=== PATIENT | male | born 1940 | race Caucasian/White ===

== ENCOUNTER → 2016-04-03 | Outpatient (CLI) | payer BC ==
[~2016-04-03] MED LIST: ASPI81TA28 PO; CLN150 PO; DUTA0.5C PO; DYZ PO; FENT50DI19 TD; FLM4 PO; FLNIN NAE; GABA1CAP4 PO; LPT40 PO; METO1TAB70 PO; OMEP20CA9 PO; OXYC-106 PO; OXYC-164 PO
--- NOTE | 2016-04-03 12:35 | DIAGNOSTIC IMAGING REPORT ---
LUMBAR SPINE 5 VIEWS HISTORY: Pain ACUTE LOW BACK PAIN COMPARISON: None. FINDINGS: There is no fracture. Minimal grade 1 anterolisthesis of L2 on L3. Findings consistent posterior laminectomy and fusion from L2 through L4. Hardware appears to be intact. Considerable degenerative intervertebral this changes from L2 through S1. IMPRESSION: Considerable degenerative change. Postoperative change consistent with posterior laminectomy and fusion L2-L4. No acute process. Electronically signed by: Jackson Mcclellan M.D. 04/03/2016 12:34 PM Dictated Date/Time: 04/03/2016 12:33 PM
== END | disposition home or self-care (01) ==
LOC: C.RAD1850 12:17
PROVIDERS: ATTEND Family Medicine
DX: M54.5 Low back pain (principal); Z98.1 Arthrodesis status

== ENCOUNTER → 2016-04-06 | Outpatient (CLI) | payer BC ==
--- NOTE | 2016-04-06 12:37 | DIAGNOSTIC IMAGING REPORT ---
CERVICAL SPINE 7 VIEWS HISTORY: Pain M54.2 COMPARISON: None. FINDINGS: The cervical spine is visualized from C1 through the superior endplate of T1. There is no fracture. No subluxation. Findings of an anterior fusion of the upper and mid cervical region. Alignment is considered anatomic. There is moderate degenerative intervertebral this changes throughout. Moderate osteophytic narrowing of the bulk of the neural foramina is noted bilaterally. Prevertebral soft tissues and the atlantodens interval are intact. IMPRESSION: Degenerative and postoperative change. No acute bony abnormality. Electronically signed by: Jackson Mcclellan M.D. 04/06/2016 12:36 PM Dictated Date/Time: 04/06/2016 12:34 PM
== END | disposition home or self-care (01) ==
LOC: C.RAD1850 12:18
PROVIDERS: ATTEND Family Medicine
DX: M54.2 Cervicalgia (principal)

== ENCOUNTER → 2016-05-16 | Outpatient (CLI) | payer BC | END | disposition home or self-care (01) | LOC: C.MAMM 13:53 | PROVIDERS: ATTEND Family Medicine | DX: I10 Essential (primary) hypertension (principal); E78.2 Mixed hyperlipidemia; M85.852 Other specified disorders of bone density and structure, left thigh; M85.839 Other specified disorders of bone density and structure, unspecified forearm ==

== ENCOUNTER → 2016-10-02 | Outpatient (CLI) | payer BC ==
--- NOTE | 2016-10-02 10:41 | DIAGNOSTIC IMAGING REPORT ---
RIGHT WRIST MIN 3 VIEWS ROUTINE CLINICAL HISTORY: Right wrist pain TRAUMA COMPARISON: None. DISCUSSION: The bones are osteopenic. No acute fractures or dislocations are visualized. There are no erosive changes. IMPRESSION: Osteopenia. No acute fractures. Electronically signed by: Torito Srivastava M.D. 10/02/2016 10:40 AM Dictated Date/Time: 10/02/2016 10:39 AM
--- NOTE | 2016-10-02 11:11 | DIAGNOSTIC IMAGING REPORT ---
C-SPINE ROUTINE 4 OR 5 VIEWS CLINICAL HISTORY: Headache. COMPARISON STUDY: Cervical spine radiographs April 06, 2016. FINDINGS: The patient is status post C3-C5 anterior discectomy and fusion. Postoperative appearance is similar to prior exam with reversal of the normal cervical lordosis. There is lucency surrounding the screws at the C3 level. Hardware is intact. There is no acute cervical spine fracture. There is moderate to severe multilevel degenerative disc disease and facet arthrosis. This results in severe multilevel bony neural foraminal stenosis. IMPRESSION: 1. Status post C3-C5 anterior discectomy and fusion. Lucency surrounding the C3 screws may reflect loosening. 2. Unchanged appearance of the cervical spine since prior exam. No acute fracture. Reversal of the normal cervical lordosis with moderate to severe multilevel degenerative disc disease and facet arthrosis. Electronically signed by: Aureliano Aguilar M.D. 10/02/2016 11:10 AM Dictated Date/Time: 10/02/2016 11:05 AM
== END | disposition home or self-care (01) ==
LOC: C.RAD1850 10:08
PROVIDERS: ATTEND Family Medicine
DX: M25.531 Pain in right wrist (principal); R51 Headache

== ENCOUNTER → 2017-04-03 | Outpatient (CLI) | payer BC ==
[~2017-04-03] MED LIST changes: +GABA-1219 PO; -GABA1CAP4 PO; -METO1TAB70 PO; +METO200T31 PO
--- NOTE | 2017-04-03 14:36 | DIAGNOSTIC IMAGING REPORT ---
PELVIS 1 OR 2 VIEW ROUTINE CLINICAL HISTORY: LEFT ISCHIAL PAIN COMPARISON STUDY: No previous studies for comparison. FINDINGS: There are postsurgical changes present within the spine. There are degenerative changes present within the lower lumbar spine. No acute fractures are visualized. There are calcifications within the left acetabular labrum. The joint spaces of each hip appear relatively well preserved for age. IMPRESSION: 1. Degenerative postsurgical changes of the spine 2. No acute fractures. The joint space of each hip appears relatively well preserved for age Electronically signed by: Torito Srivastava M.D. 04/03/2017 2:34 PM Dictated Date/Time: 04/03/2017 2:33 PM
== END | disposition home or self-care (01) ==
LOC: C.RAD1850 13:58
PROVIDERS: ATTEND Family Medicine
DX: M25.552 Pain in left hip (principal); Z88.7 Allergy status to serum and vaccine

== ENCOUNTER → 2017-06-13 | Outpatient (CLI) | payer BC ==
--- NOTE | 2017-06-13 16:32 | DIAGNOSTIC IMAGING REPORT ---
R KNEE 2 VIEWS ROUTINE CLINICAL HISTORY: M25.569 RIGHT KNEE PAIN COMPARISON: 08/03/2015 DISCUSSION: The bones are mildly osteopenic. There are no acute fractures. There are very mild osteoarthritic changes with minimal medial joint compartment narrowing and moderate degenerative changes within the patellofemoral joint. IMPRESSION: Minor osteoarthritic change. No acute fractures. Electronically signed by: Torito Srivastava M.D. 06/13/2017 4:31 PM Dictated Date/Time: 06/13/2017 4:30 PM
--- NOTE | 2017-06-13 16:34 | DIAGNOSTIC IMAGING REPORT ---
L KNEE 2 VIEWS ROUTINE CLINICAL HISTORY: M25.569 LEFT KNEE PAIN COMPARISON: None. DISCUSSION: The bones are osteopenic. There are very mild osteoarthritic changes present with moderate medial joint compartment narrowing and small dorsal patellar spurs. Fragmentation of the anterior tibial tuberosity is felt to be chronic. There is mild soft tissue swelling at the level of the anterior tibial tuberosity IMPRESSION: 1. Osteopenia 2. No acute fractures 3. Mild osteophytic change 4. Mild soft tissue swelling at the level of the anterior tibial tuberosity Electronically signed by: Torito Srivastava M.D. 06/13/2017 4:32 PM Dictated Date/Time: 06/13/2017 4:31 PM
--- NOTE | 2017-06-13 16:54 | DIAGNOSTIC IMAGING REPORT ---
BILATERAL STANDING AP VIEWS OF THE KNEES CLINICAL HISTORY: Bilateral knee pain COMPARISON: None. DISCUSSION: The bones are osteopenic. There is minor medial joint compartment narrowing. There are no fractures. There are no erosive or destructive changes. IMPRESSION: Osteopenia. Minor medial joint compartment narrowing. Electronically signed by: Torito Srivastava M.D. 06/13/2017 4:53 PM Dictated Date/Time: 06/13/2017 4:52 PM
== END | disposition home or self-care (01) ==
LOC: C.RAD1850 15:42
PROVIDERS: ATTEND Family Medicine
DX: M25.569 Pain in unspecified knee (principal); M85.88 Other specified disorders of bone density and structure, other site

== ENCOUNTER → 2017-06-19 | Outpatient (CLI) | payer BC ==
[~2017-06-19] MED LIST changes: -OXYC-106 PO; +OXYC10TA80 PO
--- NOTE | 2017-06-19 15:45 | DIAGNOSTIC IMAGING REPORT ---
RIGHT LOWER EXTREMITY VENOUS DOPPLER CLINICAL HISTORY: Right calf pain. COMPARISON STUDY: No previous studies for comparison. TECHNIQUE: Sonography of the deep venous system of the right lower extremity was performed. Compression and augmentation were evaluated. FINDINGS: The right common femoral, superficial femoral and popliteal veins were compressible. Augmentation was normal. Flow was shown within the deep calf vessels. Note is made of a 19.4 x 2 x 4.6 cm elongated hypoechoic abnormality of the right calf. This contains no color flow. The appearance favors a hematoma which may be subfascial in location. IMPRESSION: 1. No evidence of deep venous thrombus within the right lower extremity. 2. 19.4 x 2 x 4.6 cm elongated complex fluid collection of the right mid to distal calf which may be subfascial in location. This favors a hematoma. A follow-up ultrasound in 2 months to ensure resolution is recommended. Electronically signed by: Aureliano Aguilar M.D. 06/19/2017 3:44 PM Dictated Date/Time: 06/19/2017 3:40 PM
== END | disposition home or self-care (01) ==
LOC: C.ULTRBC 15:08
PROVIDERS: ATTEND Family Medicine
DX: M79.661 Pain in right lower leg (principal)

== ENCOUNTER 2017-06-21 11:23 | Emergency (ER) | payer BC ==
[~2017-06-21] VITALS: Ht 177.8 cm; Wt 90.4 kg
[2017-06-21 11:40] VITALS: TEMP 36.8; Ht 177.8 cm; Wt 90.4 kg
--- NOTE | 2017-06-21 12:20 | EMERGENCY ROOM VISIT NOTE ---
History Report prepared by Merari: Michael Perry Under the Supervision of: Dr. Sarabjit Baez M.D. First contact with patient: 11:49 Chief Complaint: INFECTION Stated Complaint: LOWER RT LEG SWOLLEN Nursing Triage Summary: Patient reports pain in right lower leg. Started about 2 weeks ago. No break in skin. Denies injury to leg. History of Present Illness The patient is a 76 year old male who presents to the Emergency Room with complaints of worsening right leg swelling for the past week. The patient states that he had an ultrasound done two days ago, and it was negative for a blood clot. He notes that the swelling has not gotten any worse, though it has had a change in color on the back of his leg. The patient states that the swelling started at his right knee, and then it went to his foot and thigh. He reports that he has some pain in the back of his knee. He denies any recent falls or injuries, fever, chills, cough, congestion, nausea, vomiting, or diarrhea. The patient states that he is not on any blood thinners or water pills. He states that prior to a week ago his leg looked similar to his left leg. Per the , the patient had a cyst behind the right knee on the ultrasound, and he has to evaluated by an orthopedist. Source of History: patient, spouse/significant other Onset: a week ago Position: leg (right) Quality: other (swelling) Timing: worsening Associated Symptoms: No fevers, No chills, No cough, No nausea, No vomiting , No diarrhea Review of Systems See HPI for pertinent positives and negatives. A total of ten systems were reviewed and were otherwise negative. Past Medical & Surgical Medical Problems: (1) CERV SPONDYL W MYELOPATH (2) ESOPHAGEAL REFLUX (3) HYPERLIPIDEMIA NEC/NOS (4) HYPERTENSION NOS (5) SPINAL STENOSIS-LUMBAR Family History Cancer Diabetes mellitus Heart disease Hypertension Social History Smoking Status: Never Smoker Marital Status: Housing Status: lives with family Current/Historical Medications Scheduled Aspirin (Aspirin Ec), 81 MG PO QAM Atorvastatin (Lipitor), 40 MG PO HS Cephalexin Monohydrate (Keflex), 500 MG PO QID Cholecalciferol (D-5000), 5,000 UNITS PO DAILY Docusate Sodium (Colace), 100 MG PO BID Fentanyl (Fentanyl), 25 MCG TD [id number] Gabapentin (Gabapentin), 600 MG PO QID Ibuprofen (Advil), 800 MG PO DAILY Lidocaine (Lidocaine), 1 PATCH TOP DAILY Metoprolol Succ (Toprol Xl) (Toprol-Xl ), 100 MG PO DAILY Misc Natural Products (Saw [place]), 1 CAP PO DAILY Multivitamin (Multivitamin), 1 TAB PO DAILY Omeprazole (Prilosec), 20 MG PO DAILY Sennosides-Docusate Sodium (Senna S), 2 TABS PO BID Sulindac (Sulindac), 150 MG PO BID Tamsulosin Hcl (Flomax), 0.8 MG PO DAILY Scheduled PRN Fluticasone Propionate (Nasal) (Flonase Allergy Relief Ch), 1 SPRAY ROLANDO BID PRN for allergy symptoms Lorazepam (Ativan), 0.5 MG PO QID PRN for Anxiety Tramadol (Ultram), 50 MG PO Q4 PRN for Pain Allergies Coded Allergies: Pneumococcal Polysaccharides (Verified Allergy, Severe, SHORTNESS OF BREATH, chest tightness, 06/21/17) Physical Exam Vital Signs Date Time Temp Pulse Resp B/P (MAP) Pulse Ox O2 Delivery O2 Flow Rate FiO2 06/21/17 13:45 56 173/85 98 Room Air 06/21/17 12:36 59 06/21/17 11:40 36.8 58 17 161/83 96 Room Air Physical Exam GENERAL: Awake, alert, well-appearing, in no distress HENT: Normocephalic, atraumatic. Oropharynx unremarkable. EYES: Normal conjunctiva. Sclera non-icteric. NECK: Supple. No nuchal rigidity. FROM. No JVD. RESPIRATORY: Clear to auscultation. CARDIAC: Regular rate, normal rhythm. Extremities warm and well perfused. Pulses equal. ABDOMEN: Soft, non-distended. No tenderness to palpation. No rebound or guarding. No masses. RECTAL: Deferred. MUSCULOSKELETAL: Chest examination reveals no tenderness. The back is symmetrical on inspection without obvious abnormality. There is no CVA tenderness to palpation. No joint edema. LOWER EXTREMITIES: 2+ lower extremity edema in the right lower extremity. Mild tenderness in the posterior lower right leg. Mild erythema and petechiae of the deep tendon area of the posterior right leg. NEURO: Normal sensorium. No sensory or motor deficits noted. SKIN: No rash or jaundice noted. Medical Decision & Procedures ER Provider Diagnostic Interpretation: Radiology results as stated below per my review and radiologist interpretation: RIGHT TIBIA AND FIBULA 2 VIEWS CLINICAL HISTORY: Right leg pain. FINDINGS: AP and lateral views of the right tibia and fibula are correlated with radiograph of the right knee dated 06/13/2017. The skeletal structures are osteopenic. No fracture is seen. There is no bony erosion or periostitis. The knee and ankle joints are grossly maintained. Soft tissue edema is present throughout the calf. There is atherosclerotic calcification of the regional arteries. IMPRESSION: Soft tissue edema with no acute bony abnormality seen involving the right tibia or fibula. Electronically signed by: Sudhakar Hubbard M.D. 06/21/2017 12:37 PM Dictated Date/Time: 06/21/2017 12:35 PM Laboratory Results 06/21/17 13:05 Red Blood Count 4.75, Mean Corpuscular Volume 86.5, Mean Corpuscular Hemoglobin 29.7, Mean Corpuscular Hemoglobin Concent 34.3, Mean Platelet Volume 11.2, Neutrophils (%) (Auto) 62.5, Lymphocytes (%) (Auto) 24.3, Monocytes (%) (Auto) 7.7, Eosinophils (%) (Auto) 4.9, Basophils (%) (Auto) 0.4, Neutrophils # (Auto) 3.47, Lymphocytes # (Auto) 1.35, Monocytes # (Auto) 0.43, Eosinophils # (Auto) 0.27, Basophils # (Auto) 0.02 06/21/17 13:05 Test 06/21/17 13:05 White Blood Count 5.55 K/uL (4.8-10.8) Red Blood Count 4.75 M/uL (4.7-6.1) Hemoglobin 14.1 g/dL (14.0-18.0) Hematocrit 41.1 % (42-52) Mean Corpuscular Volume 86.5 fL (80-100) Mean Corpuscular Hemoglobin 29.7 pg (25-34) Mean Corpuscular Hemoglobin Concent 34.3 g/dl (32-36) Platelet Count 176 K/uL (130-400) Mean Platelet Volume 11.2 fL (7.4-10.4) Neutrophils (%) (Auto) 62.5 % Lymphocytes (%) (Auto) 24.3 % Monocytes (%) (Auto) 7.7 % Eosinophils (%) (Auto) 4.9 % Basophils (%) (Auto) 0.4 % Neutrophils # (Auto) 3.47 K/uL (1.4-6.5) Lymphocytes # (Auto) 1.35 K/uL (1.2-3.4) Monocytes # (Auto) 0.43 K/uL (0.11-0.59) Eosinophils # (Auto) 0.27 K/uL (0-0.5) Basophils # (Auto) 0.02 K/uL (0-0.2) RDW Standard Deviation 42.0 fL (36.4-46.3) RDW Coefficient of Variation 13.1 % (11.5-14.5) Immature Granulocyte % (Auto) 0.2 % Immature Granulocyte # (Auto) 0.01 K/uL (0.00-0.02) Prothrombin Time 10.1 SECONDS (9.0-12.0) Prothromb Time International Ratio 1.0 (0.9-1.1) Activated Partial Thromboplast Time 25.4 SECONDS (21.0-31.0) Partial Thromboplastin Ratio 1.0 Anion Gap 3.0 mmol/L (3-11) Est Creatinine Clear Calc Drug Dose 72.5 ml/min Estimated GFR () 86.5 Estimated GFR (Non- 74.6 BUN/Creatinine Ratio 19.3 (10-20) Calcium Level 9.0 mg/dl (8.5-10.1) Total Bilirubin 0.7 mg/dl (0.2-1) Direct Bilirubin 0.2 mg/dl (0-0.2) Aspartate Amino Transf (AST/SGOT) 18 U/L (15-37) Alanine Aminotransferase (ALT/SGPT) 22 U/L (12-78) Alkaline Phosphatase 175 U/L (45-117) Total Protein 6.6 gm/dl (6.4-8.2) Albumin 3.0 gm/dl (3.4-5.0) Lipase 100 U/L (73-393) Laboratory results reviewed by me Medications Administered Medications (Trade) Dose Ordered Sig/[place]aston Route Start Time Stop Time Status Last Admin Dose Admin Cephalexin Monohydrate (Keflex Cap) 500 mg NOW STAT PO 06/21/17 13:58 06/21/17 13:59 DC 06/21/17 14:24 500 MG ED Course 1149: The patient was evaluated in room A10. A complete history and physical exam was performed. 1404: I reevaluated the patient. Discussed results and discharge instructions: he verbalized understanding and agreement. The patient is ready for discharge. Medical Decision I reviewed the patient's past medical history, medications, and the nursing notes as described above. Differential diagnosis: Etiologies such as cellulitis, abscess, MRSA infection, DVT, necrotizing fasciitis, dermatitis, drug eruption, as well as others were entertained. The patient is a 76 y/o gentleman who presents to the emergency department with RLE swelling, pain, and redness per HPI. Of note, patient had Duplex on 06/19 negative for DVT but demonstrated complex fluid collection. Patient was referred for orthopedics f/u and has an appointment for tomorrow. On arrival, the patient is well-appearing in NAD, AFVSS. On exam the patient has 2+LE edema in the RLE with mild warmth and erythema/scattered petechiae on posterior aspect /dependent region of lower leg. WBC, platelets, and coags wnl. Bedside US performed to further evaluated previously identified fluid collection and cystic fluid collection identified in the popliteal fossa that appears to communicate with more distal fluid collection. No color flow doppler in/or surrounding therefore not a vascular structure and unlikely to be abscess. Most likely c/w ruptured Tello's Cyst. While erythema likely related to pressure from edema and dependent aspect leg, warmth does raise possible of infection. Thus, will treat with Keflex for now. Patient has appropriate f/u tomorrow with orthopedics. Findings and plan for follow-up reviewed with patient. Patient agreeable and d/c'd per discharge instructions. Medication Reconcilliation Current Medication List: was personally reviewed by me Blood Pressure Screening Patient's blood pressure: Elevated blood pressure Blood pressure disposition: Referred to PCP Impression Primary Impression: Cellulitis Additional Impression: Ruptured Bakers cyst Scribe Attestation The scribe's documentation has been prepared under my direction and personally reviewed by me in its entirety. I confirm that the note above accurately reflects all work, treatment, procedures, and medical decision making performed by me. Departure Information Dispostion Home / Self-Care Prescriptions Cephalexin Monohydrate (KEFLEX) 500 Mg Cap 500 MG PO QID for 7 Days, #28 CAP Prov: Sarabjit Baez M.D. 06/21/17 Referrals Fred Tello M.D. (PCP) Forms HOME CARE DOCUMENTATION FORM, IMPORTANT VISIT INFORMATION, WORK / SCHOOL INSTRUCTIONS Patient Instructions ED Cyst Omer, ED Infec Skin Cellulitis, ED RICE, My [facility] Additional Instructions Please follow up with your orthopedist tomorrow as scheduled for re-evaluation. You likely have a ruptured cyst with the possibility of superimposed skin infection. Otherwise, your exam, lab results, and xray did not show signs of an emergent condition at this time. Acetaminophen or ibuprofen for pain and fevers as needed. Keflex as directed. RICE therapy. Drink plenty of fluids to ensure hydration. Return to the emergency department for worsening symptoms as described in the accompanying instructions. Problem Qualifiers
[2017-06-21] MEDS ORDERED: LORA-741 PO (12:28)
[2017-06-21] MEDS ORDERED: IBUP-1050 PO (12:28)
[2017-06-21] MEDS ORDERED: CHOLTAB11 PO (12:29)
[2017-06-21] MEDS ORDERED: ATOR-24 PO (12:29)
[2017-06-21] MEDS ORDERED: DOCU-94 PO (12:37)
[2017-06-21] MEDS ORDERED: NRN600 PO (12:37)
[2017-06-21] MEDS ORDERED: CLN150 PO (12:37)
[2017-06-21] MEDS ORDERED: TRAM-10 PO (12:37)
[2017-06-21] MEDS ORDERED: DRGTP25 TD (12:37)
[2017-06-21] MEDS ORDERED: METO100T44 PO (12:37)
[2017-06-21] MEDS ORDERED: FLUT1SPR12 NAE (12:37)
[2017-06-21] MEDS ORDERED: MISC1CAP60 PO (12:37)
[2017-06-21] MEDS ORDERED: MULT-506 PO (12:37)
[2017-06-21] MEDS ORDERED: SENN-91 PO (12:37)
[2017-06-21] MEDS ORDERED: TAMS0.4C38 PO (12:37)
[2017-06-21] MEDS ORDERED: LDDP5 TOP (12:37)
[2017-06-21] MEDS ORDERED: PRLSR20 PO (12:37)
--- NOTE | 2017-06-21 12:38 | DIAGNOSTIC IMAGING REPORT ---
RIGHT TIBIA AND FIBULA 2 VIEWS CLINICAL HISTORY: Right leg pain. FINDINGS: AP and lateral views of the right tibia and fibula are correlated with radiograph of the right knee dated 06/13/2017. The skeletal structures are osteopenic. No fracture is seen. There is no bony erosion or periostitis. The knee and ankle joints are grossly maintained. Soft tissue edema is present throughout the calf. There is atherosclerotic calcification of the regional arteries. IMPRESSION: Soft tissue edema with no acute bony abnormality seen involving the right tibia or fibula. Electronically signed by: Sudhakar Hubbard M.D. 06/21/2017 12:37 PM Dictated Date/Time: 06/21/2017 12:35 PM
[2017-06-21 13:20] LABS: BASO % 0.4 %; BASO ABS # 0.02 K/uL (0-0.2); EOS % 4.9 %; EOS ABS # 0.27 K/uL (0-0.5); HEMATOCRIT 41.1 % (42-52); HEMOGLOBIN 14.1 g/dL (14.0-18.0); IG# 0.01 K/uL (0.00-0.02); LYMPH % 24.3 %; LYMPH ABS # 1.35 K/uL (1.2-3.4); MEAN CELL VOLUME 86.5 fL (80-100); MEAN CORPUSCULAR HEMOGLOBIN 29.7 pg (25-34); MEAN CORPUSCULAR HGB CONC 34.3 g/dl (32-36); MEAN PLATELET VOLUME 11.2 fL (7.4-10.4); MONO % 7.7 %; MONO ABS # 0.43 K/uL (0.11-0.59); NEUT % 62.5 %; NEUT ABS # 3.47 K/uL (1.4-6.5); PLATELET COUNT 176 K/uL (130-400); RED CELL DISTRIBUTION WIDTH CV 13.1 % (11.5-14.5); WHITE BLOOD COUNT 5.55 K/uL (4.8-10.8)
[2017-06-21 13:30] LABS: PTT PATIENT 25.4 SECONDS (21.0-31.0)
[2017-06-21 13:35] LABS: CREATININE 0.98 mg/dl (0.60-1.40); POTASSIUM 4.1 mmol/L (3.5-5.1)
[2017-06-21 13:37] LABS: TOTAL PROTEIN 6.6 gm/dl (6.4-8.2)
[2017-06-21 13:45] VITALS: BP 173/85; PULSE 56; O2SAT 98
[2017-06-21] MEDS ORDERED: CEPH500C2 PO (13:58)
[2017-06-21] MEDS ORDERED: CEPHALEXIN MONOHYDRATE 250 MG CAP PO STA (13:58)
== END 2017-06-21 14:15 | disposition home or self-care (01) ==
LOC: C.EDB 11:24 → C.EDA 14:15
DX: L03.115 Cellulitis of right lower limb (principal); M66.0 Rupture of popliteal cyst; I10 Essential (primary) hypertension; E78.5 Hyperlipidemia, unspecified; K21.9 Gastro-esophageal reflux disease without esophagitis; Z79.82 Long term (current) use of aspirin; Z79.1 Long term (current) use of non-steroidal anti-inflammatories (NSAID); Z79.899 Other long term (current) drug therapy; Z88.7 Allergy status to serum and vaccine

== ENCOUNTER 2017-07-15 15:07 | Observation (INO) | payer BC ==
[~2017-07-15] VITALS: Ht 177.8 cm; Wt 88.3 kg
[~2017-07-15 15:07] MED LIST changes: +ATOR-24 PO; +CHOLTAB11 PO; +DOCU-94 PO; +DRGTP25 TD; -DUTA0.5C PO; -DYZ PO; -FENT50DI19 TD; -FLM4 PO; -FLNIN NAE; +FLUT1SPR12 NAE; -GABA-1219 PO; +IBUP-1050 PO; +LDDP5 TOP; +LORA-741 PO; -LPT40 PO; +METO100T44 PO; -METO200T31 PO; +MISC1CAP60 PO; +MULT-506 PO; +NRN600 PO; -OMEP20CA9 PO; -OXYC-164 PO; -OXYC10TA80 PO; +PRLSR20 PO; +SENN-91 PO; +TAMS0.4C38 PO; +TRAM-10 PO
--- NOTE | 2017-07-15 15:54 | EMERGENCY ROOM VISIT NOTE ---
History Report prepared by Merari: Rajiv Mishra Under the Supervision of: Dr. Josef Mathis M.D. First contact with patient: 15:29 Chief Complaint: DIZZY Stated Complaint: DIZZY, HAS FALLEN DOWN TWICE History of Present Illness The patient is a 76 year old male who presents to the Emergency Room with complaints of resolved dizziness that started two days ago. He describes his dizziness as "the room spinning". The patient states he became nauseous when he first developed the dizziness. He reports that he has fallen twice, two days ago and yesterday, due to the dizziness. The patient states he did hit his head during one of the falls. He reports that he did take Meclizine today for his symptoms, but denies any relief. He reports that he saw Cullen JIMÉNEZ today who told the patient to come to the ED. The patient states he is currently not dizzy. He denies blood thinner medications, new back pain, chest pain, shortness of breath, abdominal pain, vomiting, fatigue, and diarrhea. Source of History: patient Onset: two days ago Position: other (global) Quality: other (room spinning) Timing: resolved Modifying Factors (Relieving): other (Meclizine) Associated Symptoms: + nausea, No chest pain, No SOB, No vomiting, No abdominal pain, No back pain, No diarrhea, No fatigue Review of Systems See HPI for pertinent positives and negatives. A total of ten systems were reviewed and were otherwise negative. Past Medical & Surgical Medical Problems: (1) CERV SPONDYL W MYELOPATH (2) ESOPHAGEAL REFLUX (3) HYPERLIPIDEMIA NEC/NOS (4) HYPERTENSION NOS (5) SPINAL STENOSIS-LUMBAR Family History Cancer Diabetes mellitus Heart disease Hypertension Social History Smoking Status: Never Smoker Marital Status: Housing Status: lives with family Current/Historical Medications Scheduled Aspirin (Aspirin Ec), 81 MG PO QAM Atorvastatin (Lipitor), 40 MG PO HS Cholecalciferol (D-5000), 5,000 UNITS PO DAILY Docusate Sodium (Colace), 100 MG PO BID Fentanyl (Fentanyl), 25 MCG TD [id number] Gabapentin (Gabapentin), 600 MG PO QID Hydrochlorothiazide (Hydrochlorothiazide), 1 TAB PO DAILY Ibuprofen (Advil), 800 MG PO DAILY Lidocaine (Lidocaine), 1 PATCH TOP DAILY Meclizine Hcl (Meclizine Hcl), 1 TAB PO TID Metoprolol Succ (Toprol Xl) (Toprol-Xl ), 100 MG PO DAILY Misc Natural Products ([place]), 1 CAP PO DAILY Multivitamin (Multivitamin), 1 TAB PO DAILY Omeprazole (Prilosec), 20 MG PO DAILY Sennosides-Docusate Sodium (Senna S), 2 TABS PO BID Sulindac (Sulindac), 150 MG PO BID Tamsulosin Hcl (Flomax), 0.8 MG PO DAILY Scheduled PRN Fluticasone Propionate (Nasal) (Flonase Allergy Relief ), 1 SPRAY ROLANDO BID PRN for allergy symptoms Lorazepam (Ativan), 0.5 MG PO QID PRN for Anxiety Tramadol (Ultram), 50 MG PO Q4 PRN for Pain Miscellaneous Medications Acetaminophen Tab (Tylenol), 325 MG PO Allergies Coded Allergies: Pneumococcal Polysaccharides (Verified Allergy, Severe, SHORTNESS OF BREATH, chest tightness, 06/21/17) Physical Exam Vital Signs Date Time Temp Pulse Resp B/P (MAP) Pulse Ox O2 Delivery O2 Flow Rate FiO2 07/15/17 18:52 52 14 174/86 97 Room Air 07/15/17 16:58 52 14 162/82 97 Room Air 07/15/17 16:23 55 18 168/86 97 Room Air 07/15/17 15:26 36.8 56 18 155/78 98 Room Air Physical Exam Physical Exam GENERAL: He is oriented to person, place, and time. He appears well-developed and well-nourished. He does not appear distressed. ____ HENT: Exam performed. Head: Normocephalic and atraumatic. Right Ear: External ear normal. No mastoid tenderness. Left Ear: External ear normal. No mastoid tenderness. Mouth/Throat: The oropharynx is clear and moist. No trismus in the jaw. No dental abscesses or uvula swelling. No oropharyngeal exudate or tonsillar abscesses. ____ EYES: Conjunctivae and EOM are normal. Pupils are equal, round, and reactive to light. Right eye exhibits no discharge. Left eye exhibits no discharge. No scleral icterus. No nystagmus. ____ NECK: Normal range of motion. Neck supple. No JVD present. No spinous process tenderness present. No carotid bruit present. No rigidity. No tracheal deviation and normal range of motion present. No Brudzinski's sign and no Kernig 's sign noted. ____ CV: Normal rate, regular rhythm, normal heart sounds and intact distal pulses. There is no peripheral edema. Palpable radial pulses bue. ____ PULM/CHEST: Effort normal and breath sounds normal. No respiratory distress. No stridor. He has no wheezes. He has no rales. Chest Wall: He exhibits no tenderness. ____ ABD: The abdomen is soft. Bowel sounds are normal. He has no distension. No mass is present. There is no tenderness. There is no rebound, no guarding, no Reece's sign and no tenderness at McBurney's point. Rovsig negative MUSC/SKEL: Normal range of motion. There is no peripheral edema, tenderness or deformity. LYMPH: No cervical adenopathy. ____ NEURO: He is alert and oriented to person, place, and time. He has normal strength. No cranial nerve deficit or sensory deficit. Coordination ataxic gait normal. GCS eye subscore is 4. GCS verbal subscore is 5. GCS motor subscore is 6. Cerebellar tests wnl. ____ SKIN: Skin is warm and dry. He is not diaphoretic. ____ PSYCH: He has a normal mood and affect. His behavior is normal. Judgment and thought content normal. ____ Medical Decision & Procedures ER Provider Diagnostic Interpretation: Radiology results as stated below per my review and radiologist interpretation: HEAD CT NONCONTRAST CT DOSE: 537.48 mGy.cm HISTORY: dizziness TECHNIQUE: Multiaxial CT images of the head were performed without the use of intravenous contrast. Automated exposure control was utilized for this study. A dose lowering technique was utilized adhering to the principles of ALARA. Comparison: Head CT 09/18/2013. Findings: Partial opacification of the posterior ethmoid air cells. The mastoid air cells are clear. The calvarium and skull base are intact. There is no mass, hematoma, midline shift, acute infarct. White matter hypodensity is nonspecific but suggestive of microvascular ischemic change. The ventricles and sulci demonstrate mild age-related involutional changes. Impression: No acute intracranial abnormality. Atrophy and microvascular ischemic changes. Electronically signed by: Aba Richards M.D. 07/15/2017 4:29 PM Dictated Date/Time: 07/15/2017 4:27 PM HEAD CTA HISTORY: Dizziness. TECHNIQUE: Multiaxial CT images of the head were performed both after the intravenous administration of contrast to evaluate the major cerebral vessels. Maximum intensity projection images were also obtained. A dose lowering technique was utilized adhering to the principles of ALARA. COMPARISON: Head CT 07/15/2017. FINDINGS: There is no mass, hematoma, midline shift, or acute infarct. Visualized intracranial internal carotid arteries, distal vertebral arteries, and basilar artery are widely patent. There is no significant stenosis, occlusion, or aneurysm seen within the bilateral ACAs, MCAs, or conventions assistant. Persistent right posterior circulation as noted. This is considered to be a normal variant. IMPRESSION: No significant stenosis, occlusion, or aneurysm within the [place]. Electronically signed by: Aba Richards M.D. 07/15/2017 5:47 PM Dictated Date/Time: 07/15/2017 5:41 PM NECK CTA HISTORY: Dizziness. TECHNIQUE: Multiaxial CT images of the neck were performed following the intravenous administration of contrast to evaluate the major cervical vessels. Maximum intensity projection images were also obtained. All measurements were calculated based on NASCET criteria. A dose lowering technique was utilized adhering to the principles of ALARA. COMPARISON STUDY: None. FINDINGS: The aortic arch and proximal great vessels are widely patent. Mild calcified plaque within the bilateral carotid bifurcations. No significant venous stenosis, occlusion, or aneurysm within the bilateral common or internal carotid arteries. No cement stenosis seen within the right vertebral artery. There are 2 focal areas of approximately 60-70 % stenosis within the left vertebral artery at the C3 and C4 levels due to compression from the adjacent vertebral body osteophytes. C3-C5 anterior cervical discectomy and fusion. Calcified granuloma within the right lower lobe. Partial opacification of the ethmoid air cells. Mild mucosal thickening within the sphenoid sinuses and maxillary sinuses with a few small retention cysts. A few opacified bilateral inferior mastoid air cells. No fractures within the visualized osseous structures. IMPRESSION: No significant stenosis, occlusion, or dissection identified within the carotid arteries. There are 2 focal areas of probably 60-70% stenosis within the left vertebral artery at the C3 and C4 levels due to compression from the adjacent vertebral body osteophytes. Electronically signed by: Aba Richards M.D. 07/15/2017 5:56 PM Dictated Date/Time: 07/15/2017 5:47 PM Laboratory Results 07/15/17 16:00 Red Blood Count 4.85, Mean Corpuscular Volume 86.4, Mean Corpuscular Hemoglobin 29.5, Mean Corpuscular Hemoglobin Concent 34.1, Mean Platelet Volume 11.3, Neutrophils (%) (Auto) 52.5, Lymphocytes (%) (Auto) 32.9, Monocytes (%) (Auto) 6.7, Eosinophils (%) (Auto) 7.3, Basophils (%) (Auto) 0.4, Neutrophils # (Auto) 2.50, Lymphocytes # (Auto) 1.57, Monocytes # (Auto) 0.32, Eosinophils # (Auto) 0.35, Basophils # (Auto) 0.02 07/15/17 16:00 Test 07/15/17 16:00 White Blood Count 4.77 K/uL (4.8-10.8) Red Blood Count 4.85 M/uL (4.7-6.1) Hemoglobin 14.3 g/dL (14.0-18.0) Hematocrit 41.9 % (42-52) Mean Corpuscular Volume 86.4 fL (80-100) Mean Corpuscular Hemoglobin 29.5 pg (25-34) Mean Corpuscular Hemoglobin Concent 34.1 g/dl (32-36) Platelet Count 145 K/uL (130-400) Mean Platelet Volume 11.3 fL (7.4-10.4) Neutrophils (%) (Auto) 52.5 % Lymphocytes (%) (Auto) 32.9 % Monocytes (%) (Auto) 6.7 % Eosinophils (%) (Auto) 7.3 % Basophils (%) (Auto) 0.4 % Neutrophils # (Auto) 2.50 K/uL (1.4-6.5) Lymphocytes # (Auto) 1.57 K/uL (1.2-3.4) Monocytes # (Auto) 0.32 K/uL (0.11-0.59) Eosinophils # (Auto) 0.35 K/uL (0-0.5) Basophils # (Auto) 0.02 K/uL (0-0.2) RDW Standard Deviation 41.6 fL (36.4-46.3) RDW Coefficient of Variation 13.1 % (11.5-14.5) Immature Granulocyte % (Auto) 0.2 % Immature Granulocyte # (Auto) 0.01 K/uL (0.00-0.02) Anion Gap 5.0 mmol/L (3-11) Est Creatinine Clear Calc Drug Dose 57.1 ml/min Estimated GFR () 67.7 Estimated GFR (Non- 58.4 BUN/Creatinine Ratio 17.2 (10-20) Calcium Level 8.7 mg/dl (8.5-10.1) Troponin I < 0.015 ng/ml (0-0.045) Laboratory results reviewed by me Medications Administered Medications (Trade) Dose Ordered Sig/[place] Route Start Time Stop Time Status Last Admin Dose Admin Meclizine HCl (Antivert Tab) 25 mg NOW STAT PO 07/15/17 16:43 07/15/17 16:44 DC 07/15/17 16:54 25 MG ECG Per My Interpretation Indication: other (dizziness) Rate (beats per minute): 54 Rhythm: normal sinus Findings: other (NC QRS QTC wnl. No ST elevation or depression.) ED Course 154: The patient was evaluated in room B08. A complete history and physical exam was performed. 1641: I reevaluated the patient. He is still dizzy on trial of ambulation. He has difficulty with walking with his cane and is leaning towards his right side , continues to have ataxic gait. We will obtain a CT of the head and neck to visualize his vertebral arteries. 1642: Ordered Antivert Tab 25 mg PO. 1810: I discussed the patient's case with Dr. Matamoros, [facility]. He would like the patient admitted due to the patient's cerebellar deficits and possible posterior cerebellar stroke. He will evaluate the patient in the morning. 1906: Ordered Gabapentin 600 mg PO, Ultram Tab 50 mg PO, patient's home medications. 1905: I discussed the patients case with Dr. Valdivia, [facility] Hospitalist. He understands the patients condition and agrees to accept the patient. The patient will be further evaluated. Medical Decision 1541: The patient was evaluated in room B08. A complete history and physical exam was performed. 164: I reevaluated the patient. He is still dizzy on trial of ambulation. He has difficulty with walking with his cane and is leaning towards his right side , continues to have ataxic gait. We will obtain a CT of the head and neck to visualize his vertebral arteries. 1642: Ordered Antivert Tab 25 mg PO. 1810: I discussed the patient's case with Dr. Matamoros [facility] Neu[facility]. He would like the patient admitted due to the patient's cerebellar deficits and possible posterior cerebellar stroke. He will evaluate the patient in the morning. 1906: Ordered Gabapentin 600 mg PO, Ultram Tab 50 mg PO, patient's home medications. 1905: I discussed the patients case with Dr. Valdivia [facility] Hospitalist. He understands the patients condition and agrees to accept the patient. The patient will be further evaluated. Medication Reconcilliation Current Medication List: was personally reviewed by me Blood Pressure Screening Patient's blood pressure: Elevated blood pressure Referred to Hospitalist Consults Time Called: 1810 Consulting Physician: Dr. Fabian [facility] Returned Call: 1810 I discussed the patient's case with Dr. Matamoros [facility]. He would like the patient admitted due to the patient's cerebellar deficits. He will evaluate the patient in the morning. Additional Consults: Time Called: 1814 Consulted Physician: Dr. Valdivia [facility] Hospitalist Returned Call: 1814 Additional Comments: I discussed the patients case with Dr. Valdivia [facility] Hospitalist. He understands the patients condition and agrees to accept the patient. The patient will be further evaluated. Impression Primary Impression: Recurrent falls Additional Impressions: Dizziness Ataxia Scribe Attestation The scribe's documentation has been prepared under my direction and personally reviewed by me in its entirety. I confirm that the note above accurately reflects all work, treatment, procedures, and medical decision making performed by me. The chart was completed utilizing [employer] Speech voice recognition software. Grammatical errors, random word insertions, pronoun errors, and incomplete sentences are an occasional consequence of this system due to software limitations, ambient noise, and hardware issues. Any formal questions or concerns about the content, text, or information contained within the body of this dictation should be directly addressed to the physician for clarification. Departure Information Dispostion Being Evaluated By Hospitalist Referrals No Doctor, Assigned (PCP) Patient Instructions My [facility] Problem Qualifiers
[2017-07-15 16:12] LABS: BASO % 0.4 %; BASO ABS # 0.02 K/uL (0-0.2); EOS % 7.3 %; EOS ABS # 0.35 K/uL (0-0.5); HEMATOCRIT 41.9 % (42-52); HEMOGLOBIN 14.3 g/dL (14.0-18.0); IG# 0.01 K/uL (0.00-0.02); LYMPH % 32.9 %; LYMPH ABS # 1.57 K/uL (1.2-3.4); MEAN CELL VOLUME 86.4 fL (80-100); MEAN CORPUSCULAR HEMOGLOBIN 29.5 pg (25-34); MEAN CORPUSCULAR HGB CONC 34.1 g/dl (32-36); MEAN PLATELET VOLUME 11.3 fL (7.4-10.4); MONO % 6.7 %; MONO ABS # 0.32 K/uL (0.11-0.59); NEUT % 52.5 %; PLATELET COUNT 145 K/uL (130-400); RED CELL DISTRIBUTION WIDTH CV 13.1 % (11.5-14.5); RED CELL DISTRIBUTION WIDTH SD 41.6 fL (36.4-46.3); WHITE BLOOD COUNT 4.77 K/uL (4.8-10.8)
--- NOTE | 2017-07-15 16:30 | DIAGNOSTIC IMAGING REPORT ---
HEAD CT NONCONTRAST CT DOSE: 537.48 mGy.cm HISTORY: dizziness TECHNIQUE: Multiaxial CT images of the head were performed without the use of intravenous contrast. Automated exposure control was utilized for this study. A dose lowering technique was utilized adhering to the principles of ALARA. Comparison: Head CT 09/18/2013. Findings: Partial opacification of the posterior ethmoid air cells. The mastoid air cells are clear. The calvarium and skull base are intact. There is no mass, hematoma, midline shift, acute infarct. White matter hypodensity is nonspecific but suggestive of microvascular ischemic change. The ventricles and sulci demonstrate mild age-related involutional changes. Impression: No acute intracranial abnormality. Atrophy and microvascular ischemic changes. Electronically signed by: Aba Richards M.D. 07/15/2017 4:29 PM Dictated Date/Time: 07/15/2017 4:27 PM
[2017-07-15 16:35] LABS: BLOOD UREA NITROGEN 21 mg/dl (7-18); CALCIUM 8.7 mg/dl (8.5-10.1); CARBON DIOXIDE 29 mmol/L (21-32); GLUCOSE 92 mg/dl (70-99); POTASSIUM 4.2 mmol/L (3.5-5.1); SODIUM 140 mmol/L (136-145)
[2017-07-15] MEDS ORDERED: MECLIZINE HCL 25 MG TAB PO STA (16:43)
[2017-07-15] MEDS ORDERED: HYDR12.55 PO (16:56)
[2017-07-15] MEDS ORDERED: MECL1TAB42 PO (16:57)
[2017-07-15] MEDS ORDERED: ACET-1693 PO (16:57)
[2017-07-15] MEDS ORDERED: OPTIRAY 320 IV PRN (17:30)
--- NOTE | 2017-07-15 17:48 | DIAGNOSTIC IMAGING REPORT ---
HEAD CTA HISTORY: Dizziness. TECHNIQUE: Multiaxial CT images of the head were performed both after the intravenous administration of contrast to evaluate the major cerebral vessels. Maximum intensity projection images were also obtained. A dose lowering technique was utilized adhering to the principles of ALARA. COMPARISON: Head CT 07/15/2017. FINDINGS: There is no mass, hematoma, midline shift, or acute infarct. Visualized intracranial internal carotid arteries, distal vertebral arteries, and basilar artery are widely patent. There is no significant stenosis, occlusion, or aneurysm seen within the bilateral ACAs, MCAs, or fur puller. Persistent right posterior circulation as noted. This is considered to be a normal variant. IMPRESSION: No significant stenosis, occlusion, or aneurysm within the [place]. Electronically signed by: Aba Richards M.D. 07/15/2017 5:47 PM Dictated Date/Time: 07/15/2017 5:41 PM
--- NOTE | 2017-07-15 17:57 | DIAGNOSTIC IMAGING REPORT ---
NECK CTA HISTORY: Dizziness. TECHNIQUE: Multiaxial CT images of the neck were performed following the intravenous administration of contrast to evaluate the major cervical vessels. Maximum intensity projection images were also obtained. All measurements were calculated based on NASCET criteria. A dose lowering technique was utilized adhering to the principles of ALARA. COMPARISON STUDY: None. FINDINGS: The aortic arch and proximal great vessels are widely patent. Mild calcified plaque within the bilateral carotid bifurcations. No significant venous stenosis, occlusion, or aneurysm within the bilateral common or internal carotid arteries. No cement stenosis seen within the right vertebral artery. There are 2 focal areas of approximately 60-70 % stenosis within the left vertebral artery at the C3 and C4 levels due to compression from the adjacent vertebral body osteophytes. C3-C5 anterior cervical discectomy and fusion. Calcified granuloma within the right lower lobe. Partial opacification of the ethmoid air cells. Mild mucosal thickening within the sphenoid sinuses and maxillary sinuses with a few small retention cysts. A few opacified bilateral inferior mastoid air cells. No fractures within the visualized osseous structures. IMPRESSION: No significant stenosis, occlusion, or dissection identified within the carotid arteries. There are 2 focal areas of probably 60-70% stenosis within the left vertebral artery at the C3 and C4 levels due to compression from the adjacent vertebral body osteophytes. Electronically signed by: Aba Richards M.D. 07/15/2017 5:56 PM Dictated Date/Time: 07/15/2017 5:47 PM
[2017-07-15] MEDS ORDERED: TRAMADOL HCL 50 MG TAB PO STA (19:07)
[2017-07-15] MEDS ORDERED: GABAPENTIN 600 MG TAB PO STA (19:07)
[2017-07-15] MEDS ORDERED: ALUMINUM/MAGNESIUM/SIMETH (MAALOX MAX) 30 ML UDC PO PRN (19:45)
[2017-07-15] MEDS ORDERED: ACETAMINOPHEN 325 MG TAB PO PRN (19:45)
[2017-07-15] MEDS ORDERED: ONDANSETRON INJ 2 MG/ML 2 ML VIAL IV PRN (19:45)
[2017-07-15] MEDS ORDERED: LORAZEPAM 0.5 MG TAB PO PRN (19:45)
[2017-07-15] MEDS ORDERED: FLUTICASONE PROPIONATE NA SPR 16 GM BTL NAE PRN (19:45)
[2017-07-15] MEDS ORDERED: NITROGLYCERIN 0.4 MG SL PER TAB CHARGE SL PRN (19:45)
[2017-07-15] MEDS ORDERED: ZOLPIDEM TARTRATE 5 MG TAB PO PRN (19:45)
[2017-07-15] MEDS ORDERED: MAGNESIUM HYDROXIDE SUSP 30 ML UDC PO PRN (19:45)
[2017-07-15] MEDS ORDERED: POLYETHYLENE (MIRALAX) 17 GM PACK PO PRN (19:45)
[2017-07-15] MEDS ORDERED: IBUPROFEN 600 MG TAB PO PRN (19:45)
[2017-07-15] MEDS ORDERED: MoRPHine SULFATE 4 MG/ML 1 ML CARP\\VIAL IV PRN (19:45)
[2017-07-15 19:56] LABS: PTT PATIENT 25.7 SECONDS (21.0-31.0)
[2017-07-15] MEDS ORDERED: SODIUM CHLORIDE 0.9% 1000ML 1,000 ML IV ONE (20:15)
[2017-07-15] MEDS ORDERED: LORAZEPAM 2 MG/ML 1 ML VIAL IV STA (20:24)
--- NOTE | 2017-07-15 20:25 | History and Physical ---
History & Physical Date & Time of Service: July 15, 2017 at 19:43 Chief Complaint: Dizzy, Has Fallen Down Twice Primary Care Physician: Fred Tello M.D. History of Present Illness Source: patient, family () Pt is a 76M with a PMHx of back pain s/p laminectomy and fusion L2-L4, HTN p/w two days of dizziness. The dizziness started after he stood up and persisted throughout standing and sitting. The dizziness would last most of the day and there were no alleviating factors. The patient states that the 'room was spinning'. He also reports a sensation of lightheadedness. Denies having a FRAGOSO , denies any visual changes. The dizziness did make him fall twice, on one occasion striking his head but not losing consciousness. Pt has never had this before. Pt did take his 's meclizine without improvement. Pt has been using a cane for the past two days - he has never used a cane before. Patient denies SOB, chest pain, LOC, no N&T of his extremities, +RLE swelling x 1 month which he was seen in [facility] for, no vomiting, no diarrhea, +nauseas, no recent travel. Multiple tick bites but no rash. No fevers. Pt does not feel sick. PMHx: Recently admitted for R leg swelling, was told that he had a rupture Tello's Cyst by an orthopedic doctor. HTN - BP's are never as high as they are now. Pt doesn't check his BP at home. Denies ever seen a galley worker or neurologist. Present with who aids in the history. SHX: Never used tobacco. 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 (14) Nausea (15) Ruptured Bakers cyst (16) SPINAL STENOSIS-LUMBAR Family History Cancer Diabetes mellitus Heart disease Hypertension Social History Smoking Status: Never Smoker Smokeless Tobacco Use: No Alcohol Use: none Drug Use: none Marital Status: Housing status: lives with family Occupational Status: retired Immunizations History of Influenza Vaccine: Yes Influenza Vaccine Date: Oct 27, 2008 History of Tetanus Vaccine?: Yes Tetanus Immunization Date: Nov 27, 2007 History of Pneumococcal: No History of Hepatitis B Vaccine: Unknown Allergies Coded Allergies: Pneumococcal Polysaccharides (Verified Allergy, Severe, SHORTNESS OF BREATH, chest tightness, 06/21/17) Home Medications Scheduled Aspirin (Aspirin Ec), 81 MG PO QAM Atorvastatin (Lipitor), 40 MG PO HS Cholecalciferol (D-5000), 5,000 UNITS PO DAILY Docusate Sodium (Colace), 100 MG PO BID Fentanyl (Fentanyl), 25 MCG TD [id number] Gabapentin (Gabapentin), 600 MG PO QID Hydrochlorothiazide (Hydrochlorothiazide), 1 TAB PO DAILY Ibuprofen (Advil), 800 MG PO DAILY Lidocaine (Lidocaine), 1 PATCH TOP DAILY Meclizine Hcl (Meclizine Hcl), 1 TAB PO TID Metoprolol Succ (Toprol Xl) (Toprol-Xl ), 100 MG PO DAILY Misc Natural Products ([place]aw [place]), 1 CAP PO DAILY Multivitamin (Multivitamin), 1 TAB PO DAILY Omeprazole (Prilosec), 20 MG PO DAILY Sennosides-Docusate Sodium (Senna S), 2 TABS PO BID Sulindac (Sulindac), 150 MG PO BID Tamsulosin Hcl (Flomax), 0.8 MG PO DAILY Scheduled PRN Fluticasone Propionate (Nasal) (Flonase Allergy Relief Ch), 1 SPRAY ROLANDO BID PRN for allergy symptoms Lorazepam (Ativan), 0.5 MG PO QID PRN for Anxiety Tramadol (Ultram), 50 MG PO Q4 PRN for Pain Miscellaneous Medications Acetaminophen Tab (Tylenol), 325 MG PO Physical Exam Vital Signs Date Time Temp Pulse Resp B/P (MAP) Pulse Ox O2 Delivery O2 Flow Rate FiO2 07/15/17 18:52 52 14 174/86 97 Room Air 07/15/17 16:58 52 14 162/82 97 Room Air 07/15/17 16:23 55 18 168/86 97 Room Air 07/15/17 15:26 36.8 56 18 155/78 98 Room Air General Appearance: WD/WN, no apparent distress Head: normocephalic, atraumatic Eyes: normal inspection, PERRL, EOMI ENT: normal ENT inspection, pharynx normal Neck: supple, no adenopathy, no JVD, no carotid bruits Respiratory/Chest: chest non-tender, lungs clear, normal breath sounds, no respiratory distress, no accessory muscle use Cardiovascular: no gallop, no JVD, no murmur, normal peripheral pulses, + bradycardia Abdomen/GI: normal bowel sounds, non tender, soft, no organomegaly, no pulsatile mass Back: normal inspection, no CVA tenderness, no muscle spasm Extremities/Musculoskelatal: normal inspection, no calf tenderness, + swelling (2+ edema in the LLE) Neurologic/Psych: qc scientist II-XII nml as tested, no motor/sensory deficits, alert, normal mood/affect, normal reflexes, oriented x 3, + pertinent finding (no nystagmus, no changes in dizziness with [place]. ) Skin: normal color, no rash, + pertinent finding Diagnostics Laboratory Results Results Past 24 Hours Test 07/15/17 16:00 Range/Units White Blood Count 4.77 4.8-10.8 K/uL Red Blood Count 4.85 4.7-6.1 M/uL Hemoglobin 14.3 14.0-18.0 g/dL Hematocrit 41.9 42-52 % Mean Corpuscular Volume 86.4 80-100 fL Mean Corpuscular Hemoglobin 29.5 25-34 pg Mean Corpuscular Hemoglobin Concent 34.1 32-36 g/dl Platelet Count 145 130-400 K/uL Mean Platelet Volume 11.3 7.4-10.4 fL Neutrophils (%) (Auto) 52.5 % Lymphocytes (%) (Auto) 32.9 % Monocytes (%) (Auto) 6.7 % Eosinophils (%) (Auto) 7.3 % Basophils (%) (Auto) 0.4 % Neutrophils # (Auto) 2.50 1.4-6.5 K/uL Lymphocytes # (Auto) 1.57 1.2-3.4 K/uL Monocytes # (Auto) 0.32 0.11-0.59 K/uL Eosinophils # (Auto) 0.35 0-0.5 K/uL Basophils # (Auto) 0.02 0-0.2 K/uL RDW Standard Deviation 41.6 36.4-46.3 fL RDW Coefficient of Variation 13.1 11.5-14.5 % Immature Granulocyte % (Auto) 0.2 % Immature Granulocyte # (Auto) 0.01 0.00-0.02 K/uL Sodium Level 140 136-145 mmol/L Potassium Level 4.2 3.5-5.1 mmol/L Chloride Level 106 98-107 mmol/L Carbon Dioxide Level 29 21-32 mmol/L Anion Gap 5.0 3-11 mmol/L Blood Urea Nitrogen 21 7-18 mg/dl Creatinine 1.20 0.60-1.40 mg/dl Est Creatinine Clear Calc Drug Dose 57.1 ml/min Estimated GFR () 67.7 Estimated GFR (Non- 58.4 BUN/Creatinine Ratio 17.2 10-20 Random Glucose 92 70-99 mg/dl Calcium Level 8.7 8.5-10.1 mg/dl Troponin I < 0.015 0-0.045 ng/ml Diagnostic Radiology NECK CTA HISTORY: Dizziness. TECHNIQUE: Multiaxial CT images of the neck were performed following the intravenous administration of contrast to evaluate the major cervical vessels. Maximum intensity projection images were also obtained. All measurements were calculated based on NASCET criteria. A dose lowering technique was utilized adhering to the principles of ALARA. COMPARISON STUDY: None. FINDINGS: The aortic arch and proximal great vessels are widely patent. Mild calcified plaque within the bilateral carotid bifurcations. No significant venous stenosis, occlusion, or aneurysm within the bilateral common or internal carotid arteries. No cement stenosis seen within the right vertebral artery. There are 2 focal areas of approximately 60-70 % stenosis within the left vertebral artery at the C3 and C4 levels due to compression from the adjacent vertebral body osteophytes. C3-C5 anterior cervical discectomy and fusion. Calcified granuloma within the right lower lobe. Partial opacification of the ethmoid air cells. Mild mucosal thickening within the sphenoid sinuses and maxillary sinuses with a few small retention cysts. A few opacified bilateral inferior mastoid air cells. No fractures within the visualized osseous structures. IMPRESSION: No significant stenosis, occlusion, or dissection identified within the carotid arteries. There are 2 focal areas of probably 60-70% stenosis within the left vertebral artery at the C3 and C4 levels due to compression from the adjacent vertebral body osteophytes. HEAD CT NONCONTRAST CT DOSE: 537.48 mGy.cm HISTORY: dizziness TECHNIQUE: Multiaxial CT images of the head were performed without the use of intravenous contrast. Automated exposure control was utilized for this study. A dose lowering technique was utilized adhering to the principles of ALARA. Comparison: Head CT 09/18/2013. Findings: Partial opacification of the posterior ethmoid air cells. The mastoid air cells are clear. The calvarium and skull base are intact. There is no mass, hematoma, midline shift, acute infarct. White matter hypodensity is nonspecific but suggestive of microvascular ischemic change. The ventricles and sulci demonstrate mild age-related involutional changes. Impression: No acute intracranial abnormality. Atrophy and microvascular ischemic changes. HEAD CTA HISTORY: Dizziness. TECHNIQUE: Multiaxial CT images of the head were performed both after the intravenous administration of contrast to evaluate the major cerebral vessels. Maximum intensity projection images were also obtained. A dose lowering technique was utilized adhering to the principles of ALARA. COMPARISON: Head CT 07/15/2017. FINDINGS: There is no mass, hematoma, midline shift, or acute infarct. Visualized intracranial internal carotid arteries, distal vertebral arteries, and basilar artery are widely patent. There is no significant stenosis, occlusion, or aneurysm seen within the bilateral ACAs, MCAs, or associate program manager. Persistent right posterior circulation as noted. This is considered to be a normal variant. IMPRESSION: No significant stenosis, occlusion, or aneurysm within the [place] of [place]. EKG Sinus bradycardia Otherwise normal ECG Impression Assessment and Plan 76M with a PMHx of Back pain, HTN, recent rupture of a Tello's cyst p/w dizziness x [address] Head shows 2 focal areas of probably 60-70% stenosis within the left vertebral artery at the C3 and C4 levels due to compression from the adjacent vertebral body osteophytes. Will get brain MRI and test for Lyme serology due to tick bites. Dizziness 2/2 Lyme vs CVA Pt continues to be symptomatic. Pt is unsteady on feet otherwise no focal neurological deficits. Meclizine does not improve symptoms. Lyme serology shows positive IGG and IGM - will load with Ceftriaxone and then give 100mg PO BID Doxycycline. Unsure what to make of 60-70% stenosis of the left vertebral artery, will get MRI Brain Combo. Appreciate Neurology recommendations. c/w ASA daily. CV - EKG showed bradycardia. Trop neg x 1. Will repeat Trop x 1 and EKG in AM. Will admit to tele. Will get echocardiogram. RLE Swelling (x 1 month) Pt has seen an sharepoint specialist that stated that there is not much to do, suspect ruptured hemorrhagic ?Tello's cyst. US Duplex RLE 06/19/2017 showed 1. No evidence of deep venous thrombus within the right lower extremity. 2. 19.4 x 2 x 4.6 cm elongated complex fluid collection of the right mid to distal calf which may be subfascial in location. This favors a hematoma. A follow-up ultrasound in 2 months to ensure resolution is recommended. Consider repeat RLE if symptoms progress. Chronic Back Pain Continue home regimen - fentanyl patch, ibuprofen, ultram and Gabapentin. HTN Unusually high for Pt, will continue home meds & monitor. c/w Metoprolol Succ XL 100mg PO Daily. c/w HCTZ 25mg daily. HLD c/w Lipitor 40mg daily. BPH c/w Flomax 0.8 MG PO DAILY Diet: Heart Healthy diet. DVT Proph: Hep SQ BID, SCDs Social - No concerns. Dispo - OBS, Tele Pt has an appointment in [place] with a back specialist on Sunday. Full Code Attending addendum: I have physically seen this patient, have supervised the medical residents activities, and agree with the H&P unless as otherwise noted. Assessment and Plan: Intractable dizziness/ambulatory dysfunction/acute Lyme IgG and IgM with western blot confirmation pending-- The patient will be admitted to telemetry for serial cardiac enzymes, serial EKG's, cardiac rhythm monitoring and a 2-D echocardiogram with Dopplers. CT head was negative, CTA of head was negative, CTA of neck significant for 60- 70% left vertebral artery narrowings 2 secondary to cervical disc disease at C3 -4 level. Ordering MRI of brain without contrast. Continue aspirin 81 mg every morning. Would not change to clopidogrel at this time due to presumptive Lyme etiology. Begin empiric treatment for Lyme with ceftriaxone 2 g IV daily, and doxycycline 100 mg p.o. twice daily. Hypertension-- Continue current dosing of metoprolol succinate 100 mg p.o. daily and HCTZ 25 mg daily. Allow for permissive hypertension with systolic blood pressure up to 180. Peripheral neuropathy-- Continue gabapentin 600 mg p.o. 4 times daily. GERD--change omeprazole to pantoprazole. Chronic back pain-- Continue fentanyl patch, Ultram and gabapentin. Would not use NSAIDs in the setting of needing antiplatelet agents such as heparin or clopidogrel. BPH-- Continue tamsulosin 0.8 mg at bedtime. Advanced Directives Existing Advance Directive: No Existing Living Will: No Resuscitation Status VTE Prophylaxis Will order VTE Prophylaxis: Yes Social Service Consult None Apply Resident Involvement: Resident Care Provided Care Provided: Adult Hospital Medicine
[2017-07-15] MEDS ORDERED: IV FLUIDS COMPLETED PRN (20:45)
[2017-07-15 22:04] VITALS: BP 165/75; PULSE 58; TEMP 36.5; O2SAT 96; Ht 177.8 cm; Wt 88.3 kg
--- NOTE | 2017-07-15 22:21 | DIAGNOSTIC IMAGING REPORT ---
Brain MRI WITHOUT CONTRAST HISTORY: Dizziness. TECHNIQUE: Multiplanar multisequence MRI of the brain was performed without the use of contrast. COMPARISON STUDY: Head CTA 07/15/2017. FINDINGS: There is no mass, hematoma, midline shift, or acute infarct. Mild mucosal thickening within the paranasal sinuses and partial opacification of the posterior ethmoid air cells. Small bilateral mastoid effusions. 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 The ventricles and sulci demonstrate mild age-related involutional changes. Scattered foci of T2 hyperintensity seen within the periventricular and subcortical white matter are nonspecific but suggestive of mild microvascular ischemic changes. The major vascular flow voids at the skull base are well-maintained. IMPRESSION: No acute intracranial abnormality. Scattered foci of T2 hyperintensity seen within the periventricular and subcortical white matter are nonspecific but favor microvascular ischemic change. Electronically signed by: Aba Richards M.D. 07/15/2017 10:20 PM Dictated Date/Time: 07/15/2017 10:15 PM
[2017-07-15] MEDS ORDERED: FENTANYL 25 MCG/HR TDSY TD ONE (23:15)
[2017-07-15] MEDS ORDERED: CEFTRIAXONE SOD INJ 2,000 MG in DEXTROSE 5% 50ML 50 ML IV STA (23:32)
[2017-07-15 23:35] VITALS: BP_SYST 139; BP_SYST 145; BP_SYST 158; BP_DIAS 71; BP_DIAS 73; BP_DIAS 76; PULSE 52; PULSE 62; PULSE 73; TEMP 36.7; O2SAT 95
[2017-07-15] MEDS: ATORVASTATIN 40 MG TAB PO SCH (23:36)
[2017-07-15] MEDS: DOCUSATE SODIUM 100 MG CAP PO SCH (23:36)
[2017-07-15] MEDS: GABAPENTIN 600 MG TAB PO SCH (23:36)
[2017-07-15] MEDS: DOCUSATE SODIUM/SENNA 50/8.6MG TAB PO SCH (23:37)
[2017-07-15] MEDS: HEPARIN SOD 5000 UNIT/0.5 ML CARP SQ SCH (23:39)
[2017-07-16] VITALS (8 sets, daily range): BP systolic 129–207; BP diastolic 75–100; PULSE 49–68; TEMP 36.5–37.1; O2SAT 94–98
[2017-07-16] MEDS: CHECK FENTANYL PATCH PLACEMENT SCH ×4 (00:04→23:27)
[2017-07-16] MEDS ORDERED: NURSING VERBAL MED ORDER ONE (06:45)
[2017-07-16 06:55] LABS: ALBUMIN 2.8 gm/dl (3.4-5.0); CALCIUM 8.4 mg/dl (8.5-10.1); CREATININE 0.97 mg/dl (0.60-1.40); TOTAL PROTEIN 5.9 gm/dl (6.4-8.2)
--- NOTE | 2017-07-16 07:37 | Family Medicine Progress Note ---
Progress Note Date of Service July 16, 2017. Subjective Pt evaluation today including: conversation w/ patient Patient sitting in his bedside chair, speaking comfortably, denies any acute concerns. Specifically denying chest pain, shortness of breath, headaches, changes in his vision, or weakness/numbness in his extremities. Says he continues to feel off balance when standing or walking, denying that the room is spinning during this time, more like he feels like he may fall. On review of systems, he says his right calf remains sore but is unchanged over the past few weeks. Constitutional: No fever, No chills Eyes: No worsening of vision Respiratory: No cough, No shortness of breath Cardiovascular: No chest pain, No edema Abdomen: No pain, No nausea, No vomiting, No diarrhea Musculoskeletal: + calf pain (Right calf, subacute) Neurologic: + balance problems, No paralysis, No weakness, No numbness/ tingling Medications Current Inpatient Medications Medications (Trade) Dose Ordered Sig/[place] Route Start Time Stop Time Status Last Admin Dose Admin Ioversol (Optiray 320) 116 ml UD PRN IV 07/15/17 17:30 07/19/17 17:29 Heparin Sodium (Porcine) (Heparin Sq 5000 Unit/0.5ml) 5,000 unit Q12 SQ 07/15/17 21:00 08/14/17 20:59 07/15/17 23:39 5,000 UNIT Acetaminophen (Tylenol Tab) 650 mg Q4H PRN PO 07/15/17 19:45 08/14/17 19:44 Al Hydrox/Mg Hydrox/Simethicone (Maalox Max Susp) 15 ml Q4H PRN PO 07/15/17 19:45 08/14/17 19:44 Magnesium Hydroxide (Milk Of Magnesia Susp) 30 ml Q12H PRN PO 07/15/17 19:45 08/14/17 19:44 Zolpidem Tartrate (Ambien Tab) 5 mg HSZ PRN PO 07/15/17 19:45 08/14/17 19:44 Ondansetron HCl (Zofran Inj) 4 mg Q6H PRN IV 07/15/17 19:45 08/14/17 19:44 Nitroglycerin (Nitrostat Tab) 0.4 mg UD PRN SL 07/15/17 19:45 08/14/17 19:44 Morphine Sulfate (MoRPHine SULFATE INJ) 2 mg Q30M PRN IV 07/15/17 19:45 07/29/17 19:44 Aspirin (Ecotrin Tab) 81 mg QAM PO 07/16/17 09:00 08/15/17 08:59 Polyethylene (Miralax Powder Packet) 17 gm DAILY PRN PO 07/15/17 19:45 08/14/17 19:44 Acetaminophen (Tylenol Tab) 325 mg Q8 PRN PO 07/15/17 19:45 08/14/17 19:44 Atorvastatin Calcium (Lipitor Tab) 40 mg HS PO 07/15/17 21:00 08/14/17 20:59 07/15/17 23:36 40 MG Docusate Sodium (coLACE CAP) 100 mg BID PO 07/15/17 21:00 08/14/17 20:59 07/15/17 23:36 100 MG Fentanyl (Duragesic Patch) 25 mcg Q72H TD 07/18/17 09:00 08/01/17 08:59 Fluticasone Propionate (Flonase Nasal [place]) 1 sprays BID PRN ROLANDO 07/15/17 19:45 08/14/17 19:44 Gabapentin (Neurontin Tab) 600 mg QID PO 07/15/17 21:00 08/14/17 20:59 07/15/17 23:36 600 MG Lidocaine (Lidoderm Patch 5%) 1 patch DAILY TD 07/16/17 09:00 08/15/17 08:59 Lorazepam (Ativan Tab) 0.5 mg QID PRN PO 07/15/17 19:45 08/14/17 19:44 Multivitamins (Multivitamin Tab) 1 tab DAILY PO 07/16/17 09:00 08/15/17 08:59 Senna/Docusate Sodium (Senokot S Tab) 2 tab BID PO 07/15/17 21:00 08/14/17 20:59 07/15/17 23:37 2 TAB Tamsulosin HCl (Flomax Cap) 0.8 mg DAILY PO 07/16/17 09:00 08/15/17 08:59 Tramadol HCl (Ultram Tab) 50 mg Q4 PRN PO 07/15/17 19:45 08/14/17 19:44 Hydrochlorothiazide (Hydrochlorothiazide Tab) 12.5 mg DAILY PO 07/16/17 09:00 08/15/17 08:59 Pantoprazole Sodium (Protonix Tab) 40 mg DAILY PO 07/16/17 09:00 08/15/17 08:59 Miscellaneous (Remove Lidoderm Patch) 1 ea DAILY@21 N/A 07/15/17 21:00 08/14/17 20:59 Miscellaneous (Iv Fluids Completed) 1 ea PRN PRN N/A 07/15/17 20:45 07/15/18 20:44 Miscellaneous (Fentanyl Patch Remove & Waste) 1 ea Q3D@0859 N/A 07/18/17 08:59 08/17/17 08:58 Miscellaneous Information (Check Fentanyl Patch Placement) 1 ea QS N/A 07/16/17 00:00 08/15/17 00:00 07/16/17 00:04 1 EA Doxycycline Hyclate (Vibramycin Cap) 100 mg BID PO 07/16/17 09:00 07/26/17 08:59 Metoprolol Succinate (Toprol Xl Tab) 100 mg HS PO 07/16/17 21:00 08/15/17 20:59 Objective Vital Signs Date Time Temp Pulse Resp B/P (MAP) Pulse Ox O2 Delivery O2 Flow Rate FiO2 07/16/17 07:10 36.5 49 20 184/84 (117) 97 Room Air 07/16/17 04:40 36.6 49 18 168/80 (109) 98 Room Air 07/16/17 04:00 Room Air 07/16/17 00:02 Room Air 07/15/17 23:35 36.7 52 18 139/71 (93) 95 Room Air 62 145/76 (99) 73 158/73 (101) 07/15/17 22:04 36.5 58 20 165/75 96 Room Air 07/15/17 21:16 52 14 176/86 94 07/15/17 21:07 52 14 176/86 94 Room Air 07/15/17 20:10 54 16 187/90 96 Room Air 07/15/17 18:52 52 14 174/86 97 Room Air 07/15/17 16:58 52 14 162/82 97 Room Air 07/15/17 16:23 55 18 168/86 97 Room Air 07/15/17 15:26 36.8 56 18 155/78 98 Room Air Physical Exam Notes: General Appearance: Awake, alert & oriented, comfortable in general, NAD. CV: +S1S2 RRR, no murmur. Pulm: Clear to auscultation throughout. Abdomen: +BS, soft, non-tender, non-distended. Extremities: No pedal edema. Right calf is mildly tender to palpation with a palpable mass consistent with prior hematoma. Moving all extremities naturally and easily. Neuro: No gross neuro deficits. Laboratory Results 07/15/17 16:00 Red Blood Count 4.85, Mean Corpuscular Volume 86.4, Mean Corpuscular Hemoglobin 29.5, Mean Corpuscular Hemoglobin Concent 34.1, Mean Platelet Volume 11.3, Neutrophils (%) (Auto) 52.5, Lymphocytes (%) (Auto) 32.9, Monocytes (%) (Auto) 6.7, Eosinophils (%) (Auto) 7.3, Basophils (%) (Auto) 0.4, Neutrophils # (Auto) 2.50, Lymphocytes # (Auto) 1.57, Monocytes # (Auto) 0.32, Eosinophils # (Auto) 0.35, Basophils # (Auto) 0.02 07/16/17 05:21 Test 07/15/17 16:00 07/15/17 20:20 07/16/17 01:32 07/16/17 05:21 White Blood Count 4.77 K/uL (4.8-10.8) Red Blood Count 4.85 M/uL (4.7-6.1) Hemoglobin 14.3 g/dL (14.0-18.0) Hematocrit 41.9 % (42-52) Mean Corpuscular Volume 86.4 fL (80-100) Mean Corpuscular Hemoglobin 29.5 pg (25-34) Mean Corpuscular Hemoglobin Concent 34.1 g/dl (32-36) Platelet Count 145 K/uL (130-400) Mean Platelet Volume 11.3 fL (7.4-10.4) Neutrophils (%) (Auto) 52.5 % Lymphocytes (%) (Auto) 32.9 % Monocytes (%) (Auto) 6.7 % Eosinophils (%) (Auto) 7.3 % Basophils (%) (Auto) 0.4 % Neutrophils # (Auto) 2.50 K/uL (1.4-6.5) Lymphocytes # (Auto) 1.57 K/uL (1.2-3.4) Monocytes # (Auto) 0.32 K/uL (0.11-0.59) Eosinophils # (Auto) 0.35 K/uL (0-0.5) Basophils # (Auto) 0.02 K/uL (0-0.2) RDW Standard Deviation 41.6 fL (36.4-46.3) RDW Coefficient of Variation 13.1 % (11.5-14.5) Immature Granulocyte % (Auto) 0.2 % Immature Granulocyte # (Auto) 0.01 K/uL (0.00-0.02) Nucleated RBC Absolute Count (auto) 0.00 K/uL (0-0) Nucleated Red Blood Cells % 0.0 % Prothrombin Time 10.2 SECONDS (9.0-12.0) Prothromb Time International Ratio 1.0 (0.9-1.1) Activated Partial Thromboplast Time 25.7 SECONDS (21.0-31.0) Partial Thromboplastin Ratio 1.0 Lyme Disease IgG Antibody POS (NEG) Urine Color YELLOW Urine Appearance CLEAR (CLEAR) Urine pH 7.0 (4.5-7.5) Urine Specific [place] > 1.045 (1.000-1.030) Urine Protein NEG (NEG) Urine Glucose (UA) NEG (NEG) Urine Ketones NEG (NEG) Urine Occult Blood NEG (NEG) Urine Nitrite NEG (NEG) Urine Bilirubin NEG (NEG) Urine Urobilinogen NEG (NEG) Urine Leukocyte Esterase NEG (NEG) Troponin I < 0.015 ng/ml (0-0.045) Anion Gap 4.0 mmol/L (3-11) Est Creatinine Clear Calc Drug Dose 72.9 ml/min Estimated GFR () 87.5 Estimated GFR (Non- 75.5 BUN/Creatinine Ratio 17.8 (10-20) Calcium Level 8.4 mg/dl (8.5-10.1) Total Bilirubin 0.4 mg/dl (0.2-1) Aspartate Amino Transf (AST/SGOT) 26 U/L (15-37) Alanine Aminotransferase (ALT/SGPT) 26 U/L (12-78) Alkaline Phosphatase 156 U/L (45-117) Total Protein 5.9 gm/dl (6.4-8.2) Albumin 2.8 gm/dl (3.4-5.0) Globulin 3.1 gm/dl (2.5-4.0) Albumin/Globulin Ratio 0.9 (0.9-2) Assessment and Plan 76-year-old male admitted on 15 Jul 2017 for dizziness. PMH: Back pain status post fusions, hypertension, recent ruptured Tello's cyst, esophageal reflux, hypertension, hyperlipidemia, spinal stenosis. Dizziness: Patient continues to notice a feeling of off balance with ambulation/ movements, resolved with rest. Otherwise no focal neuro deficits. 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 Serology is positive for Lyme IgG and IgM. No noted chest pain, shortness of breath, and troponin's have been negative. EKG noted sinus bradycardia. Neurology consulted, see their report. - We will pursue lumbar puncture via radiology tomorrow (due to receiving heparin for DVT prophylaxis today). - On aspirin 81 mg. - Echocardiogram read pending. Lyme: Positive serology. Given loading dose of ceftriaxone and 21May started on doxycycline 100 mg p.o. twice daily, likely 14 day total course. Right calf pain and swelling: Ongoing for the past month or so. Previous ultrasound in May 2017 noted complex fluid collection that may be a hematoma. The recommended ultrasound follow-up in 2 months from then. HTN: Started on metoprolol succinate XL 100 mg daily and hydrochlorothiazide 12.5 mg daily. Noted to have elevated blood pressures here. - We will increase his hydrochlorothiazide to 25 mg daily. Continue to monitor. Chronic medical issues: - Chronic back pain and peripheral neuropathy: On his home regimen of fentanyl patch, Ultram, and gabapentin. Held his ibuprofen. - HLD: On Lipitor 40 mg daily. - BPH: On Flomax daily. - GERD: On pantoprazole here. Code status: Full code Diet: AHA heart healthy diet. DVT prophy: Heparin subcu twice daily, SCDs. PT/OT: Ordered. Disbo: On observation on telemetry. Resident Tracking Resident Involvement: Resident Care Provided Care Provided: Adult Hospital Medicine (inpatient) Assessment/Plan Resident Physician Supervision Note: I was present with Dr. Villareal during the history and exam. I discussed the case with the resident and agree with the findings and plan as documented in the note. Any exceptions or clarifications are listed here. Pt reports resolution of symptoms at rest which recur with movement, but now lack the spinning sensation and are just described as off balance. Per neurology recommendations, agree w/ LP through IR 2/2 previous back surgery with testing to include Lyme DNA and awaiting Western Blot. Should try and obtain previous testing for comparison if possible. Regarding elevated BP, at present would increase HCTZ to 25mg and consider addition of further as warranted.
[2017-07-16] MEDS: DOXYCYCLINE HYCLATE 100 MG CAP PO SCH ×2 (08:07→20:03)
[2017-07-16] MEDS: ASPIRIN 81 MG ECTAB PO SCH (08:07)
[2017-07-16] MEDS: TAMSULOSIN HCL 0.4 MG CAP PO SCH (08:08)
[2017-07-16] MEDS: MULTIVITAMIN TAB PO SCH (08:08)
[2017-07-16] MEDS: PANTOprazole SOD 40 MG TAB PO SCH (08:08)
[2017-07-16] MEDS: DOCUSATE SODIUM/SENNA 50/8.6MG TAB PO SCH ×2 (08:09→20:03)
[2017-07-16] MEDS: GABAPENTIN 600 MG TAB PO SCH ×4 (08:09→20:03)
[2017-07-16] MEDS: LIDODERM (LIDOCAINE) PATCH 5% TD SCH (08:09)
[2017-07-16] MEDS: DOCUSATE SODIUM 100 MG CAP PO SCH ×2 (08:09→20:03)
[2017-07-16] MEDS: HEPARIN SOD 5000 UNIT/0.5 ML CARP SQ SCH (08:17)
[2017-07-16] MEDS ORDERED: HYDROCHLOROTHIAZIDE 25 MG TAB PO SCH (09:00)
[2017-07-16] MEDS ORDERED: ASPIRIN 81 MG ECTAB PO SCH (09:00)
[2017-07-16] MEDS ORDERED: METOPROLOL SUCC 50MG EXT REL TAB PO SCH ×2 (09:00→21:00)
--- NOTE | 2017-07-16 11:41 | Neurology Consultation ---
Neurology Consultation Date of Consultation: July 16, 2017. Attending Physician: Evans Jensen MD Primary Care Physician: Fred Tello M.D. 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 Hanks in the cervical region and multiple surgeries in the lumbar spine most recently in November of 2015. He has fused between L2 and L4. He has chronic pain. He has been on 81 milligram aspirin tablet daily. Patient has no history of stroke or vertigo. He has chronic hearing loss left greater than right side has no ear pain or tinnitus. On July 13, he had the onset of spinning sensation accompanied by nausea and balance issues. He fell a couple of times over the last couple of days and felt that the dizziness was made worse by head position. The dizziness was a clockwise sensation any was perhaps pulled to the right. He had no other weakness or numbness or vision problems. He was not confused or had speech problems. On July 15 he came to the emergency room at 1526 hours, with a temperature 36.8 , pulse 56, respiratory rate 18, blood pressure 155/78, and O2 saturation 98 percent. He was described as having a nonfocal neurologic examination. CT scan of the head was unremarkable CT angiography of the head was unremarkable CT angiography of the neck revealed no carotid stenosis. There was some compression to 60-70 percent of the left vertebral artery around C3-C4 from bony compression. MRI of the brain showed no acute stroke. There was some mild to moderate atrophy in general and some mild old small vessel ischemic changes only. CBC, Chem profile, and urinalysis were unremarkable. Lyme IgG and IgM were positive[place] a lot this spring. Currently, in bed he feels much better and has only a little bit dizzy if he stands up. He has no vertigo, nausea or other issues lying in bed. Past Medical/Surgical History Medical Problems: (1) Ataxia Status: Acute (2) Cellulitis Status: Acute (3) Dizziness Status: Acute (4) Recurrent falls Status: Acute (5) Ruptured Bakers cyst Status: Acute Acute onset vertigo with nausea and balance issues July 13. History of hypertension Dyslipidemia Gastroesophageal reflux disease Post cervical and lumbar surgery for spinal stenosis. He has no history of stroke, heart disease, or diabetes. Family History Mother age 89 and had Alzheimer's disease. Father age 62 of an [place] Social History Patient never smoked cigarettes and does not use alcohol. 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 Smoking Status: Never smoker Smokeless Tobacco Use: No Alcohol Use: none Drug Use: none Marital Status: Housing Status: lives with family Occupation Status: retired Allergies Coded Allergies: Pneumococcal Polysaccharides (Verified Allergy, Severe, SHORTNESS OF BREATH, chest tightness, 06/21/17) Current Inpatient Medications Current Inpatient Medications Medications (Trade) Dose Ordered Sig/Gaston Route Start Time Stop Time Status Last Admin Dose Admin Ioversol (Optiray 320) 116 ml UD PRN IV 07/15/17 17:30 07/19/17 17:29 Heparin Sodium (Porcine) (Heparin Sq 5000 Unit/0.5ml) 5,000 unit Q12 SQ 07/15/17 21:00 08/14/17 20:59 07/16/17 08:17 5,000 UNIT Acetaminophen (Tylenol Tab) 650 mg Q4H PRN PO 07/15/17 19:45 08/14/17 19:44 Al Hydrox/Mg Hydrox/Simethicone (Maalox Max Susp) 15 ml Q4H PRN PO 07/15/17 19:45 08/14/17 19:44 Magnesium Hydroxide (Milk Of Magnesia Susp) 30 ml Q12H PRN PO 07/15/17 19:45 08/14/17 19:44 Zolpidem Tartrate (Ambien Tab) 5 mg HSZ PRN PO 07/15/17 19:45 08/14/17 19:44 Ondansetron HCl (Zofran Inj) 4 mg Q6H PRN IV 07/15/17 19:45 08/14/17 19:44 Nitroglycerin (Nitrostat Tab) 0.4 mg UD PRN SL 07/15/17 19:45 08/14/17 19:44 Morphine Sulfate (MoRPHine SULFATE INJ) 2 mg Q30M PRN IV 07/15/17 19:45 07/29/17 19:44 Aspirin (Ecotrin Tab) 81 mg QAM PO 07/16/17 09:00 08/15/17 08:59 07/16/17 08:07 81 MG Polyethylene (Miralax Powder Packet) 17 gm DAILY PRN PO 07/15/17 19:45 08/14/17 19:44 Acetaminophen (Tylenol Tab) 325 mg Q8 PRN PO 07/15/17 19:45 08/14/17 19:44 Atorvastatin Calcium (Lipitor Tab) 40 mg HS PO 07/15/17 21:00 08/14/17 20:59 07/15/17 23:36 40 MG Docusate Sodium (coLACE CAP) 100 mg BID PO 07/15/17 21:00 08/14/17 20:59 07/16/17 08:09 100 MG Fentanyl (Duragesic Patch) 25 mcg Q72H TD 07/18/17 09:00 08/01/17 08:59 Fluticasone Propionate (Flonase Nasal Morris) 1 sprays BID PRN ROLANDO 07/15/17 19:45 08/14/17 19:44 Gabapentin (Neurontin Tab) 600 mg QID PO 07/15/17 21:00 08/14/17 20:59 07/16/17 08:09 600 MG Lidocaine (Lidoderm Patch 5%) 1 patch DAILY TD 07/16/17 09:00 08/15/17 08:59 07/16/17 08:09 1 PATCH Lorazepam (Ativan Tab) 0.5 mg QID PRN PO 07/15/17 19:45 08/14/17 19:44 Multivitamins (Multivitamin Tab) 1 tab DAILY PO 07/16/17 09:00 08/15/17 08:59 07/16/17 08:08 1 TAB Senna/Docusate Sodium (Senokot S Tab) 2 tab BID PO 07/15/17 21:00 08/14/17 20:59 07/16/17 08:09 2 TAB Tamsulosin HCl (Flomax Cap) 0.8 mg DAILY PO 07/16/17 09:00 08/15/17 08:59 07/16/17 08:08 0.8 MG Tramadol HCl (Ultram Tab) 50 mg Q4 PRN PO 07/15/17 19:45 08/14/17 19:44 Hydrochlorothiazide (Hydrochlorothiazide Tab) 12.5 mg DAILY PO 07/16/17 09:00 08/15/17 08:59 07/16/17 08:10 12.5 MG Pantoprazole Sodium (Protonix Tab) 40 mg DAILY PO 07/16/17 09:00 08/15/17 08:59 07/16/17 08:08 40 MG Miscellaneous (Remove Lidoderm Patch) 1 ea DAILY@21 N/A 07/15/17 21:00 08/14/17 20:59 Miscellaneous (Iv Fluids Completed) 1 ea PRN PRN N/A 07/15/17 20:45 07/15/18 20:44 Miscellaneous (Fentanyl Patch Remove & Waste) 1 ea Q3D@0859 N/A 07/18/17 08:59 08/17/17 08:58 Miscellaneous Information (Check Fentanyl Patch Placement) 1 ea QS N/A 07/16/17 00:00 08/15/17 00:00 07/16/17 08:10 1 EA Doxycycline Hyclate (Vibramycin Cap) 100 mg BID PO 07/16/17 09:00 07/26/17 08:59 07/16/17 08:07 100 MG Metoprolol Succinate (Toprol Xl Tab) 100 mg HS PO 07/16/17 21:00 08/15/17 20:59 Review of Systems Constitutional: No weakness, No fatigue Eyes: No worsening of vision, No diplopia ENT: + hearing loss, No tinnitus, No trouble swallowing Respiratory: No cough, No shortness of breath Cardiovascular: No chest pain, No palpitations Abdomen: No pain, No nausea Musculoskeletal: No joint pain, No muscle pain Genitourinary - Male: No dysuria, No urinary incontinence Neurologic: + vertigo, + balance problems, No memory loss, No weakness, No numbness/tingling Psychiatric: No depression symptoms, No anxiety Endocrine: No fatigue Hematologic / Lymphatic: No abnormal bleeding/bruising Integumentary: No rash Allergic / Immunologic: No hives Physical Exam Vital Signs (Past 24 Hrs): Date Time Temp Pulse Resp B/P (MAP) Pulse Ox O2 Delivery O2 Flow Rate FiO2 07/16/17 10:58 36.9 63 18 191/80 (117) 98 68 185/93 (123) 64 207/100 (135) 07/16/17 08:00 Room Air 07/16/17 07:10 36.5 49 20 184/84 (117) 97 Room Air 07/16/17 04:40 36.6 49 18 168/80 (109) 98 Room Air 07/16/17 04:00 Room Air 07/16/17 00:02 Room Air 07/15/17 23:35 36.7 52 18 139/71 (93) 95 Room Air 62 145/76 (99) 73 158/73 (101) 07/15/17 22:04 36.5 58 20 165/75 96 Room Air 07/15/17 21:16 52 14 176/86 94 07/15/17 21:07 52 14 176/86 94 Room Air 07/15/17 20:10 54 16 187/90 96 Room Air 07/15/17 18:52 52 14 174/86 97 Room Air 07/15/17 16:58 52 14 162/82 97 Room Air 07/15/17 16:23 55 18 168/86 97 Room Air 07/15/17 15:26 36.8 56 18 155/78 98 Room Air Patient is right-handed. The patient is awake and alert. Speech is normal without aphasia or dysarthria. Mentation and thought processes are intact with full orientation to person place and time and normal fund of knowledge. Mood and affect are normal and appropriate. Appearance and grooming are normal. Long and short-term memory are intact. The discs are sharp with positive venous pulsations. There are no exudates, hemorrhages, or blood vessel changes seen. Pupils are 4mm bilaterally and reactive to light. Extraocular eye muscles are intact without nystagmus. Visual acuity and visual silveira seem normal grossly to confrontation. There are no deficits to sensation of the face bilaterally. Corneal reflexes are positive bilaterally. Facial strength and symmetry is normal bilaterally. Hearing seems intact grossly to voice and finger rub. Palate moves well without asymmetry. There is normal sternocleidomastoid and trapezius strength bilaterally. Tongue is midline with good strength bilaterally. Movement of the head and eyes in bed or sitting up does not produce any vertiginous feelings or dizziness. Neck is with full range of motion without discomfort. There are no cervical bruits. There are no cranial or ocular bruits. Heart is without murmur. Cervical, thoracic, and lumbar spine are mildly tender to palpation. Gait is narrow based and cautious. His feet are together. When standing up and looking up he can sways some but does not have any additional lightheadedness, vertigo, or nystagmus. The With outstretched arms there is no drift. There are no resting, postural, or action tremors. There is no ataxia with [id number] testing. There is good facility in the hands. There are no abnormal involuntary movements noted. Motor strength is 5/5 diffusely in the arms bilaterally including deltoids, biceps, brachioradialis, wrist flexors and extensors, manganese heater, and intrinsic hand muscles. Motor strength is 5/5 diffusely in the legs bilaterally including hip flexors, quadriceps, hamstring, gastrocnemius, tibialis anterior, tibialis posterior, and peroneii muscles bilaterally. Toe extensors are normal and there is good bulk in the extensor digitorum brevis muscle bilaterally. The limbs have good tone without rigidity or spasticity, and there is no atrophy noted. Muscle bulk is normal, there is no tenderness, no myotonia noted to percussion, and no fasciculations seen. Sensory examination is intact to pin and touch throughout all four limbs. Reflexes are 1/4 in the biceps, triceps, brachioradialis, and quadriceps tendons bilaterally. Achilles tendon reflexes are absent bilaterally. Toes are downgoing with plantar stimulation bilaterally. Peripheral pulses are present and of normal quality distally in all four limbs. There is no peripheral edema noted. Laboratory Results Past 24 Hours: 07/15/17 16:00 Red Blood Count 4.85, Mean Corpuscular Volume 86.4, Mean Corpuscular Hemoglobin 29.5, Mean Corpuscular Hemoglobin Concent 34.1, Mean Platelet Volume 11.3, Neutrophils (%) (Auto) 52.5, Lymphocytes (%) (Auto) 32.9, Monocytes (%) (Auto) 6.7, Eosinophils (%) (Auto) 7.3, Basophils (%) (Auto) 0.4, Neutrophils # (Auto) 2.50, Lymphocytes # (Auto) 1.57, Monocytes # (Auto) 0.32, Eosinophils # (Auto) 0.35, Basophils # (Auto) 0.02 07/16/17 05:21 Test 07/15/17 16:00 07/15/17 20:20 07/16/17 01:32 07/16/17 05:21 White Blood Count 4.77 K/uL (4.8-10.8) Red Blood Count 4.85 M/uL (4.7-6.1) Hemoglobin 14.3 g/dL (14.0-18.0) Hematocrit 41.9 % (42-52) Mean Corpuscular Volume 86.4 fL (80-100) Mean Corpuscular Hemoglobin 29.5 pg (25-34) Mean Corpuscular Hemoglobin Concent 34.1 g/dl (32-36) Platelet Count 145 K/uL (130-400) Mean Platelet Volume 11.3 fL (7.4-10.4) Neutrophils (%) (Auto) 52.5 % Lymphocytes (%) (Auto) 32.9 % Monocytes (%) (Auto) 6.7 % Eosinophils (%) (Auto) 7.3 % Basophils (%) (Auto) 0.4 % Neutrophils # (Auto) 2.50 K/uL (1.4-6.5) Lymphocytes # (Auto) 1.57 K/uL (1.2-3.4) Monocytes # (Auto) 0.32 K/uL (0.11-0.59) Eosinophils # (Auto) 0.35 K/uL (0-0.5) Basophils # (Auto) 0.02 K/uL (0-0.2) RDW Standard Deviation 41.6 fL (36.4-46.3) RDW Coefficient of Variation 13.1 % (11.5-14.5) Immature Granulocyte % (Auto) 0.2 % Immature Granulocyte # (Auto) 0.01 K/uL (0.00-0.02) Nucleated RBC Absolute Count (auto) 0.00 K/uL (0-0) Nucleated Red Blood Cells % 0.0 % Peripheral Blood Smear Path Consult Prothrombin Time 10.2 SECONDS (9.0-12.0) Prothromb Time International Ratio 1.0 (0.9-1.1) Activated Partial Thromboplast Time 25.7 SECONDS (21.0-31.0) Partial Thromboplastin Ratio 1.0 Lyme Disease IgG Antibody POS (NEG) Urine Color YELLOW Urine Appearance CLEAR (CLEAR) Urine pH 7.0 (4.5-7.5) Urine Specific [place] > 1.045 (1.000-1.030) Urine Protein NEG (NEG) Urine Glucose (UA) NEG (NEG) Urine Ketones NEG (NEG) Urine Occult Blood NEG (NEG) Urine Nitrite NEG (NEG) Urine Bilirubin NEG (NEG) Urine Urobilinogen NEG (NEG) Urine Leukocyte Esterase NEG (NEG) Troponin I < 0.015 ng/ml (0-0.045) Anion Gap 4.0 mmol/L (3-11) Est Creatinine Clear Calc Drug Dose 72.9 ml/min Estimated GFR () 87.5 Estimated GFR (Non- 75.5 BUN/Creatinine Ratio 17.8 (10-20) Calcium Level 8.4 mg/dl (8.5-10.1) Total Bilirubin 0.4 mg/dl (0.2-1) Aspartate Amino Transf (AST/SGOT) 26 U/L (15-37) Alanine Aminotransferase (ALT/SGPT) 26 U/L (12-78) Alkaline Phosphatase 156 U/L (45-117) Total Protein 5.9 gm/dl (6.4-8.2) Albumin 2.8 gm/dl (3.4-5.0) Globulin 3.1 gm/dl (2.5-4.0) Albumin/Globulin Ratio 0.9 (0.9-2) Imaging Brain MRI WITHOUT CONTRAST HISTORY: Dizziness. TECHNIQUE: Multiplanar multisequence MRI of the brain was performed without the use of contrast. COMPARISON STUDY: Head CTA 07/15/2017. FINDINGS: There is no mass, hematoma, midline shift, or acute infarct. Mild mucosal thickening within the paranasal sinuses and partial opacification of the posterior ethmoid air cells. Small bilateral mastoid effusions. 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 The ventricles and sulci demonstrate mild age-related involutional changes. Scattered foci of T2 hyperintensity seen within the periventricular and subcortical white matter are nonspecific but suggestive of mild microvascular ischemic changes. The major vascular flow voids at the skull base are well-maintained. IMPRESSION: No acute intracranial abnormality. Scattered foci of T2 hyperintensity seen within the periventricular and subcortical white matter are nonspecific but favor microvascular ischemic change. Electronically signed by: Aba Richards M.D. 07/15/2017 10:20 PM Impression 1. Acute onset positional vertigo July 13, much improved currently. He has no focal neurologic findings, meningeal signs, or encephalopathy on examination today. His history is consistent with positional vertigo likely secondary to inner ear dysfunction. MRI of the brain showed no acute stroke. 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 2. Positive Lyme testing. He certainly could not central nervous system Lyme disease but if his symptomatology is limited to peripheral vertigo, this was still technically classify his peripheral Lyme disease. Otherwise, he has no other symptoms or signs of a new nature referable to a central nervous system. He has no myelopathy on examination. 3. Mild old small vessel ischemic disease. This is more likely than the lesions being BEAUTY DIRECTOR Lyme disease. 5. 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 This is stable. Plan 1. Consider lumbar puncture to rule out central nervous system Lyme disease. If positive, he would need to grams Rocephin daily for 30 days (via PICC line) If negative, continue 3-4 weeks of oral doxycycline 2. I see no need for additional neurologic testing or treatment changes at this time anyway. 3. Continue 81 milligram aspirin tablet daily. I have spoken with Dr. Jensen regarding this case including differential diagnosis and treatment options. This patient should be followed as an outpatient after discharge.
--- NOTE | 2017-07-16 16:51 | ECHOCARDIOGRAM REPORT ---
*NOTICE TO RECEIVING LIBERTARIAN AGENCY This information is strictly Confidential and protected under [place] law. [place] law prohibits you from making any further disclosure of this information unless further disclosure is expressly permitted by the written consent of the person to whom it pertains or is authorized by law. A general authorization for the release of medical or other information is not sufficient for this purpose. Hospital accepts no responsibility if the information is made available to any other person, INCLUDING THE PATIENT. Interpretation Summary * Name: RUPA MEADOWS Study Date: 07/16/2017 08:40 AM BP: 168/80 mmHg * Patient Location: C.2T\S\S235\S\1 HR: 59 * : 1940 (M/d/yyyy) Gender: Male Height: 68 in * Age: 76 yrs Ethnicity: CA Weight: 198 lb * Ordering Physician: Jackson Valdivia * Referring Physician: Self, Referred * Performed By: Rula Tatum [facility] * * Reason For Study: SYNCOPE * BSA: 2.0 m2 * -- Conclusions -- * 1. Normal LV size. Borderline concentric LVH * 2. Normal LV systolic function. LVEF 55-60 %. No regional wall motion abnormalities. * 3. Mildly dilated RV, normal RV function * 4. No significant valvular pathology. * 5. 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 * 6. Compared with prior study on 05/20/2013: No significant change Procedure Details * A complete two-dimensional transthoracic echocardiogram was performed (2D, M-mode, Doppler and color flow Doppler). * A saline contrast injection was performed to assess for cardiac shunting. * The injection was performed through an intravenous line in the right arm. * The attending nurse who injected the saline contrast was SVETLANA FIELDS, KHOA. * A total of 20 cc of agitated saline was given. Left Ventricle * The left ventricle is grossly normal size. * There is borderline concentric left ventricular hypertrophy. * Ejection Fraction = 55-60%. * No regional wall motion abnormalities noted. Right Ventricle * The right ventricle is mildly dilated. * The right ventricular systolic function is normal as assessed by tricuspid annular plane systolic excursion (TAPSE) (normal >1.5 cm). Atria * The left atrium is mildly dilated. * The right atrium is borderline dilated. * The atrial septum is aneurysmal. * Injection of contrast documented an interatrial shunt. Mitral Valve * The mitral valve is grossly normal. * There is no mitral valve stenosis. * There is trace mitral regurgitation. Tricuspid Valve * There is trace tricuspid regurgitation. * Right ventricular systolic pressure is elevated at 40-50mmHg. Aortic Valve * The aortic valve opens well. * The aortic valve is trileaflet. * No hemodynamically significant valvular aortic stenosis. * There is no significant aortic regurgitation. Pulmonic Valve * The pulmonary valve is inadequately visualized, but the Doppler data is adequate for interpretation. * There is no pulmonic valvular stenosis. * Trace pulmonic valvular regurgitation. Great Vessels * The aortic root and proximal ascending aorta are normal sized. Pericardium/Pleural * There is no pericardial effusion. MMode 2D Measurements and Calculations IVSd 1.3 cm IVSs 1.5 cm LVIDd 5.0 cm LVIDs 4.0 cm LVPWd 0.83 cm LVPWs 1.2 cm IVS/LVPW 1.6 FS 20.3 % EDV(Teich) 116.7 ml ESV(Teich) 68.5 ml EF(Teich) 41.3 % EDV(cubed) 123.0 ml ESV(cubed) 62.3 ml EF(cubed) 49.4 % % IVS thick 10.8 % % LVPW thick 43.9 % LV mass(C)d 201.5 grams LV mass(C)dI 99.0 grams/m\S\2 LV mass(C)s 192.6 grams LV mass(C)sI 94.6 grams/m\S\2 SV(Teich) 48.3 ml SI(Teich) 23.7 ml/m\S\2 SV(cubed) 60.7 ml SI(cubed) 29.8 ml/m\S\2 Ao root diam 3.4 cm Ao root area 9.1 cm\S\2 ACS 2.3 cm LA dimension 4.6 cm LA/Ao 1.3 LVOT diam 2.0 cm LVOT area 3.1 cm\S\2 LVAd ap4 38.0 cm\S\2 LVLd ap4 8.6 cm EDV(MOD-sp4) 138.7 ml EDV(sp4-el) 142.6 ml LVAs ap4 26.2 cm\S\2 LVLs ap4 7.4 cm ESV(MOD-sp4) 79.2 ml ESV(sp4-el) 79.0 ml EF(MOD-sp4) 42.9 % EF(sp4-el) 44.6 % LVAd ap2 34.2 cm\S\2 LVLd ap2 7.9 cm EDV(MOD-sp2) 123.5 ml EDV(sp2-el) 126.3 ml LVAs ap2 23.7 cm\S\2 LVLs ap2 7.2 cm ESV(MOD-sp2) 69.9 ml ESV(sp2-el) 66.5 ml EF(MOD-sp2) 43.4 % EF(sp2-el) 47.3 % LVLd %diff -9.40 % EDV(MOD-bp) 137.9 ml LVLs %diff -2.84 % ESV(MOD-bp) 75.1 ml EF(MOD-bp) 45.5 % SV(MOD-sp4) 59.5 ml SI(MOD-sp4) 29.2 ml/m\S\2 SV(MOD-sp2) 53.6 ml SI(MOD-sp2) 26.4 ml/m\S\2 SV(MOD-bp) 62.8 ml SI(MOD-bp) 30.9 ml/m\S\2 SV(sp4-el) 63.6 ml SI(sp4-el) 31.2 ml/m\S\2 SV(sp2-el) 59.8 ml SI(sp2-el) 29.4 ml/m\S\2 Doppler Measurements and Calculations MV E max ning 50.1 cm/sec MV A max ning 62.6 cm/sec MV E/A 0.80 MV P1/2t max ning 68.5 cm/sec MV P1/2t 92.3 msec MVA(P1/2t) 2.4 cm\S\2 MV dec slope 217.3 cm/sec\S\2 MV dec time 0.38 sec Ao V2 max 131.8 cm/sec Ao max PG 7.0 mmHg Ao max PG (full) 3.3 mmHg SERGEY(V,A) 2.2 cm\S\2 SERGEY(V,D) 2.2 cm\S\2 LV V1 max PG 3.7 mmHg LV V1 max 96.0 cm/sec MR max ning 515.9 cm/sec MR max PG 106.5 mmHg PA V2 max 66.3 cm/sec PA max PG 1.8 mmHg PI max ning 133.8 cm/sec PI max PG 7.2 mmHg PI dec slope 73.3 cm/sec\S\2 PI P1/2t 534.2 msec TR max ning 310.4 cm/sec
[2017-07-16] MEDS: TRAMADOL HCL 50 MG TAB PO PRN (17:06)
[2017-07-16] MEDS: ATORVASTATIN 40 MG TAB PO SCH (20:03)
[2017-07-17] VITALS (7 sets, daily range): BP systolic 130–209; BP diastolic 72–95; PULSE 53–62; TEMP 36.5–37; O2SAT 94–99
[2017-07-17 05:51] LABS: BASO % 0.2 %; BASO ABS # 0.01 K/uL (0-0.2); EOS % 10.7 %; EOS ABS # 0.45 K/uL (0-0.5); HEMATOCRIT 39.6 % (42-52); HEMOGLOBIN 13.9 g/dL (14.0-18.0); IG# 0.01 K/uL (0.00-0.02); LYMPH % 40.9 %; LYMPH ABS # 1.72 K/uL (1.2-3.4); MEAN CELL VOLUME 86.3 fL (80-100); MEAN CORPUSCULAR HEMOGLOBIN 30.3 pg (25-34); MEAN CORPUSCULAR HGB CONC 35.1 g/dl (32-36); MEAN PLATELET VOLUME 11.4 fL (7.4-10.4); MONO % 7.1 %; NEUT % 40.9 %; NEUT ABS # 1.72 K/uL (1.4-6.5); PLATELET COUNT 121 K/uL (130-400); RED CELL DISTRIBUTION WIDTH CV 13.2 % (11.5-14.5); RED CELL DISTRIBUTION WIDTH SD 41.7 fL (36.4-46.3); WHITE BLOOD COUNT 4.21 K/uL (4.8-10.8)
[2017-07-17 06:29] LABS: ALBUMIN 2.9 gm/dl (3.4-5.0); CALCIUM 8.8 mg/dl (8.5-10.1); CREATININE 1.1 mg/dl (0.60-1.40); POTASSIUM 3.9 mmol/L (3.5-5.1); TOTAL PROTEIN 6.4 gm/dl (6.4-8.2)
[2017-07-17] MEDS: ACETAMINOPHEN 325 MG TAB PO PRN ×3 (07:55→16:19)
[2017-07-17] MEDS: CHECK FENTANYL PATCH PLACEMENT SCH ×2 (07:56→15:45)
[2017-07-17] MEDS: ASPIRIN 81 MG ECTAB PO SCH (08:37)
[2017-07-17] MEDS: PANTOprazole SOD 40 MG TAB PO SCH (08:40)
[2017-07-17] MEDS: DOCUSATE SODIUM 100 MG CAP PO SCH (08:40)
[2017-07-17] MEDS: GABAPENTIN 600 MG TAB PO SCH ×3 (08:40→18:25)
[2017-07-17] MEDS: DOXYCYCLINE HYCLATE 100 MG CAP PO SCH (08:40)
[2017-07-17] MEDS: DOCUSATE SODIUM/SENNA 50/8.6MG TAB PO SCH (08:40)
[2017-07-17] MEDS: TAMSULOSIN HCL 0.4 MG CAP PO SCH (08:40)
[2017-07-17] MEDS: MULTIVITAMIN TAB PO SCH (08:40)
[2017-07-17] MEDS: LIDODERM (LIDOCAINE) PATCH 5% TD SCH (08:41)
[2017-07-17] MEDS ORDERED: HYDROCHLOROTHIAZIDE 25 MG TAB PO SCH (09:00)
--- NOTE | 2017-07-17 09:01 | Family Medicine Progress Note ---
Progress Note Date of Service July 17, 2017.
[2017-07-17 11:18] LABS: CSF TOTAL PROTEIN 45.3 mg/dl (15.0-45.0)
--- NOTE | 2017-07-17 11:22 | DIAGNOSTIC IMAGING REPORT ---
FLUOROSCOPIC GUIDED LUMBAR PUNCTURE CLINICAL HISTORY: Dizziness. Lyme disease. PROCEDURE: The risks, benefits, and alternatives to the procedure is discussed with the patient who voiced understanding. Written informed consent was obtained. The patient was placed prone on the fluoroscopy table. The lower back was prepped and draped in the usual sterile fashion. 1% lidocaine was used for local anesthesia. A 22-gauge spinal needle was inserted into the L3 laminectomy space, and approximately 10 cc of clear colorless cerebrospinal fluid was removed and sent for laboratory analysis. The patient tolerated the procedure well. There were no immediate complications. The patient was then returned to the medical floor for further observation. Fluoroscopy time: 0.1 minutes IMPRESSION: Fluoroscopic guided lumbar puncture with removal of approximately 10 cc of cerebrospinal fluid. There were no immediate complications. Electronically signed by: Sudhakar Hubbard M.D. 07/17/2017 11:20 AM Dictated Date/Time: 07/17/2017 11:19 AM
--- NOTE | 2017-07-17 11:48 | Neurology Progress Notes ---
Neurology Progress Note Date of Service July 17, 2017. Subjective Patient feels well with no new pain, weakness, numbness, confusion, or speech problems. He had a bit of a headache this morning, right frontal, before his lumbar puncture. It is still present laying down, after the LP which he had this morning. Echocardiogram was unremarkable. CBC showed mild anemia and Chem profile was unremarkable. Lumbar puncture was performed this morning and results are pending. He had positive IgG and IgM Lyme antibody titer and we are awaiting the serum Western blot Objective Date Time Temp Pulse Resp B/P (MAP) Pulse Ox O2 Delivery O2 Flow Rate FiO2 07/17/17 08:00 Room Air 07/17/17 07:43 37.0 61 16 134/76 (95) 99 07/17/17 04:00 Room Air 07/17/17 03:06 36.7 53 18 130/72 (91) 94 Room Air 07/17/17 00:00 Room Air 07/16/17 23:11 37.0 55 20 138/77 (97) 94 Room Air 60 129/75 (93) 64 134/81 (98) 07/16/17 20:00 Room Air 07/16/17 19:13 37.1 64 20 171/81 (111) 94 Room Air 07/16/17 16:00 Room Air 07/16/17 15:37 63 20 191/82 (118) 07/16/17 15:35 58 20 181/91 (121) 07/16/17 15:33 36.9 57 20 175/81 (112) 95 Room Air 07/16/17 12:00 Room Air Last 24 Hours Test 07/17/17 05:41 07/17/17 10:21 07/17/17 11:28 White Blood Count 4.21 K/uL Red Blood Count 4.59 M/uL Hemoglobin 13.9 g/dL Hematocrit 39.6 % Mean Corpuscular Volume 86.3 fL Mean Corpuscular Hemoglobin 30.3 pg Mean Corpuscular Hemoglobin Concent 35.1 g/dl Platelet Count 121 K/uL Mean Platelet Volume 11.4 fL Neutrophils (%) (Auto) 40.9 % Lymphocytes (%) (Auto) 40.9 % Monocytes (%) (Auto) 7.1 % Eosinophils (%) (Auto) 10.7 % Basophils (%) (Auto) 0.2 % Neutrophils # (Auto) 1.72 K/uL Lymphocytes # (Auto) 1.72 K/uL Monocytes # (Auto) 0.30 K/uL Eosinophils # (Auto) 0.45 K/uL Basophils # (Auto) 0.01 K/uL RDW Standard Deviation 41.7 fL RDW Coefficient of Variation 13.2 % Immature Granulocyte % (Auto) 0.2 % Immature Granulocyte # (Auto) 0.01 K/uL Sodium Level 140 mmol/L Potassium Level 3.9 mmol/L Chloride Level 107 mmol/L Carbon Dioxide Level 28 mmol/L Anion Gap 5.0 mmol/L Blood Urea Nitrogen 18 mg/dl Creatinine 1.10 mg/dl Est Creatinine Clear Calc Drug Dose 64.3 ml/min Estimated GFR () 75.2 Estimated GFR (Non- 64.9 BUN/Creatinine Ratio 16.0 Random Glucose 80 mg/dl Calcium Level 8.8 mg/dl Total Bilirubin 0.6 mg/dl Aspartate Amino Transf (AST/SGOT) 22 U/L Alanine Aminotransferase (ALT/SGPT) 27 U/L Alkaline Phosphatase 169 U/L Total Protein 6.4 gm/dl Albumin 2.9 gm/dl Globulin 3.5 gm/dl Albumin/Globulin Ratio 0.8 CSF Color COLORLESS CSF Appearance CLEAR CSF WBC 3 /uL CSF RBC 6 /uL CSF Xanthrochromic NO XANTHOCHROMIA CSF Cell Count Tube # 3 CSF Chemistry Tube # 1 CSF Glucose 49 mg/dl CSF Total Protein 45.3 mg/dl Exam: He is awake and alert. Speech is without aphasia or dysarthria. Mood and affect are normal appropriate. Thought processes are intact. He has no dementia. Coordination is normal in the arms. Strength is symmetrical. Extraocular eye muscles are intact without nystagmus. Current Inpatient Medications Medications (Trade) Dose Ordered Sig/Gaston Route Start Time Stop Time Status Last Admin Dose Admin Ioversol (Optiray 320) 116 ml UD PRN IV 07/15/17 17:30 07/19/17 17:29 Heparin Sodium (Porcine) (Heparin Sq 5000 Unit/0.5ml) 5,000 unit Q12 SQ 07/15/17 21:00 08/14/17 20:59 Future Hold 07/16/17 08:17 5,000 UNIT Acetaminophen (Tylenol Tab) 650 mg Q4H PRN PO 07/15/17 19:45 08/14/17 19:44 07/17/17 07:55 650 MG Al Hydrox/Mg Hydrox/Simethicone (Maalox Max Susp) 15 ml Q4H PRN PO 07/15/17 19:45 08/14/17 19:44 Magnesium Hydroxide (Milk Of Magnesia Susp) 30 ml Q12H PRN PO 07/15/17 19:45 08/14/17 19:44 Zolpidem Tartrate (Ambien Tab) 5 mg HSZ PRN PO 07/15/17 19:45 08/14/17 19:44 Ondansetron HCl (Zofran Inj) 4 mg Q6H PRN IV 07/15/17 19:45 08/14/17 19:44 07/16/17 21:23 4 MG Nitroglycerin (Nitrostat Tab) 0.4 mg UD PRN SL 07/15/17 19:45 08/14/17 19:44 Morphine Sulfate (MoRPHine SULFATE INJ) 2 mg Q30M PRN IV 07/15/17 19:45 07/29/17 19:44 Aspirin (Ecotrin Tab) 81 mg QAM PO 07/16/17 09:00 08/15/17 08:59 07/16/17 08:07 81 MG Polyethylene (Miralax Powder Packet) 17 gm DAILY PRN PO 07/15/17 19:45 08/14/17 19:44 Acetaminophen (Tylenol Tab) 325 mg Q8 PRN PO 07/15/17 19:45 08/14/17 19:44 Atorvastatin Calcium (Lipitor Tab) 40 mg HS PO 07/15/17 21:00 08/14/17 20:59 07/16/17 20:03 40 MG Docusate Sodium (coLACE CAP) 100 mg BID PO 07/15/17 21:00 08/14/17 20:59 07/17/17 08:40 100 MG Fentanyl (Duragesic Patch) 25 mcg Q72H TD 07/18/17 09:00 08/01/17 08:59 Fluticasone Propionate (Flonase Nasal Adrian) 1 sprays BID PRN ROLANDO 07/15/17 19:45 08/14/17 19:44 Gabapentin (Neurontin Tab) 600 mg QID PO 07/15/17 21:00 08/14/17 20:59 07/17/17 08:40 600 MG Lidocaine (Lidoderm Patch 5%) 1 patch DAILY TD 07/16/17 09:00 08/15/17 08:59 07/17/17 08:41 1 PATCH Lorazepam (Ativan Tab) 0.5 mg QID PRN PO 07/15/17 19:45 08/14/17 19:44 Multivitamins (Multivitamin Tab) 1 tab DAILY PO 07/16/17 09:00 08/15/17 08:59 07/17/17 08:40 1 TAB Senna/Docusate Sodium (Senokot S Tab) 2 tab BID PO 07/15/17 21:00 08/14/17 20:59 07/17/17 08:40 2 TAB Tamsulosin HCl (Flomax Cap) 0.8 mg DAILY PO 07/16/17 09:00 08/15/17 08:59 07/17/17 08:40 0.8 MG Tramadol HCl (Ultram Tab) 50 mg Q4 PRN PO 07/15/17 19:45 08/14/17 19:44 07/16/17 17:06 50 MG Pantoprazole Sodium (Protonix Tab) 40 mg DAILY PO 07/16/17 09:00 08/15/17 08:59 07/17/17 08:40 40 MG Miscellaneous (Remove Lidoderm Patch) 1 ea DAILY@21 N/A 07/15/17 21:00 08/14/17 20:59 07/16/17 20:03 1 EA Miscellaneous (Iv Fluids Completed) 1 ea PRN PRN N/A 07/15/17 20:45 07/15/18 20:44 Miscellaneous (Fentanyl Patch Remove & Waste) 1 ea Q3D@0859 N/A 07/18/17 08:59 08/17/17 08:58 Miscellaneous Information (Check Fentanyl Patch Placement) 1 ea QS N/A 07/16/17 00:00 08/15/17 00:00 07/17/17 07:56 1 EA Doxycycline Hyclate (Vibramycin Cap) 100 mg BID PO 07/16/17 09:00 07/26/17 08:59 07/17/17 08:40 100 MG Metoprolol Succinate (Toprol Xl Tab) 100 mg HS PO 07/16/17 21:00 08/15/17 20:59 07/16/17 20:03 100 MG Hydrochlorothiazide (Hydrochlorothiazide Tab) 25 mg DAILY PO 07/17/17 09:00 08/15/17 08:59 07/17/17 08:41 25 MG Impression 1. Acute onset positional vertigo July 13, markedly improved. He has no focal neurologic findings, meningeal signs, or encephalopathy on examination since admission His history is consistent with positional vertigo likely secondary to inner ear dysfunction. MRI of the brain showed no acute stroke. 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 LP is pending. 2. Positive Lyme testing. He certainly could not central nervous system Lyme disease but if his symptomatology is limited to peripheral vertigo, this was still technically classify his peripheral Lyme disease. Otherwise, he has no other symptoms or signs of a new nature referable to a central nervous system. He has no myelopathy on examination. 3. Mild old small vessel ischemic disease. 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 5. 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 This is stable. Plan 1. Awaiting lumbar puncture results. If there is any indication of inflammation or Lyme infection, I would continue IV Rocephin 2 g daily (via PICC line) for 30 days If there is absolutely no abnormalities seen on lumbar puncture, discontinue IV Rocephin and initiate oral doxycycline for 3 weeks. 2. I see no need for additional neurologic testing or treatment changes at this time anyway. 3. Continue 81 milligram aspirin tablet daily. I have spoken with Dr. Jensen regarding this case including differential diagnosis and treatment options.
--- NOTE | 2017-07-17 13:26 | Discharge Instructions ---
Discharge Instructions Date of Service July 17, 2017. Admission Reason for Admission: Dizziness Discharge Discharge Diagnosis / Problem: Dizziness, Lyme Disease Discharge Goals Goal(s): Improve function, Diagnostic testing, Therapeutic intervention Activity Recommendations Activity Limitations: resume your previous activity Lifting Limitations: gradually increase as tolerated Exercise/Sports Limitations: gradually increase as tolerated Shower/Bathe: no limitations Driving or Machine Use: no limitations Instructions / Follow-Up Instructions / Follow-Up You came to the ER for dizziness. A stroke was ruled-out fortunately. You were checked for Lyme disease and came up positive. Because of your symptoms, we need to consider the possibility of central nervous system Lyme. You had a lumbar puncture for this which gave us spinal fluid that we have sent to the lab. We will follow these for the results which may take a few days. In the meantime we will treat you presumable for Lyme disease in the central nervous system. If you test positive, you will require IV antibiotics daily for 1 month. This would require a special IV to be placed. However, if your studies come back normal. we will take out the IV and treat you with oral antibiotics. We will be in touch with the results. Your blood pressure was also elevated persistently when you came in so when you go home we are discharging you with an increased dose of your HCTZ to 25 mg daily. This will be sent directly to your pharmacy and can be refilled by your family doctor. After you go home, if your symptoms acutely worsen, please seek medical attention immediately by either calling your primary care provider or going to your nearest emergency department. Otherwise, please see your primary care provider within 1 week to ensure that your symptoms continue to improve. It was a pleasure to be involved in your care and we wish you all the best. Current Hospital Diet Patient's current hospital diet: AHA Diet (Heart Healthy) Discharge Diet Recommended Diet: AHA Diet (Heart Healthy) Procedures Procedures Performed: Lumbar Puncture Pending Studies Studies pending at discharge: yes List of pending studies: Cerebrospinal fluids Lyme Studies and cultures Medical Emergencies . Who to Call and When: Medical Emergencies: If at any time you feel your situation is an emergency, please call 911 immediately. . Non-Emergent Contact Non-Emergency issues call your: Primary Care Provider, Hospital Doctor Call Non-Emergent contact if: you have a fever, your pain is concerning you, you have any medication questions . . "Provider Documentation" section prepared by Vic Sierra. .
[2017-07-17] MEDS ORDERED: CEFT1INJ57 IV (13:29)
[2017-07-17] MEDS ORDERED: CEFTRIAXONE SOD INJ 2,000 MG in DEXTROSE 5% 50ML 50 ML IV STA (13:42)
[2017-07-17] MEDS: TRAMADOL HCL 50 MG TAB PO PRN (13:54)
--- NOTE | 2017-07-17 14:25 | Discharge Summary ---
Discharge Summary Date of Service July 17, 2017. Discharge Summary Admission Date: July 15, 2017 at 19:37 Discharge Date: July 17, 2017 Discharge Disposition: Home Principal Diagnosis: Dizziness; presumed positive MIDLEVEL PROVIDER Lyme Immunizations: Have You Had Influenza Vaccine: Yes Influenza Vaccine Date: Oct 27, 2008 History of Tetanus Vaccine?: Yes Tetanus Immunization Date: Nov 27, 2007 History of Pneumococcal: No History of Hepatitis B Vaccine: Unknown Procedures: HEAD CT NONCONTRAST CT DOSE: 537.48 mGy.cm HISTORY: dizziness TECHNIQUE: Multiaxial CT images of the head were performed without the use of intravenous contrast. Automated exposure control was utilized for this study. A dose lowering technique was utilized adhering to the principles of ALARA. Comparison: Head CT 09/18/2013. Findings: Partial opacification of the posterior ethmoid air cells. The mastoid air cells are clear. The calvarium and skull base are intact. There is no mass, hematoma, midline shift, acute infarct. White matter hypodensity is nonspecific but suggestive of microvascular ischemic change. The ventricles and sulci demonstrate mild age-related involutional changes. Impression: No acute intracranial abnormality. Atrophy and microvascular ischemic changes. Electronically signed by: Aba Richards M.D. 07/15/2017 4:29 PM Dictated Date/Time: 07/15/2017 4:27 PM HEAD CTA HISTORY: Dizziness. TECHNIQUE: Multiaxial CT images of the head were performed both after the intravenous administration of contrast to evaluate the major cerebral vessels. Maximum intensity projection images were also obtained. A dose lowering technique was utilized adhering to the principles of ALARA. COMPARISON: Head CT 07/15/2017. FINDINGS: There is no mass, hematoma, midline shift, or acute infarct. Visualized intracranial internal carotid arteries, distal vertebral arteries, and basilar artery are widely patent. There is no significant stenosis, occlusion, or aneurysm seen within the bilateral ACAs, MCAs, or stone decorator. Persistent right posterior circulation as noted. This is considered to be a normal variant. IMPRESSION: No significant stenosis, occlusion, or aneurysm within the zuni of [place]. Electronically signed by: Aba Richards M.D. 07/15/2017 5:47 PM Dictated Date/Time: 07/15/2017 5:41 PM NECK CTA HISTORY: Dizziness. TECHNIQUE: Multiaxial CT images of the neck were performed following the intravenous administration of contrast to evaluate the major cervical vessels. Maximum intensity projection images were also obtained. All measurements were calculated based on NASCET criteria. A dose lowering technique was utilized adhering to the principles of ALARA. COMPARISON STUDY: None. FINDINGS: The aortic arch and proximal great vessels are widely patent. Mild calcified plaque within the bilateral carotid bifurcations. No significant venous stenosis, occlusion, or aneurysm within the bilateral common or internal carotid arteries. No cement stenosis seen within the right vertebral artery. There are 2 focal areas of approximately 60-70 % stenosis within the left vertebral artery at the C3 and C4 levels due to compression from the adjacent vertebral body osteophytes. C3-C5 anterior cervical discectomy and fusion. Calcified granuloma within the right lower lobe. Partial opacification of the ethmoid air cells. Mild mucosal thickening within the sphenoid sinuses and maxillary sinuses with a few small retention cysts. A few opacified bilateral inferior mastoid air cells. No fractures within the visualized osseous structures. IMPRESSION: No significant stenosis, occlusion, or dissection identified within the carotid arteries. There are 2 focal areas of probably 60-70% stenosis within the left vertebral artery at the C3 and C4 levels due to compression from the adjacent vertebral body osteophytes. Electronically signed by: Aba Richards M.D. 07/15/2017 5:56 PM Dictated Date/Time: 07/15/2017 5:47 PM Brain MRI WITHOUT CONTRAST HISTORY: Dizziness. TECHNIQUE: Multiplanar multisequence MRI of the brain was performed without the use of contrast. COMPARISON STUDY: Head CTA 07/15/2017. FINDINGS: There is no mass, hematoma, midline shift, or acute infarct. Mild mucosal thickening within the paranasal sinuses and partial opacification of the posterior ethmoid air cells. Small bilateral mastoid effusions. 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 The ventricles and sulci demonstrate mild age-related involutional changes. Scattered foci of T2 hyperintensity seen within the periventricular and subcortical white matter are nonspecific but suggestive of mild microvascular ischemic changes. The major vascular flow voids at the skull base are well-maintained. IMPRESSION: No acute intracranial abnormality. Scattered foci of T2 hyperintensity seen within the periventricular and subcortical white matter are nonspecific but favor microvascular ischemic change. Electronically signed by: Aba Richards M.D. 07/15/2017 10:20 PM Dictated Date/Time: 07/15/2017 10:15 PM FLUOROSCOPIC GUIDED LUMBAR PUNCTURE CLINICAL HISTORY: Dizziness. Lyme disease. PROCEDURE: The risks, benefits, and alternatives to the procedure is discussed with the patient who voiced understanding. Written informed consent was obtained. The patient was placed prone on the fluoroscopy table. The lower back was prepped and draped in the usual sterile fashion. 1% lidocaine was used for local anesthesia. A 22-gauge spinal needle was inserted into the L3 laminectomy space, and approximately 10 cc of clear colorless cerebrospinal fluid was removed and sent for laboratory analysis. The patient tolerated the procedure well. There were no immediate complications. The patient was then returned to the medical floor for further observation. Fluoroscopy time: 0.1 minutes IMPRESSION: Fluoroscopic guided lumbar puncture with removal of approximately 10 cc of cerebrospinal fluid. There were no immediate complications. Electronically signed by: Sudhakar Hubbard M.D. 07/17/2017 11:20 AM Dictated Date/Time: 07/17/2017 11:19 AM The status of this report is Signed. Draft = Not yet reviewed or approved by Radiologist. Signed = Reviewed and approved by Radiologist. <AttendingPhy>Evans Jensen MD</AttendingPhy> <FamilyPhy>Fred Tello M.D.</FamilyPhy> <PrimaryPhy>Fred Tello M.D.</PrimaryPhy> < UnitNumber>[id number]</UnitNumber> <VisitNumber>[id number]</VisitNumber> < PatientName>ABDIELRUPA</PatientName> <DateOfBirth>1940</DateOfBirth> < Location>[facility]</Location> <ServiceDate>07/15/17</ServiceDate> <MNE>ESINDI</MNE> < OrderingPhy>Abdirashid Villareal M.D.</OrderingPhy> <OrderingPhyMNE>f rep ord dr meyer</ OrderingPhyMNE> <DictatingPhyMNE>f rep dict dr meyer</DictatingPhyMNE> <CCListMNE> f rep ct mne</CCListMNE> <AdmittingPhyMNE>f pt admit dr meyer</AdmittingPhyMNE> < AttendingPhyMNE Interpretation Summary * Name: RUPA MEADOWS Study Date: 07/16/2017 08:40 AM BP: 168/80 mmHg * Patient Location: .\S\S235\S\1 HR: 59 * : 1940 (M/d/yyyy) Gender: Male Height: 68 in * Age: 76 yrs Ethnicity: CA Weight: 198 lb * Ordering Physician: Jackson Valdivia * Referring Physician: Self, Referred * Performed By: Rula Tatum [facility] * * Reason For Study: SYNCOPE * BSA: 2.0 m2 * -- Conclusions -- * 1. Normal LV size. Borderline concentric LVH * 2. Normal LV systolic function. LVEF 55-60 %. No regional wall motion abnormalities. * 3. Mildly dilated RV, normal RV function * 4. No significant valvular pathology. * 5. Atrial septal aneurysm with positive bubble study for [id number] interatrial shunt. * 6. Compared with prior study on 05/20/2013: No significant change Medication Reconciliation New Medications: Ceftriaxone Sod (Rocephin) 1 Gm Inj 2 GM IV DAILY for 30 Days, #30 VIAL Continued Medications: Acetaminophen Tab (Tylenol) 325 Mg Tab 325 MG PO, TAB Aspirin (Aspirin Ec) 81 Mg Tab 81 MG PO QAM Atorvastatin (Lipitor) 40 Mg Tab 40 MG PO HS, TAB Cholecalciferol (D-5000) 5,000 Unit Tab 5000 UNITS PO DAILY for 30 Days, TAB 3 Refills Docusate Sodium (Colace) 100 Mg Cap 100 MG PO BID for 30 Days, #60 CAP Fentanyl (Fentanyl) 25 Mcg Tdsy 25 MCG TD CQ72HR Fluticasone Propionate (Nasal) (Flonase Allergy Relief Ch) 50 Mcg/Act Spr 1 SPRAY ROLANDO BID PRN for allergy symptoms Gabapentin (Gabapentin) 600 Mg Tab 600 MG PO QID Hydrochlorothiazide (Hydrochlorothiazide) 12.5 Mg Tab 1 TAB PO DAILY for 30 Days, #30 TAB 5 Refills Ibuprofen (Advil) 200 Mg Tab 800 MG PO DAILY, TAB Lidocaine (Lidocaine) 1 Patch Tdsy 1 PATCH TOP DAILY Lorazepam (Ativan) 0.5 Mg Tab 0.5 MG PO QID PRN for Anxiety, TAB Meclizine Hcl (Meclizine Hcl) 25 Mg Tab 1 TAB PO TID for 30 Days, #90 TAB Metoprolol Succ (Toprol Xl) (Toprol-Xl ) 100 Mg Tabcr 100 MG PO DAILY, TAB Misc Natural Products (Saw [place]) 1 Cap Cap 1 CAP PO DAILY Multivitamin (Multivitamin) Tab 1 TAB PO DAILY, TAB Omeprazole (Prilosec) 20 Mg Capcr 20 MG PO DAILY, CAP Sennosides-Docusate Sodium (Senna S) 1 Tab Tab 2 TABS PO BID Sulindac (Sulindac) 150 Mg Tab 150 MG PO BID Tamsulosin Hcl (Flomax) 0.4 Mg Cap 0.8 MG PO DAILY, CAP Tramadol (Ultram) 50 Mg Tab 50 MG PO Q4 PRN for Pain, TAB Discharge Exam A 10 point review of systems was negative unless stated in the hospital course. Physical Exam: General Appearance: WD/WN, no apparent distress Eyes: normal inspection, EOMI ENT: hearing grossly normal, pharynx normal Neck: supple, no adenopathy, no JVD Respiratory/Chest: lungs clear, no respiratory distress Cardiovascular: regular rate, rhythm, no gallop, no JVD, no murmur Abdomen / GI: normal bowel sounds, non tender, soft Extremities: no calf tenderness, no pedal edema Neurologic/Psychiatric: alert, normal mood/affect, oriented x 3 Skin: normal color, warm/dry, no rash Lymphatic: no adenopathy Hospital Course 76 year old male admitted for work-up of dizziness. 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 Image reports provided above. - Continued with meclizine per home dose Lyme Disease / Presumed positive MIDLEVEL PROVIDER Lyme - LP performed; cultures and Lyme studies pending at discharge - Given dizziness, will treat as presumed positive Lyme - Endurance IV placed at discharge: Started Rocephin 2 g daily IV until CSF studies resulted - If negative CSF studies; D/C IV and transition to oral Doxycycline BID - If positive CSF studies; treat 1 month with IV Rocephin and arrange for ID follow-up Atrial Septal Aneurysm with R - L Shunting - Noted incidentally on Echocardiogram - No chest pain or palpitations - Per PCP, would require close follow-up with repeat echocardiogram and/or cardiology follow-up Hypertension - Continue Metoprolol; bradycardia prevented uptitrated - HCTZ increased to 25 mg daily; recommend repeat BMP in 2-4 weeks with PCP Right calf pain/swelling/Ruptured Tello's Cyst - Needs outpatient U/S in 2 months to follow complex fluid collection (as of May 2017) Chronic Low Back Pain - Continued home regimen of Fentanyl patch, Ultram and Gabapentin. - Hyperlipidemia: Continue Atorvastatin - BPH: Continued Flomax at home dose - GERD: Continue Pantoprazole The patient made a good clinical recover. An endurance IV was placed at the time of discharge and he got his first dose Ceftriaxone 2 g. He was discharged home in stable condition and will follow-up with his PCP within 1 week. Total Time Spent: Greater than 30 minutes This includes examination of the patient, discharge planning, medication reconciliation, and communication with other providers. Discharge Instructions Please refer to the electronic Patient Visit Report (Discharge Instructions) for additional information. Additional Copies To Fred Tello M.D. Assessment/Plan Resident Physician Supervision Note: I was present with Dr. Sierra during the history and exam. I discussed the case with the resident and agree with the findings and plan as documented in the note. Any exceptions or clarifications are listed here. Pt seen and examined at bedside. New complaint on day of discharge - Left sided periorbital FRAGOSO which has been appearing intermittently for the last 3-4 weeks. Three episodes in total which resolve spontaneously in a few days, minimally repsonsive to APAP without positional changes, photophobia, aura, accompanying sensory changes or nausea. Accompanied by significant BP elevation with pain. Admin 2mg of morphine with considerable improvement in pain and drop in BP to 140s SBP. No positional FRAGOSO following LP. Balance changes/gait changes - PT cleared for home, rec's SPC for stability. Leaving on 2g IV rocephin daily for suspected neurolyme while testing pending. May need PICC for long course if LP DNA +ve, otherwise, finish 28 day course with doxycycline. Precautions reviewed re: new neurological sx, worsening FRAGOSO, positional FRAGOSO and other sx following LP. L periorbital FRAGOSO - tension v. neurolyme sequelae - responded well to morphine 2mg x 1. Will give short course of oxycodone to ameliorate sx which should fade with treatment of underlying condition. HTN - stable when pain is controlled, encourage close primary care follow up.
[2017-07-17] MEDS ORDERED: MoRPHine SULFATE 4 MG/ML 1 ML CARP\\VIAL IV STA (17:05)
[2017-07-17] MEDS ORDERED: HYDR25TA5 PO (17:14)
[2017-07-17] MEDS ORDERED: OXYC1TAB3 PO (18:41)
[2017-07-18] MEDS ORDERED: FENTANYL PATCH REMOVE & WASTE SCH (08:59)
[2017-07-18] MEDS ORDERED: FENTANYL 25 MCG/HR TDSY TD SCH (09:00)
== END 2017-07-17 19:23 | disposition home health service (06) ==
LOC: C.EDB 15:08 → C.2T 19:37 → ENRESERV 19:47
PROVIDERS: ADMIT Hospitalist; ATTEND Family Medicine
DX: R42 Dizziness and giddiness (principal); R29.6 Repeated falls; M66.0 Rupture of popliteal cyst; G89.29 Other chronic pain; M79.89 Other specified soft tissue disorders; M48.02 Spinal stenosis, cervical region; M48.061 Spinal stenosis, lumbar region without neurogenic claudication; G62.9 Polyneuropathy, unspecified; K21.9 Gastro-esophageal reflux disease without esophagitis; E78.5 Hyperlipidemia, unspecified; I10 Essential (primary) hypertension; Z83.3 Family history of diabetes mellitus; Z82.49 Family history of ischemic heart disease and other diseases of the circulatory system; Z79.82 Long term (current) use of aspirin; Z79.899 Other long term (current) drug therapy; Z88.7 Allergy status to serum and vaccine

== ENCOUNTER 2017-07-19 22:42 | Emergency (ER) | payer BC ==
[~2017-07-19] VITALS: Ht 177.8 cm; Wt 88.0 kg
[~2017-07-19 22:42] MED LIST changes: +ACET-1693 PO; +CEFT1INJ57 IV; +HYDR25TA5 PO; +MECL1TAB42 PO; +OXYC1TAB3 PO
[2017-07-19 22:44] VITALS: TEMP 36.7; Ht 177.8 cm; Wt 88.0 kg
[2017-07-19] MEDS ORDERED: CEFT1INJ57 IV (23:07)
[2017-07-19] MEDS ORDERED: OXYC1TAB3 PO (23:07)
[2017-07-19] MEDS ORDERED: HYDR25TA4 PO (23:07)
--- NOTE | 2017-07-19 23:30 | EMERGENCY ROOM VISIT NOTE ---
ED Visit Note First contact with patient: 22:48 I have seen and examined this patient with Sandra Villanueva and generally agree with the treatment plan as discussed. Problem List Medical Problems: (1) CERV SPONDYL W MYELOPATH Status: Resolved (2) ESOPHAGEAL REFLUX Status: Chronic (3) HYPERLIPIDEMIA NEC/NOS Status: Chronic (4) HYPERTENSION NOS Status: Chronic (5) SPINAL STENOSIS-LUMBAR Status: Chronic Current/Historical Medications Scheduled Acetaminophen Tab (Tylenol), 325 MG PO DIRECTED Aspirin (Aspirin Ec), 81 MG PO QAM Atorvastatin (Lipitor), 40 MG PO HS Ceftriaxone Sod (Rocephin), 2 GM IV DAILY Cholecalciferol (D-5000), 5,000 UNITS PO DAILY Docusate Sodium (Colace), 100 MG PO BID Fentanyl (Fentanyl), 25 MCG TD CQ72HR Gabapentin (Gabapentin), 600 MG PO QID Hydrochlorothiazide (Hctz), 25 MG PO DAILY Ibuprofen (Advil), 800 MG PO DAILY Lidocaine (Lidocaine), 1 PATCH TOP DAILY Meclizine Hcl (Meclizine Hcl), 1 TAB PO TID Metoprolol Succ (Toprol Xl) (Toprol-Xl ), 100 MG PO DAILY Misc Natural Products (Saw [place]), 1 CAP PO DAILY Multivitamin (Multivitamin), 1 TAB PO DAILY Omeprazole (Prilosec), 20 MG PO DAILY Sennosides-Docusate Sodium (Senna S), 2 TABS PO BID Sulindac (Sulindac), 150 MG PO BID Tamsulosin Hcl (Flomax), 0.8 MG PO DAILY Scheduled PRN Fluticasone Propionate (Nasal) (Flonase Allergy Relief ), 1 SPRAY ROLANDO BID PRN for allergy symptoms Lorazepam (Ativan), 0.5 MG PO QID PRN for Anxiety Oxycodone Immediate Rel Tab (Roxicodone Ir), 5 MG PO Q6H PRN for Pain Tramadol (Ultram), 50 MG PO Q4 PRN for Pain Allergies Coded Allergies: Pneumococcal Polysaccharides (Verified Allergy, Severe, SHORTNESS OF BREATH, chest tightness, 07/19/17) Vital Signs Date Time Temp Pulse Resp B/P (MAP) Pulse Ox O2 Delivery O2 Flow Rate FiO2 07/19/17 22:44 36.7 76 18 176/80 94 Room Air Departure Information Referrals Fred Tello M.D. (PCP) Patient Instructions My [facility]
--- NOTE | 2017-07-20 00:30 | EMERGENCY ROOM VISIT NOTE ---
History First contact with patient: 22:48 Chief Complaint: FALL Stated Complaint: FELL DOWN STAIRS;R SHOULDER PAIN WHEN MOVING IT History of Present Illness The patient is a 76 year old male who presents to the Emergency Room with complaints of a fall. The patient states that he was going down a few steps and his right knee gave out on him and he fell down 1-2 steps. He states that he landed onto his right shoulder and hit his head. He did not lose consciousness. He reports he has right shoulder pain rated 3/10. His pain is significantly worsened with movement of the shoulder. He reports he has had some chronic issues with his right knee, and is seeing orthopedics tomorrow. The patient was recently hospitalized for frequent falls. He has follow-up scheduled with both his orthopedist and his primary care provider. He states that he was not dizzy or lightheaded prior to the fall. Review of Systems A complete 10 point review of systems was reviewed with the patient with pertinent positives and negatives as per history of present illness. All else were negative. Past Medical/Surgical History Medical Problems: (1) CERV SPONDYL W MYELOPATH (2) ESOPHAGEAL REFLUX (3) HYPERLIPIDEMIA NEC/NOS (4) HYPERTENSION NOS (5) SPINAL STENOSIS-LUMBAR Family History Cancer Diabetes mellitus Heart disease Hypertension Social History Smoking Status: Never Smoker Drug Use: none Marital Status: Housing Status: lives with family Occupation Status: retired Current/Historical Medications Scheduled Acetaminophen Tab (Tylenol), 325 MG PO DIRECTED Aspirin (Aspirin Ec), 81 MG PO QAM Atorvastatin (Lipitor), 40 MG PO HS Ceftriaxone Sod (Rocephin), 2 GM IV DAILY Cholecalciferol (D-5000), 5,000 UNITS PO DAILY Docusate Sodium (Colace), 100 MG PO BID Fentanyl (Fentanyl), 25 MCG TD CQ72HR Gabapentin (Gabapentin), 600 MG PO QID Hydrochlorothiazide (Hctz), 25 MG PO DAILY Ibuprofen (Advil), 800 MG PO DAILY Lidocaine (Lidocaine), 1 PATCH TOP DAILY Meclizine Hcl (Meclizine Hcl), 1 TAB PO TID Metoprolol Succ (Toprol Xl) (Toprol-Xl ), 100 MG PO DAILY Misc Natural Products (Saw [place]), 1 CAP PO DAILY Multivitamin (Multivitamin), 1 TAB PO DAILY Omeprazole (Prilosec), 20 MG PO DAILY Sennosides-Docusate Sodium (Senna S), 2 TABS PO BID Sulindac (Sulindac), 150 MG PO BID Tamsulosin Hcl (Flomax), 0.8 MG PO DAILY Scheduled PRN Fluticasone Propionate (Nasal) (Flonase Allergy Relief Ch), 1 SPRAY ROLANDO BID PRN for allergy symptoms Lorazepam (Ativan), 0.5 MG PO QID PRN for Anxiety Oxycodone Immediate Rel Tab (Roxicodone Ir), 5 MG PO Q6H PRN for Pain Tramadol (Ultram), 50 MG PO Q4 PRN for Pain Physical Exam Vital Signs Date Time Temp Pulse Resp B/P (MAP) Pulse Ox O2 Delivery O2 Flow Rate FiO2 07/20/17 00:45 81 20 164/76 96 07/19/17 22:44 36.7 76 18 176/80 94 Room Air Physical Exam VITALS: Vitals are noted on the nurse's note and reviewed by myself. Vital signs stable. GENERAL: This is a 76-year-old male, in no acute distress, nondiaphoretic, well- developed well-nourished. SKIN: The skin was without rashes, erythema, edema, or bruising. HEAD: Normocephalic atraumatic. EARS: External auditory canals clear, tympanic membranes pearly quintanilla without erythema or effusion bilaterally. No hemotympanum. EYES: Pupils equal round and reactive to light and accommodation. Extraocular movements intact. MOUTH: Mucous membranes moist. NECK: Supple without nuchal rigidity. There is some right cervical paraspinous tenderness. No midline tenderness. HEART: Regular rate and rhythm without murmurs gallops or rubs. LUNGS: Clear to auscultation bilaterally without wheezes, rales or rhonchi. MUSCULOSKELETAL: NEURO: Patient was alert and oriented to person place and time. Normal sensation to light and sharp touch. Medical Decision & Procedures ER Provider Diagnostic Interpretation: CT HEAD: Comparison 07/15/2017 No intracranial hemorrhage, mass effect or calvarial fracture Ventricles are within limits and midline Chronic and involutional changes again noted Visualized paranasal sinuses, mastoids and orbits are unchanged in appearance Radiologist: Tavo Gomez M.D. CT C SPINE: Comparison 07/15/2017 No acute fracture or malalignment Status post C3 through C5 anterior cervical disc fusion with screws at the C2-3 disc space with severe disc space narrowing and irregularity and mild focal kyphotic deformity with 2-3 mm of retrolisthesis of C2 on C3 again seen Multilevel spondylosis/discogenic change No prevertebral swelling Radiologist: Tavo Gomez M.D. RIGHT SHOULDER: No obvious acute fractures or dislocations. Reviewed by myself and my attending. Medical Decision Differential diagnosis includes fracture, contusion, dislocation, sprain, rotator cuff injury, among others. The patient was evaluated as above. X-ray of the right shoulder was obtained and reviewed by myself and Dr. Suero and does not show any obvious acute findings. Patient has had some issues with right knee pain and is seen orthopedics for this tomorrow. He was advised to also see them regarding his right shoulder pain. He was placed in an arm sling. CT head and cervical spine were read by statrad with no acute findings. Patient recently had extensive workup for his falls. He does live at home with his they feel he is safe to be discharged home at this time. He was advised to follow-up with his PCP, as I feel he would benefit from physical therapy. He verbalized understanding of my assessment and treatment plan and was discharged home in good condition. The patient was independently evaluated by Dr. Suero, ED attending physician , who agreed with my assessment and treatment plan. Medication Reconcilliation Current Medication List: was personally reviewed by me Blood Pressure Screening Patient's blood pressure: Elevated blood pressure Blood pressure disposition: Elevated BP felt to be situational Impression Primary Impression: Fall Additional Impression: Right shoulder pain Departure Information Dispostion Home / Self-Care Condition GOOD Referrals Fred Tello M.D. (PCP) Mauro Groves,P.A. Patient Instructions My [facility] Additional Instructions Follow-up with orthopedics tomorrow as scheduled. Wear the arm sling as needed for comfort of the shoulder. Apply ice to the shoulder as needed. Contact the primary care provider in the morning to schedule follow-up appointment. Return to the emergency department for any worsening or new/concerning symptoms. Problem Qualifiers Primary Impression: Fall Encounter type: initial encounter Qualified Codes: W19.XXXA - Unspecified fall, initial encounter Additional Impression: Right shoulder pain Chronicity: acute Qualified Codes: M25.511 - Pain in right shoulder
[2017-07-20 00:45] VITALS: BP 164/76; PULSE 81; O2SAT 96
--- NOTE | 2017-07-20 06:50 | DIAGNOSTIC IMAGING REPORT ---
R SHOULDER MIN 2 VIEWS ROUTINE CLINICAL HISTORY: Right shoulder pain status post trauma COMPARISON: None. DISCUSSION: There is a distal right clavicular deformity which is likely old. Degenerative changes are present the chromic clavicular joint. No acute fractures or dislocations the proximal humerus are visualized. Degenerative changes are present within the glenohumeral joint. IMPRESSION: Chronic changes. No acute fractures. Electronically signed by: Torito Srivastava M.D. 07/20/2017 6:48 AM Dictated Date/Time: 07/20/2017 6:45 AM
--- NOTE | 2017-07-20 07:02 | DIAGNOSTIC IMAGING REPORT ---
CT SCAN OF THE BRAIN WITHOUT IV CONTRAST CLINICAL HISTORY: Fall. COMPARISON STUDY: CT of the brain dated 07/15/2017. TECHNIQUE: Unenhanced axial CT scan of the brain is performed from the vertex to the skull base. A dose lowering technique was utilized adhering to the principles of ALARA. FINDINGS: Brain parenchyma: There are age-related involutional changes noting mild subcortical and periventricular microangiopathic change. There is no hemorrhage, mass effect, or evidence of acute territorial ischemia by CT criteria. Tello-white matter is preserved. No extra-axial fluid collection is seen. Ventricles, sulci, cisterns: Prominent secondary to involutional change. Intracranial vasculature: There is atherosclerotic calcification of the cavernous carotid and vertebral arteries. Calvarium: The skeletal structures are osteopenic. No depressed calvarial fracture is seen. Sinuses and mastoids: There is moderate mucosal thickening within the ethmoid sinuses. The remaining visualized paranasal sinuses are clear. There are small mastoid effusions. Orbits: The bony orbits are grossly intact. There are bilateral ocular lens implants. IMPRESSION: There is no hemorrhage, mass effect, or evidence of acute territorial ischemia by CT criteria. Electronically signed by: Sudhakar Hubbard M.D. 07/20/2017 7:01 AM Dictated Date/Time: 07/20/2017 6:59 AM
--- NOTE | 2017-07-20 07:15 | DIAGNOSTIC IMAGING REPORT ---
CERVICAL SPINE W/O CLINICAL HISTORY: 76 years-old Male presenting with fall, head injury, right shoulder pain. TECHNIQUE: Multidetector CT of the cervical spine was performed without the use of intravenous contrast. IV contrast: None. A dose lowering technique was used consistent with the principles of ALARA (as low as reasonably achievable). COMPARISON: CTA neck from 07/15/2017 and plain radiographs from 04/06/2016. CT DOSE (mGy.cm): The estimated cumulative dose is 1079.82 mGy.cm. FINDINGS: Home Extension Agent topogram: Anterior cervical fusion hardware. Postsurgical changes of anterior cervical discectomy and fusion of C3-C5. Incomplete bony bridging across these levels, which is greater at C3-4. No apparent hardware breakage. Mild lucency surrounds the C3 screws, which may violate the superior endplate cortex. This appearance is unchanged since at least 04/06/2016. Slight focal kyphosis at C2-3 with trace retrolisthesis of C2 on C3. Angulation and retrolisthesis results in mild osseous narrowing of the spinal canal at this level. Below the fused levels, vertebral bodies maintain normal height and alignment. Significant intervertebral disc height loss with irregularity of endplates at C2-3. Disc height loss without significant endplate irregularity noted at C5-6 and C6-7. Disc osteophyte complex at C5-6 may significantly narrow the spinal canal though the full extent would be better appreciated on MR. Disc osteophyte complexes/uncovertebral hypertrophy and varying degrees of facet arthropathy result in multilevel osseous neural foraminal narrowing, mild bilateral at C4-5, moderate bilateral at C5-6, and mild bilateral at C6-7. No acute fracture or acute subluxation. Incidental note made of ponticulus posticus bilaterally at C1. Skull base is intact. Paraspinal soft tissues remarkable for atherosclerosis. Lung apices clear. IMPRESSION: 1. No acute osseous injury of the cervical spine. 2. Postsurgical changes of C3-C5 anterior cervical discectomy and fusion. Chronic adjacent level degenerative change at C2-3 and retrolisthesis of C2 on C3. 3. Multilevel degenerative changes in the lower cervical spine. The degree of spinal canal narrowing would be better demonstrated with MR. 4. Multilevel neural foraminal narrowing. Electronically signed by: Tavo Tang M.D. 07/20/2017 7:13 AM Dictated Date/Time: 07/20/2017 6:51 AM
== END 2017-07-20 00:46 | disposition home or self-care (01) ==
LOC: C.EDB 22:43
DX: M25.511 Pain in right shoulder (principal); E78.5 Hyperlipidemia, unspecified; I10 Essential (primary) hypertension; K21.9 Gastro-esophageal reflux disease without esophagitis; Z79.82 Long term (current) use of aspirin; Z79.899 Other long term (current) drug therapy; W10.9XXA Fall (on) (from) unspecified stairs and steps, initial encounter

== ENCOUNTER → 2017-10-02 | Outpatient (CLI) | payer BC ==
[~2017-10-02] MED LIST changes: +HYDR25TA4 PO; -HYDR25TA5 PO; +OXYC-737 PO; -OXYC1TAB3 PO
--- NOTE | 2017-10-02 11:25 | DIAGNOSTIC IMAGING REPORT ---
ADDENDUM Addendum: Note is made of incomplete fusion at the L3-L4 level. Disc space widening at this level may slightly increase with extension. Electronically signed by: Aureliano Aguilar M.D. 10/02/2017 11:27 AM Dictated Date/Time: 10/02/2017 11:27 AM ORIGINAL REPORT FLEXION-EXTENSION LUMBAR SPINE RADIOGRAPHS CLINICAL HISTORY: Post laminectomy syndrome. Back pain. COMPARISON: Lumbar spine radiographs April 03, 2016 and lumbar spine MRI April 19, 2015. FINDINGS: There are postoperative findings consistent with an L2-L4 bilateral pedicle screw fusion. Posterior decompression is noted as well as a previous L4-L5 fusion which appears complete. There is no definite evidence for instability during flexion or extension. Lucency surrounding the L4 screws suggests loosening. There may be slight lucency adjacent to the L3 screws. IMPRESSION: 1. Status post L2-L4 bilateral pedicle screw fusion. Lucency surrounding the L4 pedicle screws raises the possibility of loosening. Possible lucency surrounding the L3 pedicle screws. 2. No significant change in alignment during flexion or extension. Electronically signed by: Aureliano Aguilar M.D. 10/02/2017 11:24 AM Dictated Date/Time: 10/02/2017 11:18 AM
== END ==
LOC: C.RAD 09:45
PROVIDERS: ATTEND Physician Assistant Medical
DX: M54.5 Low back pain (principal)

== ENCOUNTER 2018-05-03 09:16 | Inpatient (IN) ==
--- NOTE | 2018-04-16 10:18 | PAT Medication Instructions ---
Medication Instructions Date of Service April 16, 2018 Home Medications acetaminophen [Tylenol] 325 mg PO Q4H NEEDED ascorbic acid (vitamin C) 1 g PO DAILY aspirin [Aspir-81] 81 mg PO DAILY atorvastatin [Lipitor] 40 mg PO HS cholecalciferol (vitamin D3) 5,000 unit PO DAILY docusate sodium [Colace] 100 mg PO BID fluticasone [Flonase Allergy] 2 spray INTRANASAL BID gabapentin 600 mg PO QID lidocaine [Lidoderm] 1 dose TOPICAL NEEDED lorazepam 0.5 mg PO QID NEEDED metoprolol succinate 100 mg PO QPM multivitamin [Multiple Vitamins] 1 tab PO DAILY omeprazole 20 mg PO BID oxycodone [OxyContin] 10 mg PO Q12H oxycodone 10 mg PO QID NEEDED sennosides-docusate sodium [Senna-S] 2 tab PO BID sulindac 150 mg PO BID tamsulosin [Flomax] 2 cap PO QAM tramadol 50 mg PO Q4H NEEDED ASK your surgeon for instructions sulindac 150 mg PO BID STOP taking 24 hours before surgery lidocaine [Lidoderm] 1 dose TOPICAL NEEDED DO NOT take the morning of surgery ascorbic acid (vitamin C) 1 g PO DAILY cholecalciferol (vitamin D3) 5,000 unit PO DAILY docusate sodium [Colace] 100 mg PO BID fluticasone [Flonase Allergy] 2 spray INTRANASAL BID multivitamin [Multiple Vitamins] 1 tab PO DAILY sennosides-docusate sodium [Senna-S] 2 tab PO BID Take morning of surgery With a small sip of water, OTHERWISE NOTHING TO EAT OR DRINK AFTER MIDNIGHT: acetaminophen [Tylenol] 325 mg PO Q4H NEEDED gabapentin 600 mg PO QID lorazepam 0.5 mg PO QID NEEDED (STOP 4 HOURS BEFORE SURGERY) omeprazole 20 mg PO BID oxycodone [OxyContin] 10 mg PO Q12H oxycodone 10 mg PO QID NEEDED (STOP 4 HOURS BEFORE SURGERY) tamsulosin [Flomax] 2 cap PO QAM tramadol 50 mg PO Q4H NEEDED (STOP 4 HOURS BEFORE SURGERY) Take evening before surgery acetaminophen [Tylenol] 325 mg PO Q4H NEEDED aspirin [Aspir-81] 81 mg PO DAILY atorvastatin [Lipitor] 40 mg PO HS docusate sodium [Colace] 100 mg PO BID fluticasone [Flonase Allergy] 2 spray INTRANASAL BID gabapentin 600 mg PO QID lorazepam 0.5 mg PO QID NEEDED metoprolol succinate 100 mg PO QPM omeprazole 20 mg PO BID oxycodone [OxyContin] 10 mg PO Q12H oxycodone 10 mg PO QID NEEDED sennosides-docusate sodium [Senna-S] 2 tab PO BID tramadol 50 mg PO Q4H NEEDED Other Notes If you have any questions please call us at [phone] or [phone] or [phone] or [phone]
--- NOTE | 2018-04-16 12:24 | Anesthesiology Consultation ---
Date of Service April 16, 2018 Assessment & Plan (1) Encounter for pre-operative examination: Chart Review Chart Review: Acceptable Risk for Surgery and Patient seen in Pre Admission Testing Consults Requested none Teaching & Discussion Pre-Anesthesia Teaching/Discussion Notes: Instructed NPO after midnight before surgery, except medications with 15 cc of water. Medication instructions provided according to the PAT guidelines. History Surgery Operation Date: 05/03/18 13:40 Proposed Procedures p Total Shoulder Arthroplasty Yun Bond DO Height/Weight Height: 5 ft 10 in Weight: 89.4 kg Allergies Allergy/AdvReac Type Severity Reaction Status Date / Time pneumococcal vaccine Allergy Severe SHORTNESS Verified 04/12/18 11:22 OF BREATH, CHEST TIGHTNESS, BP WENT UP Medications Home Medications Medication Instructions Recorded Confirmed Last Taken acetaminophen [Tylenol] 325 mg PO Q4H PRN 04/12/18 04/12/18 Unknown ascorbic acid (vitamin C) [Vitamin 1 g PO DAILY 04/12/18 04/12/18 Unknown C] aspirin [Aspir-81] 81 mg PO DAILY 04/12/18 04/12/18 Unknown atorvastatin [Lipitor] 40 mg PO HS 04/12/18 04/12/18 04/11/18 cholecalciferol (vitamin D3) 5,000 unit PO DAILY 04/12/18 04/12/18 Unknown [Vitamin D3] docusate sodium [Colace] 100 mg PO BID 04/12/18 04/12/18 Unknown fluticasone [Flonase Allergy 2 spray INTRANASAL BID 04/12/18 04/12/18 Unknown Relief] gabapentin 600 mg PO QID 04/12/18 04/12/18 Unknown lidocaine [Lidoderm] 1 dose TOPICAL UD PRN 04/12/18 04/12/18 Unknown lorazepam 0.5 mg PO QID PRN 04/12/18 04/12/18 Unknown metoprolol succinate 100 mg PO QPM 04/12/18 04/12/18 04/11/18 multivitamin [Multiple Vitamins] 1 tab PO DAILY 04/12/18 04/12/18 Unknown omeprazole 20 mg PO BID 04/12/18 04/12/18 04/12/18 oxycodone 10 mg PO BID 04/12/18 04/12/18 Unknown sennosides-docusate sodium 2 tab PO BID 04/12/18 04/12/18 Unknown [Senna-S] sulindac 150 mg PO BID 04/12/18 04/12/18 04/12/18 tamsulosin [Flomax] 2 cap PO QAM 04/12/18 04/12/18 04/12/18 tramadol 50 mg PO Q4H PRN 04/12/18 04/12/18 Unknown oxycodone [OxyContin] 10 mg PO Q12H 04/16/18 04/16/18 Unknown Past Medical History Medical History Acid reflux Anxiety and depression Chronic back pain [facility]DR BEN[facility] Hernia CURRENT GROIN History of skin cancer Hyperlipidemia Hypertension Osteoarthritis Past Surgical History Surgical History History of back surgery X4 (INCLUDING FUSION) History of colonoscopy History of hernia surgery Bilateral inguinal hernia repair History of neck surgery FUSION History of shoulder surgery R&L Past Anesthesia History No Hx of Anesthesia Complications and No Family Hx of Anesthesia Complications History of PONV No Motion Sickness Screening History of Motion Sickness: No Social History Smoking Status: Never smoker Do You Dip or Chew Tobacco: No Hx Alcohol Use: No Hx Substance Use: No substance use type: does not use Exercise / Class Metabolic Activity II 4-5 Yardwork/Stairs/Walk up hill (Minimal due to back pain. Able to climb FOS. Denies CP or SOB. ) Review of Systems Patient denies chest pain, shortness of breath, dyspnea on exertion, cough, wheezing, palpitations. +joint pain (back, shoulder) +acid reflux (controlled by medication) Physical Exam Vital Signs BP: 149/77 P: 48 R: 12 T: 97.9 SPO2: 98% on RA ENMT Mouth: + poor dentition Thyromental Distance: < 3.5 Finger Breadths (3) Mallampati Class: II Neck normal visual inspection, trachea midline and + limited neck extension Respiratory normal respiratory effort Auscultation: lungs clear to auscultation bilaterally Cardiovascular Rate/Rhythm: regular rate and regular rhythm Heart Sounds: no murmur Vessels: no carotid bruit Neurologic moves all extremities Psychiatric Orientation: alert and oriented x 3 Testing Electrocardiogram Date: 04/16/18 Findings: + SB @ (54) and + no change from (07/16/17) Chest X-Ray Date: 04/16/18 Findings: + NAD FINDINGS: Atherosclerosis of the aortic arch. Cardiac silhouette normal in size. Mild prominence of the main pulmonary artery. Lungs and pleural spaces clear. Partially visualized lumbar fusion hardware. Posttraumatic deformity of the distal right clavicle. Upper abdomen normal. IMPRESSION: 1. No acute cardiopulmonary disease. Laboratory Results 04/16/18 13:02 04/16/18 13:02 Blood Type O Positive 04/16/18 13:02 Antibody Screen NEGATIVE 04/16/18 13:02 PT 10.5 Seconds (9.0-12.0) 04/16/18 13:02 INR 1.0 (0.9-1.1) 04/16/18 13:02 APTT 26.3 Seconds (21.0-31.0) 04/16/18 13:02
--- NOTE | 2018-04-16 13:34 | XRay Report ---
XR chest Pre-admission PA/Lat CLINICAL HISTORY: 77 years-old Male presenting with preoperative assessment. TECHNIQUE: PA and lateral views of the chest were obtained. COMPARISON: 09/10/2013. FINDINGS: Atherosclerosis of the aortic arch. Cardiac silhouette normal in size. Mild prominence of the main pu lmonary artery. Lungs and pleural spaces clear. Partially visualized lumbar fusion hardware. Posttrau matic deformity of the distal right clavicle. Upper abdomen normal. IMPRESSION: 1. No acute cardiopulmonary disease. Electronically signed by: Tavo Tang M.D. 04/16/2018 1:33 PM
[2018-04-16 15:29] LABS: Basophils # (auto) 0.02 K/uL (0-0.2); Basophils % (auto) 0.4 %; Eosinophils # (auto) 0.18 K/uL (0-0.5); Eosinophils % (auto) 3.8 %; Hemoglobin 14.4 g/dL (14.0-18.0); Lymphocytes % (auto) 31.6 %; Mean Corpuscular Hgb Conc 34.3 g/dL (32-36); Mean Corpuscular Volume 88.4 fL (80-100); Mean Platelet Volume 12.8 fL (7.4-10.4); Monocytes # (auto) 0.39 K/uL (0.11-0.59); Monocytes % (auto) 8.2 %; Neutrophils # (auto) 2.66 K/uL (1.4-6.5); Platelet Count 138 K/uL (130-400); RDW Coefficient of Variation 12.9 % (11.5-14.5); RDW Standard Deviation 41.7 fL (36.4-46.3); Red Blood Count 4.75 M/uL (4.7-6.1); White Blood Count 4.75 K/uL (4.8-10.8)
[2018-04-16 15:43] LABS: BUN Creatinine Ratio 23.4 (10-20); Calcium 8.9 mg/dl (8.5-10.1); Creatinine Clr Calc Pharmacy 65.7 ml/min; Est GFR (African American) 78.1; Est GFR (Non-African American) 67.4; Partial Thromboplastin Time 26.3 Seconds (21.0-31.0); Potassium 4.9 mmol/L (3.5-5.1); Prothrombin Time 10.5 Seconds (9.0-12.0)
--- NOTE | 2018-05-01 20:37 | History & Physical Report ---
Date of Service May 01, 2018 Assessment & Plan (1) Rotator cuff arthropathy of right shoulder: We will proceed with a reverse right shoulder arthroplasty. Postoperatively he will be placed in a sling and kept overnight for postop medical management. He is currently in pain management for chronic low back pain. He takes OxyContin and oxycodone daily. We will continue with this pain management regimen postoperatively. He plans to use [facility] upon discharge. Present on Admission?: Yes History of Present Illness Chief Complaint: Rotator cuff arthropathy of the right shoulder Primary Care Provider: Fred Tello MD is a pleasant 77-year-old male who has a history of a right rotator cuff repair done many years ago. He was doing fairly well with his shoulder until recently. He does not recall any falls but he states that he is now unable to elevate his arm above chest level. He has to use his other hand to do anything overhead. He is having a lot of shoulder pain at night. He has had multiple cortisone injections without any relief. X-rays and clinical examination were diagnostic for rotator cuff arthropathy. After failing conservative treatment, he is elected proceed with a reverse right shoulder arthroplasty. Allergies Allergy/AdvReac Type Severity Reaction Status Date / Time pneumococcal vaccine Allergy Severe SHORTNESS Verified 04/12/18 11:22 OF BREATH, CHEST TIGHTNESS, BP WENT UP Home Medications Home Medications Medication Instructions Recorded Confirmed Type acetaminophen [Tylenol] 325 mg PO Q4H PRN 04/12/18 04/12/18 History ascorbic acid (vitamin C) [Vitamin 1 g PO DAILY 04/12/18 04/12/18 History C] aspirin [Aspir-81] 81 mg PO DAILY 04/12/18 04/12/18 History atorvastatin [Lipitor] 40 mg PO HS 04/12/18 04/12/18 History cholecalciferol (vitamin D3) 5,000 unit PO DAILY 04/12/18 04/12/18 History [Vitamin D3] docusate sodium [Colace] 100 mg PO BID 04/12/18 04/12/18 History fluticasone [Flonase Allergy 2 spray INTRANASAL BID 04/12/18 04/12/18 History Relief] gabapentin 600 mg PO QID 04/12/18 04/12/18 History lidocaine [Lidoderm] 1 dose TOPICAL UD PRN 04/12/18 04/12/18 History lorazepam 0.5 mg PO QID PRN 04/12/18 04/12/18 History metoprolol succinate 100 mg PO QPM 04/12/18 04/12/18 History multivitamin [Multiple Vitamins] 1 tab PO DAILY 04/12/18 04/12/18 History omeprazole 20 mg PO BID 04/12/18 04/12/18 History oxycodone 10 mg PO BID 04/12/18 04/12/18 History sennosides-docusate sodium 2 tab PO BID 04/12/18 04/12/18 History [Senna-S] sulindac 150 mg PO BID 04/12/18 04/12/18 History tamsulosin [Flomax] 2 cap PO QAM 04/12/18 04/12/18 History tramadol 50 mg PO Q4H PRN 04/12/18 04/12/18 History oxycodone [OxyContin] 10 mg PO Q12H 04/16/18 04/16/18 History Past Med/Surg History Medical History Acid reflux Anxiety and depression Chronic back pain [facility]DR BEN[facility] Hernia CURRENT GROIN History of skin cancer Hyperlipidemia Hypertension Osteoarthritis Surgical History History of back surgery X4 (INCLUDING FUSION) History of colonoscopy History of hernia surgery Bilateral inguinal hernia repair History of neck surgery FUSION History of shoulder surgery R&L Social History Preferred Language: Slovak Communication Ability: Effective Lbd Teacher Required: No Beliefs That Will Affect Care: None Current Living Situation: Spouse, Family and Other Current Living Situation Comment: LIVES WITH AND DAUGHTER Other Information That Helps Us Care for You: No Feels Safe at Home: Yes Smoking Status: Never smoker Hx Alcohol Use: No Hx Substance Use: No Review of Systems All systems reviewed & are unremarkable except as noted in HPI & below Physical Exam Constitutional: WD/WN, vitals as above Eyes: PERRL, conjunctivae normal, anicteric sclerae ENMT: external ear and nose normal, oropharynx normal Neck: trachea midline, no thyromegaly Respiratory: normal respiratory effort Cardiovascular: RRR, no murmur, no edema Gastrointestinal (Abdomen): normal bowel sounds, soft, nontender, no hepatosplenomegaly Musculoskeletal: Physical examination of the right shoulder reveals decreased range of motion and significant weakness. There is tenderness palpation along the anterior glenohumeral joint line. The right upper extremity is neurovascularly intact. Psychiatric: A+Ox3, euthymic affect Results & Data Diagnostic Findings Radiographs of the right shoulder show some signs of osteoarthritis with blunting of the greater tuberosity and some superior migration of the humeral head on the glenoid.
[~2018-05-03 09:16] MED LIST changes: -ACET-1693 PO; +ACETAMINOPHEN 500 MG TAB PO SCH; -ASPI81TA28 PO; -ATOR-24 PO; +CEFAZOLIN 2000MG 2,000 MG/15 ML SYR IV SCH; -CEFT1INJ57 IV; -CHOLTAB11 PO; -CLN150 PO; -DOCU-94 PO; -DRGTP25 TD; +FAMOTIDINE 20 MG TAB PO SCH; -FLUT1SPR12 NAE; +GABAPENTIN 300 MG PO SCH; -HYDR25TA4 PO; -IBUP-1050 PO; -LDDP5 TOP; -LORA-741 PO; +LR 15ML/HR IV SCH; +LR 60ML/HR IV SCH; -MECL1TAB42 PO; -METO100T44 PO; -MISC1CAP60 PO; -MULT-506 PO; -NRN600 PO; -OXYC-737 PO; -PRLSR20 PO; +ROPIVACAINE 0.5% HCL/PF 150 MG, BUPIVACAINE 0.5% MPF 30 ML, EPINEPHrine 30MG/30ML (OR U... INFIL SCH; -SENN-91 PO; -TAMS0.4C38 PO; -TRAM-10 PO; +TRANEXAMIC ACID 1,000 MG **IV Intra-op IV SCH; +TRANEXAMIC ACID 1,000 MG **IV Pre-op IV SCH
[2018-05-03] MEDS ORDERED: PROPOFOL IV EMULSION 10 MG/ML 20 ML VIAL IV ONE (09:47)
[2018-05-03] MEDS ORDERED: ROCURONIUM BROMIDE 10 MG/ML 5 ML VIAL ONE (09:47)
[2018-05-03] MEDS ORDERED: LIDOCAINE HCL 2% 2 ML VIAL/AMP(20MG/ML) INFIL ONE (09:47)
[2018-05-03] MEDS ORDERED: fentaNYL citrate 100 MCG/2 ML VIAL ONE (09:47)
[2018-05-03] MEDS ORDERED: MIDAZOLAM HCL 1 MG/ML 2ML VIAL ONE ×2 (09:47→09:48)
--- NOTE | 2018-05-03 09:56 | History & Physical Bridge Note ---
Date of Service May 03, 2018 History & Physical Bridge Note I have examined the patient, reviewed the History & Physical and in the interval since the performance of the History & Physical I have noted the following changes of clinical significance: no changes noted
[2018-05-03] MEDS ORDERED: BUPIVACAINE 0.5 % 5 MG/1 ML PF 10ML VIAL ONE (09:58)
[2018-05-03] MEDS ORDERED: POVIDONE-IODINE OP SOLN 30 ML BTL ONE (10:24)
[2018-05-03] MEDS ORDERED: ORTHO JOINT ANESTHETIC ONE (10:24)
[2018-05-03] MEDS ORDERED: ONDANSETRON INJ 2 MG/ML 2 ML VIAL IV PRN ×2 (11:25→14:36)
[2018-05-03] MEDS ORDERED: KETOROLAC TROMETHAMINE 15 MG/ML VIAL IV PRN (11:25)
[2018-05-03] MEDS ORDERED: LABETALOL HCL IV 5 MG/ML 20ML IV PRN (11:25)
[2018-05-03] MEDS ORDERED: HYDROmorphone INJ 1 MG/ML SYRINGE IV PRN (11:25)
[2018-05-03] MEDS ORDERED: ATROPINE SULFATE 0.1 MG/ML 10ML SYR IV PRN (11:25)
[2018-05-03] MEDS ORDERED: DEXAMETHASONE SOD INJ 4 MG/ML VIAL ONE (12:40)
[2018-05-03] MEDS ORDERED: GLYCOPYRROLATE 0.2 MG/ML VIAL ONE (12:40)
[2018-05-03] MEDS ORDERED: NEOSTIGMINE METHYLSULFATE 5 MG/5 ML SYR ONE (12:40)
--- NOTE | 2018-05-03 12:58 | Operative Report ---
Post Operative Report Pre & Post Diagnosis Operation Date: 05/03/18 11:30 Pre-Op Diagnosis: Chronic Rotator Cuff Tear Right Shoulder Post-Op Diagnosis: Chronic Rotator Cuff Tear Right Shoulder Procedure Operation Date: 05/03/18 11:30 Actual Procedures p Right Reverse Total Shoulder Replacement(Right) - Nhan Bond DO Surgeon Nhan Bond DO Shoe Stamper Nhan Zarate PAC Estimated Blood Loss 200 Findings Consistent with Post-Op Diagnosis Specimens None Complications none Disposition Disposition: Recovery Room Indications Roney is a pleasant 77-year-old male who had a large rotator cuff repair in the past. He initially did well but unfortunately is now having more pain in this shoulder. X-rays clinical examination have been diagnostic for rotator cuff arthropathy of the right shoulder. After failing conservative treatment, he elected to proceed with a right reverse shoulder arthroplasty. Description of Procedure Implants used: I used a [employer] Comprehensive reverse total shoulder arthroplasty system with a size 16 press fit mini humeral stem, a standard humeral tray and a standard humeral bearing, a 25 mm mini baseplate with a 6.5 mm central screw and superior and inferior locking screws, and a size 36 mm eccentric glenosphere. The patient arrived at [facility] for the above procedure. There were seen in the preoperative holding area and the operative extremity was identified and signed. They were given a preoperative antibiotic and an interscalene nerve block. They were taken back to the operating room, laid on table in supine position, and put under general anesthesia. They were then put into the beachchair position. The shoulder was then prepped and draped in sterile fashion. A timeout was done and the patient in the operative extremity was properly identified. A deltopectoral approach was used. Dissection was taken down through the fascia and the deltoid was retracted laterally and the conjoined tendon was retracted medially. The anterior shoulder was exposed. The long head of the biceps tendon was tenodesed to the upper border of the pectoralis major. The subscapularis was then released off the lesser tuberosity with a centimeter of cuff tissue remaining. The inferior capsule was released and the humeral head was dislocated. A canal finding reamer was sent down the center of the humeral canal. Sequential reaming up to a size 16 reamer was done. Off that reamer, a proximal humeral resection guide was placed. The proximal humerus was resected at 135� of inclination and 25� of retroversion. Osteophytes were then removed and the glenoid was exposed. Time was spent doing a complete capsular and labral release. The glenoid guide was then placed in the inferior aspect of the glenoid. A 3.2 mm Steinmann pin was then placed into the glenoid vault at 10� of inclination. The glenoid baseplate was then reamed. The final size 25 mm mini baseplate was then impacted in the place. A 6.5 mm central screw was then placed followed by superior and inferior locking screws. A 36 mm eccentric glenoid sphere was then impacted into place. Surrounding soft tissues were then injected with 100 cc an orthopedic pain control cocktail. The proximal humerus was then exposed. Sequential broaching of the humerus up to a size 16 broach was done. Off that broach a standard humeral tray was trialed. The shoulder was then reduced, brought through a full range of motion and felt to be stable. The shoulder was then dislocated and the broach was removed. The final size 16 mini press-fit humeral stem was then impacted into place. A standard humeral bearing was then snapped onto a standard humeral tray and the ring-lock mechanism was engaged. The humeral tray was then impacted onto the humeral stem. The shoulder was once again reduced, brought through a full range of motion and felt to be stable. The subscapularis was then tenodesed back to the lesser tuberosity with transosseous FiberWire sutures and side to side sutures with the arm in 45� of external rotation. A dilute betadyne lavage was then done for 3 minutes. The joint was then irrigated with normal saline solution. Hemostasis was obtained. The skin was then closed with 2-0 Vicryl, 3-0V lock suture, and lei. A soft dressing and a regular arm sling was placed. The patient was then extubated and transferred to a hospital bed. They were taken to the postanesthesia care unit in stable condition. They tolerated the procedure well. I attest to the content of the Intraoperative Record and any orders documented therein. Any exceptions are noted below.
--- NOTE | 2018-05-03 14:10 | XRay Report ---
XR shoulder RT min 2V routine CLINICAL HISTORY: Post shoulder surgery COMPARISON STUDY: Right shoulder 07/19/2017. FINDINGS: The patient is status post a reverse right total shoulder arthroplasty. The hardware appear s intact. No fracture or dislocation. Skin lei are in place. IMPRESSION: Status post reverse right total shoulder arthroplasty. No evidence for hardware complica tion. Electronically signed by: Aba Richards M.D. 05/03/2018 2:09 PM
--- NOTE | 2018-05-03 14:10 | Anesthesiology Progress Note ---
Date of Service May 03, 2018 Anesthesia Post Procedure Vital Signs Vital Signs: Temp Pulse Pulse Pulse Resp BP BP 05/03/18 14:00 36.2 C L 53 L 16 117/58 L 05/03/18 13:55 57 L 16 113/58 L 05/03/18 13:51 57 L 16 115/58 L 05/03/18 13:50 58 L 21 05/03/18 13:46 59 L 16 119/57 L 05/03/18 13:45 55 L 19 05/03/18 13:40 55 L 16 120/56 L 05/03/18 13:35 59 L 16 114/57 L 05/03/18 13:30 69 23 119/57 L 05/03/18 13:25 68 12 118/57 L 05/03/18 13:24 74 16 123/58 L 05/03/18 13:23 36.0 C L 74 20 123/58 L 05/03/18 09:52 36.6 C 61 20 130/80 Pulse Ox 05/03/18 14:00 92 05/03/18 13:55 94 05/03/18 13:51 92 05/03/18 13:50 92 05/03/18 13:46 95 05/03/18 13:45 96 05/03/18 13:40 99 05/03/18 13:35 99 05/03/18 13:30 100 05/03/18 13:25 98 05/03/18 13:24 97 05/03/18 13:23 99 05/03/18 09:52 96 Pain Intensity Right Shoulder: Pain Intensity: 0 Notes Mental Status: alert / awake / arousable Patient Amnestic to Procedure: Yes Nausea / Vomiting: adequately controlled Pain: adequately controlled Airway Patency, RR, SpO2: stable & adequate BP & HR: stable & adequate Hydration State: stable & adequate Anesthetic Complications: no major complications apparent
[2018-05-03] MEDS ORDERED: MAGNESIUM HYDROXIDE SUSP 30 ML UDC PO PRN (14:36)
[2018-05-03] MEDS ORDERED: LORazepam 0.5 MG TAB PO PRN (14:36)
[2018-05-03] MEDS ORDERED: METOCLOPRAMIDE HCL INJ 5 MG/ML 2 ML VIAL IV PRN (14:36)
[2018-05-03] MEDS ORDERED: NALOXONE HCL 0.4 MG/1 ML VIAL/CARP IV PRN (14:36)
[2018-05-03] MEDS ORDERED: HYDROmorphone INJ 0.5 MG/0.5 ML SYR IV PRN (14:36)
[2018-05-03] MEDS ORDERED: BISACODYL 10 MG SUPP PR PRN (14:36)
[2018-05-03] MEDS ORDERED: TRAMADOL HCL 50 MG TABLET PO PRN (14:36)
[2018-05-03] MEDS: KETOROLAC TROMETHAMINE 15 MG/ML VIAL IV SCH ×2 (16:04→22:17)
[2018-05-03] MEDS: GABAPENTIN 600 MG TAB PO SCH ×3 (16:04→22:17)
[2018-05-03] MEDS: CEFAZOLIN 2000MG 2,000 MG/15 ML SYR IV SCH (18:21)
[2018-05-03] MEDS: SODIUM CHLORIDE 0.9% 1000ML 1,000 ML IV SCH (19:46)
[2018-05-03] MEDS: FLUTICASONE PROPIONATE NA SPR 16 GM BTL NAE SCH (20:47)
[2018-05-03] MEDS: DOCUSATE SODIUM 100 MG CAP PO SCH (20:47)
[2018-05-03] MEDS: PANTOprazole 40 MG TAB PO SCH (20:47)
[2018-05-03] MEDS: DOCUSATE SODIUM/SENNA 50/8.6MG TAB PO SCH (20:47)
[2018-05-03] MEDS: OXYCODONE HCL 10 MG TABCR (OXYCONTIN) PO SCH (20:47)
[2018-05-03] MEDS ORDERED: SENNA 8.6 MG TAB PO SCH (21:00)
[2018-05-03] MEDS ORDERED: DOCUSATE SODIUM 100 MG CAP PO SCH (21:00)
[2018-05-03] MEDS ORDERED: OXYCODONE HCL IR 5 MG TAB (IMMEDIATE RELEASE) PO PRN (21:00)
[2018-05-03] MEDS ORDERED: ATORVASTATIN 40 MG TAB PO SCH (21:00)
[2018-05-03] MEDS ORDERED: METOPROLOL SUCC 50MG EXT REL TAB PO SCH (21:00)
[2018-05-04] MEDS: CEFAZOLIN 2000MG 2,000 MG/15 ML SYR IV SCH (02:14)
[2018-05-04] MEDS: KETOROLAC TROMETHAMINE 15 MG/ML VIAL IV SCH ×2 (04:04→09:50)
[2018-05-04] MEDS: SODIUM CHLORIDE 0.9% 1000ML 1,000 ML IV SCH (05:46)
[2018-05-04 06:46] LABS: BUN Creatinine Ratio 20.3 (10-20); Calcium 8.3 mg/dl (8.5-10.1); Creatinine Clr Calc Pharmacy 59.6 ml/min; Est GFR (Non-African American) 60.4; Potassium 4.3 mmol/L (3.5-5.1)
[2018-05-04 06:57] LABS: Basophils # (auto) 0.01 K/uL (0-0.2); Basophils % (auto) 0.1 %; Hematocrit (blood only) 37.8 % (42-52); Hemoglobin 13.3 g/dL (14.0-18.0); Immature Granulocytes # (auto) 0.03 K/uL (0.00-0.02); Immature Granulocytes % (auto) 0.3 %; Lymphocytes # (auto) 0.78 K/uL (1.2-3.4); Mean Corpuscular Hgb Conc 35.2 g/dL (32-36); Mean Corpuscular Volume 87.3 fL (80-100); Mean Platelet Volume 12.9 fL (7.4-10.4); Monocytes # (auto) 0.81 K/uL (0.11-0.59); Monocytes % (auto) 7.3 %; Neutrophils # (auto) 9.52 K/uL (1.4-6.5); Neutrophils % (auto) 85.3 %; Platelet Count 118 K/uL (130-400); Platelet Estimate Decreased (Normal); RDW Coefficient of Variation 12.9 % (11.5-14.5); RDW Standard Deviation 41.6 fL (36.4-46.3); Red Blood Count 4.33 M/uL (4.7-6.1); White Blood Count 11.15 K/uL (4.8-10.8)
[2018-05-04] MEDS: DOCUSATE SODIUM 100 MG CAP PO SCH (08:36)
[2018-05-04] MEDS: FLUTICASONE PROPIONATE NA SPR 16 GM BTL NAE SCH (08:36)
[2018-05-04] MEDS: PANTOprazole 40 MG TAB PO SCH (08:36)
[2018-05-04] MEDS: DOCUSATE SODIUM/SENNA 50/8.6MG TAB PO SCH (08:36)
[2018-05-04] MEDS: OXYCODONE HCL 10 MG TABCR (OXYCONTIN) PO SCH (08:36)
[2018-05-04] MEDS: GABAPENTIN 600 MG TAB PO SCH (08:36)
--- NOTE | 2018-05-04 08:39 | Orthopedic Progress Note ---
Date of Service May 04, 2018 Assessment & Plan (1) Rotator cuff arthropathy of right shoulder: Overall he is doing very well. Is not have any pain in the right shoulder. He will be seen by physical therapy this morning to do range of motion exercises. He can be discharged home later this morning with [facility]. He will follow-up with orthopedics in 2 weeks. Present on Admission?: Yes Subjective was seen and examined at bedside this morning. Overall he is doing very well. Is not having any pain in his right shoulder. He was able to get some sleep last night. He has no complaints. Physical Exam Vital Signs (Past 24 Hours): Last Vital Signs Temp 36.7 C 05/04/18 08:00 Pulse 60 05/04/18 08:00 Resp 18 05/04/18 08:00 BP 178/78 H 05/04/18 08:00 Pulse Ox 96 05/04/18 08:00 Musculoskeletal: On physical examination of the right shoulder, the dressings clean and dry. He is wearing a sling since adducted. His radial, median, and ulnar nerves are checked and intact his wrist. His axillary nerve was not checked yet. Results & Data Laboratory Results H & H 04/16/18 05/04/18 Range/Units 13:02 05:13 Hgb 14.4 13.3 L (14.0-18.0) g/dL Hct 42.0 37.8 L (42-52) % Coagulation 04/16/18 Range/Units 13:02 INR 1.0 (0.9-1.1) Diagnostic Findings Postoperative x-rays of the right shoulder show the prosthesis to be in anatomic alignment without any evidence of fracture, dislocation, or loosening.
--- NOTE | 2018-05-04 08:40 | Discharge Summary ---
Date of Service May 04, 2018 Admission HPI Per Admitting Provider is a pleasant 77-year-old male who has a history of a right rotator cuff repair done many years ago. He was doing fairly well with his shoulder until recently. He does not recall any falls but he states that he is now unable to elevate his arm above chest level. He has to use his other hand to do anything overhead. He is having a lot of shoulder pain at night. He has had multiple cortisone injections without any relief. X-rays and clinical examination were diagnostic for rotator cuff arthropathy. After failing conservative treatment, he is elected proceed with a reverse right shoulder arthroplasty. Specialty Data Orthopedic H & H 04/16/18 05/04/18 Range/Units 13:02 05:13 Hgb 14.4 13.3 L (14.0-18.0) g/dL Hct 42.0 37.8 L (42-52) % Coagulation 04/16/18 Range/Units 13:02 INR 1.0 (0.9-1.1) Discharge Data Consultations 05/03/18 14:36 Consult Case Management - Discharge Planning Routine Procedures Performed Operation Date: 05/03/18 11:30 Actual Procedures p Right Reverse Total Shoulder Replacement(Right) - Nhan Bond DO Hospital Course (1) Rotator cuff arthropathy of right shoulder: On May 03, 2018 arrived at [facility] and underwent a right reverse shoulder arthroplasty without complication. He had a general anesthetic and a right interscalene nerve block. Postoperatively he was placed in an arm sling and discharged to general orthopedic floors. His hospital course was uneventful. On postop day #1 his H&H was stable his pain was well controlled. He was able to participate well with physical therapy doing range of motion exercises. He is already on chronic pain medications and does not need any further pain medications at this time. He is being discharged home with [facility]. He will follow-up with orthopedics in 2 weeks. Discharge Instructions Home Medications Medication Instructions Recorded Confirmed acetaminophen [Tylenol] 325 mg PO Q4H PRN 04/12/18 04/12/18 ascorbic acid (vitamin C) [Vitamin 1 g PO DAILY 04/12/18 04/12/18 C] aspirin [Aspir-81] 81 mg PO DAILY 04/12/18 05/03/18 atorvastatin [Lipitor] 40 mg PO HS 04/12/18 04/12/18 cholecalciferol (vitamin D3) 5,000 unit PO DAILY 04/12/18 04/12/18 [Vitamin D3] docusate sodium [Colace] 100 mg PO BID 04/12/18 04/12/18 fluticasone [Flonase Allergy 2 spray INTRANASAL BID 04/12/18 05/03/18 Relief] gabapentin 600 mg PO QID 04/12/18 04/12/18 lidocaine [Lidoderm] 1 dose TOPICAL UD PRN 04/12/18 05/03/18 lorazepam 0.5 mg PO QID PRN 04/12/18 04/12/18 metoprolol succinate 100 mg PO QPM 04/12/18 04/12/18 multivitamin [Multiple Vitamins] 1 tab PO DAILY 04/12/18 05/03/18 omeprazole 20 mg PO BID 04/12/18 04/12/18 oxycodone 10 mg PO QID PRN 04/12/18 05/03/18 sennosides-docusate sodium 2 tab PO BID 04/12/18 05/03/18 [Senna-S] sulindac 150 mg PO BID 04/12/18 04/12/18 tamsulosin [Flomax] 2 cap PO QAM 04/12/18 04/12/18 tramadol 50 mg PO Q4H PRN 04/12/18 04/12/18 oxycodone [OxyContin] 10 mg PO Q12H 04/16/18 04/16/18
[2018-05-04] MEDS ORDERED: MULTIVITAMIN TAB PO SCH (09:00)
[2018-05-04] MEDS ORDERED: TAMSULOSIN HCL 0.4 MG CAP PO SCH (09:00)
[2018-05-04] MEDS ORDERED: ASPIRIN 81 MG ECTAB PO SCH (09:00)
== END 2018-05-04 11:49 | disposition home or self-care (01) | DRG 483 ==
LOC: ASU 09:16 → 3E 13:05

== ENCOUNTER 2021-06-10 15:07 | Inpatient (IN) ==
[2021-06-10] MEDS ORDERED: ASPIRIN CHEW 324 MG PO STA (15:56)
--- NOTE | 2021-06-10 16:09 | Emergency Department Note ---
History of Present Illness General Chief complaint: Shortness of Breath/Dyspnea Time Seen by Provider: 06/10/21 15:50 Source: patient and family History of Present Illness 80-year-old male presents emergency department with an onset of shortness of breath while he was sitting states he was wrapping meat at the time. Of note at approximately 4 AM this morning he had indigestion in which he asked his to get him a glass of milk. Patient denies any substernal chest pressure pleuritic chest pain or shortness of breath at this time. Patient states he was nauseated at the time of the shortness of breath. There are no other mitigating or alleviating factors. Patient states that this is never occurred to him in the past Home Medications Medication Instructions Recorded Confirmed Type acetaminophen 325 mg capsule 325 mg PO Q4H PRN 04/12/18 06/10/21 History (Tylenol) ascorbic acid (vitamin C) 1,000 mg 1 g PO DAILY 04/12/18 06/10/21 History tablet (Vitamin C) atorvastatin 40 mg tablet (Lipitor) 40 mg PO HS 04/12/18 06/10/21 History cholecalciferol (vitamin D3) 125 5,000 unit PO DAILY 04/12/18 06/10/21 History mcg (5,000 unit) tablet (Vitamin D3) fluticasone propionate 50 2 spray INTRANASAL BID 04/12/18 06/10/21 History mcg/actuation nasal spray,suspension (Flonase Allergy Relief) gabapentin 600 mg tablet 600 mg PO QID 04/12/18 06/10/21 History lorazepam 0.5 mg tablet 0.5 mg PO QID PRN 04/12/18 06/10/21 History multivitamin (Multiple Vitamins) 1 tab PO DAILY 04/12/18 06/10/21 History omeprazole 20 mg capsule,delayed 20 mg PO BID 04/12/18 06/10/21 History release sulindac 150 mg tablet 150 mg PO BID 04/12/18 06/10/21 History tamsulosin 0.4 mg capsule (Flomax) 2 cap PO QAM 04/12/18 06/10/21 History oxycodone 10 mg tablet,crush 10 mg PO Q12H 04/16/18 06/10/21 History resistant,extended release 12 hr (OxyContin) furosemide 20 mg tablet 20 mg PO DAILY 10/21/20 06/10/21 History hydralazine 25 mg tablet 25 mg PO BID tab 10/21/20 06/10/21 History metoprolol succinate 25 mg 25 mg PO DAILY 02/16/21 06/10/21 History tablet,extended release 24 hr amoxicillin 500 mg capsule 2,000 mg PO DIRECTED PRN 06/10/21 06/10/21 History aspirin 81 mg tablet,delayed 81 mg PO DAILY 06/10/21 06/10/21 History release lidocaine 5 % topical patch 1 patch TOPICAL DAILY PRN 06/10/21 06/10/21 History (Lidoderm) Allergies Allergy/AdvReac Type Severity Reaction Status Date / Time pneumococcal vaccine Allergy Severe SHORTNESS Verified 06/10/21 16:36 OF BREATH, CHEST TIGHTNESS, BP WENT UP Past Med/Surg History Medical History Acid reflux Anxiety and depression Chronic back pain [facility]/DR BEN[facility] Hernia CURRENT GROIN History of skin cancer Hyperlipidemia Hypertension Osteoarthritis Surgical History History of back surgery X4 (INCLUDING FUSION) History of colonoscopy History of hernia surgery Bilateral inguinal hernia repair History of neck surgery FUSION History of shoulder surgery R&L Social History Smoking Status: Never smoker Hx Alcohol Use: No Hx Substance Use: No Preferred Language: Welsh Communication Ability: Effective Visual Impairment: No Limitations Automotive Detailer Required: No Beliefs That Will Affect Care: None marital status: Current Living Situation: Spouse, Family and Other Current Living Situation Comment: LIVES WITH AND DAUGHTER Feels Safe at Home: Yes Assistive Devices: Cane Review of Systems A total of 10 systems reviewed and were otherwise negative Constitutional: no fever Respiratory: + dyspnea; no cough and no pain on inspiration Cardiovascular: no chest pain Physical Exam Vital Signs Vital Signs - 24 hr 06/10/21 15:15 06/10/21 16:13 Temperature 36.6 C Temperature Source Temporal Artery Scan Pulse Rate 64 Respiratory Rate 16 Respiratory Effort / Characteristics Non-Labored Non-Labored Spontaneous Respiratory Depth Normal Blood Pressure 168/112 H Blood Pressure Mean 130 Pulse Oximetry 96 96 Oxygen Delivery Method Room Air Room Air Oxygen Flow Rate 0 Sepsis Recent Fever Within 48 Hours No Sepsis New/Unexplained Change in Mental Status No Sepsis Action Taken by Nursing No Action Required VITAL SIGNS - Vital signs and nursing notes were reviewed. GENERAL -80-year-old male appearing his stated age who is in no acute distress. Communicates well with provider and answers questions appropriately. SKIN - Without rashes. HEAD - NC/AT. EYES - PERRL with EOMI bilaterally. Sclera anicteric. Palpebral conjunctiva pink and moist with no injection noted. EARS - No deformities of external structures noted on gross examination bilater ally. NOSE - Midline and without cyanosis. No epistaxis or purulent drainage noted. Septum midline without deviation or septal hematoma noted. MOUTH/OROPHARYNX - Without perioral cyanosis.. Tongue midline with equal elevation of palate bilaterally. No tonsillar hypertrophy, erythema, or exudates noted. [] dentition noted. NECK - Neck with FROM. Supple to palpation. LUNGS - Chest wall symmetric without accessory muscle use, intercostals retractions, or central cyanosis. Normal vesicular breath sounds CTA B/L. No wheezes, rales, or rhonchi appreciated. CARDIAC - RRR with S1/S2. No murmur, rubs, or gallops appreciated. ABDOMEN - Abdominal contour soft without pulsations or visible masses. BS normoactive all four quadrants. No tenderness, palpable masses, hepatosplenomegaly, or ascites noted. EXTREMITIES - No clubbing or peripheral cyanosis. +5/5 strength noted in UE/LE bilaterally. NEUROLOGIC - Cranial nerves II through XII grossly intact. PSYCH - A&Ox3 and cooperates fully with examiner. Pt is very pleasant and interacts well with examiner. Course Reevaluation(s) Reevaluation #1: Patient is resting in no distress at 1705. Patient has no current chest pain or shortness of breath. Patient will be given p.o. potassium as well as IV magnesium. The case was discussed with the hospitalist for admission. Administered Medications Discontinued Medications Aspirin (Aspirin Chew 324 Mg) 324 mg PO NOW STA Stop: 06/10/21 15:57 Last Admin: 06/10/21 16:09 Dose: 324 mg Documented by: [id number] Medical Decision Making Medical Records Attestation: I reviewed the patient's medical records. Home Medications Current Medication List: was personally reviewed by me Laboratory Data Attestation: I reviewed the patient's lab results. Result diagrams: 06/10/21 16:04 06/10/21 16:04 Lab Results 06/10/21 06/10/21 06/10/21 Range/Units 16:04 16:04 16:04 WBC 4.96 (4.8-10.8) K/uL RBC 4.79 (4.7-6.1) M/uL Hgb 14.5 (14.0-18.0) g/dL Hct 42.5 (42-52) % MCV 88.7 (80-100) fL MCH 30.3 (25-34) pg MCHC 34.1 (32-36) g/dL RDW Std Deviation 43.3 (36.4-46.3) fL RDW Coeff of Neema 13.4 (11.5-14.5) % Plt Count 142 (130-400) K/uL MPV 12.4 H (7.4-10.4) fL Immature Gran % (Auto) 0.4 % Neut % (Auto) 66.3 % Lymph % (Auto) 23.4 % [place] % (Auto) 7.1 % Eos % (Auto) 2.4 % Baso % (Auto) 0.4 % Neut # (Auto) 3.29 (1.4-6.5) K/uL Lymph # (Auto) 1.16 L (1.2-3.4) K/uL [place] # (Auto) 0.35 (0.11-0.59) K/uL Eos # (Auto) 0.12 (0-0.5) K/uL Baso # (Auto) 0.02 (0-0.2) K/uL Immature Gran # (Auto) 0.02 (0.00-0.02) K/uL PT 10.5 (9.0-12.0) Seconds INR 1.0 (0.9-1.1) APTT 25.8 (21.0-31.0) Seconds PTT Ratio 0.9 Sodium 142 (136-145) mmol/L Potassium 2.8 L (3.5-5.1) mmol/L Chloride 117 H (98-107) mmol/L Carbon Dioxide 19 L (21-32) mmol/L Anion Gap 6 (3-11) BUN 20 (6-23) mg/dl Creatinine 0.72 (0.6-1.4) mg/dl Est Cr Clr Drug Dosing Not Reportable Est GFR ( Amer) 102.1 ml/min Est GFR (Non-Af Amer) 88.1 ml/min BUN/Creatinine Ratio 27.8 H (10-20) Glucose 103 H (70-99(Fasting)) mg/dl Calcium 6.3 L (8.5-10.1) mg/dl Magnesium 1.3 L (1.7-2.4) mg/dl Total Bilirubin 0.7 (0.2-1.0) mg/dl AST 24 (13-39) U/L ALT 22 (7-52) U/L Alkaline Phosphatase 96 (34-104) U/L Troponin I High Sens (0-20) pg/ml Total Protein 4.6 L (6.0-8.3) gm/dl Albumin 2.8 L (3.4-5.0) gm/dl Globulin 1.8 L (2.5-4.0) gm/dl Albumin/Globulin Ratio 1.6 (0.9-2) SARS-CoV-2, RNA, NAAT (NEGATIVE) 06/10/21 06/10/21 Range/Units 16:04 16:10 WBC (4.8-10.8) K/uL RBC (4.7-6.1) M/uL Hgb (14.0-18.0) g/dL Hct (42-52) % MCV (80-100) fL MCH (25-34) pg MCHC (32-36) g/dL RDW Std Deviation (36.4-46.3) fL RDW Coeff of Neema (11.5-14.5) % Plt Count (130-400) K/uL MPV (7.4-10.4) fL Immature Gran % (Auto) % Neut % (Auto) % Lymph % (Auto) % [place] % (Auto) % Eos % (Auto) % Baso % (Auto) % Neut # (Auto) (1.4-6.5) K/uL Lymph # (Auto) (1.2-3.4) K/uL [place] # (Auto) (0.11-0.59) K/uL Eos # (Auto) (0-0.5) K/uL Baso # (Auto) (0-0.2) K/uL Immature Gran # (Auto) (0.00-0.02) K/uL PT (9.0-12.0) Seconds INR (0.9-1.1) APTT (21.0-31.0) Seconds PTT Ratio Sodium (136-145) mmol/L Potassium (3.5-5.1) mmol/L Chloride (98-107) mmol/L Carbon Dioxide (21-32) mmol/L Anion Gap (3-11) BUN (6-23) mg/dl Creatinine (0.6-1.4) mg/dl Est Cr Clr Drug Dosing Est GFR ( Amer) ml/min Est GFR (Non-Af Amer) ml/min BUN/Creatinine Ratio (10-20) Glucose (70-99(Fasting)) mg/dl Calcium (8.5-10.1) mg/dl Magnesium (1.7-2.4) mg/dl Total Bilirubin (0.2-1.0) mg/dl AST (13-39) U/L ALT (7-52) U/L Alkaline Phosphatase (34-104) U/L Troponin I High Sens 6.6 (0-20) pg/ml Total Protein (6.0-8.3) gm/dl Albumin (3.4-5.0) gm/dl Globulin (2.5-4.0) gm/dl Albumin/Globulin Ratio (0.9-2) SARS-CoV-2, RNA, NAAT NEGATIVE (NEGATIVE) Imaging Data Radiologist's Impression: Chest X-Ray 06/10/21 15:30 XR chest 1V portable CLINICAL HISTORY: SOB TECHNIQUE: Single frontal radiograph of the chest was obtained. Comparison: None available at the time of this dictation. FINDINGS: There is a right reverse shoulder arthroplasty. Calcified aortic knob is seen. The lungs are clear. No evidence of pleural effusion or pneumothorax. IMPRESSION: No acute chest disease. ACT 112: Negative or not required by law. Electronically signed by: Todd Morales M.D. 06/10/2021 4:26 PM ECG Data Attestation: I personally reviewed and interpreted this ECG as follows: Additional Comments: EKG interpreted by me sinus bradycardia rate of 55 normal intervals normal axis no obvious ST segment elevation or depression MDM Narrative Medical decision making differential diagnosis includes acute coronary syndrome, angina, pneumonia, metabolic derangement, dehydration, electrolyte abnormality; will check labs, EKG, cxr Impression & Plan Chest pain, Acute dyspnea, Acute hypokalemia, Hypomagnesemia Discharge Plan Visit Data Chief Complaint: Shortness of Breath/Dyspnea ED Provider: Frederic St Discharge Problem: Chest pain, Acute dyspnea, Acute hypokalemia, Hypomagnesemia Patient Disposition: Being Evaluated by Hospitalist Forms Stand Alone Forms: [facility] Prescriptions Prescriptions: No Action furosemide 20 mg tablet 20 mg PO DAILY RF: 0 hydralazine 25 mg tablet 25 mg PO BID RF: 0 metoprolol succinate 25 mg tablet extended release 24 hr 25 mg PO DAILY RF: 0 multivitamin [Multiple Vitamins] Tablet 1 tab PO DAILY RF: 0 atorvastatin [Lipitor] 40 mg Tablet 40 mg PO HS RF: 0 ascorbic acid (vitamin C) [Vitamin C] 1,000 mg Tablet 1 g PO DAILY RF: 0 gabapentin 600 mg Tablet 600 mg PO QID RF: 0 sulindac 150 mg Tablet 150 mg PO BID RF: 0 lorazepam 0.5 mg Tablet 0.5 mg PO QID PRN (Reason: Anxiety) RF: 0 tamsulosin [Flomax] 0.4 mg Capsule 2 cap PO QAM RF: 0 omeprazole 20 mg Capsule,Delayed Release(Dr/Ec) 20 mg PO BID RF: 0 fluticasone propionate [Flonase Allergy Relief] 50 mcg/actuation [place],Suspension 2 spray INTRANASAL BID RF: 0 acetaminophen [Tylenol] 325 mg Capsule 325 mg PO Q4H PRN (Reason: Pain) RF: 0 cholecalciferol (vitamin D3) [Vitamin D3] 5,000 unit Tablet 5,000 unit PO DAILY RF: 0 oxycodone [OxyContin] 10 mg Tablet,Oral Only,Ext.Rel.12 Hr 10 mg PO Q12H RF: 0 aspirin 81 mg Tablet,Delayed Release (Dr/Ec) 81 mg PO DAILY RF: 0 amoxicillin 500 mg capsule 2,000 mg PO DIRECTED PRN (Reason: PRIOR TO DENTAL APPOINTMENTS) RF: 0 lidocaine [Lidoderm] 5 % Adhesive Patch,Medicated 1 patch TOPICAL DAILY PRN (Reason: Pain) RF: 0 Referrals Referrals: Fred Tello MD [Primary Care Provider] - Discharge Problem: Chest pain Qualifiers: Chest pain type: unspecified Qualified Code(s): R07.9 - Chest pain, unspecified
[2021-06-10 16:14] LABS: Basophils # (auto) 0.02 K/uL (0-0.2); Basophils % (auto) 0.4 %; Eosinophils # (auto) 0.12 K/uL (0-0.5); Eosinophils % (auto) 2.4 %; Hematocrit (blood only) 42.5 % (42-52); Hemoglobin 14.5 g/dL (14.0-18.0); Immature Granulocytes # (auto) 0.02 K/uL (0.00-0.02); Immature Granulocytes % (auto) 0.4 %; Lymphocytes # (auto) 1.16 K/uL (1.2-3.4); Lymphocytes % (auto) 23.4 %; Mean Corpuscular Hemoglobin 30.3 pg (25-34); Mean Corpuscular Hgb Conc 34.1 g/dL (32-36); Mean Corpuscular Volume 88.7 fL (80-100); Mean Platelet Volume 12.4 fL (7.4-10.4); Monocytes # (auto) 0.35 K/uL (0.11-0.59); Monocytes % (auto) 7.1 %; Neutrophils # (auto) 3.29 K/uL (1.4-6.5); Neutrophils % (auto) 66.3 %; Platelet Count 142 K/uL (130-400); RDW Coefficient of Variation 13.4 % (11.5-14.5); RDW Standard Deviation 43.3 fL (36.4-46.3); Red Blood Count 4.79 M/uL (4.7-6.1); White Blood Count 4.96 K/uL (4.8-10.8)
--- NOTE | 2021-06-10 16:28 | XRay Report ---
XR chest 1V portable CLINICAL HISTORY: SOB TECHNIQUE: Single frontal radiograph of the chest was obtained. Comparison: None available at the time of this dictation. FINDINGS: There is a right reverse shoulder arthroplasty. Calcified aortic knob is seen. The lungs are clear. N o evidence of pleural effusion or pneumothorax. IMPRESSION: No acute chest disease. ACT 112: Negative or not required by law. Electronically signed by: Todd Morales M.D. 06/10/2021 4:26 PM
[2021-06-10 16:29] LABS: Partial Thromboplastin Ratio 0.9; Partial Thromboplastin Time 25.8 Seconds (21.0-31.0); Prothrombin Time 10.5 Seconds (9.0-12.0)
[2021-06-10 16:41] LABS: Alanine Aminotransferase 22 U/L (7-52); Albumin Globulin Ratio 1.6 (0.9-2); Albumin Level 2.8 gm/dl (3.4-5.0); Alkaline Phosphatase 96 U/L (34-104); Anion Gap 6 (3-11); Aspartate Aminotransferase 24 U/L (13-39); BUN Creatinine Ratio 27.8 (10-20); Bilirubin,Total 0.7 mg/dl (0.2-1.0); Blood Urea Nitrogen 20 mg/dl (6-23); Calcium 6.3 mg/dl (8.5-10.1); Carbon Dioxide 19 mmol/L (21-32); Chloride 117 mmol/L (98-107); Est GFR (African American) 102.1 ml/min; Est GFR (Non-African American) 88.1 ml/min; Globulin 1.8 gm/dl (2.5-4.0); Glucose 103 mg/dl (70-99(Fasting)); Magnesium 1.3 mg/dl (1.7-2.4); Potassium 2.8 mmol/L (3.5-5.1); Sodium 142 mmol/L (136-145); Total Protein 4.6 gm/dl (6.0-8.3)
[2021-06-10] MEDS ORDERED: POTASSIUM CHLORIDE 10 MEQ TABCR PO STA (16:44)
[2021-06-10] MEDS ORDERED: POTASSIUM CHLORIDE CRTAB 20 MEQ TABCR PO STA (17:26)
[2021-06-10] MEDS ORDERED: MAGNESIUM SULFATE / D5W 1 GM/100 ML BAG IV STA (17:26)
--- NOTE | 2021-06-10 17:32 | History & Physical Report ---
Date of Service June 10, 2021 Assessment & Plan (1) Acute dyspnea: Plan: -Lasted for 5 minutes, at rest, with lightheadedness, nausea. Chest pain around 0500 this morning that went away on its own. -Initial high-sensitivity troponin at 1606.6, repeat troponin at 1800 10.6 -We will trend troponin q6h x3, EKG with any chest pain. -On telemetry to monitor heart rate and for arrhythmias that may be possible cause. -Appears euvolemic, on Lasix 20 mg daily, will obtain BNP with AM labs. -No recent echo in our system, will order. (2) Hypokalemia: Plan: -2.8 in ED, replete and recheck in AM. (3) Hypomagnesemia: Plan: -1.3, replete and recheck in AM. -Mag Ox 400 mg daily starting tomorrow. (4) Hypertension: Plan: -Hold metoprolol for now in setting of bradycardia. -Continue hydralazine, lasix. (5) Hyperlipidemia: Plan: Continue atorvastatin 40 mg daily. 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 (7) Acid reflux: Plan: -Continue PPI. (8) Peripheral neuropathy: Plan: -Continue gabapentin 600mg QID. (9) Chronic back pain: Plan: -Prescribed Tylenol prn, oxycodone 10 mg BID, sulindac 150 mg BID for pain relief. -Sees pain management doctor in [place]. (10) Anxiety and depression: Plan: -Prescribed lorazepam 0.5 mg 4 times daily as needed. Plan: -Admit to [facility] [place] with telemetry. -SCDs, Lovenox for DVT ppx. -DNR/DNI. History of Present Illness Chief Complaint: shortness of breath Primary Care Provider: Fred Tello MD Mr. Valentine is an 80-year-old male with past medical history of hypertension, hyperlipidemia, PVD, MALICK, GERD, peripheral neuropathy, chronic back pain who presents today with an episodes of shortness of breath and lightheadedness this afternoon. Patient was seated at his table, wrapping food when he suddenly became lightheaded and felt short of breath, which lasted for about 5 minutes before resolving. His at bedside states he did not look right even after symptoms proceeded, he appeared fatigued ans perhapy pale. He did feel a little nauseous during this episode, but denies syncope, vomiting, chest pain, palpitations. He has never experienced anything like this before. He did wake up this morning around 5 AM with central chest discomfort that did not radiate anywhere. He drank a glass of milk, as it felt like indigestion, reports this did not make it better or worse. It eventually went w on its own prior to this afternoon's event. Otherwise had been feeling well lately, slightly mroe fatigued over the last few months, typically can go up a flight of stairs once or twice without getting short of breath. He is without fever/chills, weakness, myalgias, chest pain/tightness, palpitations, shortness of breath, cough, nausea, vomiting, abdominal pain, diarrhea, constipation. In ED, patient is hypertensive 168/112, otherwise vital signs are within normal limits, stable. Labs significant for K 2.8, magnesium 1.3, calcium 6.3. Initial high-sensitivity troponin 6.6 at 1600, repeat 2 hours later 10.4. Chest x-ray unremarkable. Patient received aspirin 325 mg, as well as repletion of potassium and magnesium in ED. Hospitalist service was consulted for further evaluation and admission. Allergies Allergy/AdvReac Type Severity Reaction Status Date / Time pneumococcal vaccine Allergy Severe SHORTNESS Verified 06/10/21 16:36 OF BREATH, CHEST TIGHTNESS, BP WENT UP Home Medications Medication Instructions Recorded Confirmed Type acetaminophen 325 mg capsule 325 mg PO Q4H PRN 04/12/18 06/10/21 History (Tylenol) ascorbic acid (vitamin C) 1,000 mg 1 g PO DAILY 04/12/18 06/10/21 History tablet (Vitamin C) atorvastatin 40 mg tablet (Lipitor) 40 mg PO HS 04/12/18 06/10/21 History cholecalciferol (vitamin D3) 125 5,000 unit PO DAILY 04/12/18 06/10/21 History mcg (5,000 unit) tablet (Vitamin D3) fluticasone propionate 50 2 spray INTRANASAL BID 04/12/18 06/10/21 History mcg/actuation nasal spray,suspension (Flonase Allergy Relief) gabapentin 600 mg tablet 600 mg PO QID 04/12/18 06/10/21 History lorazepam 0.5 mg tablet 0.5 mg PO QID PRN 04/12/18 06/10/21 History multivitamin (Multiple Vitamins) 1 tab PO DAILY 04/12/18 06/10/21 History omeprazole 20 mg capsule,delayed 20 mg PO BID 04/12/18 06/10/21 History release sulindac 150 mg tablet 150 mg PO BID 04/12/18 06/10/21 History tamsulosin 0.4 mg capsule (Flomax) 2 cap PO QAM 04/12/18 06/10/21 History oxycodone 10 mg tablet,crush 10 mg PO Q12H 04/16/18 06/10/21 History resistant,extended release 12 hr (OxyContin) furosemide 20 mg tablet 20 mg PO DAILY 10/21/20 06/10/21 History hydralazine 25 mg tablet 25 mg PO BID tab 10/21/20 06/10/21 History metoprolol succinate 25 mg 25 mg PO DAILY 02/16/21 06/10/21 History tablet,extended release 24 hr amoxicillin 500 mg capsule 2,000 mg PO DIRECTED PRN 06/10/21 06/10/21 History aspirin 81 mg tablet,delayed 81 mg PO DAILY 06/10/21 06/10/21 History release lidocaine 5 % topical patch 1 patch TOPICAL DAILY PRN 06/10/21 06/10/21 History (Lidoderm) Past Med/Surg History Medical History Acid reflux Anxiety and depression Chronic back pain [facility]/DR BEN[facility] Hernia CURRENT GROIN History of skin cancer Hyperlipidemia Hypertension Osteoarthritis Surgical History History of back surgery X4 (INCLUDING FUSION) History of colonoscopy History of hernia surgery Bilateral inguinal hernia repair History of neck surgery FUSION History of shoulder surgery R&L Social History Smoking Status: Never smoker Hx Alcohol Use: No Hx Substance Use: No Preferred Language: Nigerien Communication Ability: Effective Visual Impairment: No Limitations Environmental Engineering Aide Required: No Beliefs That Will Affect Care: None marital status: Current Living Situation: Spouse, Family and Other Current Living Situation Comment: LIVES WITH AND DAUGHTER Feels Safe at Home: Yes Assistive Devices: Cane Review of Systems Review of Systems: Constitutional: No fever/chills, weakness, fatigue, myalgias, anorexia, night sweats Eyes: No diplopia, no worsening or blurred vision ENT: normal hearing, no trouble swallowing Respiratory: No cough, sputum, dyspnea at rest or on exertion Cardiovascular: central chest discomfort this am without radiation; no tightness or palpitations Abdomen: nausea around 5am, , vomiting, diarrhea or constipation : Denies dysuria, hematuria, increased urgency/frequency, urinary retention Musculoskeletal: No joint pain, calf pain, swelling Neurologic: No weakness, numbness/tingling, or balance problems Psychiatric: No anxiety or depression Skin: No rash or itch Physical Exam Physical Exam: General: awake, alert, no apparent distress Head: Normocephalic, atraumatic ENT: PERRL, EOMI, no pharyngeal exudate, mucous membranes moist Chest: Clear to auscultation, on room air, no adventitious breath sounds Cardiac: Regular rate and rhythm, no murmur, no JVD, normal peripheral pulses, good capillary refill Abdominal: NABS x 4 quadrants, soft, nontender to palpation, no rebound, guarding or tenderness Extremities: Normal inspection, no peripheral edema or erythema, calfs nontender to palpation Psych: Normal mood and affect Neuro: AAO x 3, strength intact bilaterally and rated 5/5, no motor deficits, speech is clear, no peripheral sensory deficits Skin: no rash or erythema Results & Data Results & Data ([facility]) Vital Signs (Past 12 Hours) Vital Signs Temp Pulse Resp BP Pulse Ox 06/10/21 16:13 96 06/10/21 15:15 36.6 C 64 16 168/112 H 96 Laboratory Results Abnormal lab results 06/10/21 06/10/21 Range/Units 16:04 16:04 MPV 12.4 H (7.4-10.4) fL Lymph # (Auto) 1.16 L (1.2-3.4) K/uL Potassium 2.8 L (3.5-5.1) mmol/L Chloride 117 H (98-107) mmol/L Carbon Dioxide 19 L (21-32) mmol/L BUN/Creatinine Ratio 27.8 H (10-20) Glucose 103 H (70-99(Fasting)) mg/dl Calcium 6.3 L (8.5-10.1) mg/dl Magnesium 1.3 L (1.7-2.4) mg/dl Total Protein 4.6 L (6.0-8.3) gm/dl Albumin 2.8 L (3.4-5.0) gm/dl Globulin 1.8 L (2.5-4.0) gm/dl Diagnostic Findings Chest X-Ray 06/10/21 15:30 XR chest 1V portable CLINICAL HISTORY: SOB TECHNIQUE: Single frontal radiograph of the chest was obtained. Comparison: None available at the time of this dictation. FINDINGS: There is a right reverse shoulder arthroplasty. Calcified aortic knob is seen. The lungs are clear. No evidence of pleural effusion or pneumothorax. IMPRESSION: No acute chest disease. ACT 112: Negative or not required by law. Electronically signed by: Todd Morales M.D. 06/10/2021 4:26 PM ECG Additional Comments: sinus bradycardia rate of 55 normal intervals normal axis no obvious ST segment elevation or depression Code Status & VTE Plan Code Status DNR/DNI. VTE Prophylaxis Plan VTE Prophylaxis will be ordered: Yes Supervising Physician Co-Signing Physician Notes Patient seen and examined, chart reviewed, case discussed with Avani Del Valle PA-C and I agree with the assessment and plan as above except as otherwise noted. 8-year-old male with a history of hypertension, hyperlipidemia, sleep apnea who presents with shortness of breath while wrapping meat at home. Denies chest pain/chest pressure but did have indigestion earlier in the day and had some nausea with the shortness of breath. Has not had similar symptoms preceding this. On exam is intermittently bradycardic with heart rate 5565, normotensive at bedside abdomen. Ports he feels slightly fatigued more than normal, but otherwise does not have any acute symptoms or shortness of breath at time of assessment and feels about 70% of his baseline. Labs and images reviewed. Chest x-ray without acute findings. No wheezing. No leukocytosis. Is hypokalemic to 2.8 and hypomagnesemic. These are being repleted. Covid is negative.Initial high-sensitivity troponin normal, trended as part of cardiac rule out. Patient denies acute swelling in his feet and weight gain. Will follow overnight on telemetry for cardiac eval, replete electrolytes as above. No signs of acute ACS at bedside assessment. No evidence of symptomatic bradycardia at bedside visit, but will follow for s ymptoms on monitor PG Care Time/CCT Total # of Minutes Spent Total Time Spent with Patient: Total time spent is greater than 50% in coordination of care (as documented) at patient's floor/unit and/or counseling patient: Coding Level of Care Code INT OBSERVATION CARE 70M LVL 3 Diagnoses Acute dyspnea R06.00 Hypomagnesemia E83.42 Complex sleep apnea syndrome G47.31 Hypokalemia E87.6 Acid reflux K21.9 Chronic back pain M54.9; G89.29 Hypertension I10 Hyperlipidemia E78.5 Anxiety and depression F41.9; F32.9 Peripheral neuropathy G62.9
[2021-06-10] MEDS: MAGNESIUM SULFATE / D5W 1 GM/100 ML BAG IV SCH ×4 (18:04→23:54)
[2021-06-10] MEDS ORDERED: LORazepam 0.5 MG TAB PO PRN (20:05)
[2021-06-10] MEDS ORDERED: ONDANSETRON INJ 2 MG/ML 2 ML VIAL IV PRN (20:05)
[2021-06-10] MEDS ORDERED: NON-FORMULARY MEDICATION (Acetaminophen [Tylenol] 325 mg Capsule) PO PRN (20:05)
[2021-06-10] MEDS ORDERED: NITROGLYCERIN SL 0.4 MG/TAB TAB SL PRN (20:05)
[2021-06-10] MEDS ORDERED: POLYETHYLENE (MIRALAX) 17 GM PACK PO PRN (20:05)
[2021-06-10] MEDS ORDERED: ACETAMINOPHEN 325 MG TAB PO PRN (20:05)
[2021-06-10] MEDS ORDERED: PATIENT'S HEIGHT AND/OR WEIGHT NEEDED SCH (20:15)
[2021-06-10] MEDS ORDERED: ATORVASTATIN 40 MG TAB PO SCH (21:00)
[2021-06-10] MEDS: GABAPENTIN 600 MG TAB PO SCH (21:10)
[2021-06-10] MEDS: oxyCODONE HCL 10 MG TABCR (OxyCONTIN) PO SCH (21:10)
[2021-06-10] MEDS: hydrALAZINE HCL 25 MG TAB PO SCH (21:10)
[2021-06-10] MEDS: PANTOprazole 40 MG TAB PO SCH (21:11)
[2021-06-10] MEDS: FLUTICASONE PROPIONATE NA SPR 16 GM BTL SCH (21:11)
[2021-06-10] MEDS: SULINDAC 150 MG TAB PO SCH (21:54)
[2021-06-10] MEDS ORDERED: ENOXAPARIN INJ 40 MG/0.4 ML SYR SQ SCH (22:00)
[2021-06-11 05:54] LABS: BUN Creatinine Ratio 21.4 (10-20); Calcium 8.8 mg/dl (8.5-10.1); Creatinine Clr Calc Pharmacy 60.6 ml/min; Est GFR (African American) 71.5 ml/min; Est GFR (Non-African American) 61.7 ml/min; Magnesium 2.6 mg/dl (1.7-2.4); Potassium 4.2 mmol/L (3.5-5.1)
[2021-06-11 06:11] LABS: Hematocrit (blood only) 39.4 % (42-52); Hemoglobin 13.4 g/dL (14.0-18.0); Mean Corpuscular Hemoglobin 30.8 pg (25-34); Mean Corpuscular Volume 90.6 fL (80-100); RDW Coefficient of Variation 13.6 % (11.5-14.5); RDW Standard Deviation 45.2 fL (36.4-46.3); Red Blood Count 4.35 M/uL (4.7-6.1); White Blood Count 5.06 K/uL (4.8-10.8)
[2021-06-11 06:37] LABS: Basophils # (auto) 0.01 K/uL (0-0.2); Basophils % (auto) 0.2 %; Eosinophils # (auto) 0.22 K/uL (0-0.5); Eosinophils % (auto) 4.3 %; Immature Granulocytes # (auto) 0.01 K/uL (0.00-0.02); Immature Granulocytes % (auto) 0.2 %; Lymphocytes # (auto) 1.34 K/uL (1.2-3.4); Lymphocytes % (auto) 26.5 %; Mean Platelet Volume 12.8 fL (7.4-10.4); Monocytes # (auto) 0.52 K/uL (0.11-0.59); Monocytes % (auto) 10.3 %; Neutrophils # (auto) 2.96 K/uL (1.4-6.5); Neutrophils % (auto) 58.5 %; Platelet Count 140 K/uL (130-400); Platelet Estimate Normal (Normal)
[2021-06-11] MEDS: hydrALAZINE HCL 25 MG TAB PO SCH (08:51)
[2021-06-11] MEDS: SULINDAC 150 MG TAB PO SCH (08:51)
[2021-06-11] MEDS: PANTOprazole 40 MG TAB PO SCH (08:51)
[2021-06-11] MEDS: GABAPENTIN 600 MG TAB PO SCH ×3 (08:52→16:14)
[2021-06-11] MEDS: FLUTICASONE PROPIONATE NA SPR 16 GM BTL SCH (08:54)
[2021-06-11] MEDS: oxyCODONE HCL 10 MG TABCR (OxyCONTIN) PO SCH (08:56)
[2021-06-11] MEDS ORDERED: TAMSULOSIN HCL 0.4 MG CAP PO SCH (09:00)
[2021-06-11] MEDS ORDERED: CHOLECALCIFEROL 5,000 UNITS 125 MCG TAB PO SCH (09:00)
[2021-06-11] MEDS ORDERED: ASPIRIN 81 MG ECTAB PO SCH (09:00)
[2021-06-11] MEDS ORDERED: FUROSEMIDE 20 MG TAB PO SCH (09:00)
[2021-06-11] MEDS ORDERED: MAGNESIUM OXIDE 400 MG TAB PO SCH (09:00)
[2021-06-11] MEDS ORDERED: ASCORBIC ACID 500 MG TAB PO SCH (09:00)
[2021-06-11] MEDS ORDERED: METOPROLOL SUCC 25MG EXT REL TAB PO SCH (09:00)
--- NOTE | 2021-06-11 11:22 | XCELERA ---
[id number]
--- NOTE | 2021-06-11 11:57 | Electrocardiogram Report ---
Test Reason : Blood Pressure : / mmHG Vent. Rate : 055 BPM Atrial Rate : 055 BPM P-R Int : 172 ms QRS Dur : 092 ms QT Int : 466 ms P-R-T Axes : 061 007 040 degrees QTc Int : 445 ms Poor data quality, interpretation may be adversely affected Sinus bradycardia Otherwise normal ECG When compared with ECG of 16-APR-2018 13:08, No significant change was found Confirmed by Evans Carolina ([id number]) on 06/11/2021 11:57:33 AM Referred By: REFERRED SELF Confirmed By:Ras Carolina
--- NOTE | 2021-06-11 16:18 | Discharge Summary ---
Date of Service June 11, 2021 Admission HPI Per Admitting Provider Mr. Valentine is an 80-year-old male with past medical history of hypertension, hyperlipidemia, PVD, MALICK, GERD, peripheral neuropathy, chronic back pain who presents today with an episodes of shortness of breath and lightheadedness this afternoon. Patient was seated at his table, wrapping food when he suddenly became lightheaded and felt short of breath, which lasted for about 5 minutes before resolving. His at bedside states he did not look right even after symptoms proceeded, he appeared fatigued ans perhapy pale. He did feel a little nauseous during this episode, but denies syncope, vomiting, chest pain, p alpitations. He has never experienced anything like this before. He did wake up this morning around 5 AM with central chest discomfort that did not radiate anywhere. He drank a glass of milk, as it felt like indigestion, reports this did not make it better or worse. It eventually went w on its own prior to this afternoon's event. Otherwise had been feeling well lately, slightly mroe fatigued over the last few months, typically can go up a flight of stairs once or twice without getting short of breath. He is without fever/chills, weakness, myalgias, chest pain/tightness, palpitations, shortness of breath, cough, nausea, vomiting, abdominal pain, diarrhea, constipation. In ED, patient is hypertensive 168/112, otherwise vital signs are within normal limits, stable. Labs significant for K 2.8, magnesium 1.3, calcium 6.3. Initial high-sensitivity troponin 6.6 at 1600, repeat 2 hours later 10.4. Chest x-ray unremarkable. Patient received aspirin 325 mg, as well as repletion of potassium and magnesium in ED. Hospitalist service was consulted for further evaluation and admission. Principal Diagnosis Presyncope Discharge Exam Constitutional WD/WN, vitals as above Eyes PERRL, conjunctivae normal, anicteric sclerae Neck trachea midline, no thyromegaly Respiratory normal respiratory effort, lungs clear to auscultation Cardiovascular RRR, no murmur, no edema Gastrointestinal (Abdomen) normal bowel sounds, soft, nontender, no hepatosplenomegaly Musculoskeletal Head/Neck/Chest: normocephalic and head atraumatic Skin no rashes, warm and dry Neurologic moves all extremities Psychiatric A+Ox3, euthymic affect Discharge Data Allergies Allergy/AdvReac Type Severity Reaction Status Date / Time pneumococcal vaccine Allergy Severe SHORTNESS Verified 06/10/21 16:36 OF BREATH, CHEST TIGHTNESS, BP WENT UP Consultations 06/11/21 15:21 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 Chest pain around 0500 on 06/10 that went away on its own. -Initial high-sensitivity troponin at 1600 was 6.6, repeat troponin at 1800 10.6, remained WNL during hospitalization. -BNP only mildly elevated at 160. No signs of fluid overload. No orthopnea. -Placed on telemetry during stay and showed no arrhythmia, which is most likely cause given history, symptoms, and electrolyte abnormalities. -Appeared euvolemic throughout stay -Echo structurally reassuring. -D/c today w/ f/u with Dr. Headley and PCP within the next 2 weeks -Order sent for 2 week event monitor for if patient feels similar symptoms. (2) Hypokalemia: -2.8 in ED, repleted to WNL, resolved -Sent KCl 20 meq po daily to prevent further episodes of hypokalemia 2/2 diuretic use (3) Hypomagnesemia: -1.3, repleted to WNL, resolved (4) Hypertension: -Continue hydralazine, lasix, metoprolol (5) Hyperlipidemia: -Continue atorvastatin 40 mg daily. 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 (7) Acid reflux: -Continue PPI. (8) Peripheral neuropathy: -Continue gabapentin 600mg QID. (9) Chronic back pain: -Prescribed Tylenol prn, oxycodone 10 mg BID, sulindac 150 mg BID for pain relief. -Sees pain management doctor in [place]. (10) Anxiety and depression: -Prescribed lorazepam 0.5 mg 4 times daily as needed. -D/c home under self care -DNR/DNI. Total Time Total Time Spent Total Time Spent (In Minutes): 30 Discharge Plan Discharge Items Patient Disposition: Home - Self-Care Reason For Visit: CHEST PAIN Discharge Diagnosis: Presyncope Activity: Per Instructions section Non-emergency contact: Primary Care Provider and Perioperative Tech Call non-emergency contact if: you have any medication questions, your symptoms worsen, your pain is not controlled, your pain is worsening, your pain is unusual for you and your pain is concerning for you Follow-up/Referrals: Fred Tello MD [Primary Care Provider] - Diet: Regular Addtl Attending Provider Instructions: You were seen in the hospital for concerns regarding a 5-minute episode of feeling lightheaded with shortness of breath that seem to be self-limited. During her evaluation in the emergency room it was found that you had low potassium levels as well as low magnesium levels. These levels were replenished while you were admitted to the hospital. While you are here you were also on telemetry so that we could evaluate and watch your heart tracings throughout your stay and no abnormal rhythms were detected throughout your stay. In terms of differentials as to what caused your symptoms, our leading differential is that you experienced an abnormal cardiac rhythm during your episode of lightheadedness/shortness of breath. This is our leading suspicion as your low potassium and low magnesium could have made you more susceptible to an abnormal heart rhythm. Your low potassium and low magnesium were likely caused by your use of Lasix. To prevent this in the future we are going to send a daily potassium supplement to the pharmacy to take with your Lasix. In addition, we would like to send you with a cardiac event monitor for 2 weeks. As explained to you during your stay a cardiac event monitor is a set of leads that are on your chest and any time that you feel symptoms you are to tell the event monitor to record your heart rhythms during set event. (You will be further instructed on how to do this when you get the event monitor.) Otherwise there are some "[id number] "modalities of recording your rhythms at home such as the [employer] portable EKG that can connect to your phone and show you a rhythm strip if another event like this happens. For follow-up we would like you to see your accounts receivable administrator, Dr. Headley, and your primary care provider within the next 2 weeks. It was a pleasure to be a part of your care and we wish you the best in both your health and your recovery. Pending Studies at Discharge: No Stand-Alone Forms: My [facility], Smoking Cessation Medications and DC Order Prescriptions: New potassium chloride 20 mEq tablet extended release 20 meq PO DAILY Qty: 30 RF: 2 Continued furosemide 20 mg tablet 20 mg PO DAILY RF: 0 hydralazine 25 mg tablet 25 mg PO BID RF: 0 metoprolol succinate 25 mg tablet extended release 24 hr 25 mg PO DAILY RF: 0 multivitamin [Multiple Vitamins] Tablet 1 tab PO DAILY RF: 0 atorvastatin [Lipitor] 40 mg Tablet 40 mg PO HS RF: 0 ascorbic acid (vitamin C) [Vitamin C] 1,000 mg Tablet 1 g PO DAILY RF: 0 gabapentin 600 mg Tablet 600 mg PO QID RF: 0 sulindac 150 mg Tablet 150 mg PO BID RF: 0 lorazepam 0.5 mg Tablet 0.5 mg PO QID PRN (Reason: Anxiety) RF: 0 tamsulosin [Flomax] 0.4 mg Capsule 2 cap PO QAM RF: 0 omeprazole 20 mg Capsule,Delayed Release(Dr/Ec) 20 mg PO BID RF: 0 fluticasone propionate [Flonase Allergy Relief] 50 mcg/actuation [place],Suspension 2 spray INTRANASAL BID RF: 0 acetaminophen [Tylenol] 325 mg Capsule 325 mg PO Q4H PRN (Reason: Pain) RF: 0 cholecalciferol (vitamin D3) [Vitamin D3] 5,000 unit Tablet 5,000 unit PO DAILY RF: 0 oxycodone [OxyContin] 10 mg Tablet,Oral Only,Ext.Rel.12 Hr 10 mg PO Q12H RF: 0 aspirin 81 mg Tablet,Delayed Release (Dr/Ec) 81 mg PO DAILY RF: 0 amoxicillin 500 mg capsule 2,000 mg PO DIRECTED PRN (Reason: PRIOR TO DENTAL APPOINTMENTS) RF: 0 lidocaine [Lidoderm] 5 % Adhesive Patch,Medicated 1 patch TOPICAL DAILY PRN (Reason: Pain) RF: 0 Discharge Orders: Discharge Order (Routine); Ordered 06/11/21 Ordered By: Jimbo Garzon/Other Patient Handouts: ED About Arrhythmias Admission Data Admit Date/Time: 06/10/21 17:26 Attending Provider: Tylor Faustin Admit Provider: Tavo Andino Primary Care Provider: Fred Tello Other Interventions: Discharge Summary Assessment (RN) Last Done: 06/11/21 15:56
--- NOTE | 2021-06-11 16:21 | Discharge Summary ---
Date of Service June 11, 2021 Admission HPI Per Admitting Provider Mr. Valentine is an 80-year-old male with past medical history of hypertension, hyperlipidemia, PVD, MALICK, GERD, peripheral neuropathy, chronic back pain who presents today with an episodes of shortness of breath and lightheadedness this afternoon. Patient was seated at his table, wrapping food when he suddenly became lightheaded and felt short of breath, which lasted for about 5 minutes before resolving. His at bedside states he did not look right even after symptoms proceeded, he appeared fatigued ans perhapy pale. He did feel a little nauseous during this episode, but denies syncope, vomiting, chest pain, p alpitations. He has never experienced anything like this before. He did wake up this morning around 5 AM with central chest discomfort that did not radiate anywhere. He drank a glass of milk, as it felt like indigestion, reports this did not make it better or worse. It eventually went w on its own prior to this afternoon's event. Otherwise had been feeling well lately, slightly mroe fatigued over the last few months, typically can go up a flight of stairs once or twice without getting short of breath. He is without fever/chills, weakness, myalgias, chest pain/tightness, palpitations, shortness of breath, cough, nausea, vomiting, abdominal pain, diarrhea, constipation. In ED, patient is hypertensive 168/112, otherwise vital signs are within normal limits, stable. Labs significant for K 2.8, magnesium 1.3, calcium 6.3. Initial high-sensitivity troponin 6.6 at 1600, repeat 2 hours later 10.4. Chest x-ray unremarkable. Patient received aspirin 325 mg, as well as repletion of potassium and magnesium in ED. Hospitalist service was consulted for further evaluation and admission. Principal Diagnosis Lightheadedness and dyspnearesolved (see below) Discharge Exam In general he is awake and alert pleasant no distress. HEENT normocephalic atraumatic mucous membranes moist. Breathing unlabored no accessory muscle use good effort. Skin shows no rashes no pallor or icterus. Neuro without focal deficits. He is a little bit hard of hearing. Sinus to sinus bradycardia on the monitor. 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 This happened in the context of having had some indigestion earlier in the day, and the overall episode was about 5 minutes and self terminated. Sounded mostly presyncopal just with an accentuation of dyspnea beyond what people normally would describe with a presyncopal situation. -Because of the dyspneaMI ruled outtroponins were reassuring, echo without wall motion abnormalities. With his symptom complex as it is, I am not sure that it represents anything anginal enough to even warrant stress testingwould defer to his primary respiratory care faculty in that respect. -Most suspicious of arrhythmianone on the monitor per se, but did have a mild degree of bradycardiamostly in the 50sand on review of outpatient notes, his respiratory care faculty was watching him with concern of chronotropic incompetence. I wonder if his indigestion did not provoke a little bit of a vagal tone accentuating his chronotropic incompetence leading to a mild and self-limited symptomatic bradycardia. Less likely, but certainly possible simply due to his age, would be a brief run of a tacky arrhythmia such as A. fib/flutter. Either way nothing manifest itself here, he does appear safe/stable for homewe will ask that he get set up for longer ambulatory monitoring (he notes he had a Holter not too long ago but had no symptoms during that time), and we also discussed devices for self rhythm monitoring at home, as well as taught him how to check his own pulseso that if he has symptoms at a time that he does not have a prescribed athletic monitor on, he could either check his rhythm at home, or at least check his pulse -Safe for home (2) Hypokalemia: - repleted, supplement, outpatient follow-up with [facility] in 1 to 2 weeks (3) Hypomagnesemia: - repletedwould recheck as an outpatient in 1 to 2 weeks as well. (4) Hypertension: -Home on home meds (5) Hyperlipidemia: Continue atorvastatin 40 mg daily. 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 (7) Acid reflux: -Continue PPI. (8) Peripheral neuropathy: -Continue gabapentin 600mg QID. (9) Chronic back pain: -Prescribed Tylenol prn, oxycodone 10 mg BID, sulindac 150 mg BID for pain relief. -Sees pain management doctor in [place]. (10) Anxiety and depression: -Prescribed lorazepam 0.5 mg 4 times daily as needed. Stable for home, outpatient follow-up with PCP and respiratory care faculty, more prolonged rhythm monitoring as an outpatient, BMP and mag level in 1 to 2 weeks as an outpatient Total Time Total Time Spent Total Time Spent (In Minutes): Less than 30 Discharge Plan Discharge Items Patient Disposition: Home - Self-Care Reason For Visit: CHEST PAIN Discharge Diagnosis: Presyncope Activity: Per Instructions section Non-emergency contact: Primary Care Provider and Network Systems Consultant Call non-emergency contact if: you have any medication questions, your symptoms worsen, your pain is not controlled, your pain is worsening, your pain is unusual for you and your pain is concerning for you Follow-up/Referrals: Fred Tello MD [Primary Care Provider] - Diet: Regular Addtl Attending Provider Instructions: You were seen in the hospital for concerns regarding a 5-minute episode of feeling lightheaded with shortness of breath that seem to be self-limited. During her evaluation in the emergency room it was found that you had low potassium levels as well as low magnesium levels. These levels were replenished while you were admitted to the hospital. While you are here you were also on telemetry so that we could evaluate and watch your heart tracings throughout your stay and no abnormal rhythms were detected throughout your stay. In terms of differentials as to what caused your symptoms, our leading differential is that you experienced an abnormal cardiac rhythm during your episode of lightheadedness/shortness of breath. This is our leading suspicion as your low potassium and low magnesium could have made you more susceptible to an abnormal heart rhythm. Your low potassium and low magnesium were likely caused by your use of Lasix. To prevent this in the future we are going to send a daily potassium supplement to the pharmacy to take with your Lasix. In addition, we would like to send you with a cardiac event monitor for 2 weeks. As explained to you during your stay a cardiac event monitor is a set of leads that are on your chest and any time that you feel symptoms you are to tell the event monitor to record your heart rhythms during set event. (You will be further instructed on how to do this when you get the event monitor.) Otherwise there are some "[id number] "modalities of recording your rhythms at home such as the [place] portable EKG that can connect to your phone and show you a rhythm strip if another event like this happens. For follow-up we would like you to see your respiratory care faculty, Dr. Headley, and your primary care provider within the next 2 weeks. It was a pleasure to be a part of your care and we wish you the best in both your health and your recovery. Pending Studies at Discharge: No Stand-Alone Forms: My [facility], Smoking Cessation Medications and DC Order Prescriptions: New potassium chloride 20 mEq tablet extended release 20 meq PO DAILY Qty: 30 RF: 2 Continued furosemide 20 mg tablet 20 mg PO DAILY RF: 0 hydralazine 25 mg tablet 25 mg PO BID RF: 0 metoprolol succinate 25 mg tablet extended release 24 hr 25 mg PO DAILY RF: 0 multivitamin [Multiple Vitamins] Tablet 1 tab PO DAILY RF: 0 atorvastatin [Lipitor] 40 mg Tablet 40 mg PO HS RF: 0 ascorbic acid (vitamin C) [Vitamin C] 1,000 mg Tablet 1 g PO DAILY RF: 0 gabapentin 600 mg Tablet 600 mg PO QID RF: 0 sulindac 150 mg Tablet 150 mg PO BID RF: 0 lorazepam 0.5 mg Tablet 0.5 mg PO QID PRN (Reason: Anxiety) RF: 0 tamsulosin [Flomax] 0.4 mg Capsule 2 cap PO QAM RF: 0 omeprazole 20 mg Capsule,Delayed Release(Dr/Ec) 20 mg PO BID RF: 0 fluticasone propionate [Flonase Allergy Relief] 50 mcg/actuation [place],Suspension 2 spray INTRANASAL BID RF: 0 acetaminophen [Tylenol] 325 mg Capsule 325 mg PO Q4H PRN (Reason: Pain) RF: 0 cholecalciferol (vitamin D3) [Vitamin D3] 5,000 unit Tablet 5,000 unit PO DAILY RF: 0 oxycodone [OxyContin] 10 mg Tablet,Oral Only,Ext.Rel.12 Hr 10 mg PO Q12H RF: 0 aspirin 81 mg Tablet,Delayed Release (Dr/Ec) 81 mg PO DAILY RF: 0 amoxicillin 500 mg capsule 2,000 mg PO DIRECTED PRN (Reason: PRIOR TO DENTAL APPOINTMENTS) RF: 0 lidocaine [Lidoderm] 5 % Adhesive Patch,Medicated 1 patch TOPICAL DAILY PRN (Reason: Pain) RF: 0 Discharge Orders: Discharge Order (Routine); Ordered 06/11/21 Ordered By: Jimbo Garzon/Other Patient Handouts: ED About Arrhythmias Admission Data Admit Date/Time: 06/10/21 17:26 Attending Provider: Tylor Faustin Admit Provider: Tavo Andino Primary Care Provider: Fred Tello Other Interventions: Discharge Summary Assessment (RN) Last Done: 06/11/21 15:56 Coding Level of Care Code D/C DAY MANAGEMENT <30 MINS Diagnoses Acute dyspnea R06.00 Hypokalemia E87.6 Hypomagnesemia E83.42 Hypertension I10 Hyperlipidemia E78.5 Complex sleep apnea syndrome G47.31 Acid reflux K21.9 Peripheral neuropathy G62.9 Chronic back pain M54.9; G89.29 Anxiety and depression F41.9; F32.9
== END 2021-06-11 16:30 | disposition home or self-care (01) | DRG 312 ==
LOC: ED 15:07 → 2W 17:26 → SUATTDRO 17:26 → 2W 19:28

== ENCOUNTER 2023-08-08 00:47 | Observation (INO) ==
--- NOTE | 2023-08-08 01:00 | Emergency Department Note ---
Impression & Plan Chest pain, High serum chloride, Elevated BUN ED Provider Note NAME: RUPA MEADOWS AGE: 82 SEX: M : 1940 ARRIVES VIA: Walk-In INFORMANT: Patient ED PROVIDER(S): Dr. Tylor Acosta CHIEF COMPLAINT: Chest pain HPI: Patient is an 82-year-old male with a past medical history of hypertension, hyperlipidemia, grade 2 diastolic heart failure who presents to the ER for chest pain over the left side of the chest. He notes this started last night and he was seen by his PCP today. He was referred in as it reoccurred. Started around 10:00. It comes and goes. Describes it as an ache in the middle of his chest. Lasted for under a minute. He notes some shortness of breath. No belly pain, nausea, vomiting, or diarrhea. No dysuria, urgency, or frequency. ADDITIONAL HISTORY OBTAINED: Per HPI Chronic Medical/Social Conditions Affecting Care: Per HPI PAST MEDICAL HISTORY:See Below PAST SURGICAL HISTORY:See Below FAMILY HISTORY:See Below SOCIAL HISTORY:See Below HOME MEDICATIONS:See Below ALLERGIES:See Below VITALS:See Below PHYSICAL EXAMINATION: GENERAL: Sitting up in bed, alert, well appearing, well nourished, no distress, non-toxic EYE EXAM: normal conjunctiva. PERRL and EOM's grossly intact. OROPHARYNX: mucous membranes are moist NECK: supple, no nuchal rigidity, no adenopathy, non-tender LUNGS: Clear to auscultation. Normal chest wall mechanics HEART: no murmurs, S1 normal and S2 normal ABDOMEN: abdomen soft, non-tender, normo-active bowel sounds, no masses, no rebound or guarding. UPPER EXTREMITIES: upper extremities are grossly normal. LOWER EXTREMITIES: No pitting edema. NEURO EXAM: Normal sensorium, cranial nerves II-XII grossly intact, normal speech, no gross weakness of arms, no gross weakness of legs. No drift. Finger to nose intact. Gross sensation intact. MEDICAL DECISION MAKING: Patient is an 82-year-old male who presents ER for the above-stated complaint. IV was established blood work was obtained. He was found to be hypertensive with a past medical history of hypertension and hyperlipidemia. Labs show no significant leukocytosis or anemia. BMP with a slightly elevated chloride at 108. LFTs bilirubin was unremarkable. Troponin was negative. Lipase was unremarkable. Chest x-ray was clean. He was a little hypoxic while sleeping and does appear to have some sleep apnea. He was otherwise 96 to 98%. EKG was nondiagnostic. He was given aspirin. Updated at bedside. Moderate risk per heart score and consequently was discussed with the hospitalist for further evaluation management treatment. Consults/Care Managements Discussions: Per [facility] Triage Nursing notes reviewed. Limited review of prior medical records performed Vital Signs: reviewed and remarkable for no significant abnormalities Differential diagnosis: Cardiac ischemia, aortic dissection, pulmonary embolism, pneumothorax, pneumonia, pericarditis, myocarditis, esophageal rupture, GERD, cholecystitis, pancreatitis, musculoskeletal, as well as other pathologies. ER treatment provided: See below Diagnostics interpreted by me include EKG and cardiac monitoring as listed below: -Cardiac Monitoring: An order was placed for continuous cardiac monitoring. The monitor shows a rate of 50 with sinus rhythm. -ECG: Sinus rhythm rate of 59 Normal axis No PVCs QTc 405 -Laboratory studies:Interpreted by me as stated above in MDM and shown below. Imaging studies: Xrays: As interpreted by me: Portable AP upright 1 view the chest shows no focal infiltrate CTs show: none Procedures:none Critical Care: None Past Med/Surg History Problem List Elevated BUN (Acute) High serum chloride (Acute) Chest pain (Acute) Peripheral neuropathy Acute dyspnea (Acute) Insomnia Rotator cuff arthropathy of right shoulder Encounter for pre-operative examination Right shoulder pain (Acute) Nausea (Acute) Lumbar stenosis with neurogenic claudication (Acute) Headache (Acute) Headache (Acute) Fall (Acute) Dehydration (Acute) Chest pain (Acute) Chest pain (Acute) 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 Anxiety and depression Hypertension Hyperlipidemia Chronic back pain [facility] Acid reflux History of shoulder surgery R&L Medical History 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 Osteoarthritis Hernia CURRENT GROIN Chronic back pain [facility] BEN[facility] History of skin cancer Acid reflux Anxiety and depression Hypertension Hyperlipidemia Surgical History History of cervical spinal surgery 10[place]14-21 [place] [facility] [place] of cervical epidural hematoma 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 @ [facility] History of fusion of cervical spine x2--last 09/2021 @ [facility] [place]--limited ROM moving neck back History of colonoscopy History of shoulder surgery R&L History of hernia surgery Bilateral inguinal hernia repair History of back surgery X4 (INCLUDING FUSION) Family History Other No family history of adverse response to anesthesia Social History Smoking Status: Never smoker Second Hand Exposure: No; Do You Dip or Chew Tobacco: No; Hx Alcohol Use: No Hx Substance Use: No Preferred Language: Ugandan Communication Ability: Effective Visual Impairment: No Limitations 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 Beliefs That Will Affect Care: None marital status: Current Living Situation: Spouse Current Living Situation Comment: LIVES WITH AND DAUGHTER Feels Safe at Home: Yes Assistive Devices: Cane and Glasses Allergies Allergies Allergy/AdvReac Type Severity Reaction Status Date / Time pneumococcal vaccine Allergy Severe SHORTNESS Verified 07/03/23 09:48 OF BREATH, CHEST TIGHTNESS, BP WENT UP Home Meds Home Medications Medication Instructions Recorded Confirmed acetaminophen 325 mg capsule 650 mg PO Q4H PRN Pain 04/12/18 08/08/23 (Tylenol) ascorbic acid (vitamin C) 1,000 mg 1 g PO DAILY PRN winter months 04/12/18 08/08/23 tablet (Vitamin C) atorvastatin 40 mg tablet (Lipitor) 40 mg PO HS 04/12/18 08/08/23 cholecalciferol (vitamin D3) 125 5,000 unit PO QAM 04/12/18 08/08/23 mcg (5,000 unit) tablet (Vitamin D3) fluticasone propionate 50 2 spray intranasal BID PRN 04/12/18 08/08/23 mcg/actuation nasal Congestion spray,suspension (Flonase Allergy Relief) gabapentin 600 mg tablet 600 mg PO TID 04/12/18 08/08/23 lorazepam 0.5 mg tablet 0.5 mg PO QID PRN Anxiety 04/12/18 08/08/23 multivitamin (Multiple Vitamins 1 tab PO QAM 04/12/18 08/08/23 tablet) omeprazole 20 mg capsule,delayed 20 mg PO BID 04/12/18 08/08/23 release tamsulosin 0.4 mg capsule (Flomax) 1 cap PO BID PRN for urine blockage 04/12/18 08/08/23 oxycodone 10 mg tablet,crush 10 mg PO Q12H 04/16/18 08/08/23 resistant,extended release 12 hr (OxyContin) furosemide 20 mg tablet 40 mg PO QAM 10/21/20 08/08/23 aspirin 81 mg tablet,delayed 81 mg PO QAM 06/10/21 08/08/23 release lidocaine 5 % topical patch 1 patch topical DAILY PRN Pain 06/10/21 08/08/23 (Lidoderm) baclofen 10 mg tablet 10 mg PO BID PRN MUSCLE SPASMS 01/11/23 08/08/23 amlodipine 2.5 mg tablet 2.5 mg PO HS 07/03/23 08/08/23 melatonin 10 mg tablet 10 mg PO HS 07/03/23 08/08/23 metoprolol tartrate 25 mg tablet 12.5 mg PO QAM 08/08/23 08/08/23 sacubitril 49 mg-valsartan 51 mg 1 tab PO BID 08/08/23 08/08/23 tablet (Entresto) Results & Data (ED) Vital Signs Vital Signs - 24 hr 08/08/23 00:52 08/08/23 01:04 08/08/23 01:09 Temperature 36.1 C L Temperature Source Oral Pulse Rate 62 56 L 55 L Pulse Rate [Apical] Pulse Rate from SpO2 Sensor Pulse Rhythm Pulse Rhythm [Apical] Respiratory Rate 18 16 Respiratory Effort / Characteristics Non-Labored Respiratory Depth Normal Respiratory Pattern Regular Blood Pressure 171/96 H Blood Pressure [Right Arm] Blood Pressure Mean 121 Blood Pressure Mean [Right Arm] Blood Pressure Position Sitting Pulse Oximetry 97 94 Oxygen Delivery Method Room Air Room Air Sepsis Recent Fever Within 48 Hours No Sepsis New/Unexplained Change in Mental Status No Sepsis Action Taken by Nursing No Action Required 08/08/23 01:10 08/08/23 01:12 08/08/23 01:15 Temperature Temperature Source Pulse Rate 67 49 L 49 L Pulse Rate [Apical] Pulse Rate from SpO2 Sensor 50 L Pulse Rhythm Regular Pulse Rhythm [Apical] Respiratory Rate 20 18 16 Respiratory Effort / Characteristics Respiratory Depth Respiratory Pattern Blood Pressure 153/77 H 153/77 H Blood Pressure [Right Arm] Blood Pressure Mean 118 102 Blood Pressure Mean [Right Arm] Blood Pressure Position Pulse Oximetry 95 95 95 Oxygen Delivery Method Room Air Room Air Room Air Sepsis Recent Fever Within 48 Hours Sepsis New/Unexplained Change in Mental Status Sepsis Action Taken by Nursing 08/08/23 01:17 08/08/23 01:18 08/08/23 01:39 Temperature Temperature Source Pulse Rate 52 L Pulse Rate [Apical] 49 L Pulse Rate from SpO2 Sensor 52 L Pulse Rhythm Pulse Rhythm [Apical] Regular Respiratory Rate 20 18 Respiratory Effort / Characteristics Non-Labored Spontaneous Respiratory Depth Normal Respiratory Pattern Regular Blood Pressure Blood Pressure [Right Arm] 153/77 H Blood Pressure Mean Blood Pressure Mean [Right Arm] 102 Blood Pressure Position Pulse Oximetry 94 95 94 Oxygen Delivery Method Room Air Room Air Room Air Sepsis Recent Fever Within 48 Hours Sepsis New/Unexplained Change in Mental Status Sepsis Action Taken by Nursing 08/08/23 01:55 Temperature Temperature Source Pulse Rate Pulse Rate [Apical] 48 L Pulse Rate from SpO2 Sensor Pulse Rhythm Pulse Rhythm [Apical] Regular Respiratory Rate 18 Respiratory Effort / Characteristics Non-Labored Spontaneous Respiratory Depth Normal Respiratory Pattern Regular Blood Pressure Blood Pressure [Right Arm] 173/79 H Blood Pressure Mean Blood Pressure Mean [Right Arm] 110 Blood Pressure Position Pulse Oximetry 94 Oxygen Delivery Method Room Air Sepsis Recent Fever Within 48 Hours Sepsis New/Unexplained Change in Mental Status Sepsis Action Taken by Nursing Laboratory Data 08/08/23 01:12 08/08/23 01:12 Lab Results 08/08/23 Range/Units 01:12 WBC 6.64 (4.8-10.8) K/ul RBC 4.76 (4.70-6.10) M/uL Hgb 14.2 (14.0-18.0) g/dl Hct 42.6 (42.0-52.0) % MCV 89.5 (80.0-100.0) fL MCH 29.8 (25.0-34.0) pg MCHC 33.3 (32.0-36.0) g/dL RDW Std Deviation 43.8 (36.4-46.3) fL RDW Coeff of Neema 13.2 (11.5-14.5) % Plt Count 144 (130-400) K/uL MPV 12.1 (9.4-12.4) fL Immature Gran % (Auto) 0.2 % Neut % (Auto) 59.1 % Lymph % (Auto) 28.0 % [place] % (Auto) 8.4 % Eos % (Auto) 3.8 % Baso % (Auto) 0.5 % Neut # (Auto) 3.93 (1.40-6.50) K/uL Lymph # (Auto) 1.86 (1.20-3.40) K/uL [place] # (Auto) 0.56 (0.11-0.59) K/uL Eos # (Auto) 0.25 (0.00-0.50) K/uL Baso # (Auto) 0.03 (0.00-0.20) K/uL Immature Gran # (Auto) 0.01 (0.01-0.20) K/uL Sodium 140 (136-145) mmol/L Potassium 4.3 (3.5-5.1) mmol/L Chloride 108 H (98-107) mmol/L Carbon Dioxide 27 (21-32) mmol/L Anion Gap 5 (3-11) BUN 24 H (6-23) mg/dl Creatinine 1.17 (0.6-1.4) mg/dl Est Cr Clr Drug Dosing 54.4 ml/min Est GFR ( Amer) 66.9 ml/min Est GFR (Non-Af Amer) 57.7 ml/min BUN/Creatinine Ratio 20.5 H (10-20) Glucose 89 (70-99(Fasting)) mg/dl Calcium 9.4 (8.6-10.3) mg/dl Total Bilirubin 0.7 (0.2-1.0) mg/dl AST 25 (13-39) U/L ALT 17 (7-52) U/L Alkaline Phosphatase 68 (34-104) U/L Troponin I High Sens 10.3 (0-20) pg/ml Total Protein 6.7 (6.0-8.3) gm/dl Albumin 4.0 (3.4-5.0) gm/dl Globulin 2.7 (2.5-4.0) gm/dl Albumin/Globulin Ratio 1.5 (0.9-2) Lipase 13 (11-82) U/L Administered Medications Discontinued Medications Aspirin (Aspirin Chew 324 Mg) 324 mg PO NOW STA Stop: 08/08/23 02:01 Last Admin: 08/08/23 02:21 Dose: 324 mg Documented By: MECCA Discharge Plan Visit Data Chief Complaint: Chest Pain ED Provider: Tylor Acosta Discharge Problem: Chest pain, High serum chloride, Elevated BUN Forms Stand Alone Forms: My [facility] Prescriptions Prescriptions: No Action furosemide 20 mg tablet 40 mg PO QAM multivitamin [Multiple Vitamins] Tablet 1 tab PO QAM atorvastatin [Lipitor] 40 mg Tablet 40 mg PO HS ascorbic acid (vitamin C) [Vitamin C] 1,000 mg Tablet 1 g PO DAILY PRN (Reason: winter months) gabapentin 600 mg Tablet 600 mg PO TID lorazepam 0.5 mg Tablet 0.5 mg PO QID PRN (Reason: Anxiety) tamsulosin [Flomax] 0.4 mg Capsule 1 cap PO BID PRN (Reason: for urine blockage) omeprazole 20 mg Capsule,Delayed Release(Dr/Ec) 20 mg PO BID fluticasone propionate [Flonase Allergy Relief] 50 mcg/actuation [place],Suspension 2 spray INTRANASAL BID PRN (Reason: Congestion) acetaminophen [Tylenol] 325 mg Capsule 650 mg PO Q4H PRN (Reason: Pain) cholecalciferol (vitamin D3) [Vitamin D3] 5,000 unit Tablet 5,000 unit PO QAM oxycodone [OxyContin] 10 mg Tablet,Oral Only,Ext.Rel.12 Hr 10 mg PO Q12H aspirin 81 mg Tablet,Delayed Release (Dr/Ec) 81 mg PO QAM lidocaine [Lidoderm] 5 % Adhesive Patch,Medicated 1 patch TOPICAL DAILY PRN (Reason: Pain) baclofen 10 mg Tablet 10 mg PO BID PRN (Reason: MUSCLE SPASMS) metoprolol tartrate 25 mg tablet 12.5 mg PO QAM Entresto 49-51 mg tablet 1 tab PO BID amlodipine 2.5 mg Tablet 2.5 mg PO HS melatonin 10 mg Tablet 10 mg PO HS Referrals Referrals: Jb Limon MD [Primary Care Provider] - Discharge Problem: Chest pain Qualifiers: Chest pain type: unspecified Qualified Code(s): R07.9 - Chest pain, unspecified
[2023-08-08 01:41] LABS: Basophils # (auto) 0.03 K/uL (0.00-0.20); Basophils % (auto) 0.5 %; Eosinophils # (auto) 0.25 K/uL (0.00-0.50); Eosinophils % (auto) 3.8 %; Hematocrit (blood only) 42.6 % (42.0-52.0); Hemoglobin 14.2 g/dl (14.0-18.0); Immature Granulocytes # (auto) 0.01 K/uL (0.01-0.20); Immature Granulocytes % (auto) 0.2 %; Lymphocytes # (auto) 1.86 K/uL (1.20-3.40); Mean Corpuscular Hemoglobin 29.8 pg (25.0-34.0); Mean Corpuscular Hgb Conc 33.3 g/dL (32.0-36.0); Mean Corpuscular Volume 89.5 fL (80.0-100.0); Mean Platelet Volume 12.1 fL (9.4-12.4); Monocytes # (auto) 0.56 K/uL (0.11-0.59); Monocytes % (auto) 8.4 %; Neutrophils # (auto) 3.93 K/uL (1.40-6.50); Neutrophils % (auto) 59.1 %; Platelet Count 144 K/uL (130-400); RDW Coefficient of Variation 13.2 % (11.5-14.5); RDW Standard Deviation 43.8 fL (36.4-46.3); Red Blood Count 4.76 M/uL (4.70-6.10); White Blood Count 6.64 K/ul (4.8-10.8)
[2023-08-08 01:44] LABS: Albumin Globulin Ratio 1.5 (0.9-2); BUN Creatinine Ratio 20.5 (10-20); Bilirubin,Total 0.7 mg/dl (0.2-1.0); Calcium 9.4 mg/dl (8.6-10.3); Creatinine Clr Calc Pharmacy 54.4 ml/min; Est GFR (African American) 66.9 ml/min; Est GFR (Non-African American) 57.7 ml/min; Globulin 2.7 gm/dl (2.5-4.0); Potassium 4.3 mmol/L (3.5-5.1); Total Protein 6.7 gm/dl (6.0-8.3)
[2023-08-08 01:50] LABS: Troponin I High Sensitivity 10.3 pg/ml (0-20)
[2023-08-08] MEDS: ASPIRIN CHEW 324 MG PO STA (02:21)
--- NOTE | 2023-08-08 03:32 | History & Physical Report ---
Date of Service August 08, 2023 Assessment & Plan (1) Chest pain: Plan: Neuro: Alert and oriented. No neurologic concerns at present CV: #Chest Pain EKG without signs of ischemia. Troponin negative. CXR per my read - no acute processes. Clinical picture CHF vs angina. No exertional component. Does follow with cardiology outpatient. May consider outpatient stress testing. Monitor on tele while inpatient. #Grade II Diastolic HF Patient on GDMT - furosemide, metoprolol, entresto. Recently told by PCP to increase Lasix to 40 mg QD for the next 3-5 days as patient with worsening edema - labs were ordered as well for in a few days. Ordered IV Lasix 20 mg x1. Patient appears euvolemic on exam. Likely d/c on 40 mg. Has f/u scheduled with Cornelia Jaimes 08/13. daily weights, Is and Os, fluid restrict 1500 mL BNP ordered #HLD #HTN Continue home ASA, statin, and amlodipine Resp: #MALICK Patient with MALICK. Non-compliant with CPAP. Willing to trial NC with sleep. Continue to monitor. GI: Heart healthy diet. Caution with IVF if needed. Continue BID PPI. Endo: No endocrine concerns at present Renal: Cr 1.17. Monitor lytes - replete as indicated. : Continue tamsulosin as needed for urinary symptoms. Psych: Continue home PRN ativan and melatonin. MSK: Patient with chronic pain. Continue baclofen, oxycontin, lidocaine patch, gabapentin, and tylenol as needed. Code status: DNR/DNI DVT ppx: SCDs, ambulation FENGI: Heart healthy Dispo: Tele unit (2) Complex sleep apnea syndrome: (3) Anxiety and depression: (4) Hypertension: (5) Hyperlipidemia: (6) Chronic back pain: (7) Grade II diastolic dysfunction: History of Present Illness Chief Complaint: chest pain Primary Care Provider: Jb Limon MD 82 y/o male with a PMHx of diastolic heart failure, HTN, HLD, chronic pain, anxiety, GERD, and BPH presented for evaluation of chest pain. Patient with intermittent chest pain over the last several months. Has two episodes of higher intensity pain over the last two days - described as a dull ache over the left pec. Symptoms fleeting and self resolved. No exertional component. No noticeable orthopnea. Sleeps in a recliner. No shortness of breath, fevers, chills, recent illnesses, nausea, vomiting, change in bowel habits, or urinary symptoms. Is having increased BLE swelling. Was told to increase Lasix to 40 mg PO daily by PCP 08/06. EKG in office without signs of acute ischemia. Told to go to ED if symptoms returned. Patient given 324 mg ASA in the ED. Trop negative. CXR without acute findings. Tele unrevealing. CP free since arrival to the ED. Allergies Allergy/AdvReac Type Severity Reaction Status Date / Time pneumococcal vaccine Allergy Severe SHORTNESS Verified 07/03/23 09:48 OF BREATH, CHEST TIGHTNESS, BP WENT UP Home Medications Medication Instructions Recorded Confirmed Type acetaminophen 325 mg capsule 650 mg PO Q4H PRN Pain 04/12/18 08/08/23 History (Tylenol) ascorbic acid (vitamin C) 1,000 mg 1 g PO DAILY PRN winter months 04/12/18 08/08/23 History tablet (Vitamin C) atorvastatin 40 mg tablet (Lipitor) 40 mg PO HS 04/12/18 08/08/23 History cholecalciferol (vitamin D3) 125 5,000 unit PO QAM 04/12/18 08/08/23 History mcg (5,000 unit) tablet (Vitamin D3) fluticasone propionate 50 2 spray intranasal BID PRN 04/12/18 08/08/23 History mcg/actuation nasal Congestion spray,suspension (Flonase Allergy Relief) gabapentin 600 mg tablet 600 mg PO TID 04/12/18 08/08/23 History lorazepam 0.5 mg tablet 0.5 mg PO QID PRN Anxiety 04/12/18 08/08/23 History multivitamin (Multiple Vitamins 1 tab PO QAM 04/12/18 08/08/23 History tablet) omeprazole 20 mg capsule,delayed 20 mg PO BID 04/12/18 08/08/23 History release tamsulosin 0.4 mg capsule (Flomax) 1 cap PO BID PRN for urine blockage 04/12/18 08/08/23 History oxycodone 10 mg tablet,crush 10 mg PO Q12H 04/16/18 08/08/23 History resistant,extended release 12 hr (OxyContin) furosemide 20 mg tablet 40 mg PO QAM 10/21/20 08/08/23 History aspirin 81 mg tablet,delayed 81 mg PO QAM 06/10/21 08/08/23 History release lidocaine 5 % topical patch 1 patch topical DAILY PRN Pain 06/10/21 08/08/23 History (Lidoderm) baclofen 10 mg tablet 10 mg PO BID PRN MUSCLE SPASMS 01/11/23 08/08/23 History amlodipine 2.5 mg tablet 2.5 mg PO HS 07/03/23 08/08/23 History melatonin 10 mg tablet 10 mg PO HS 07/03/23 08/08/23 History metoprolol tartrate 25 mg tablet 12.5 mg PO QAM 08/08/23 08/08/23 History sacubitril 49 mg-valsartan 51 mg 1 tab PO BID 08/08/23 08/08/23 History tablet (Entresto) Past Med/Surg History Problem List Grade II diastolic dysfunction Elevated BUN (Acute) High serum chloride (Acute) Chest pain (Acute) Peripheral neuropathy Acute dyspnea (Acute) Insomnia Rotator cuff arthropathy of right shoulder Encounter for pre-operative examination Right shoulder pain (Acute) Nausea (Acute) Lumbar stenosis with neurogenic claudication (Acute) Headache (Acute) Headache (Acute) Fall (Acute) Dehydration (Acute) Chest pain (Acute) Chest pain (Acute) 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 Anxiety and depression Hypertension Hyperlipidemia Chronic back pain [facility] Acid reflux History of shoulder surgery R&L Medical History 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 Osteoarthritis Hernia CURRENT GROIN Chronic back pain [facility] History of skin cancer Acid reflux Anxiety and depression Hypertension Hyperlipidemia Surgical History History of cervical spinal surgery 10-14-21 @ [facility] [place] of cervical epidural hematoma 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 @ [facility] History of fusion of cervical spine x2--last 09/2021 @ [facility] [place]--limited ROM moving neck back History of colonoscopy History of shoulder surgery R&L History of hernia surgery Bilateral inguinal hernia repair History of back surgery X4 (INCLUDING FUSION) Family History Other No family history of adverse response to anesthesia Social History Smoking Status: Never smoker Second Hand Exposure: No; Do You Dip or Chew Tobacco: No; Hx Alcohol Use: No Hx Substance Use: No Preferred Language: Telugu Communication Ability: Effective Visual Impairment: No Limitations Childcare Attendant Required: No Beliefs That Will Affect Care: None marital status: Current Living Situation: Spouse Current Living Situation Comment: LIVES WITH AND DAUGHTER Feels Safe at Home: Yes Safety Concerns: Feels Safe At This Time Assistive Devices: Cane, CPAP and Glasses Review of Systems 2 Review of Systems: See HPI Physical Exam 2 Physical Exam: Gen: well appearing patient in NAD HEENT: AT NC MMM Resp: CTAB no wheezing, no increased work of breathing CV: bradycardic, regular rhythm, no murmurs, 2+ pedal edema, clinically well perfused Abd: soft, non-tender, +BS, non-distended MSK: no obvious deformities Skin: no rashes or bruising Neuro: alert and oriented Psych: appropriate mood and affect Results & Data Results & Data Vital Signs (Past 12 Hours) Vital Signs Temp Pulse Pulse Resp BP BP Pulse Ox 08/08/23 01:55 48 L 18 173/79 H 94 08/08/23 01:39 52 L 18 94 08/08/23 01:18 49 L 20 153/77 H 95 08/08/23 01:17 94 08/08/23 01:15 49 L 16 153/77 H 95 08/08/23 01:12 49 L 18 153/77 H 95 08/08/23 01:10 67 20 95 08/08/23 01:09 55 L 16 94 08/08/23 01:04 56 L 08/08/23 00:52 36.1 C L 62 18 171/96 H 97 O2 Del Method 08/08/23 01:55 Room Air 08/08/23 01:39 Room Air 08/08/23 01:18 Room Air 08/08/23 01:17 Room Air 08/08/23 01:15 Room Air 08/08/23 01:12 Room Air 08/08/23 01:10 Room Air 08/08/23 01:09 Room Air 08/08/23 01:04 08/08/23 00:52 Room Air Laboratory Results 08/08/23 01:12 08/08/23 01:12 Supervising Physician Co-Signing Physician Notes Attending addendum: I have physically seen this patient, have supervised the medical residents activities, and agree with the H&P unless as otherwise noted. Assessment and Plan: Chest pain/diastolic CHF/hypertension- The patient will be admitted to telemetry for serial cardiac enzymes, serial EKG's, cardiac rhythm monitoring and a 2-D echocardiogram with Dopplers. Troponin normal at 10.3 Lasix 20 mg IV x 1 in the ED Plan by outpatient physician was to change Lasix to 40 mg daily, and will follow-up her present appointment Continue aspirin and amlodipine MALICK- Unable to tolerate CPAP in the outpatient setting Nasal cannula oxygen trial as needed Resident Activity Tracking Resident Involvement: Resident Care Provided Care Provided: Adult Hospital Medicine (1) Chest pain Chest pain type: unspecified Qualified Code(s): R07.9 - Chest pain, unspecified
[2023-08-08] MEDS ORDERED: LORazepam 0.5 MG TAB PO PRN (04:48)
[2023-08-08] MEDS ORDERED: BACLOFEN 10 MG TAB PO PRN (04:48)
[2023-08-08] MEDS ORDERED: LIDOCAINE 5% 1 PATCH TD PRN (04:48)
[2023-08-08] MEDS ORDERED: TAMSULOSIN HCL 0.4 MG CAP PO PRN (04:48)
[2023-08-08] MEDS ORDERED: ALUMINUM/MAGNESIUM SUSP 30 ML UDC PO PRN (04:48)
[2023-08-08] MEDS ORDERED: POLYETHYLENE (MIRALAX) 17 GM PACK PO PRN (04:48)
[2023-08-08] MEDS: oxyCODONE HCL 10 MG TABCR (OxyCONTIN) PO SCH (05:46)
--- NOTE | 2023-08-08 06:48 | XRay Report ---
XR chest 1V portable HISTORY: 82 years-old Male Chest pain, nonspecific COMPARISON: 01/11/2023 TECHNIQUE: AP view of the chest FINDINGS: Cardiomediastinal and hilar silhouettes are unchanged. Reverse right shoulder arthroplasty. Cervical thoracic fusion hardware. No pneumothorax, pleural effusion, airspace consolidation or pulmonary james a. Subcentimeter calcified granuloma of the right midlung. IMPRESSION: No acute process. ACT 112: Negative or not required by law. The above report was generated using voice recognition software. It may contain grammatical, syntax o r spelling errors. Electronically signed by: Omega Davila M.D. 08/08/2023 6:46 AM
[2023-08-08 06:52] LABS: Hematocrit (blood only) 38.4 % (42.0-52.0); Mean Corpuscular Hemoglobin 30.1 pg (25.0-34.0); Mean Corpuscular Hgb Conc 33.9 g/dL (32.0-36.0); Mean Corpuscular Volume 88.9 fL (80.0-100.0); Mean Platelet Volume 11.8 fL (9.4-12.4); Platelet Count 125 K/uL (130-400); RDW Coefficient of Variation 13.2 % (11.5-14.5); RDW Standard Deviation 42.9 fL (36.4-46.3); Red Blood Count 4.32 M/uL (4.70-6.10); White Blood Count 5.16 K/ul (4.8-10.8)
[2023-08-08 07:18] LABS: BUN Creatinine Ratio 22.1 (10-20); Calcium 8.9 mg/dl (8.6-10.3); Creatinine Clr Calc Pharmacy 61.2 ml/min; Est GFR (African American) 77.1 ml/min; Est GFR (Non-African American) 66.6 ml/min; Potassium 4.1 mmol/L (3.5-5.1)
--- NOTE | 2023-08-08 07:47 | Hospitalist Progress Note ---
Date of Service August 08, 2023 Assessment & Plan (1) Chest pain: (2) Complex sleep apnea syndrome: (3) Anxiety and depression: (4) Hypertension: (5) Hyperlipidemia: (6) Chronic back pain: (7) Grade II diastolic dysfunction: Plan Patient is a 82 yo M w/ a PMHx of Grade II diastolic dysfunction, anxiety/depression, HTN, HLD, lumbar stenosis w/ neurogenic caludiction/chronic back pain, s/p shoulder surgery (r. and l.), falls, insomnia presenting today for concerns over chest pain. 1) Chest Pain - HS trop, 10.3; EKG: sinus bradycardia, otherwise normal; - CXR: no acute processes, subcm calcified granuloma of r. midlung - Clinical picture CHF vs angina. Little to no exertional component. Does follow with cardiology outpatient. May consider outpatient stress testing. Monitor on tele while inpatient. - Cardiology consulted, we appreciate any recommendations 2) Grade II diastolic dysfunction: - Patient on GDMT - furosemide, metoprolol, entresto. - Recently told by PCP to increase Lasix to 40 mg QD for the next 3-5 days as patient with worsening edema - labs were ordered as well for in a few days. - IV Lasix 20 mg x1. Patient appears euvolemic on exam. Likely d/c on 40 mg. Has f/u scheduled with Cornelia Jaimes 08/13. - daily weights, Is and Os, fluid restrict 1500 mL; - BNP, 206 (139 baseline, 01/11/23) 3) Complex sleep apnea syndrome: - patient w/ MALICK but non-compliant w/ CPAP, willing to trial NC O2 w/ sleep; monitor as needed w/ O2 Sats - continue home melatonin 4) Anxiety and depression: - lorazepam, 0.5 mg, PO, QID, PRN 5) Hypertension: - continue home amlodipine, ASA 6) Hyperlipidemia - continue home statin 7) Chronic back pain - continue baclofen, oxycontin, lidocaine patches, gabapentin, Tylenol, PRN (8) GERD - continue omeprazole (PPI), 20 mg, PO, BID (9) BPH/LUTS - continue home tamsulosin Code status: DNR/DNI DVT ppx: SCDs, ambulation FENGI: Heart healthy Dispo: Med-Tele unit Admission and Anticipated Discharge Date Admission Date: August 08, 2023 Supervising Physician Co-Signing Physician Notes ATTESTATION I also saw the patient and confirmed velazquez portions of the history and exam. I agree with the impression and plan in the resident documentation, and as summarized below. 82-year-old male seen while still in the emergency department waiting room. He tells a story of an approximately 2-month history of progressively worsening, more frequent, substernal chest pain with radiation to the left shoulder. Will happen at rest and sometimes with activity. Interestingly, he had a preoperative visit with his PCP about 6-8 weeks ago at which time he did not mention the chest pain; today, he notes that it was present at that time, but not to the severity that he felt it worth mentioning. At the time my exam, no chest pain or shortness of breath reported. EXAM Alert and oriented. Pleasant. Mildly hard of hearing. Heart bradycardic but regular Lungs clear with nonlabored respirations Extremities with trace pedal edema, most noted at sock line. DATA Labs Hemoglobin 13, platelet count 125 Sodium 141, potassium 4.1, BUN 23, creatinine 1.04 BNP 206 High-sensitivity troponin 10.3 Imaging. Chest x-ray completed upon admission shows no acute process EKG completed upon presentation shows a sinus bradycardia IMPRESSION & PLAN Chest Pain Bradycardia HTN MALICK Given progressive symptoms and risk factors, admit and consult cardiology Hold [facility] Will research last stress test; unsure of date although reported as suboptimal despite dobutamine secondary to bradycardia Other diagnoses and plans as noted in resident note Additional per resident documentation Subjective Patient has been having intermittent chest pain that radiates to his left shoulder for ~ 2 months, but has gotten a lot worse the last 3 days so called the Cardiology to make appt w/ Cornelia Carlisle. This has been accompanied by dry cough over last few months also. No dyspnea or palpitations. Patient has chronic edema in his feet, which he feels when putting on his shoes and socks. This morning the patient feels better than yesterday and back to where he was three days prior. Has only felt faint chest pain this morning. Review of Systems Constitutional: no fever, no chills, no fatigue and no weakness Respiratory: + cough (dry cough) and + dyspnea on exe rtion; no chest congestion, no dyspnea and no wheezing Cardiovascular: + chest pain (none now, has been intermi ttent, last felt last night around 6.00 pm) and + radiating jaw, neck or arm pain (previously was radiating to left shoulder); no calf pain Gastrointestinal: no abdominal pain, no nausea, no vomiting, no constipation and no diarrhea/loose stools Genitourinary: no dysuria or no urinary frequency Musculoskeletal: no myalgia Neurologic: + tingling (baseline from cervical radic ulopathy) and + numbness Physical Exam Constitutional: WD/WN, vitals as above Respiratory: normal respiratory effort, lungs clear to auscultation Cardiovascular: Rate/Rhythm: regular rhythm and + bradycardic Heart Sounds: no gallop and no murmur Extremities: normal capillary refill and + pedal edema; no calf tenderness Gastrointestinal (Abdomen): normal bowel sounds, soft, nontender, no hepatosplenomegaly Psychiatric: A+Ox3, euthymic affect Results & Data Results & Data Vital Signs (Past 12 Hours) Vital Signs Temp Pulse Pulse Resp BP BP Pulse Ox 08/08/23 07:10 41 L 08/08/23 06:00 70 15 133/70 92 08/08/23 05:22 49 L 18 136/78 99 08/08/23 05:00 08/08/23 05:00 49 L 16 143/66 H 99 08/08/23 05:00 143/66 H 08/08/23 05:00 49 L 16 99 08/08/23 04:33 47 L 11 L 98 08/08/23 04:12 45 L 17 137/74 98 08/08/23 03:00 45 L 16 135/70 94 08/08/23 02:36 53 L 19 143/86 H 97 08/08/23 02:09 54 L 17 91 08/08/23 01:55 48 L 18 173/79 H 94 08/08/23 01:39 52 L 18 94 08/08/23 01:18 49 L 20 153/77 H 95 08/08/23 01:17 94 08/08/23 01:15 49 L 16 153/77 H 95 08/08/23 01:12 49 L 18 153/77 H 95 08/08/23 01:10 67 20 95 08/08/23 01:09 55 L 16 94 08/08/23 01:04 56 L 08/08/23 00:52 36.1 C L 62 18 171/96 H 97 O2 Del Method O2 Flow Rate 08/08/23 07:10 08/08/23 06:00 Room Air 08/08/23 05:22 Room Air 08/08/23 05:00 Nasal Cannula 2 08/08/23 05:00 Nasal Cannula 2 08/08/23 05:00 08/08/23 05:00 08/08/23 04:33 08/08/23 04:12 Nasal Cannula 2 08/08/23 03:00 Nasal Cannula 2 08/08/23 02:36 Nasal Cannula 2 08/08/23 02:09 Room Air 08/08/23 01:55 Room Air 08/08/23 01:39 Room Air 08/08/23 01:18 Room Air 08/08/23 01:17 Room Air 08/08/23 01:15 Room Air 08/08/23 01:12 Room Air 08/08/23 01:10 Room Air 08/08/23 01:09 Room Air 08/08/23 01:04 08/08/23 00:52 Room Air (1) Chest pain Chest pain type: unspecified Qualified Code(s): R07.9 - Chest pain, unspecified
[2023-08-08] MEDS: FUROSEMIDE INJ 20 MG/2 ML VIAL IV ONE (08:58)
[2023-08-08] MEDS: ASCORBIC ACID 500 MG TAB PO SCH (09:00)
[2023-08-08] MEDS ORDERED: METOPROLOL TARTRATE 25 MG TAB PO SCH (09:00)
[2023-08-08] MEDS: METOPROLOL SUCC 25MG EXT REL TAB PO SCH (09:01)
[2023-08-08] MEDS: CHOLECALCIFEROL 125 MCG (5,000 UNITS) TAB PO SCH (09:01)
[2023-08-08] MEDS: GABAPENTIN 600 MG TAB PO SCH (09:01)
[2023-08-08] MEDS: ASPIRIN 81 MG ECTAB PO SCH (09:01)
[2023-08-08] MEDS: PANTOprazole 40 MG TAB PO SCH (09:02)
[2023-08-08] MEDS: MULTIVITAMIN TAB PO SCH (09:02)
[2023-08-08] MEDS: VALSARTAN/SACUBITRIL 51/49 MG TAB PO SCH (09:03)
[2023-08-08] MEDS: FLUTICASONE PROPIONATE NA SPR 16 GM BTL PRN (09:04)
--- NOTE | 2023-08-08 09:52 | Electrocardiogram Report ---
Test Reason : Blood Pressure : / mmHG Vent. Rate : 059 BPM Atrial Rate : 059 BPM P-R Int : 190 ms QRS Dur : 080 ms QT Int : 410 ms P-R-T Axes : 049 007 061 degrees QTc Int : 405 ms Sinus bradycardia Otherwise normal ECG When compared with ECG of 11-JAN-2023 14:15, Premature supraventricular complexes are no longer Present T wave amplitude has increased in Lateral leads Confirmed by Evans Carolina ([id number]) on 08/08/2023 9:51:59 AM Referred By: REFERRED SELF Confirmed By:Ras Carolina
[2023-08-08] MEDS: ACETAMINOPHEN 325 MG TAB PO PRN (20:29)
[2023-08-08] MEDS: amLODIPine BESYLATE 5 MG TAB PO SCH (20:30)
[2023-08-08] MEDS: ATORVASTATIN 40 MG TAB PO SCH (20:32)
[2023-08-08] MEDS: MELATONIN 3 MG TAB PO SCH (20:32)
--- NOTE | 2023-08-09 05:15 | Billing Data ---
Date of Service August 09, 2023 Coding Level of Care Code 00753 INT INP/OBS CARE
[2023-08-09 08:05] VITALS: RESP 18; TEMP 98.2
--- NOTE | 2023-08-09 09:05 | Cardiology Consultation ---
Date of Consultation August 09, 2023 History of Present Illness Reason for Consultation: Chest pain Attending Physician: Quirino Matias DO History of Present Illness He describes chest discomfort on and off over the last month or 2. It is never associated with exertion. He describes it as what more is an epigastric discomfort that radiates to his left shoulder. It is not made worse with food or fatty foods. He denies a sour taste or bitter taste in his mouth. He has basement stairs and can climb 15 steps without any chest discomfort. He can walk in the grocery store without any chest tightness or chest pressure. He denies any lightheadedness or dizziness. He has some mild lower extremity edema. Not only does he consume a lot of processed foods but he salts his food as well. He denies any presyncope or syncope. His chest pain is not made worse lying flat versus sitting up. It is not worse with a deep breath. There is no ripping or tearing discomfort. Allergies Allergy/AdvReac Type Severity Reaction Status Date / Time pneumococcal vaccine Allergy Severe SHORTNESS Verified 07/03/23 09:48 OF BREATH, CHEST TIGHTNESS, BP WENT UP Home Medications Medication Instructions Recorded Confirmed Type acetaminophen 325 mg capsule 650 mg PO Q4H PRN Pain 04/12/18 08/08/23 History (Tylenol) ascorbic acid (vitamin C) 1,000 mg 1 g PO DAILY PRN winter months 04/12/18 08/08/23 History tablet (Vitamin C) atorvastatin 40 mg tablet (Lipitor) 40 mg PO HS 04/12/18 08/08/23 History cholecalciferol (vitamin D3) 125 5,000 unit PO QAM 04/12/18 08/08/23 History mcg (5,000 unit) tablet (Vitamin D3) fluticasone propionate 50 2 spray intranasal BID PRN 04/12/18 08/08/23 History mcg/actuation nasal Congestion spray,suspension (Flonase Allergy Relief) gabapentin 600 mg tablet 600 mg PO TID 04/12/18 08/08/23 History lorazepam 0.5 mg tablet 0.5 mg PO QID PRN Anxiety 04/12/18 08/08/23 History multivitamin (Multiple Vitamins 1 tab PO QAM 04/12/18 08/08/23 History tablet) omeprazole 20 mg capsule,delayed 20 mg PO BID 04/12/18 08/08/23 History release tamsulosin 0.4 mg capsule (Flomax) 1 cap PO BID PRN for urine blockage 04/12/18 08/08/23 History oxycodone 10 mg tablet,crush 10 mg PO Q12H 04/16/18 08/08/23 History resistant,extended release 12 hr (OxyContin) furosemide 20 mg tablet 40 mg PO QAM 10/21/20 08/08/23 History aspirin 81 mg tablet,delayed 81 mg PO QAM 06/10/21 08/08/23 History release lidocaine 5 % topical patch 1 patch topical DAILY PRN Pain 06/10/21 08/08/23 History (Lidoderm) baclofen 10 mg tablet 10 mg PO BID PRN MUSCLE SPASMS 01/11/23 08/08/23 History amlodipine 2.5 mg tablet 2.5 mg PO HS 07/03/23 08/08/23 History melatonin 10 mg tablet 10 mg PO HS 07/03/23 08/08/23 History metoprolol tartrate 25 mg tablet 12.5 mg PO QAM 08/08/23 08/08/23 History sacubitril 49 mg-valsartan 51 mg 1 tab PO BID 08/08/23 08/08/23 History tablet (Entresto) Patient History Medical History Osteoarthritis Hernia CURRENT GROIN History of skin cancer Surgical History History of cervical spinal surgery 10-14-21 @ [facility] [place] evacuation of cervical epidural hematoma 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 @ [facility] History of fusion of cervical spine x2--last 09/2021 @ [facility] [place]--limited ROM moving neck back History of colonoscopy History of hernia surgery Bilateral inguinal hernia repair History of back surgery X4 (INCLUDING FUSION) Family History Other No family history of adverse response to anesthesia Social History Smoking Status: Never smoker Second Hand Exposure: No; Do You Dip or Chew Tobacco: No; Hx Alcohol Use: No Hx Substance Use: No Preferred Language: Divehi Communication Ability: Effective Visual Impairment: No Limitations Ship [employer] Required: No Beliefs That Will Affect Care: None marital status: Current Living Situation: Spouse Current Living Situation Comment: LIVES WITH AND DAUGHTER Feels Safe at Home: Yes Safety Concerns: Feels Safe At This Time Assistive Devices: Cane, CPAP and Glasses Results & Data Vital Signs (Past 12 Hours) Vital Signs Temp Pulse Pulse Pulse Resp BP Pulse Ox 08/09/23 08:04 36.8 C 48 L 18 124/62 92 08/09/23 03:41 36.4 C L 46 L 17 106/64 94 08/08/23 23:07 36.6 C 51 L 16 101/61 93 08/08/23 22:00 47 L O2 Del Method 08/09/23 08:04 Room Air 08/09/23 03:41 Room Air 08/08/23 23:07 Room Air 08/08/23 22:00 He is awake alert and oriented x 3 he is in no acute distress HEENT 2+ Carotid upstrokes with no evidence of carotid bruits Lungs: Clear to auscultation bilaterally with no wheezing Abdomen: Soft nontender distended positive bowel sounds extremities no clubbing cyanosis he has mild bilateral lower extremity edema Psychiatric his affect appeared appropriate His EKG is normal and his troponin is normal and his echo from June 2023 was reviewed Impressions: 1. Atypical chest discomfort 2. History of a negative dobutamine stress echo at a submaximal heart rate 3. Sinus bradycardia 4. Possible GERD 5. Normal biventricular size and function with type II diastolic dysfunction 2023 6. Hypertension 7. Chronic diastolic heart failure As I discussed with the family this is not typical for obstructive coronary disease. If he does not describe symptoms that are worse with activity and better at rest in fact his symptoms are worse at rest and almost never occur with activity. I would send him home on Protonix twice daily rather than his omeprazole to see if this might be reflux related. It does not sound like it is related to pericarditis or musculoskeletal and there is nothing to suggest an aortic dissection. With reassuring is that his EKG is normal and troponin is normal after hours of discomfort overnight. 1 would anticipate if he was having ischemia his troponin should be positive. If he were to continue to have atypical symptoms we would need to consider a Lexiscan nuclear stress test as an outpatient as we were unable to achieve an adequate heart rate with dobutamine previously. We discussed a low-salt diet and daily weights. They are still salting their food and it sounds like they eat a lot of processed food. We discussed the need to avoid this and had a long discussion with regards to dietary indiscretion. I would send him home on the reduced dose of Toprol and we may need to stop this as an outpatient given his bradycardia. He will see Cornelia next week in the office. If is any worsening symptoms asked him to let us know. All this was discussed with the family were at the bedside.
[2023-08-09 11:37] VITALS: O2SAT 93
--- NOTE | 2023-08-09 11:40 | Discharge Summary ---
Date of Service August 09, 2023 Admission HPI Per Admitting Provider 82 y/o male with a PMHx of diastolic heart failure, HTN, HLD, chronic pain, anxiety, GERD, and BPH presented for evaluation of chest pain. Patient with intermittent chest pain over the last several months. Has two epis odes of higher intensity pain over the last two days - described as a dull ache over the left pec. Symptoms fleeting and self resolved. No exertional component. No noticeable orthopnea. Sleeps in a recliner. No shortness of breath, fevers, chills, recent illnesses, nausea, vomiting, change in bowel habits, or urinary symptoms. Is having increased BLE swelling. Was told to increase Lasix to 40 mg PO daily by PCP 08/06. EKG in office without signs of acute ischemia. Told to go to ED if symptoms returned. Patient given 324 mg ASA in the ED. Trop negative. CXR without acute findings. Tele unrevealing. CP free since arrival to the ED. Admission Exam Per Admitting Provider Gen: well appearing patient in NAD HEENT: AT NC MMM Resp: CTAB no wheezing, no increased work of breathing CV: bradycardic, regular rhythm, no murmurs, 2+ pedal edema, clinically well perfused Abd: soft, non-tender, +BS, non-distended MSK: no obvious deformities Skin: no rashes or bruising Neuro: alert and oriented Psych: appropriate mood and affect Principal Diagnosis Chest pain w/out clear etiology, bradycardia Discharge Exam Constitutional WD/WN, vitals as above Respiratory normal respiratory effort, lungs clear to auscultation Cardiovascular Rate/Rhythm: regular rhythm and + bradycardic Heart Sounds: no gallop and no murmur Vessels: posterior tibial pulses present and dorsalis pedis pulses present; no carotid bruit Extremities: normal capillary refill and + pedal edema; no calf tenderness Gastrointestinal (Abdomen) normal bowel sounds, soft, nontender, no hepatosplenomegaly Psychiatric A+Ox3, euthymic affect Discharge Data Allergies Allergy/AdvReac Type Severity Reaction Status Date / Time pneumococcal vaccine Allergy Severe SHORTNESS Verified 07/03/23 09:48 OF BREATH, CHEST TIGHTNESS, BP WENT UP Consultations 08/08/23 02:29 ED Decision to Admit Stat 08/08/23 12:36 Consult Cardiology Routine Hospital Course (1) Chest pain: (2) Complex sleep apnea syndrome: (3) Anxiety and depression: (4) Hypertension: (5) Hyperlipidemia: (6) Chronic back pain: (7) Grade II diastolic dysfunction: Plan Patient is a 82 yo M w/ a PMHx of Grade II diastolic dysfunction, anxiety/dep ression, HTN, HLD, lumbar stenosis w/ neurogenic claudication/chronic back pain, s/p shoulder surgery (r. and l.), falls, insomnia presenting today for concerns over chest pain. 1) Chest Pain - HS trop, 10.3; EKG: sinus bradycardia, otherwise normal; - CXR: no acute processes, subcm calcified granuloma of r. midlung - Clinical picture CHF vs angina. Little to no exertional component. Does follow with cardiology outpatient. May consider outpatient stress testing. Monitor on tele while inpatient. - Cardiology consulted, we appreciate any recommendations - Cardiology advised to stop metoprolol due to bradycardia, pt has outpt appt on August 13 2) Grade II diastolic dysfunction: - Patient on GDMT - furosemide, metoprolol, entresto. - Recently told by PCP to increase Lasix to 40 mg QD for the next 3-5 days as patient with worsening edema - labs were ordered as well for in a few days. - IV Lasix 20 mg x1. Patient appears euvolemic on exam. Likely d/c on 40 mg. Has f/u scheduled with Cornelia Jaimes 08/13. - daily weights, Is and Os, fluid restrict 1500 mL; - BNP, 206 (139 baseline, 01/11/23) 3) GERD - pantoprazole (PPI), 40 mg, PO, BID during hospital stay - change home med omeprazole to 40 mg, PO, BID 4) Complex sleep apnea syndrome: - patient w/ MALICK but non-compliant w/ CPAP, willing to trial NC O2 w/ sleep; monitor as needed w/ O2 Sats - continue home melatonin 5) Anxiety and depression: - lorazepam, 0.5 mg, PO, QID, PRN 6) Hypertension: - continue home amlodipine, ASA 7) Hyperlipidemia - continue home statin 8) Chronic back pain - continue baclofen, oxycontin, lidocaine patches, gabapentin, Tylenol, PRN 9) BPH/LUTS - continue home tamsulosin Total Time Total Time Spent Total Time Spent (In Minutes): I spent 30 minutes seeing the patient, reviewing consultations, corresponding with consultants, reviewing data/nursing notes, and documenting. Discharge Plan Discharge Items Patient Disposition: Home - Self-Care Reason For Visit: CHEST PAIN Discharge Diagnosis: chest pain, bradycardia Activity: Resume your previous activity Non-emergency contact: Primary Care Provider and Paleology Professor Call non-emergency contact if: you have any medication questions, your symptoms worsen and your pain is worsening Follow-up/Referrals: Jb Limon MD [Primary Care Provider] - 08/13/23 1:25 pm Diet: Heart Healthy Addtl Attending Provider Instructions: You were admitted to the hospital for non-exertional chest pain. You were treated with your home medications. A discharge summary will be sent to your primary care physician to ensure continuity of care. Please bring this discharge summary with you to your next office appointment so that your provider can review it at that time. Follow-up appointments: We have requested a follow-up appointment with your primary care physician within one week of discharge. Please call their office if you do not hear from them. You have an appointment with Cardiology on Aug 13. If you are unable to make this appointment, or have any other questions, please notify their office. Keep all your follow-up appointments as already scheduled. If you cannot make an appointment, notify your provider. Medications: Your medication list has been reviewed and reconciled upon discharge to ensure accuracy and continuity of care. An updated list of all your medications is included with your hospital discharge paperwork. Please review this list closely, and make note of any changes. The medication called metoprolol tartrate you were taking previously should be stopped for now. You can discuss with your messenger office at next appt on August 13 whether to continue it, replace it with other med, or stop altogether. You have been taking a medication omeprazole. You will need to take omeprazole, 40 mg/two tablets, twice a day, regularly, now. Take your medications as instructed; do not skip a dose of your medicines. Make sure all of your doctors know every medicine you are taking (including okpk-pcn-cwxrquy medicines, vitamins, and supplements). Call your primary care provider before taking any new medicines (including uoug-ovt-dahgypf medicines, vitamins, and supplements), because some of these may interact with your current medications, or may make your symptoms worse. Tell your primary care provider if you cannot afford your medications. CONTACT YOUR PRIMARY CARE PROVIDER if you experience any of the following: dizziness/lightheadedness, feeling like you're going to pass out chest pain, shortness of breath, palpitations Difficulty following your treatment plan, or difficulty taking medications CALL 911 OR GO TO THE EMERGENCY DEPARTMENT if you experience any of the following: Sudden, severe abdominal pain or nausea/vomiting Severe chest pain, or chest pain that radiates (moves) to your jaw or arm Sudden, severe shortness of breath or difficulty breathing Thank you for allowing us to participate in your care Pending Studies at Discharge: No Studies:: Patient will F/U as an outpatient for a dobutamine stress test w/ Cardiology Stand-Alone Forms: My [facility] [employer], Smoking Cessation Medications and DC Order Prescriptions: New omeprazole 40 mg capsule,delayed release(DR/EC) 40 mg PO BID Qty: 60 0RF Continued furosemide 20 mg tablet 40 mg PO QAM multivitamin [Multiple Vitamins] Tablet 1 tab PO QAM atorvastatin [Lipitor] 40 mg Tablet 40 mg PO HS ascorbic acid (vitamin C) [Vitamin C] 1,000 mg Tablet 1 g PO DAILY PRN (Reason: winter months) gabapentin 600 mg Tablet 600 mg PO TID lorazepam 0.5 mg Tablet 0.5 mg PO QID PRN (Reason: Anxiety) tamsulosin [Flomax] 0.4 mg Capsule 1 cap PO BID PRN (Reason: for urine blockage) omeprazole 20 mg Capsule,Delayed Release(Dr/Ec) 20 mg PO BID fluticasone propionate [Flonase Allergy Relief] 50 mcg/actuation Paxinos,Suspension 2 spray INTRANASAL BID PRN (Reason: Congestion) acetaminophen [Tylenol] 325 mg Capsule 650 mg PO Q4H PRN (Reason: Pain) cholecalciferol (vitamin D3) [Vitamin D3] 5,000 unit Tablet 5,000 unit PO QAM oxycodone [OxyContin] 10 mg Tablet,Oral Only,Ext.Rel.12 Hr 10 mg PO Q12H aspirin 81 mg Tablet,Delayed Release (Dr/Ec) 81 mg PO QAM lidocaine [Lidoderm] 5 % Adhesive Patch,Medicated 1 patch TOPICAL DAILY PRN (Reason: Pain) baclofen 10 mg Tablet 10 mg PO BID PRN (Reason: MUSCLE SPASMS) Entresto 49-51 mg tablet 1 tab PO BID amlodipine 2.5 mg Tablet 2.5 mg PO HS melatonin 10 mg Tablet 10 mg PO HS Discontinued metoprolol tartrate 25 mg tablet 12.5 mg PO QAM Discharge Orders: Discharge Order (Routine); Ordered 08/09/23 Ordered By: Evans aWlsh Admission Data Admit Date/Time: 08/08/23 03:59 Attending Provider: Quirino Matias Admit Provider: Fatuma Cole Primary Care Provider: Jb Limon Other Providers: Víctor Mathur; Jerel Headley Other Interventions: Discharge Summary Assessment (RN) Last Done: 08/09/23 14:52 Supervising Physician Co-Signing Physician Notes ATTESTATION I also saw the patient and confirmed velazquez portions of the history and exam. I agree with the impression and plan in the resident documentation, and as summarized below. No complaints this morning. No events overnight. He has been seen by cardiology. EXAM 171/72, 60, 18, 36.8, 93% on room air Alert and oriented. Pleasant. Heart bradycardic but regular Lungs clear with nonlabored respirations Extremities with trace pedal edema, most noted at sock line. IMPRESSION & PLAN Chest Pain, low suspicion of obstructive disease Bradycardia, improved with elimination of beta jade HTN MALICK Appreciate cardiology consultation Hold Toprol (he was only on 12.5 upon admission) Increase PPI to BID Follow up with cardiology on Sunday Additional per resident documentation
[2023-08-09 14:39] VITALS: BP 171/72; PULSE 46
--- OUTSIDE RECORDS SUMMARY | 2023-08-10 15:06 | External Medical Summary | Continuity of Care Document ---
Author Name Unknown Organization [facility] [address] [facility] Address [address] [place], [place] [id number] Care Team Providers Care Process Improvement Specialist Name Role Phone Jb Limon Primary Care Physician [phone] [id number] Date(s): 07/31/23 - 07/31/23 [facility] [address], [address] [place] [address] [phone] Encounter Diagnosis Diastolic CHF(Discharge Diagnosis) - 07/31/23 Discharge Disposition: Home or Self Care Attending Physician: TINO Carlisle Sarah A Allergies, Adverse Reactions, Alerts Substance Criticality Severity Reaction Reaction Severity Status Pneumovax 23 itching, elevat ed BP Active amLODIPine le edema Active hydroCHLOROthiazide DAVID Active Immunizations Given and Recorded Vaccine Date Status Refusal Reason influenza virus vaccine, inactivated 1 11/30/22 Gi karen influenza virus vaccine, inactivated 11/23/21 Give n influenza virus vaccine, inactivated 11/16/20 Give n influenza virus vaccine, inactivated 12/11/19 Give n influenza virus vaccine, inactivated 01/21/19 Give n influenza virus vaccine, inactivated 11/05/17 Give n influenza virus vaccine, inactivated 12/25/16 Give n SARS-CoV-2 mRNA (Pfizer 12+) bivalent 2 02/08/22 R ecorded SARS-CoV-2 mRNA (euxaksykklq-eyna-twn) 3 06/22/21 Recorded SARS-CoV-2 (COVID-19) mRNA BNT-162b2 vax 4 01/18/21 Recorded SARS-CoV-2 (COVID-19) mRNA BNT-162b2 vax 05/07/20 Recorded SARS-CoV-2 (COVID-19) mRNA BNT-162b2 vax 04/16/20 Recorded zoster vaccine, inactivated 09/08/19 Recorded zoster vaccine, inactivated 05/05/19 Recorded pneumococcal 13-valent vaccine 05/30/18 Given tetanus/diphtheria/pertuss, acel (Tdap) 11/23/16 G iven tetanus/diphtheria/pertuss, acel (Tdap) 5 08/26/13 Recorded pneumococcal 23-valent vaccine 02/23/12 Recorded pneumococcal 23-valent vaccine 6 12/27/05 Recorded zoster vaccine live 11/12/09 Recorded influenza virus vaccine, H1N1 7 02/11/09 Recorded tetanus toxoids-diphtheria, Td (Adult) 8 07/14/08 Recorded tetanus toxoids-diphtheria, Td (Adult) 9 05/26/97 Recorded 1Result Comment: wilfrid narvaez lpn 2Result Comment: 2022-03-23: Historical information-source unspecified 3Result Comment: 2021-06-28: Historical information-source unspecified 4Result Comment: 2021-04-12: Historical information-source unspecified 5Result Comment: 2018-12-17: Historical information-source unspecified 6Result Comment: 2018-12-17: Historical information-source unspecified 7Result Comment: 2021-04-12: Historical information-source unspecified 8Result Comment: 2018-12-17: Historical information-source unspecified 9Result Comment: 2018-12-17: Historical information-source unspecified Medications amitriptyline 10 mg oral tablet Start: 06/04/23 11:24:00 AM EDT, 1 tab, PO, qhs, Disp# 30 tab, Refills: 1, Pharmacy: [id number] Start Date: 06/04/23 Status: Ordered aspirin 81 mg oral delayed release tablet Start: 12/05/22 3:34:00 PM EDT, 1 tab, PO, Daily Start Date: 12/05/22 Status: Ordered baclofen 10 mg oral tablet Start: 05/14/23 4:18:00 PM EDT, See Instructions, Disp# 60 tab, Refills: 0, TAKE 1 TABLET BY MOUTH TWICE DAILY, Pharmacy: [facility] Start Date: 05/14/23 Status: Ordered Entresto 49 mg-51 mg oral tablet Start: 07/31/23 9:39:00 AM EDT, 1 tab, PO, bid, Disp# 60 tab, Refills: 6, Pharmacy: [facility] Start Date: 07/31/23 Status: Ordered Flonase 50 mcg/inh nasal spray Start: 05/03/23 5:00:00 PM EST, 50 mcg =, each nostril, bid, Disp# 16 g, Refills: 0, PRN: congestion,Pharmacy: [facility] Start Date: 05/03/23 Stop Date: 06/02/23 Status: Ordered furosemide 20 mg oral tablet Start: 07/02/23 1:56:00 PM EDT, 1 tab, PO, Daily, Disp# 30 tab, Refills: 4, Pharmacy: [facility] Start Date: 07/02/23 Stop Date: 11/29/23 Status: Ordered gabapentin 600 mg oral tablet Start: 04/20/23 12:49:00 PM EST, See Instructions, Disp# 120 tab, Refills: 2, TAKE 1 TABLET BY MOUTHFOUR TIMES DAILY FOR 30 DAYS, Pharmacy: [facility] Start Date: 04/20/23 Status: Ordered Lipitor 40 mg oral tablet Start: 12/20/22 8:54:00 AM EDT, 1 tab, PO, qhs, Disp# 90 tab, Refills: 3, Pharmacy: [facility] Start Date: 12/20/22 Status: Ordered LORazepam 0.5 mg oral tablet Start: 07/05/23 11:52:00 AM EDT, 1 tab, PO, qid, Disp# 120 tab, Refills: 0, TAKE 1 TABLET BY MOUTH 4 TIMES DAILY NEEDED FOR ANXIETY, Pharmacy: [facility] Start Date: 07/05/23 Status: Ordered Melatonin Start: 10/21/21 7:39:00 AM EDT, 10 mg =, PO, qhs Start Date: 10/21/21 Status: Ordered Metoprolol Succinate ER 25 mg oral tablet, extended release Start: 02/01/23 6:43:00 AM EST, See Instructions, Disp# 90 tab, Refills: 2, TAKE 1 TABLET BY MOUTH ONCE DAILY, Pharmacy: [facility] Start Date: 02/01/23 Status: Ordered multivitamin Start: 12/14/15 3:17:00 PM EDT, 1 tab, PO, Daily Start Date: 12/14/15 Status: Ordered oxyCODONE 10 mg oral tablet, extended release Start: 07/02/23 1:56:00 PM EDT, 10 mg =, PO, q12h, Disp# 60 tab, Refills: 0, Note to Pharmacy: PDMP verified, Pharmacy: [facility] Start Date: 07/02/23 Status: Ordered PriLOSEC 20 mg oral delayed release capsule Start: 11/10/22 1:19:00 PM EDT, 1 cap, PO, bid, Disp# 180 cap, Refills: 3, Pharmacy: [facility] Start Date: 11/10/22 Status: Ordered tamsulosin 0.4 mg oral capsule Start: 03/22/23 10:13:00 AM EST, 1 cap, PO, bid, Disp# 180 cap, Refills: 1, Pharmacy: [facility] Start Date: 03/22/23 Status: Ordered Tylenol 325 mg oral tablet Start: 10/21/21 7:38:00 AM EDT, 2 tab, PO, q6h Start Date: 10/21/21 Status: Ordered Vitamin D3 5000 intl units oral capsule Start: 12/14/15 3:20:00 PM EDT, 1 cap, PO, Daily Start Date: 12/14/15 Status: Ordered Problem List Condition Confirmation Course Effective Dates Status H ealth Status Informant Anterior cord syndrome Confirmed Active Anxiety Confirmed Active Anxiety disorder, unspecified Confirmed Active Dorsalgia, unspecified Confirmed Active Benign nodular prostatic hyperplasia without lower urinary tract symptoms Confirmed Active Bilateral carpal tunnel syndrome Confirmed Active Radiculopathy, cervical region Confirmed Active Other chronic pain Confirmed Active Chronic pain syndrome Confirmed Active Vitamin B 12 deficiency Confirmed Active Unspecified diastolic (congestive) heart failure Confirmed 07/05/23 Active Current use of proton pump inhibitor Confirmed Active Controlled substance agreement signed Confirmed Active 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 Fatigue Confirmed Active Chronic GERD Confirmed Active GERD without esophagitis Confirmed Active Right hand pain Confirmed Active Heart failure, unspecified 1 Confirmed Active H/O bilateral cataract extraction Confirmed Active History of skin cancer Confirmed Active Hypertensive heart disease with heart failure Confirmed 07/05/23 Active Cerumen impaction Confirmed Active Low back pain, unspecified Confirmed Active Lower urinary tract symptoms (LUTS) Confirmed Active Lumbar post-laminectomy syndrome Confirmed Active Mild pulmonary hypertension 2 Confirmed Active Mixed hyperlipidemia Confirmed Active Other symptoms and signs involving the musculoskeletal system Confirmed Active Obstructive sleep apnea Confirmed Active Peripheral vascular disease Confirmed Active Rheumatoid Arthritis Confirmed Active SCC (squamous cell carcinoma) Confirmed Active Supraventricular tachycardia 3 Confirmed Active OV A&P; HF; 08/17 Echo; EF60%; 04/11/22 [id number]; On Lasix 2Echo TransTHORacic TTE Complete- Mild pulmonary hypertension (PA systolic pressure is 35 mmHg). Cardio OV A&P; 06/16/21 Cardio A&P; Holter Monitor; 4 Runs NSVT Diagnosis Diagnosis Type Effective Dates Health Status Cl inical Service Informant Diastolic CHF Discharge Diagnosis 07/31/23 Non-Specified Procedures Procedure Date Related Diagnosis Body Site Status Surgery 1 10/05/21 Completed Surgery 2 09/2021 Completed Mohs micrographic surgery 09/13/21 Completed Shave biopsy 08/04/21 Completed Shoulder 3 05/03/18 Completed Mohs micrographic surgery 03/27/18 Completed Shave biopsy and cauterizati on of skin/ED&C 02/07/18 Completed Angiography 4 07/15/[address] of head 5 07/15/17 Completed MRI of brain without contrast 6 07/15/17 Completed Venous doppler ultrasonography 7 06/19/17 Completed Cervical spine X-ray 8 10/02/16 Co mpleted X-ray of right wrist 9 10/02/16 Co mpleted Lumbar Spine X-ray 10 04/03/16 Com pleted Back 12/03/15 Completed Lower back 2014 Completed Colonoscopy normal 09/10/13 Comple juan francisco Endoscopy of upper gastroint estinal tract and excision of mucosa of duodenum 09/10/13 Completed Cataract surgery yael 2013 Comp leted Shoulder L 2009 Completed Procedure on back 2008 Complet ed Colonoscopy,diagnostic 01/06/08 Co mpleted Cystectomy neck 2005 Completed Shoulder 2004 Completed Neck 1999 Completed Hernia 1992 Completed Back 1981 Completed Colonoscopy,remove lesion 11 Completed 1neck surgery 2back 3right shoulder replacement 4No significant stenosis, occlusion, or aneurysm within the [place]. 5No acute intracranial abnormality. Atrophy and microvascular ischemic changes 6IMPRESSION: No acute intracranial abnormality. Scattered foci of T2 hyperintensity seen within the periventricular and subcortical white matter are nonspecific but favor microvascular ischemic change. 7No evidence of DVT in right lower extremity. 19.4 x 2 x 4.6 cm elongated compled fluid collection of the right mid to distal calf which may be subfacial in location. This favors a hematoma. A follow-up ultrasound in 2 months to ensure resolution is recommended. 81. Status post c3-5 anterior discectomy and fusion. Lucency surrounding the c3 screws may reflect loosening. 2. Unchanged appearance of the cervical spine since prior exam. No acute fracture. Reversal of the normal cervical lordosis with moderate to severe multilevel degenerative disc disease and facet arthrosis. 9Osteopenia. No acute fracture. 10Considerable degenerative change. Postoperative change consistent with posterior laminectomy and fusion L2-L4. No acute process 115/5 Vital Signs Most recent to oldest [Reference Range]: 1 Patient Weight 95 kg (07/31/23 9:47 AM) Heart Rate 63 bpm (07/31/23 9:47 AM) Blood Pressure 118/66mmHg (07/31/23 9:47 AM) BP Location # 1 Right Arm (07/31/23 9:47 AM) Social History Social History Type Response Smoking Status Never smoked cigaret yue Sex Male Implantable Device List Procedure Provider Procedure Date Device Type Site Unknown Unknown 10/05/21 Unknown Unknown Device Identifier Serial Number Lot or Batch Number Manufacturing Date Expiration Date Distinct Identification Code MRI Safety Implantable Status Assigning Authority Unknown Unknown [id number] Unknown 03/15/23 Unknown Unknown Active Unknown Unknown Unknown [id number] Unknown 04/22/23 Unknown Unknown Active Unknown Unknown Unknown [id number] Unknown 04/22/23 Unknown Unknown Active Unknown Unknown Unknown [id number] Unknown 03/09/23 Unknown Unknown Active Unknown Unknown Unknown [id number] Unknown 04/22/23 Unknown Unknown Active Unknown Unknown Unknown [id number] Unknown 05/11/23 Unknown Unknown Active Unknown Unknown Unknown n/a Unknown Unknown Unknown Unknown Active Unkn own Unknown Unknown n/a Unknown Unknown Unknown Unknown Active Unkn own Unknown Unknown n/a Unknown Unknown Unknown Unknown Active Unkn own Unknown Unknown n/a Unknown Unknown Unknown Unknown Active Unkn own Unknown Unknown n/a Unknown Unknown Unknown Unknown Active Unkn own Unknown Unknown n/a Unknown 05/27/23 Unknown Unknown Active Unkn own Unknown Unknown N/A Unknown 08/12/23 Unknown Unknown Active Unkn own Unknown Unknown [id number] Unknown 02/26/24 Unknown Unknown Active Unknown Patient Care team information Care Team Personnel Name: Harry Lou Amy E Position: Pharmacist Member Role: Pharmacy - Lifetime Address: Address: [address] [address] Name: ZULY Sidhu Ashley Position: Physician Leadership Development Manager - Neurosurgery Member Role: Lifetime Relationship Address: Address: [address] [facility] [address] [place] [address] [place] Name: DO Hamilton Kristen M Position: Physician - Family Med Member Role: Lifetime Relationship Address: Address: [address] [place] [address] [place] Name: Daisha Fitch Position: HIS Supervisor_P Member Role: HIS Lifetime Name: MD Limon Michael P Position: Physician - Internal Med Member Role: Primary Care Provider Address: Address: [address] [place] [address] [place] Name: Harry Vitale Kyle Position: Pharmacist Member Role: Pharmacy - Lifetime Address: Address: [address] [place] [id number] Care Team Related Persons Name: GITA MEADOWS Address: home [address] [phone]
--- OUTSIDE RECORDS SUMMARY | 2023-08-10 15:06 | External Medical Summary | Continuity of Care Document ---
Author Name Unknown Organization [facility] Address [address] [place], [place] [id number] Care Team Providers Care Architect Marine Name Role Phone Jb Limon Primary Care Physician [phone] [facility] [id number] Date(s): 07/31/23 - 07/31/23 [facility] [address], [address] [place] [address] [phone] Encounter Diagnosis Diastolic CHF(Discharge Diagnosis) - 07/31/23 Discharge Disposition: Home or Self Care Attending Physician: TINO Carlisle Sarah A Allergies, Adverse Reactions, Alerts Substance Criticality Severity Reaction Reaction Severity Status Pneumovax 23 itching, elevat ed BP Active hydroCHLOROthiazide DAVID Active amLODIPine le edema Active Immunizations Given and Recorded Vaccine Date [...] bivalent 2 02/08/22 R ecorded SARS-CoV-2 mRNA ([id number]) 3 06/22/21 Recorded SARS-CoV-2 (COVID-19) mRNA BNT-162b2 [...] qhs, Disp# 30 tab, Refills: 1, Pharmacy: [facility] Start Date: 06/04/23 Status: Ordered aspirin 81 mg oral delayed release tablet Start: 12/05/22 3:34:00 PM EDT, 1 tab, PO, Daily Start Date: 12/05/22 Status: Ordered baclofen 10 mg oral tablet Start: 05/14/23 4:18:00 PM EDT, See Instructions, Disp# 60 tab, Refills: 0, TAKE 1 TABLET BY MOUTH TWICE DAILY, Pharmacy: [facility] Start Date: 05/14/23 Status: Ordered Entresto 49 mg-51 mg oral tablet Start: 07/31/23 9:39:00 AM EDT, 1 tab, PO, bid, Disp# 60 tab, Refills: 6, Pharmacy: [facility] Start Date: 07/31/23 Status: Ordered Flonase 50 mcg/inh nasal spray Start: 05/03/23 5:00:00 PM EST, 50 mcg =, each nostril, bid, Disp# 16 g, Refills: 0, PRN: congestion,Pharmacy: [facility] Start Date: 05/03/23 Stop Date: 06/02/23 Status: Ordered furosemide 20 mg oral tablet Start: 07/02/23 1:56:00 PM EDT, 1 tab, PO, Daily, Disp# 30 tab, Refills: 4, Pharmacy: [facility] Start Date: 07/02/23 Stop Date: 11/29/23 Status: Ordered gabapentin 600 mg oral tablet Start: 04/20/23 12:49:00 PM EST, See Instructions, Disp# 120 tab, Refills: 2, TAKE 1 TABLET BY MOUTHFOUR TIMES DAILY FOR 30 DAYS, Pharmacy: [facility] Start Date: 04/20/23 Status: Ordered Lipitor 40 mg oral tablet Start: 12/20/22 8:54:00 AM EDT, 1 tab, PO, qhs, Disp# 90 tab, Refills: 3, Pharmacy: [facility] Start Date: 12/20/22 Status: Ordered LORazepam 0.5 mg oral tablet Start: 07/05/23 11:52:00 AM EDT, 1 tab, PO, qid, Disp# 120 tab, Refills: 0, TAKE 1 TABLET BY MOUTH 4 TIMES DAILY NEEDED FOR ANXIETY, Pharmacy: [facility] Start Date: 07/05/23 Status: Ordered Melatonin Start: 10/21/21 7:39:00 AM EDT, 10 mg =, PO, qhs Start Date: 10/21/21 Status: Ordered Metoprolol Succinate ER 25 mg oral tablet, extended release Start: 02/01/23 6:43:00 AM EST, See Instructions, Disp# 90 tab, Refills: 2, TAKE 1 TABLET BY MOUTH ONCE DAILY, Pharmacy: [facility] Start Date: 02/01/23 Status: Ordered multivitamin Start: 12/14/15 3:17:00 PM EDT, 1 tab, PO, Daily Start Date: 12/14/15 Status: Ordered oxyCODONE 10 mg oral tablet, extended release Start: 07/02/23 1:56:00 PM EDT, 10 mg =, PO, q12h, Disp# 60 tab, Refills: 0, Note to Pharmacy: PDMP verified, Pharmacy: [facility] Start Date: 07/02/23 Status: Ordered PriLOSEC 20 mg oral delayed release capsule Start: 11/10/22 1:19:00 PM EDT, 1 cap, PO, bid, Disp# 180 cap, Refills: 3, Pharmacy: [facility] Start Date: 11/10/22 Status: Ordered tamsulosin 0.4 mg oral capsule Start: 03/22/23 10:13:00 AM EST, 1 cap, PO, bid, Disp# 180 cap, Refills: 1, Pharmacy: [facility] Start Date: 03/22/23 Status: [...] OV A&P; HF; 08/17 Echo; EF60%; 04/11/22 [id number]; On Lasix 2Echo TransTHORacic TTE Complete- Mild [...] significant stenosis, occlusion, or aneurysm within the [place]. 5No acute intracranial abnormality. Atrophy [...] Safety Implantable Status Assigning Authority Unknown Unknown [id number] Unknown 03/15/23 Unknown Unknown Active Unknown Unknown Unknown [id number] Unknown 04/22/23 Unknown Unknown Active Unknown Unknown Unknown [id number] Unknown 04/22/23 Unknown Unknown Active Unknown Unknown Unknown [id number] Unknown 03/09/23 Unknown Unknown Active Unknown Unknown Unknown [id number] Unknown 04/22/23 Unknown Unknown Active Unknown Unknown Unknown [id number] Unknown 05/11/23 Unknown Unknown Active Unknown [...] Unknown Unknown Active Unkn own Unknown Unknown [id number] Unknown 02/26/24 Unknown Unknown Active Unknown Patient Care team information Care Team Personnel Name: Harry Lou Amy E Position: Pharmacist Member Role: Pharmacy - Lifetime Address: Address: [address] [address] Name: ZULY Sidhu Ashley Position: Physician College Dean - Neurosurgery Member Role: Lifetime Relationship Address: Address: [address] [facility] [address] [place] [address] [place] Name: DO Hamilton Kristen M Position: Physician - Family Med Member Role: Lifetime Relationship Address: Address: [address] [place] [address] [place] Name: Daisha Fitch Position: HIS Supervisor_P Member Role: HIS Lifetime Name: MD Limon Michael P Position: Physician - Internal Med Member Role: Primary Care Provider Address: Address: [address] [place] [address] [place] Name: Harry Vitale Kyle Position: Pharmacist Member Role: Pharmacy - Lifetime Address: Address: [address] [place] [address] Care Team Related Persons Name: GITA MEADOWS Address: home [address] [facility] [id number]
--- OUTSIDE RECORDS SUMMARY | 2023-08-10 15:06 | External Medical Summary | Continuity of Care Document ---
Author Name Unknown Organization [facility] [address] [facility] Address [address] [place] [id number] Care Team Providers Care Administration Dean Name Role Phone Ashly Jb Canelo Primary Care Physician [phone] Encounter [facility] [id number] Date(s): 07/27/23 - 07/27/23 [facility] 303 [facility] 1 [facility] [address] [facility] [address] [place], [phone] Encounter Diagnosis Unspecified diastolic (congestive) heart failure(Final) - Discharge Disposition: Home or Self Care Attending Physician: TINO Carlisle Sarah A Referring Physician: TINO Carlisle Sarah A Allergies, Adverse [...] bivalent 2 02/08/22 R ecorded SARS-CoV-2 mRNA ([id number]) 3 06/22/21 Recorded SARS-CoV-2 (COVID-19) mRNA BNT-162b2 [...] qhs, Disp# 30 tab, Refills: 1, Pharmacy: [facility] Start Date: 06/04/23 Status: Ordered amLODIPine 2.5 mg oral tablet Start: 03/02/23 3:20:00 PM EST, 1 tab, PO, Daily, Disp# 90 tab, Refills: 3, Pharmacy: [facility] Start Date: 03/02/23 Stop Date: 02/25/24 Status: Ordered aspirin 81 mg oral delayed release tablet Start: 12/05/22 3:34:00 PM EDT, 1 tab, PO, Daily Start Date: 12/05/22 Status: Ordered baclofen 10 mg oral tablet Start: 05/14/23 4:18:00 PM EDT, See Instructions, Disp# 60 tab, Refills: 0, TAKE 1 TABLET BY MOUTH TWICE DAILY, Pharmacy: [facility] Start Date: 05/14/23 Status: Ordered Entresto 24 mg-26 mg oral tablet Start: 07/17/23 9:36:00 AM EDT, 1 tab, PO, bid, Disp# 60 tab, Refills: 3, Pharmacy: [facility] Start Date: 07/17/23 Status: Ordered Flonase 50 mcg/inh nasal spray Start: 05/03/23 5:00:00 PM EST, 50 mcg =, each nostril, bid, Disp# 16 g, Refills: 0, PRN: congestion,Pharmacy: [facility] Start Date: 05/03/23 Stop Date: 06/02/23 Status: Ordered furosemide 20 mg oral tablet Start: 07/02/23 1:56:00 PM EDT, 1 tab, PO, Daily, Disp# 30 tab, Refills: 4, Pharmacy: [facility] Start Date: 07/02/23 Stop Date: 11/29/23 Status: Ordered gabapentin 600 mg oral tablet Start: 04/20/23 12:49:00 PM EST, See Instructions, Disp# 120 tab, Refills: 2, TAKE 1 TABLET BY MOUTHFOUR TIMES DAILY FOR 30 DAYS, Pharmacy: [facility] Start Date: 04/20/23 Status: Ordered Lipitor 40 mg oral tablet Start: 12/20/22 8:54:00 AM EDT, 1 tab, PO, qhs, Disp# 90 tab, Refills: 3, Pharmacy: [facility] Start Date: 12/20/22 Status: Ordered LORazepam 0.5 mg oral tablet Start: 07/05/23 11:52:00 AM EDT, 1 tab, PO, qid, Disp# 120 tab, Refills: 0, TAKE 1 TABLET BY MOUTH 4 TIMES DAILY NEEDED FOR ANXIETY, Pharmacy: [facility] Start Date: 07/05/23 Status: Ordered Melatonin Start: 10/21/21 7:39:00 AM EDT, 10 mg =, PO, qhs Start Date: 10/21/21 Status: Ordered Metoprolol Succinate ER 25 mg oral tablet, extended release Start: 02/01/23 6:43:00 AM EST, See Instructions, Disp# 90 tab, Refills: 2, TAKE 1 TABLET BY MOUTH ONCE DAILY, Pharmacy: [facility] Start Date: 02/01/23 Status: Ordered multivitamin Start: 12/14/15 3:17:00 PM EDT, 1 tab, PO, Daily Start Date: 12/14/15 Status: Ordered oxyCODONE 10 mg oral tablet, extended release Start: 07/02/23 1:56:00 PM EDT, 10 mg =, PO, q12h, Disp# 60 tab, Refills: 0, Note to Pharmacy: PDMP verified, Pharmacy: [facility] Start Date: 07/02/23 Status: Ordered PriLOSEC 20 mg oral delayed release capsule Start: 11/10/22 1:19:00 PM EDT, 1 cap, PO, bid, Disp# 180 cap, Refills: 3, Pharmacy: [facility] Start Date: 11/10/22 Status: Ordered tamsulosin 0.4 mg oral capsule Start: 03/22/23 10:13:00 AM EST, 1 cap, PO, bid, Disp# 180 cap, Refills: 1, Pharmacy: [facility] Start Date: 03/22/23 Status: [...] OV A&P; HF; 08/17 Echo; EF60%; 04/11/22 [id number]; On Lasix 2Echo TransTHORacic TTE Complete- Mild pulmonary hypertension ([place] systolic pressure is 35 mmHg). Cardio OV A&P; 06/16/21 Cardio A&P; Holter Monitor; 4 Runs NSVT Procedures Procedure Date Related Diagnosis Body Site [...] of duodenum 09/10/13 Completed Cataract surgery yael 2014 Comp leted Shoulder L 2009 Completed Procedure on back 2008 Complet ed Colonoscopy,diagnostic 01/06/08 Co mpleted Cystectomy neck 2006 Completed Shoulder 2005 Completed Neck 1999 Completed Hernia 1992 Completed Back 1981 Completed Colonoscopy,remove lesion 11 Completed 1neck surgery 2back 3right shoulder replacement 4No significant stenosis, occlusion, or aneurysm within the [place]. 5No acute intracranial abnormality. Atrophy [...] and fusion L2-L4. No acute process 115/5 Results Laboratory List Name Date Basic Metabolic Panel (BASIC METAB PANEL ) 07/27/23 NT-Pro BNP 07/27/23 Most recent to oldest [Reference Range]: 1 eGFR CKD-EPI [>60 mL/min/1.73 m2] 65 mL/ min/1.73 m2 1 (07/27/23 2:28 PM) BNP, NT-Pro [<450 pg/mL] 458 pg/mL *HI* (07/27/23 2:28 PM) Estimated CrCl 56.54 mL/min (07/27/23 3:20 PM) Anion Gap [5-14 mmol/L] 5 mmol/L (07/27/23 2:28 PM) BUN [7-20 mg/dL] 26 mg/dL *HI* (07/27/23 2:28 PM) Ca [8.4-10.2 mg/dL] 8.9 mg/dL (07/27/23 2:28 PM) Cl- [96-107 mmol/L] 109 mmol/L *HI* (07/27/23 2:28 PM) HCO3 [22-30 mmol/L] 26 mmol/L (07/27/23 2:28 PM) Cret [0.70-1.30 mg/dL] 1.13 mg/dL (07/27/23 2:28 PM) Glu [74-106 mg/dL] 99 mg/dL (07/27/23 2:28 PM) K [3.5-5.1 mmol/L] 4.7 mmol/L (07/27/23 2:28 PM) Na [137-145 mmol/L] 140 mmol/L (07/27/23 2:28 PM) 1Result Comment: Testing Performed By: [facility] [address] [address], [address], [place] [address] Social History Social History Type Response Smoking Status Never smoked cigaret yue Sex Male Implantable Device List Procedure Provider Procedure Date Device Type Site Unknown Unknown 10/05/21 Unknown Unknown Device Identifier Serial Number Lot or Batch Number Manufacturing Date Expiration Date Distinct Identification Code MRI Safety Implantable Status Assigning Authority Unknown Unknown [id number] Unknown 03/15/23 Unknown Unknown Active Unknown Unknown Unknown [id number] Unknown 04/22/23 Unknown Unknown Active Unknown Unknown Unknown [id number] Unknown 04/22/23 Unknown Unknown Active Unknown Unknown Unknown [id number] Unknown 03/09/23 Unknown Unknown Active Unknown Unknown Unknown [id number] Unknown 04/22/23 Unknown Unknown Active Unknown Unknown Unknown [id number] Unknown 05/11/23 Unknown Unknown Active Unknown [...] Unknown Unknown Active Unkn own Unknown Unknown [id number] Unknown 02/26/24 Unknown Unknown Active Unknown Patient Care team information Care Team Personnel Name: Harry Lou Amy E Position: Pharmacist Member Role: Pharmacy - Lifetime Address: Address: [place] [address] [place] Name: ZULY Sidhu Ashley Position: Physician Adult Protective Caseworker - Neurosurgery Member Role: Lifetime Relationship Address: Address: [address] [place] [address] [place] Name: DO Hamilton Kristen M Position: Physician - Family Med Member Role: Lifetime Relationship Address: Address: [address] [place] [address] [place] Name: Daisha Fitch Position: HIS Supervisor_P Member Role: HIS Lifetime Name: MD Limon Michael P Position: Physician - Internal Med Member Role: Primary Care Provider Address: Address: [address] [place] [address] [place] Name: Harry Vitale Kyle Position: Pharmacist Member Role: Pharmacy - Lifetime Address: Address: [address] [place], [place] [address] [place] Care Team Related Persons Name: GITA MEADOWS Address: home [address] [facility], [id number]
--- OUTSIDE RECORDS SUMMARY | 2023-08-10 15:06 | External Medical Summary | Continuity of Care Document ---
Author Name Unknown Organization [facility] [address] [id number] Address [facility] [place], [place] [id number] Care Team Providers Care Dining Service Inspector Name Role Phone Jb Limon Primary Care Physician [phone] [facility] [id number] Date(s): 07/09/23 - 07/09/23 [facility] [address] [id number] [address] [address] Encounter Diagnosis Preop testing(Discharge Diagnosis) - 07/09/23 Carpal tunnel syndrome, right(Discharge Diagnosis) - 07/09/23 Discharge Disposition: Home or Self Care Attending Physician: ZULY Groves, Mauro Chaney Referring Physician: MD Endy, Kevin A Allergies, Adverse Reactions, Alerts Substance Criticality [...] bivalent 2 02/08/22 R ecorded SARS-CoV-2 mRNA (vinnowzedgr-tofe-fyp) 3 06/22/21 Recorded SARS-CoV-2 (COVID-19) mRNA BNT-162b2 [...] (Adult) 9 05/26/97 Recorded 1Result Comment: wilfrid navraez lpn 2Result Comment: 2022-03-23: Historical information-source unspecified [...] qhs, Disp# 30 tab, Refills: 1, Pharmacy: [id number] Start Date: 06/04/23 Status: Ordered amLODIPine 2.5 mg oral tablet Start: 03/02/23 3:20:00 PM EST, 1 tab, PO, Daily, Disp# 90 tab, Refills: 3, Pharmacy: [facility] Start Date: 03/02/23 Stop Date: 02/25/24 Status: Ordered aspirin 81 mg oral delayed release tablet Start: 12/05/22 3:34:00 PM EDT, 1 tab, PO, Daily Start Date: 12/05/22 Status: Ordered baclofen 10 mg oral tablet Start: 05/14/23 4:18:00 PM EDT, See Instructions, Disp# 60 tab, Refills: 0, TAKE 1 TABLET BY MOUTH TWICE DAILY, Pharmacy: [id number] Start Date: 05/14/23 Status: Ordered Flonase 50 mcg/inh nasal spray Start: 05/03/23 5:00:00 PM EST, 50 mcg =, each nostril, bid, Disp# 16 g, Refills: 0, PRN: congestion,Pharmacy: [facility] #[id number] Start Date: 05/03/23 Stop Date: 06/02/23 Status: Ordered furosemide 20 mg oral tablet Start: 07/02/23 1:56:00 PM EDT, 1 tab, PO, Daily, Disp# 30 tab, Refills: 4, Pharmacy: [facility] Start Date: 07/02/23 Stop Date: 11/29/23 Status: Ordered gabapentin 600 mg oral tablet Start: 04/20/23 12:49:00 PM EST, See Instructions, Disp# 120 tab, Refills: 2, TAKE 1 TABLET BY MOUTHFOUR TIMES DAILY FOR 30 DAYS, Pharmacy: [facility] Start Date: 04/20/23 Status: Ordered hydrALAZINE 50 mg oral tablet Start: 05/16/23 10:44:00 AM EDT, See Instructions, Disp# 270 tab, Refills: 2, TAKE 1 TABLET BY MOUTHTHREE TIMES DAILY. TAKE 1 TABLET IN THE MORNING, 1 TABLET AT NOON, AND 1 TABLET IN THE EVENING., Pharmacy: [facility] Start Date: 05/16/23 Status: Ordered Lipitor 40 mg oral tablet Start: 12/20/22 8:54:00 AM EDT, 1 tab, PO, qhs, Disp# 90 tab, Refills: 3, Pharmacy: [facility] Start Date: 12/20/22 Status: Ordered LORazepam 0.5 mg oral tablet Start: 07/05/23 11:52:00 AM EDT, 1 tab, PO, qid, Disp# 120 tab, Refills: 0, TAKE 1 TABLET BY MOUTH 4 TIMES DAILY NEEDED FOR ANXIETY, Pharmacy: [facility] Start Date: 07/05/23 Status: Ordered Melatonin Start: 10/21/21 7:39:00 AM EDT, 10 mg =, PO, qhs Start Date: 10/21/21 Status: Ordered Metoprolol Succinate ER 25 mg oral tablet, extended release Start: 02/01/23 6:43:00 AM EST, See Instructions, Disp# 90 tab, Refills: 2, TAKE 1 TABLET BY MOUTH ONCE DAILY, Pharmacy: [facility] Start Date: 02/01/23 Status: Ordered multivitamin Start: 12/14/15 3:17:00 PM EDT, 1 tab, PO, Daily Start Date: 12/14/15 Status: Ordered oxyCODONE 10 mg oral tablet, extended release Start: 07/02/23 1:56:00 PM EDT, 10 mg =, PO, q12h, Disp# 60 tab, Refills: 0, Note to Pharmacy: PDMP verified, Pharmacy: [facility] Start Date: 07/02/23 Status: Ordered PriLOSEC 20 mg oral delayed release capsule Start: 11/10/22 1:19:00 PM EDT, 1 cap, PO, bid, Disp# 180 cap, Refills: 3, Pharmacy: [facility] Start Date: 11/10/22 Status: Ordered tamsulosin 0.4 mg oral capsule Start: 03/22/23 10:13:00 AM EST, 1 cap, PO, bid, Disp# 180 cap, Refills: 1, Pharmacy: [facility] Start Date: 03/22/23 Status: Ordered Tylenol 325 mg oral tablet Start: 10/21/21 7:38:00 AM EDT, 2 tab, PO, q6h Start Date: 10/21/21 Status: Ordered Vitamin D3 5000 intl units oral capsule Start: 12/14/15 3:20:00 PM EDT, 1 cap, PO, Daily Start Date: 12/14/15 Status: Ordered Mental Status 07/09/23 Barriers to Learning one year None evide nt Mandatory Health Literacy Documentation Yes Health Literacy Communication Barriers N ever Primary Language Algerian Problem List Condition Confirmation Course Effective Dates Status H ealt Status Informant Anterior cord syndrome Confirmed Active Anxiety Confirmed Active Anxiety disorder, unspecified Confirmed Active Dorsalgia, unspecified Confirmed Active Benign nodular prostatic hyperplasia without lower urinary tract symptoms Confirmed Active Bilateral carpal tunnel syndrome Confirmed Active Radiculopathy, cervical region Confirmed Active Other chronic pain Confirmed Active Chronic pain syndrome Confirmed Active Vitamin B 12 deficiency Confirmed Active Unspecified diastolic (congestive) heart failure Confirmed Active Current use of proton pump inhibitor [...] Hypertensive heart disease with heart failure Confirmed Active Cerumen impaction Confirmed Active Low back [...] OV A&P; HF; 08/17 Echo; EF60%; 04/11/22 [id number]; On Lasix 2Echo TransTHORacic TTE Complete- Mild pulmonary hypertension (PA systolic pressure is 35 mmHg). Cardio OV A&P; 06/16/21 Cardio A&P; Holter Monitor; 4 Runs NSVT Diagnosis Diagnosis Type Effective Dates Health Status Cl inical Service Informant Carpal tunnel syndrome, right Discharge Diagnosis 07/09/23 Non-Specified Preop testing Discharge Diagnosis 07/09/23 Non-Specified Procedures Procedure Date Related Diagnosis Body [...] Shoulder 2005 Completed Neck 1999 Completed Hernia 1993 Completed Back 1982 Completed Colonoscopy,remove lesion 11 Completed 1neck surgery 2back 3right shoulder replacement 4No significant stenosis, occlusion, or aneurysm within the sun'aq of [place]. 5No acute intracranial abnormality. Atrophy [...] Most recent to oldest [Reference Range]: 1 Height 175 cm (07/09/23 10:11 AM) Patient Weight 92.6 kg (07/09/23 10:11 AM) Body Mass Index 30.24 kg/m2 (07/09/23 10:11 AM) Temperature [36.5-37.9 DegC] 36.4 DegC *LOW* (07/09/23 10:11 AM) Heart Rate 83 bpm (07/09/23 10:11 AM) Blood Pressure 126/74mmHg (07/09/23 10:11 AM) Cuff Pulse Pressure 52 mmHg (07/09/23 10:11 AM) Social History Social History Type Response Smoking Status Never smoked cigaret yue Sex Male Implantable Device List Procedure Provider Procedure Date Device Type Site Unknown Unknown 10/05/21 Unknown Unknown Device Identifier Serial Number Lot or Batch Number Manufacturing Date Expiration Date Distinct Identification Code MRI Safety Implantable Status Assigning Authority Unknown Unknown [id number] Unknown 03/15/23 Unknown Unknown Active Unknown Unknown Unknown [id number] Unknown 04/22/23 Unknown Unknown Active Unknown Unknown Unknown [id number] Unknown 04/22/23 Unknown Unknown Active Unknown Unknown Unknown [id number] Unknown 03/09/23 Unknown Unknown Active Unknown Unknown Unknown [id number] Unknown 04/22/23 Unknown Unknown Active Unknown Unknown Unknown [id number] Unknown 05/11/23 Unknown Unknown Active Unknown [...] Unknown Unknown Active Unkn own Unknown Unknown [id number] Unknown 02/26/24 Unknown Unknown Active Unknown Pre-OP H & P * ZULY Groves Cory D: PERFORM, MODIFY Event Display: Pre-OP H & P Authored Date: [id number] PRE-OPERATIVE HISTORY AND PHYSICAL Name: RUPA MEADOWS Patient Number: [id number] : 1940 Date of Service: 07/09/2023 PRE-OP Diagnosis: Right wrist carpal tunnel syndrome Planned Procedure: Right wrist endoscopic carpal tunnel release Chief Complaint: Right hand pain and tingling History of Present Illness (including history relevant to procedure): This 82-year-old male presents today with his , for his preoperative history and physical. He is scheduled to undergo a rightwrist endoscopic carpal tunnel release on July 20, 2023. The patient has had decreased sensation in the right hand, as well as pain with activity, for over a year. Symptoms have become worse with time. He now states his fingertips are numb and he has difficulty picking up small objects. He drops things frequently. He complains more of pain then he does the numbness and tingling. [id number]. He has tried conservative care measures without improvement. Symptoms are worse with use. X-ray and EMG have been obtained. Review Of Systems: _ Family history: Noncontributory. Parents are . Social history: The patient is retired. . No tobacco use. No EtOH use. 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 GERD without esophagitis Obstructive sleep apnea Dorsalgia, unspecified Radiculopathy, cervical region Hypertensive heart disease with heart failure Unspecified diastolic (congestive) heart failure Anterior cord syndrome Heart failure, unspecified Supraventricular tachycardia SCC (squamous cell carcinoma) Lower urinary tract symptoms (LUTS) Controlled substance agreement signed Mild pulmonary hypertension Peripheral vascular disease Fatigue Vitamin B 12 deficiency Chronic pain syndrome Lumbar post-laminectomy syndrome History of melanoma skin cancer H/O bilateral cataract extraction Mixed hyperlipidemia Rheumatoid Arthritis Procedure History Procedure Procedure Date Comments Colonoscopy,remove lesion - 06/30 Surgery 10/05/2021 - neck surgery Surgery 09/2021 - back Mohs micrographic surgery 09/13/2021 Shave biopsy 08/04/2021 Shoulder 05/03/2018 - right shoulder replacement Mohs micrographic surgery 03/27/2018 Shave biopsy and cauterization of skin/ED&C 02/07/2018 CT of head 07/15/2017 - No acute intracranial abnormality. Atrophy and microvascular ischemic changes Angiography 07/15/2017 - No significant stenosis, occlusion, or aneurysm within the sun'aq of [place]. MRI of brain without contrast 07/15/2017 - IMPRESSION: No acute intracranial abnormality. Scattered foci of T2 hyperintensity seenwithin theperiventricular and subcortical white matter are nonspecific butfavor microvascular ischemic change. Venous doppler ultrasonography 06/19/2017 - No evidence of DVT in right lower extremity. 19.4 x 2 x 4.6 cm elongated compled fluid collectionof the right mid to distal calf which may be subfacial in location. This favors a hematoma. A follow-up ultrasound in 2 months to ensure resolution is recommended. Cervical spine X-ray 10/02/2016 - 1. Status post c3-5 anterior discectomy and fusion. Lucency surrounding the c3 screws may reflectloosening.2. Unchanged appearance of the cervical spine since prior exam. No acute fracture. Reversal of the normal cervical lordosis with moderate to severe multilevel degenerative disc disease and facet arthrosis. X-ray of right wrist 10/02/2016 - Osteopenia. No acute fracture. Lumbar Spine X-ray 04/03/2016 - Considerable degenerative change. Postoperative change consistent with posterior laminectomy and fusion L2-L4. No acute process Back 12/03/2015 Lower back 2015 Cataract surgery yael 2013 Endoscopy of upper gastrointestinal tract and excision of mucosa of duodenum 09/10/2013 Colonoscopy normal 09/10/2013 Shoulder L 2010 Procedure on back 2009 Colonoscopy,diagnostic 01/06/2008 Cystectomy neck 2006 Shoulder 2005 Neck 2000 Hernia 1992 Back 1981 Allergies and Sensitivities: hydroCHLOROthiazide(DAVID) amLODIPine(le edema) Pneumovax 23(itching, elevated BP) Current Home Meds: (Last Updated 07/08 10:09) LORazepam (LORazepam 0.5 mg oral tablet) 0.5 mg PO qid TAKE 1 TABLET BY MOUTH 4 TIMES DAILY NEEDED FOR ANXIETY acetaminophen (Tylenol 325 mg oral tablet) 650 mg PO q6h amLODIPine (amLODIPine 2.5 mg oral tablet) 2.5 mg PO Daily amitriptyline (amitriptyline 10 mg oral tablet) 10 mg PO qhs aspirin (aspirin 81 mg oral delayed release tablet) 81 mg PO Daily atorvastatin (Lipitor 40 mg oral tablet) 40 mg PO qhs baclofen (baclofen 10 mg oral tablet) TAKE 1 TABLET BY MOUTH TWICE DAILY cholecalciferol (Vitamin D3 5000 intl units oral capsule) 5,000 Int_Unit PO Daily fluticasone nasal (Flonase 50 mcg/inh nasal spray) 50 mcg each nostril bid PRN: congestion furosemide (furosemide 20 mg oral tablet) 20 mg PO Daily gabapentin (gabapentin 600 mg oral tablet) TAKE 1 TABLET BY MOUTH FOUR TIMES DAILY FOR 30 DAYS hydrALAZINE (hydrALAZINE 50 mg oral tablet) TAKE 1 TABLET BY MOUTH THREE TIMES DAILY. TAKE 1 TABLETIN THE MORNING, 1 TABLET AT NOON, AND 1 TABLET IN THE EVENING. melatonin (Melatonin) 10 mg PO qhs metoprolol (Metoprolol Succinate ER 25 mg oral tablet, extended release) TAKE 1 TABLET BY MOUTH ONCE DAILY multivitamin 1 tab PO Daily omeprazole (PriLOSEC 20 mg oral delayed release capsule) 20 mg PO bid oxyCODONE (oxyCODONE 10 mg oral tablet, extended release) 10 mg PO q12h tamsulosin (tamsulosin 0.4 mg oral capsule) 1 cap PO bid Vitals: Last Updated 07/09/23 10:11 Weights: Last Updated 07/09/23 10:11 Date Temp Pulse BP RR SpO2 FIO2 Date Wt(kg) Wt(lb) 07/08 10:11 36.4 83 126/74 96 07/08 10:11 92.6 204 07/08 10:11 92.6 204 24 Hr Tmax: 36.4 at 07/08 10:11 Initial Wt: 07/08 92.6 kg 204 lb Physical Exam: (relevant to the procedure, including heart and lung evaluation) General: Well-developed, well-nourished, elderly male, in no acute distress. Sitting in a chair. Alert and oriented. HEENT: Normocephalic, atraumatic. Eyes PERRLA, EOMI. Nares patent bilaterally without nasal drainage. Oropharynx with moist oral mucosa. Neck: No JVD. Cardiac: RRR. No MGR. Peripheral pulses are 2+ for both radial and ulnar arteries. Normal Bang test. Lungs: Clear to auscultation bilaterally. No crackles, rhonchi, or wheezing. Good air movement. Abdomen: Bowel sounds present x 4. Soft nontender. No organomegaly. No masses. Extremities: Right hand has visible muscle wasting of the thenar eminence. He has full finger extension. He lacks full flexion into a fist secondary to old hand injury. Strength is 5/5 for resisted flexion and extension of the digits as well as abduction. Thumb circumduction is intact. Opposition is intact to the index and long fingers. He is unable to oppose to the ring or little fingers. Good range of motion of the wrist. Neuro: Gross sensation is intact across the right hand by soft touch. There is significant decreased subjective sensation across all digits compared to the forearm. Mildly positive Tinel's sign. Positive Phalen's test. Skin: Warm and dry with fair turgor. No rashes. No ecchymosis or edema. Studies of Lab Results (relevant to the procedure): EMG previously obtained is positive for severe entrapment of the median nerve. Moderate entrapment of the ulnar nerve. ASSESSMENT: Right wrist carpal tunnel syndrome Plan: Approximate 25 minutes was spent with the patient reviewing operative procedure, postoperative recovery, physical therapy requirements, and medication use. Postoperative appointment has alreadybeen made for dressing change on July 23. He already has oxycodone 10 mg tablets at home and will use these postoperatively along with Tylenol. Preoperative lab work and EKG were ordered for today. Hestates he has already seen his PCP for medical clearance. Echocardiogram has been scheduled by cardiology. PDMP was checked and there are no concerning findings. He is currently asymptomatic of any COVID-19 symptoms. This dictation has been completed using [employer] text voice recognition software. Grammatical errors, omissions, insertions, and misspellings may be present due to the limitations of the software. Electronic Signature on File Electronically Reviewed/Signed by: Mauro Groves PA-C Author Signature Dt/Tm:07/09/2023 04:19 PM Division of Sports Medicine Electronically Reviewed/Signed by: Kevin Schumacher MD Cosigner Signature Dt/Tm: 07/09/2023 04:34 PM [employer] [employer] Sales Executive Department of Orthopaedics and Rehabilitation [facility] [address], [place] [address] CDS Patient Care team information Care Team Personnel Name: Harry Lou Amy E Position: Pharmacist Member Role: Pharmacy - Lifetime Address: Address: [place] [address] [place] Name: ZULY Sidhu Ashley Position: Physician [employer] - Neurosurgery Member Role: Lifetime Relationship Address: Address: [address] [place] [address] [place] Name: DO Hamilton Kristen M Position: Physician - Family Med Member Role: Lifetime Relationship Address: Address: [address] [place] [address] [place] Name: Daisha Fitch Position: HIS Supervisor_P Member Role: HIS Lifetime Name: MD Limon Michael P Position: Physician - Internal Med Member Role: Primary Care Provider Address: Address: [address] [place] [address] [place] Name: Harry Vitale Kyle Position: Pharmacist Member Role: Pharmacy - Lifetime Address: Address: [address] [place] [address] [place] Care Team Related Persons Name: GITA MEADOWS Address: home [address] [facility] [phone]
--- OUTSIDE RECORDS SUMMARY | 2023-08-10 15:06 | External Medical Summary | Continuity of Care Document ---
Author Name Unknown Organization [facility] [address] [facility] 1 [address] [place] [id number] Care Team Providers Care Transportation Project Manager Name Role Phone Ashly Jb Canelo Primary Care Physician [phone] [id number] Date(s): 07/12/23 - 07/12/23 [facility] [address] [facility] 1 [facility] [address] [facility] [place], [place] [phone] Encounter Diagnosis Encounter for other preprocedural examination(Final) - Discharge Disposition: Home or Self Care Attending Physician: ZULY Groves Cory D Referring Physician: ZULY Groves Cory D Allergies, Adverse Reactions, Alerts Substance Criticality Severity [...] bivalent 2 02/08/22 R ecorded SARS-CoV-2 mRNA ([id number]) 3 06/22/21 Recorded SARS-CoV-2 (COVID-19) mRNA BNT-162b2 [...] qhs, Disp# 30 tab, Refills: 1, Pharmacy: [id number] Start Date: 06/04/23 Status: Ordered amLODIPine 2.5 mg oral tablet Start: 03/02/23 3:20:00 PM EST, 1 tab, PO, Daily, Disp# 90 tab, Refills: 3, Pharmacy: [facility] Start Date: 03/02/23 Stop Date: 02/25/24 Status: Ordered aspirin 81 mg oral delayed release tablet Start: 12/05/22 3:34:00 PM EDT, 1 tab, PO, Daily Start Date: 12/05/22 Status: Ordered baclofen 10 mg oral tablet Start: 05/14/23 4:18:00 PM EDT, See Instructions, Disp# 60 tab, Refills: 0, TAKE 1 TABLET BY MOUTH TWICE DAILY, Pharmacy: [facility] Start Date: 05/14/23 Status: Ordered Flonase 50 mcg/inh nasal spray Start: 05/03/23 5:00:00 PM EST, 50 mcg =, each nostril, bid, Disp# 16 g, Refills: 0, PRN: congestion,Pharmacy: [facility] Start Date: 05/03/23 Stop Date: 06/02/23 Status: Ordered furosemide 20 mg oral tablet Start: 07/02/23 1:56:00 PM EDT, 1 tab, PO, Daily, Disp# 30 tab, Refills: 4, Pharmacy: [facility] Start Date: 07/02/23 Stop Date: 11/29/23 Status: Ordered gabapentin 600 mg oral tablet Start: 04/20/23 12:49:00 PM EST, See Instructions, Disp# 120 tab, Refills: 2, TAKE 1 TABLET BY MOUTHFOUR TIMES DAILY FOR 30 DAYS, Pharmacy: [facility] Start Date: 04/20/23 Status: Ordered hydrALAZINE 50 mg oral tablet Start: 05/16/23 10:44:00 AM EDT, See Instructions, Disp# 270 tab, Refills: 2, TAKE 1 TABLET BY MOUTHTHREE TIMES DAILY. TAKE 1 TABLET IN THE MORNING, 1 TABLET AT NOON, AND 1 TABLET IN THE EVENING., Pharmacy: [facility] Start Date: 05/16/23 Status: Ordered Lipitor 40 mg oral tablet Start: 12/20/22 8:54:00 AM EDT, 1 tab, PO, qhs, Disp# 90 tab, Refills: 3, Pharmacy: [facility] Start Date: 12/20/22 Status: Ordered LORazepam 0.5 mg oral tablet Start: 07/05/23 11:52:00 AM EDT, 1 tab, PO, qid, Disp# 120 tab, Refills: 0, TAKE 1 TABLET BY MOUTH 4 TIMES DAILY NEEDED FOR ANXIETY, Pharmacy: [facility] Start Date: 07/05/23 Status: Ordered Melatonin Start: 10/21/21 7:39:00 AM EDT, 10 mg =, PO, qhs Start Date: 10/21/21 Status: Ordered Metoprolol Succinate ER 25 mg oral tablet, extended release Start: 02/01/23 6:43:00 AM EST, See Instructions, Disp# 90 tab, Refills: 2, TAKE 1 TABLET BY MOUTH ONCE DAILY, Pharmacy: [facility] Start Date: 02/01/23 Status: Ordered multivitamin Start: 12/14/15 3:17:00 PM EDT, 1 tab, PO, Daily Start Date: 12/14/15 Status: Ordered oxyCODONE 10 mg oral tablet, extended release Start: 07/02/23 1:56:00 PM EDT, 10 mg =, PO, q12h, Disp# 60 tab, Refills: 0, Note to Pharmacy: PDMP verified, Pharmacy: [facility] Start Date: 07/02/23 Status: Ordered PriLOSEC 20 mg oral delayed release capsule Start: 11/10/22 1:19:00 PM EDT, 1 cap, PO, bid, Disp# 180 cap, Refills: 3, Pharmacy: [facility] Start Date: 11/10/22 Status: Ordered tamsulosin 0.4 mg oral capsule Start: 03/22/23 10:13:00 AM EST, 1 cap, PO, bid, Disp# 180 cap, Refills: 1, Pharmacy: [facility] Start Date: 03/22/23 [...] OV A&P; HF; 08/17 Echo; EF60%; 04/11/22 [id number]; On Lasix 2Echo TransTHORacic TTE Complete- Mild [...] significant stenosis, occlusion, or aneurysm within the [place]. 5No acute intracranial abnormality. Atrophy [...] process 115/5 Results Laboratory List Name Date Complete Blood Count w Differential (CBC ,DIFFH) 07/12/23 Most recent to oldest [Reference Range]: 1 MPV [9.0-12.2 fL] 12.1 fL (07/12/23 2:57 PM) Immature Gran% 0.7 % (07/12/23 2:57 PM) Neut% 57.5 % (07/12/23 2:57 PM) Lymph% 28.5 % (07/12/23 2:57 PM) Walsh% 9.0 % (07/12/23 2:57 PM) Baso% 0.7 % (07/12/23 2:57 PM) Eos% 3.6 % (07/12/23 2:57 PM) Immat Gran, Abs [0-0.4 K/uL] 0.04 K/uL (07/12/23 2:57 PM) Neut, Abs [2.0-7.7 K/uL] 3.19 K/uL (07/12/23 2:57 PM) Lymph, Abs [1.0-3.4 K/uL] 1.58 K/uL (07/12/23 2:57 PM) Walsh, Abs [0-1.0 K/uL] 0.50 K/uL (07/12/23 2:57 PM) Baso, Abs [0-0.1 K/uL] 0.04 K/uL (07/12/23 2:57 PM) Eos, Abs [0-0.5 K/uL] 0.20 K/uL (07/12/23 2:57 PM) Type of Diff: AUTO *Unknown* (07/12/23 2:57 PM) RDW [11.5-14.2 %] 13.2 % (07/12/23 2:57 PM) Hct [39-48 %] 40.7 % (07/12/23 2:57 PM) Hgb [13.0-17.0 g/dL] 13.3 g/dL (07/12/23 2:57 PM) MCH [28-33 pg] 30.2 pg (07/12/23 2:57 PM) MCHC [32-36 g/dL] 32.7 g/dL (07/12/23 2:57 PM) MCV [81-96 fL] 92.3 fL (07/12/23 2:57 PM) Plts [150-350 K/uL] 153 K/uL (07/12/23 2:57 PM) RBC [4.40-5.60 M/uL] 4.41 M/uL (07/12/23 2:57 PM) WBC [4.0-10.4 K/uL] 5.55 K/uL (07/12/23 2:57 PM) Social History Social History Type Response Smoking Status Never smoked cigaret yue Sex Male Implantable Device List Procedure Provider Procedure Date Device Type Site Unknown Unknown 10/05/21 Unknown Unknown Device Identifier Serial Number Lot or Batch Number Manufacturing Date Expiration Date Distinct Identification Code MRI Safety Implantable Status Assigning Authority Unknown Unknown [id number] Unknown 03/15/23 Unknown Unknown Active Unknown Unknown Unknown [id number] Unknown 04/22/23 Unknown Unknown Active Unknown Unknown Unknown [id number] Unknown 04/22/23 Unknown Unknown Active Unknown Unknown Unknown [id number] Unknown 03/09/23 Unknown Unknown Active Unknown Unknown Unknown [id number] Unknown 04/22/23 Unknown Unknown Active Unknown Unknown Unknown [id number] Unknown 05/11/23 Unknown Unknown Active Unknown [...] Unknown Unknown Active Unkn own Unknown Unknown [id number] Unknown 02/26/24 Unknown Unknown Active Unknown Patient Care team information Care Team Personnel Name: Harry Lou Amy E Position: Pharmacist Member Role: Pharmacy - Lifetime Address: Address: [facility] [address] [place] [address] [place] Name: ZULY Sidhu Ashley Position: Physician Meeting/Event Planner - Neurosurgery Member Role: Lifetime Relationship Address: Address: [address] [place] [phone] [place] Name: DO Hamilton Kristen M Position: Physician - Family Med Member Role: Lifetime Relationship Address: Address: [address] [place] [id number] [place] Name: Daisha Fitch Position: HIS Supervisor_P Member Role: HIS Lifetime Name: MD Ashly, Jb Lemos Position: Physician - Internal Med Member Role: Primary Care Provider Address: Address: [address] [place] [phone] [place] Name: Harry Vitale Kyle Position: Pharmacist Member Role: Pharmacy - Lifetime Address: Address: [address] [place] [address] [place] Care Team Related Persons Name: GITA MEADOWS Address: home [address] [facility] [phone]
--- OUTSIDE RECORDS SUMMARY | 2023-08-10 15:06 | External Medical Summary | Continuity of Care Document ---
Author Name Unknown Organization [address] Address [address] [place] [phone] Care Team Providers Care Mail Clerks Supervisor Name Role Phone Jb Limon Primary Care Physician [phone] [facility] [id number] Date(s): 07/05/23 - 07/05/[address] [facility] [address], [address] [place] [address] [phone] Encounter Diagnosis Preoperative examination(Discharge Diagnosis) - 07/05/23 Post-traumatic headache(Discharge Diagnosis) - 07/05/23 Falls(Discharge Diagnosis) - 07/05/23 Discharge Disposition: Home or Self Care Attending Physician: MD Limon Michael P Referring Physician: MD Limon Michael P Allergies, Adverse Reactions, Alerts Substance Reaction Severity Status Pneumovax 23 itching, elevated BP Active hydroCHLOROthiazide DAVID Active amLODIPine le edema Active Assessment and Plan Extracted from: Title:Office Visit Note Author:MD Ashly, Young ael P Date:07/05/23 1.Preoperative examination Rupa is seen for comfort-operative risk stratification. He reports no cardiac symptoms on exertion. He reports being able to achieve4-10METs of activity during walking up stairs. This patient's cardiac risk factors include HTN, HFpEF. According to the RCRI, this number of risk factors stratifies the patient to ClassII, which carries with it a6.0% risk of major CV complications, such as PA, CHF, or malignant arrhythmia (Circulation 1999; 100:1043). In this case, however, the RCRI likelyunder-estimatesthe patient's true cardiac risk given that this surgery is considered alowrisk. These risks, along with the risk of comfort-operative stroke, were discussed with the patient, in light of the benefits of possible surgery. He wishes to proceed with the operation. This assessment was conveyed to the surgery and anesthesia teams. 2.Post-traumatic headache Improved. Discussed options. Will titrate off the amitriptyline. Can use APAP 1000 mg 3 times daily as needed for headache. 3.Falls I do worry about his overall fall risk andrecent episodes. We discussed this today. I recommended that [place] uneven grounddue to the risk of fall. In addition, recommended that he takesome sort of device that he can call for help if needed. He plans on doing this. Will continue to monitor. I have spent35 minutes in face to face interaction regarding review of ongoing medical conditions, discussion and counseling regarding diagnostic testing, discussion and counseling regarding treatment recommendations, discussion and counseling regarding management recommendations and non face to face time for chart review and documentation. Immunizations Given and Recorded Vaccine Date Status [...] bivalent 2 02/08/22 R ecorded SARS-CoV-2 mRNA (nbowipgbfea-oeeo-lef) 3 06/22/21 Recorded SARS-CoV-2 (COVID-19) mRNA BNT-162b2 [...] 10 mg oral tablet Start: 06/04/23 11:24:00 EDT, 1 tab, PO, qhs, Disp# 30 tab, Refills: 1, Pharmacy: [id number] Start Date: 06/04/23 Status: Ordered amLODIPine 2.5 mg oral tablet Start: 03/02/23 15:20:00 EST, 1 tab, PO, Daily, Disp# 90 tab, Refills: 3, Pharmacy: [facility] Start Date: 03/02/23 Stop Date: 02/25/24 Status: Ordered aspirin 81 mg oral delayed release tablet Start: 12/05/22 15:34:00 EDT, 1 tab, PO, Daily Start Date: 12/05/22 Status: Ordered baclofen 10 mg oral tablet Start: 05/14/23 16:18:00 EDT, See Instructions, Disp# 60 tab, Refills: 0, TAKE 1 TABLET BY MOUTH TWICE DAILY, Pharmacy: [facility] Start Date: 05/14/23 Status: Ordered Flonase 50 mcg/inh nasal spray Start: 05/03/23 17:00:00 EST, 50 mcg =, each nostril, bid, Disp# 16 g, Refills: 0, PRN: congestion,Pharmacy: [facility] Start Date: 05/03/23 Stop Date: 06/02/23 Status: Ordered furosemide 20 mg oral tablet Start: 07/02/23 13:56:00 EDT, 1 tab, PO, Daily, Disp# 30 tab, Refills: 4, Pharmacy: [facility] Start Date: 07/02/23 Stop Date: 11/29/23 Status: Ordered gabapentin 600 mg oral tablet Start: 04/20/23 12:49:00 EST, See Instructions, Disp# 120 tab, Refills: 2, TAKE 1 TABLET BY MOUTH FOUR TIMES DAILY FOR 30 DAYS, Pharmacy: [facility] #[facility] Start Date: 04/20/23 Status: Ordered hydrALAZINE 50 mg oral tablet Start: 05/16/23 10:44:00 EDT, See Instructions, Disp# 270 tab, Refills: 2, TAKE 1 TABLET BY MOUTH THREE TIMES DAILY. TAKE 1 TABLET IN THE MORNING, 1 TABLET AT NOON, AND 1 TABLET IN THE EVENING., Pharmacy: [facility] #[facility] Start Date: 05/16/23 Status: Ordered Lipitor 40 mg oral tablet Start: 12/20/22 8:54:00 EDT, 1 tab, PO, qhs, Disp# 90 tab, Refills: 3, Pharmacy: [facility] #[facility] Start Date: 12/20/22 Status: Ordered LORazepam 0.5 mg oral tablet Start: 07/05/23 11:52:00 EDT, 1 tab, PO, qid, Disp# 120 tab, Refills: 0, TAKE 1 TABLET BY MOUTH 4 TIMES DAILY NEEDED FOR ANXIETY, Pharmacy: [facility] Start Date: 07/05/23 Status: Ordered Melatonin Start: 10/21/21 7:39:00 EDT, 10 mg =, PO, qhs Start Date: 10/21/21 Status: Ordered Metoprolol Succinate ER 25 mg oral tablet, extended release Start: 02/01/23 6:43:00 EST, See Instructions, Disp# 90 tab, Refills: 2, TAKE 1 TABLET BY MOUTH ONCE DAILY, Pharmacy: [facility] Start Date: 02/01/23 Status: Ordered multivitamin Start: 12/14/15 15:17:00, 1 tab, PO, Daily Start Date: 12/14/15 Status: Ordered oxyCODONE 10 mg oral tablet, extended release Start: 07/02/23 13:56:00 EDT, 10 mg =, PO, q12h, Disp# 60 tab, Refills: 0, Note to Pharmacy: PDMP verified, Pharmacy: [facility] Start Date: 07/02/23 Status: Ordered PriLOSEC 20 mg oral delayed release capsule Start: 11/10/22 13:19:00 EDT, 1 cap, PO, bid, Disp# 180 cap, Refills: 3, Pharmacy: [facility] Start Date: 11/10/22 Status: Ordered tamsulosin 0.4 mg oral capsule Start: 03/22/23 10:13:00 EST, 1 cap, PO, bid, Disp# 180 cap, Refills: 1, Pharmacy: [facility] Start Date: 03/22/23 Status: Ordered Tylenol 325 mg oral tablet Start: 10/21/21 7:38:00 EDT, 2 tab, PO, q6h Start Date: 10/21/21 Status: Ordered Vitamin D3 5000 intl units oral capsule Start: 12/14/15 15:20:00, 1 cap, PO, Daily Start Date: 12/14/15 Status: Ordered Mental Status 07/05/23 Barriers to Learning one year None evide nt Mandatory Health Literacy Documentation Yes Health Literacy Communication Barriers N ever Primary Language Iraqi Problem List Condition Confirmation Course Effective Dates [...] OV A&P; HF; 08/17 Echo; EF60%; 04/11/22 [id number]; On Lasix 2Echo TransTHORacic TTE Complete- Mild pulmonary hypertension (PA systolic pressure is 35 mmHg). Cardio OV A&P; 06/16/21 Cardio A&P; Holter Monitor; 4 Runs NSVT Diagnosis Diagnosis Type Effective Dates Health Status Clinical Service Informant Preoperative examination Discharge Diagnosis 07/05/23 Post-traumatic headache Discharge Diagnosis 07/05/23 Falls Discharge Diagnosis 07/05/23 Procedures Procedure Date Related Diagnosis Body Site [...] significant stenosis, occlusion, or aneurysm within the ho-chunk of [place]. 5No acute intracranial abnormality. Atrophy [...] Most recent to oldest [Reference Range]: 1 Temperature [36.5-37.9 DegC] 36.7 DegC (07/05/23 11:15 AM) Blood Pressure 130/70mmHg (07/05/23 11:15 AM) Cuff Pulse Pressure 60 mmHg (07/05/23 11:15 AM) Social History Social History Type Response Smoking Status Never smoked cigaret yue Sex Male Implantable Device List Procedure Provider Procedure Date Device Type Site Unknown Unknown 10/05/21 Unknown Unknown Device Identifier Serial Number Lot or Batch Number Manufacturing Date Expiration Date Distinct Identification Code MRI Safety Implantable Status Assigning Authority Unknown Unknown [id number] Unknown 03/15/23 Unknown Unknown Active Unknown Unknown Unknown [id number] Unknown 04/22/23 Unknown Unknown Active Unknown Unknown Unknown [id number] Unknown 04/22/23 Unknown Unknown Active Unknown Unknown Unknown [id number] Unknown 03/09/23 Unknown Unknown Active Unknown Unknown Unknown [id number] Unknown 04/22/23 Unknown Unknown Active Unknown Unknown Unknown [id number] Unknown 05/11/23 Unknown Unknown Active Unknown [...] Unknown Unknown Active Unkn own Unknown Unknown [id number] Unknown 02/26/24 Unknown Unknown Active Unknown Medicine Outpt Note * MD Ashly, Jb Lemos: PERFORM Event Display: Medicine Outpt Note Authored Date: [id number] Chief Complaint Pt is here for 1 month f/u. Has fallen again since last visit. Also needs preop clearance for carpal tunnel surgery on 07/20/23. History of Present Illness Rupa Meadows (Jim) is an 82 year old male who presents for follow up of his chronic medical conditions. He is a former patient of Dr. Tello who recently retired. He established care with me on 03/23/22. He has developed bilateral numbness and tingling of his hands. Ultimately, determined to have carpal tunnel syndrome. He will have the first operation done on his right wrist thenthis will be followed by the left wrist. He has upcomingfollow-up appointments with surgery forfurther discussion of the operation. In regards to his overall health, he is able to goup and down stairs without any chest discomfort. He does use a cane for ambulation. He was seen on 06/04/2023 for ER follow-up after he sustained a fall. For posttraumatic headache, he was prescribed amitriptyline 10 mg nightly. Reports that amitriptyline did help initially to take off the edge but it does not seem to be providing too much relief anymore. He did sustain another fall [place]. He fell backwards when he was trying to reach forwards to pick something up. He fell on soft ground and did strike his head, howeverdid not lose consciousness or have any other symptoms after the fall. He has taken Tylenol at times for headache. Problem List: #Chronic pain: Long standing low back pain starting in , following a ruptured disk. He had aninitial surgery in the early . He was started on oxycodone for nearly a decade. He has had multiple surgeries including L2-L4 fusion (2005) and C4-T2 fusion with C4-C7 laminectomy (10/05/2021) complicated with epidural hematoma status postevacuation. Currently managed with gabapentin 600 mg BID + acetaminophen 650mg as needed + oxycodone 10 mg twice daily as needed for pain. He is followed by [facility] Neurosurgery. He continues to have radiculopathy on both R and L fingers. He also has neuropathy in his feet as well. Gabapentin does help with the discomfort. He uses a cane for ambulation. He was previously seen by a pain clinic in [place] who initially prescribed. He had previously been on fentanyl patches + NSAIDS. He has also had multiple epidural injections. He had discussions about a spinal cord stimulator. #Anxiety disorder: Longstanding use of chronic benzodiazepines currently managed by lorazepam 0.5 mg 4 times daily #Hypertension: Longstanding, followed by [facility] cardiology; previous side effects with increased lowerextremity edema (amlodipine) and acute kidney injury (HCTZ); managed with furosemide 20 mg daily + hydralazine 50 mgTID + metoprolol 25 mg daily #Obstructive sleep apnea: Currently managed with BiPAP #HFpEF: echocardiogram (08/17) with normal LV function, basal inferior septal and basal inferior wall hypokinesis with grade 1 diastolic dysfunction and mild pulmonary HTN #GERD: Longstanding, currently managed with omeprazole 20 mg daily #BPH: Longstanding, currently managed with tamsulosin0.4 mg BID. This has helped with his symptoms Review of Systems As per [facility] Physical Exam Vitals & Measurements T:36.7C BP:130/70 SpO2:96% PHQ2 Data(Data Documented on:07/05/2023 11:12) Emotional health assessment NEGATIVE GEN: Well developed, well nourished, no acute distress HEENT: NCAT, MMM, EOMI, PERRL CV: RRR, no murmurs, normal S1 and S2 LUNG: Clear to auscultation bilaterally ABD: nondistended MSK: Strength in the upper and lower extremities is preserved NEURO: AxOx3, moving all extremities; no focal neurologic deficits; CN II-XII grossly intact Assessment/Plan 1.Preoperative examination Rupa is seen for comfort-operative risk stratification. He reports no cardiac symptoms on exertion.He reports being able to achieve4-10METs of activity during walking up stairs. This patient'scardiac risk factors include HTN, HFpEF. According to the RCRI, this number of risk factors stratifies the patient to ClassII, which carries with it a6.0% risk of major CV complications, such as PA, CHF, or malignant arrhythmia (Circulation 1999; 100:1043). In this case, however, the RCRI likelyunder-estimatesthe patient's true cardiac risk given that this surgery is considered alowrisk. These risks, along with the risk of comfort-operative stroke, were discussed with the patient, in lightof the benefits of possible surgery. He wishes to proceed with the operation. This assessment was conveyed to the surgery and anesthesia teams. 2.Post-traumatic headache Improved. Discussed options. Will titrate off the amitriptyline. Can use APAP 1000 mg 3 timesdaily as needed for headache. 3.Falls I do worry about his overall fall risk andrecent episodes. We discussed this today. I recommended that [place]maoid [place] grounddue to the risk of fall. In addition,recommended that he takesome sort of device that he can call for help if needed. He plans on doing this. Will continue to monitor. I have spent35 minutes in face to face interaction regarding review of ongoing medical conditions, discussion and counseling regarding diagnostic testing, discussion and counseling regarding treatment recommendations, discussion and counseling regarding management recommendations and non face to face time for chart review and documentation. Problem List/Past Medical History Ongoing Anterior cord syndrome Anxiety Anxiety disorder, unspecified Benign nodular prostatic hyperplasia without lower urinary tract symptoms Bilateral carpal tunnel syndrome Cerumen impaction Chronic GERD Chronic pain syndrome Controlled substance agreement signed Current use of proton pump inhibitor Dorsalgia, unspecified Fatigue GERD without esophagitis H/O bilateral cataract extraction Heart failure, unspecified History of skin cancer Hypertensive heart disease with heart failure Low back pain, unspecified Lower urinary tract symptoms (LUTS) Lumbar post-laminectomy syndrome Mild pulmonary hypertension Mixed hyperlipidemia Obstructive sleep apnea Other chronic pain Other symptoms and signs involving the musculoskeletal system Peripheral vascular disease Radiculopathy, cervical region Rheumatoid Arthritis Right hand pain SCC (squamous cell carcinoma) Supraventricular tachycardia Ulnar nerve entrapment at right elbow Unspecified diastolic (congestive) heart failure Vitamin B 12 deficiency Historical Chest pain Dehydration Fall Headache Hypokalemia Low back pain Lumbar spondylosis Nausea Opioid dependence, uncomplicated Osteoarthritis of right hip Patient encounter status Polyneuropathy associated with another disorder (disorder) Pre-op exam Rotator cuff arthropathy of right shoulder Shoulder pain Spinal stenosis of lumbar region Tick bite of left forearm Procedure/Surgical History Surgery| Service Date: 10/05/2021urgery| Service Date: 09/2021Mohs micrographic surgery| Service Date: 09/13/2021have biopsy| Service Date: 08/04/2021houlder| Service Date: 05/03/2018 Mohs micrographic surgery| Service Date: 03/27/2018 Shave biopsy and cauterization of skin/ED&C| Service Date: 02/07/2018MRI of brain without contrast| Service Date: 07/15/2017Angiography| Service Date: 07/15/2017CT of head| Service Date: 07/15/2017Venous doppler ultrasonography| Service Date: 06/19/2017X-ray of right wrist| Service Date: 10/02/2016Cervical spine X-ray| Service Date: 10/02/2016Lumbar Spine X- ray| Service Date: 04/03/2016Back| Service Date: 12/03/2015Lower back| Service Date: 2014Colonoscopy normal| Service Date: 09/10/2013Endoscopy of upper gastrointestinal tract and excision of mucosa of duodenum| Service Date: 09/10/2013Cataract surgery yael| Service Date: 2013Should L| Service Date: 2009Procedure on back| Service Date: 2008Colonoscopy,diagnostic| Service Date: 01/06/2008Cystectomy neck| Service Date: 2005Shoulder| Service Date: 2004Neck| Service Date: 1999Hernia| Service Date: 1992Back| Service Date: 1981Colonoscopy,remove lesion Medications acetaminophen(Tylenol 325 mg oral tablet), 650 mg= 2 tab, PO, q6h amitriptyline(amitriptyline 10 mg oral tablet), 10 mg= 1 tab, PO, qhs, 1 refills amLODIPine(amLODIPine 2.5 mg oral tablet), 2.5 mg= 1 tab, PO, Daily, 3 refills aspirin(aspirin 81 mg oral delayed release tablet), 81 mg= 1 tab, PO, Daily atorvastatin(Lipitor 40 mg oral tablet), 40 mg= 1 tab, PO, qhs, 3 refills baclofen(baclofen 10 mg oral tablet), See Instructions cholecalciferol(Vitamin D3 5000 intl units oral capsule), 5000 Int_Unit= 1 cap, PO, Daily fluticasone nasal(Flonase 50 mcg/inh nasal spray), 50 mcg, each nostril, bid, PRN furosemide(furosemide 20 mg oral tablet), 20 mg= 1 tab, PO, Daily, 4 refills gabapentin(gabapentin 600 mg oral tablet), See Instructions, 2 refills hydrALAZINE(hydrALAZINE 50 mg oral tablet), See Instructions LORazepam(LORazepam 0.5 mg oral tablet), 0.5 mg= 1 tab, PO, qid melatonin(Melatonin), 10 mg= 2 tab, PO, qhs metoprolol(Metoprolol Succinate ER 25 mg oral tablet, extended release), See Instructions multivitamin, 1 tab, PO, Daily omeprazole(PriLOSEC 20 mg oral delayed release capsule), 20 mg= 1 cap, PO, bid, 3 refills oxyCODONE(oxyCODONE 10 mg oral tablet, extended release), 10 mg, PO, q12h tamsulosin(tamsulosin 0.4 mg oral capsule), 1 cap, PO, bid Allergies Pneumovax 23itching, elevated BP amLODIPinele edema hydroCHLOROthiazideAKI Social History Smoking Status Never smoked cigarettes Alcohol - Denies Alcohol Use Substance Abuse - Denies Substance Abuse Tobacco - Denies Tobacco Use Use:Never smoker Family History Cancer of colon: Father. Diabetes: Mother. Heart disease: Mother and Father. Health Status Family Member(s) Immunizations Vaccine Date Status influenza virus vaccine, inactivated 11/30/2022 Given Comments : wilfrid narvaez lpn SARS-CoV-2 mRNA (Pfizer 12+) bivalent 02/08/2022 Recorded Comments : 2022-03-23: Historical information-source unspecified influenza virus vaccine, inactivated 11/23/2021 Given SARS-CoV-2 mRNA (ovrqchwpoxx-djnn-hyt) 06/22/2021 Recorded Comments : 2021-06-28: Historical information-source unspecified SARS-CoV-2 (COVID-19) mRNA BNT-162b2 vax 01/18/2021 Recorded Comments : 2021-04-12: Historical information-source unspecified influenza virus vaccine, inactivated 11/16/2020 Given SARS-CoV-2 (COVID-19) mRNA BNT-162b2 vax 05/07/2020 Recorded SARS-CoV-2 (COVID-19) mRNA BNT-162b2 vax 04/16/2020 Recorded influenza virus vaccine, inactivated 12/11/2019 Given zoster vaccine, inactivated 09/08/2019 Recorded zoster vaccine, inactivated 05/05/2019 Recorded influenza virus vaccine, inactivated 01/21/2019 Given pneumococcal 13-valent vaccine 05/30/2018 Given influenza virus vaccine, inactivated 11/05/2017 Given influenza virus vaccine, inactivated 12/25/2016 Given tetanus/diphtheria/pertuss, acel (Tdap) 11/23/2016 Given tetanus/diphtheria/pertuss, acel (Tdap) 08/26/2013 Recorded Comments : 2018-12-17: Historical information-source unspecified pneumococcal 23-valent vaccine 02/23/2012 Recorded zoster vaccine live 11/12/2009 Recorded influenza virus vaccine, H1N1 02/11/2009 Recorded Comments : 2021-04-12: Historical information-source unspecified tetanus toxoids-diphtheria, Td (Adult) 07/14/2008 Recorded Comments : 2018-12-17: Historical information-source unspecified pneumococcal 23-valent vaccine 2005 Recorded Comments : 2018-12-17: Historical information-source unspecified tetanus toxoids-diphtheria, Td (Adult) 05/26/1997 Recorded Comments : 2018-12-17: Historical information-source unspecified Recommendations Health Maintenance Pending(in the next year) OverDue Medicare Annual Wellness Visit due12/26/22and every 1year Falls Plan of Care due01/16/23and every 1year Due Adult Social Determinants of Health Screening due07/05/23Unknown Frequency Due In Future Adult Influenza Vaccine not due until08/26/23and every 1year Body Mass Index not due until06/04/24and every 366day Satisfied(in the past 1 year) Satisfied Adult Influenza Vaccine on11/30/22.Satisfied by [facility] Garrett Angela Body Mass Index on06/04/23.Satisfied by [facility] Jade Carli Electronic Signature on File Electronically Reviewed/Signed by: Jb Limon MD Author Signature Dt/Tm:07/05/2023 12:06 PM Division of Internal Medicine MPM Patient Care team information Care Team Personnel Name: Harry Lou Amy E Position: Pharmacist Member Role: Pharmacy - Lifetime Address: Address: [facility] [address] [place] [address] [place] Name: ZULY Sidhu Ashley Position: Physician Sales Facilitator - Neurosurgery Member Role: Lifetime Relationship Address: Address: [address] [place] [address] [address] [place] [address] [place] Name: DO Hamilton Kristen M Position: Physician - Family Med Member Role: Lifetime Relationship Address: Address: [address] [place] [address] [address] [place] [address] [place] Name: Lease, Daisha Position: HIS Supervisor_P Member Role: HIS Lifetime Name: MD Ashly, Jb Lemos Position: Physician - Internal Med Member Role: Primary Care Provider Address: Address: [address] [place] [id number] Name: Harry Vitale Kyle Position: Pharmacist Member Role: Pharmacy - Lifetime Address: Address: [address] [place] [address] Care Team Related Persons Name: GITA MEADOWS Address: home [address] [facility] [facility] [facility] [id number]"
--- OUTSIDE RECORDS SUMMARY | 2023-08-10 15:06 | External Medical Summary | Continuity of Care Document ---
Author Name Unknown Organization [facility] [address] [id number] Address [facility] [place], [place] [id number] Care Team Providers Care Power Transformer Assembler Name Role Phone Jb Limon Primary Care Physician [phone] [id number] Date(s): 06/26/23 - 06/26/23 [facility] [address] [id number] 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) - 06/26/23 Discharge Disposition: Home or Self Care Attending Physician: MD Endy, Kevin A Allergies, Adverse Reactions, Alerts Substance Reaction Severity Status Pneumovax 23 itching, elevated BP Active amLODIPine le edema Active hydroCHLOROthiazide [...] bivalent 2 02/08/22 R ecorded SARS-CoV-2 mRNA (cgavxaqhhrv-itlh-vcl) 3 06/22/21 Recorded SARS-CoV-2 (COVID-19) mRNA BNT-162b2 [...] qhs, Disp# 30 tab, Refills: 1, Pharmacy: [facility] Start Date: 06/04/23 Status: Ordered amLODIPine 2.5 mg oral tablet Start: 03/02/23 15:20:00 EST, 1 tab, PO, Daily, Disp# 90 tab, Refills: 3, Pharmacy: [facility] Start Date: 03/02/23 Stop Date: 02/25/24 Status: Ordered aspirin 81 mg oral delayed release tablet Start: 12/05/22 15:34:00 EDT, 1 tab, PO, Daily Start Date: 12/05/22 Status: Ordered baclofen 10 mg oral tablet Start: 05/14/23 16:18:00 EDT, See Instructions, Disp# 60 tab, Refills: 0, TAKE 1 TABLET BY MOUTH TWICE DAILY, Pharmacy: [facility] Start Date: 05/14/23 Status: Ordered Flonase 50 mcg/inh nasal spray Start: 05/03/23 17:00:00 EST, 50 mcg =, each nostril, bid, Disp# 16 g, Refills: 0, PRN: congestion,Pharmacy: [facility] Start Date: 05/03/23 Stop Date: 06/02/23 Status: Ordered furosemide 20 mg oral tablet Start: 04/20/23 13:55:00 EST, 1 tab, PO, Daily, Disp# 30 tab, Refills: 4, Pharmacy: [facility] Start Date: 04/20/23 Stop Date: 09/17/23 Status: Ordered gabapentin 600 mg oral tablet Start: 04/20/23 12:49:00 EST, See Instructions, Disp# 120 tab, Refills: 2, TAKE 1 TABLET BY MOUTH FOUR TIMES DAILY FOR 30 DAYS, Pharmacy: [facility] Start Date: 04/20/23 Status: Ordered hydrALAZINE 50 mg oral tablet Start: 05/16/23 10:44:00 EDT, See Instructions, Disp# 270 tab, Refills: 2, TAKE 1 TABLET BY MOUTH THREE TIMES DAILY. TAKE 1 TABLET IN THE MORNING, 1 TABLET AT NOON, AND 1 TABLET IN THE EVENING., Pharmacy: [facility] Start Date: 05/16/23 Status: Ordered Lipitor 40 mg oral tablet Start: 12/20/22 8:54:00 EDT, 1 tab, PO, qhs, Disp# 90 tab, Refills: 3, Pharmacy: [facility] Start Date: 12/20/22 Status: Ordered LORazepam 0.5 mg oral tablet Start: 02/08/23 12:35:00 EST, 1 tab, PO, qid, Disp# 120 tab, Refills: 0, TAKE 1 TABLET BY MOUTH 4 TIMES DAILY NEEDED FOR ANXIETY, Pharmacy: [facility] Start Date: 02/08/23 Status: Ordered Melatonin Start: 10/21/21 7:39:00 EDT, 10 mg =, PO, qhs Start Date: 10/21/21 Status: Ordered Metoprolol Succinate ER 25 mg oral tablet, extended release Start: 02/01/23 6:43:00 EST, See Instructions, Disp# 90 tab, Refills: 2, TAKE 1 TABLET BY MOUTH ONCE DAILY, Pharmacy: [facility] Start Date: 02/01/23 Status: Ordered multivitamin Start: 12/14/15 15:17:00, 1 tab, PO, Daily Start Date: 12/14/15 Status: Ordered oxyCODONE 10 mg oral tablet, extended release Start: 06/01/23 15:10:00 EDT, 10 mg =, PO, q12h, Disp# 60 tab, Refills: 0, Note to Pharmacy: PDMP verified, Pharmacy: [facility] Start Date: 06/01/23 Status: Ordered PriLOSEC 20 mg oral delayed release capsule Start: 11/10/22 13:19:00 EDT, 1 cap, PO, bid, Disp# 180 cap, Refills: 3, Pharmacy: [facility] Start Date: 11/10/22 Status: Ordered tamsulosin 0.4 mg oral capsule Start: 03/22/23 10:13:00 EST, 1 cap, PO, bid, Disp# 180 cap, Refills: 1, Pharmacy: [facility] Start Date: 03/22/23 Status: Ordered Tylenol 325 mg oral tablet Start: 10/21/21 7:38:00 EDT, 2 tab, PO, q6h Start Date: 10/21/21 Status: Ordered Vitamin C 500 mg oral tablet Start: 10/21/21 7:38:00 EDT, 2 tab, PO, Daily Start Date: 10/21/21 Status: Ordered Vitamin D3 5000 intl units oral capsule Start: 12/14/15 15:20:00, 1 cap, PO, Daily Start Date: 12/14/15 Status: Ordered Mental Status 06/26/23 Barriers to Learning one year None evide nt Mandatory Health Literacy Documentation Yes Health Literacy Communication Barriers N ever Primary Language Swiss Problem List Condition Confirmation Course Effective Dates [...] OV A&P; HF; 08/17 Echo; EF60%; 04/11/22 [id number]; On Lasix 2Echo TransTHORacic TTE Complete- Mild pulmonary hypertension ([place] systolic pressure is 35 mmHg). Cardio OV A&P; 06/16/21 Cardio A&P; Holter Monitor; 4 Runs NSVT Diagnosis Diagnosis Type Effective Dates Health Status Clinical Service Informant Bilateral carpal tunnel syndrome Discharge Diagnosis 06/26/23 Ulnar nerve entrapment at right elbow Discharge Diagnosis 06/26/23 Procedures Procedure Date Related Diagnosis Body Site [...] neck 2006 Completed Shoulder 2005 Completed Neck 2000 Completed Hernia 1993 Completed Back 1982 Completed Colonoscopy,remove lesion 11 Completed 1neck surgery 2back 3right shoulder replacement 4No significant stenosis, occlusion, or aneurysm within the [place]. 5No acute intracranial abnormality. Atrophy [...] and fusion L2-L4. No acute process 115/5 Social History Social History Type Response Smoking Status Never smoked cigaret yue Sex Male Implantable Device List Procedure Provider Procedure Date Device Type Site Unknown Unknown 10/05/21 Unknown Unknown Device Identifier Serial Number Lot or Batch Number Manufacturing Date Expiration Date Distinct Identification Code MRI Safety Implantable Status Assigning Authority Unknown Unknown [id number] Unknown 03/15/23 Unknown Unknown Active Unknown Unknown Unknown [id number] Unknown 04/22/23 Unknown Unknown Active Unknown Unknown Unknown [id number] Unknown 04/22/23 Unknown Unknown Active Unknown Unknown Unknown [id number] Unknown 03/09/23 Unknown Unknown Active Unknown Unknown Unknown [id number] Unknown 04/22/23 Unknown Unknown Active Unknown Unknown Unknown [id number] Unknown 05/11/23 Unknown Unknown Active Unknown [...] Unknown Unknown Active Unkn own Unknown Unknown [id number] Unknown 02/26/24 Unknown Unknown Active Unknown Ortho Outpt Note * MD Endy, Kevin A: MODIFY Tayla Kenny: PERFORM, MODIFY Tayla Kenny: MODIFY Event Display: Ortho Outpt Note Authored Date: [id number] Name:RUPA MEADOWS Patient Number:[id number] :1940 Date of Service:06/26/2023 CHIEF COMPLAINT: Follow-up right hand numbness and EMG/NCS review HPI: Tracey Saunders presents today for continuedevaluation of his right hand. 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 He has weakness in his hand. He had a blood clot following hisspine surgerywhich eventually left his right arm weak. He has numbness and tingling in both hands as well as increased weakness in his right hand. He had surgery with Dr. Harding in [place] on his cervical neck. 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 Today he rates his pain a 0/10. PHYSICAL EXAM: Focusing on the patient'sBilateralupper extremity: 2+ radial pulse Diminished sensation in hand. Notable decreased sensation in left thumb and index fingers. Motor to the median, radial, ulnar, AIN, and PIN, as well as musculocutaneous nerves are intact - Tinel's at the carpal tunnel - Tinel's at the cubital tunnel With fingers extended, there is V shaped positioning DATA: I reviewed results from 06/20/2023 Dr. 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 He would liketo proceed with addressing his right carpal tunnel at this time. He will consider addressing his left following surgery if he has a good response,and ifsymptoms persist his right ulnar distribution,would considercubital tunnel release. - The risk and benefits of each were discussed. Discussed surgery and the likelihood of regeneration of strength and sensation given the severity of his disease. - The risks of surgery included but not limited to: Infection, bleeding, nerve damage, incomplete relief of symptoms, persistent numbness,progression of arthritis, stiffness, and deep vein thrombosis. They would like to proceed with surgery and informed consent was signed for right wrist carpal tunnel release, endoscopic. - He will obtain medical clearance from his PCP and end stapler - They will speak with mysurgery yard coordinator and have a history and physical examination performed. The patient understood all my instructions and explanation: all their questions were satisfactorilyaddressed. ATTESTATION: I, Tayla Kenny, scribing forand in the presence of, Kevin Schumacher, on this date,06/26/2023 11:25:50. I, Dr. Schumacher, saw and examined the patient with Tayla Kenny acting as my scribe. I reviewed the note and agree with the documented findings and the plan of care I developed. Electronic Signature on File Electronically Reviewed/Signed by: Tayla Kenny Author Signature Dt/Tm:06/26/2023 12:04 PM Electronically Reviewed/Signed by: Kevin Schumacher MD Cosigner Signature Dt/Tm: 06/26/2023 01:00 PM [facility] Outbound Sales Agent Department of [facility] [address], [place] [address] [place] Patient Care team information Care Team Personnel Name: Harry Lou Amy E Position: Pharmacist Member Role: Pharmacy - Lifetime Address: Address: [facility] [address] [place] [address] [place] Name: ZULY Sidhu Ashley Position: Physician Returned Case Inspector - Neurosurgery Member Role: Lifetime Relationship Address: Address: [address] [facility] [address] [place] [address] [place] Name: DO Hamilton Kristen M Position: Physician - Family Med Member Role: Lifetime Relationship Address: Address: [address] [facility] [address] [place] [address] [place] Name: Daisha Fitch Position: HIS Supervisor_P Member Role: HIS Lifetime Name: MD Ashly, Jb Lemos Position: Physician - Internal Med Member Role: Primary Care Provider Address: Address: [address] [place] [address] Name: Harry Vitale Kyle Position: Pharmacist Member Role: Pharmacy - Lifetime Address: Address: [address] [place] [address] Care Team Related Persons Name: ABDIELGITA Address: home [address] [facility] [id number]
--- OUTSIDE RECORDS SUMMARY | 2023-08-10 15:06 | External Medical Summary | Continuity of Care Document ---
Author Name Unknown Organization [facility] [address] [facility] Address [address] [place], [place] [id number] Care Team Providers Care Director Supply Name Role Phone Jb Limon Primary Care Physician [phone] [id number] Date(s): 07/12/23 - 07/12/23 [facility] [address], [address] [place] [phone] Encounter Diagnosis Pulmonary hypertension, unspecified(Final) - Unspecified diastolic (congestive) heart failure(Final) - Discharge [...] bivalent 2 02/08/22 R ecorded SARS-CoV-2 mRNA (tvwfsxzvoil-apug-kkr) 3 06/22/21 Recorded SARS-CoV-2 (COVID-19) mRNA BNT-162b2 [...] qhs, Disp# 30 tab, Refills: 1, Pharmacy: [facility] Start Date: 06/04/23 Status: Ordered amLODIPine 2.5 mg oral tablet Start: 03/02/23 3:20:00 PM EST, 1 tab, PO, Daily, Disp# 90 tab, Refills: 3, Pharmacy: [facility] Start Date: 03/02/23 Stop Date: 02/25/24 Status: Ordered aspirin 81 mg oral delayed release tablet Start: 12/05/22 3:34:00 PM EDT, 1 tab, PO, Daily Start Date: 12/05/22 Status: Ordered baclofen 10 mg oral tablet Start: 05/14/23 4:18:00 PM EDT, See Instructions, Disp# 60 tab, Refills: 0, TAKE 1 TABLET BY MOUTH TWICE DAILY, Pharmacy: [facility] Start Date: 05/14/23 Status: Ordered Flonase 50 mcg/inh nasal spray Start: 05/03/23 5:00:00 PM EST, 50 mcg =, each nostril, bid, Disp# 16 g, Refills: 0, PRN: congestion,Pharmacy: [facility] Start Date: 05/03/23 Stop Date: 06/02/23 Status: Ordered furosemide 20 mg oral tablet Start: 07/02/23 1:56:00 PM EDT, 1 tab, PO, Daily, Disp# 30 tab, Refills: 4, Pharmacy: [facility] Start Date: 07/02/23 Stop Date: 11/29/23 Status: Ordered gabapentin 600 mg oral tablet Start: 04/20/23 12:49:00 PM EST, See Instructions, Disp# 120 tab, Refills: 2, TAKE 1 TABLET BY MOUTHFOUR TIMES DAILY FOR 30 DAYS, Pharmacy: [facility] Start Date: 04/20/23 Status: Ordered hydrALAZINE 50 mg oral tablet Start: 05/16/23 10:44:00 AM EDT, See Instructions, Disp# 270 tab, Refills: 2, TAKE 1 TABLET BY MOUTHTHREE TIMES DAILY. TAKE 1 TABLET IN THE MORNING, 1 TABLET AT NOON, AND 1 TABLET IN THE EVENING., Pharmacy: [facility] Start Date: 05/16/23 Status: Ordered Lipitor 40 mg oral tablet Start: 12/20/22 8:54:00 AM EDT, 1 tab, PO, qhs, Disp# 90 tab, Refills: 3, Pharmacy: [facility] Start Date: 12/20/22 Status: Ordered LORazepam 0.5 mg oral tablet Start: 07/05/23 11:52:00 AM EDT, 1 tab, PO, qid, Disp# 120 tab, Refills: 0, TAKE 1 TABLET BY MOUTH 4 TIMES DAILY NEEDED FOR ANXIETY, Pharmacy: [facility] Start Date: 07/05/23 Status: Ordered Melatonin Start: 10/21/21 7:39:00 AM EDT, 10 mg =, PO, qhs Start Date: 10/21/21 Status: Ordered Metoprolol Succinate ER 25 mg oral tablet, extended release Start: 02/01/23 6:43:00 AM EST, See Instructions, Disp# 90 tab, Refills: 2, TAKE 1 TABLET BY MOUTH ONCE DAILY, Pharmacy: [facility] Start Date: 02/01/23 Status: Ordered multivitamin Start: 12/14/15 3:17:00 PM EDT, 1 tab, PO, Daily Start Date: 12/14/15 Status: Ordered oxyCODONE 10 mg oral tablet, extended release Start: 07/02/23 1:56:00 PM EDT, 10 mg =, PO, q12h, Disp# 60 tab, Refills: 0, Note to Pharmacy: PDMP verified, Pharmacy: [facility] Start Date: 07/02/23 Status: Ordered PriLOSEC 20 mg oral delayed release capsule Start: 11/10/22 1:19:00 PM EDT, 1 cap, PO, bid, Disp# 180 cap, Refills: 3, Pharmacy: [facility] Start Date: 11/10/22 Status: Ordered tamsulosin 0.4 mg oral capsule Start: 03/22/23 10:13:00 AM EST, 1 cap, PO, bid, Disp# 180 cap, Refills: 1, Pharmacy: [facility] Start Date: 03/22/23 Status: Ordered [...] OV A&P; HF; 08/17 Echo; EF60%; 04/11/22 [id number]; On Lasix 2Echo TransTHORacic TTE Complete- Mild [...] significant stenosis, occlusion, or aneurysm within the [place] of [place]. 5No acute intracranial abnormality. Atrophy [...] Basic Metabolic Panel (BASIC METAB PANEL ) 07/12/23 NT-Pro BNP 07/12/23 Most recent to oldest [Reference Range]: 1 eGFR CKD-EPI [>60 mL/min/1.73 m2] 66 mL/ min/1.73 m2 1 (07/12/23 2:58 PM) BNP, NT-Pro [<450 pg/mL] 1041 pg/mL *HI* (07/12/23 2:58 PM) Estimated CrCl 57.56 mL/min (07/12/23 3:36 PM) Anion Gap [5-14 mmol/L] 6 mmol/L (07/12/23 2:58 PM) BUN [7-20 mg/dL] 25 mg/dL *HI* (07/12/23 2:58 PM) Ca [8.4-10.2 mg/dL] 8.8 mg/dL (07/12/23 2:58 PM) Cl- [96-107 mmol/L] 104 mmol/L (07/12/23 2:58 PM) HCO3 [22-30 mmol/L] 29 mmol/L (07/12/23 2:58 PM) Cret [0.70-1.30 mg/dL] 1.11 mg/dL (07/12/23 2:58 PM) Glu [74-106 mg/dL] 85 mg/dL (07/12/23 2:58 PM) K [3.5-5.1 mmol/L] 4.4 mmol/L (07/12/23 2:58 PM) Na [137-145 mmol/L] 139 mmol/L (07/12/23 2:58 PM) 1Result Comment: Testing Performed By: Dept of Pathology [facility] [address], [address], [place] [address] Social History Social History Type Response Smoking Status Never smoked cigaret yue Sex Male Implantable Device List Procedure Provider Procedure Date Device Type Site Unknown Unknown 10/05/21 Unknown Unknown Device Identifier Serial Number Lot or Batch Number Manufacturing Date Expiration Date Distinct Identification Code MRI Safety Implantable Status Assigning Authority Unknown Unknown [id number] Unknown 03/15/23 Unknown Unknown Active Unknown Unknown Unknown [id number] Unknown 04/22/23 Unknown Unknown Active Unknown Unknown Unknown [id number] Unknown 04/22/23 Unknown Unknown Active Unknown Unknown Unknown [id number] Unknown 03/09/23 Unknown Unknown Active Unknown Unknown Unknown [id number] Unknown 04/22/23 Unknown Unknown Active Unknown Unknown Unknown [id number] Unknown 05/11/23 Unknown Unknown Active Unknown [...] Unknown Unknown Active Unkn own Unknown Unknown [id number] Unknown 02/26/24 Unknown Unknown Active Unknown Patient Care team information Care Team Personnel Name: Harry Lou Amy E Position: Pharmacist Member Role: Pharmacy - Lifetime Address: Address: [facility] [address] [place] [address] [place] Name: ZULY Sidhu Ashley Position: Physician Business Support Specialist - Neurosurgery Member Role: Lifetime Relationship Address: Address: [address] [facility] [address] [place] [address] [place] Name: DO Hamilton Kristen M Position: Physician - Family Med Member Role: Lifetime Relationship Address: Address: [address] [place] [address] [address] [place] [address] [place] Name: Daisha Fitch Position: HIS Supervisor_P Member Role: HIS Lifetime Name: MD Ashly, Jb Lemos Position: Physician - Internal Med Member Role: Primary Care Provider Address: Address: [address] [place] [address], [place] [address] Name: Harry Vitale Kyle Position: Pharmacist Member Role: Pharmacy - Lifetime Address: Address: [address] [place] [address] Care Team Related Persons Name: GITA MEADOWS Address: home [address] [facility] [id number]
--- OUTSIDE RECORDS SUMMARY | 2023-08-10 15:07 | External Medical Summary | Continuity of Care Document ---
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) - 06/20/23 Discharge Disposition: Home or Self Care Attending Physician: MD Gavino, Jamil He Referring Physician: MD Endy, Kevin A Allergies, [...] bivalent 2 02/08/22 R ecorded SARS-CoV-2 mRNA (ftmnravrdyg-xwvs-dhv) 3 06/22/21 Recorded SARS-CoV-2 (COVID-19) mRNA BNT-162b2 [...] [facility] Start Date: 04/20/23 Stop Date: 09/17/23 Status: Ordered gabapentin 600 mg oral tablet Start: 04/20/23 12:49:00 EST, See Instructions, Disp# 120 tab, Refills: 2, TAKE 1 TABLET BY MOUTH FOUR TIMES DAILY FOR 30 DAYS, [facility] Start Date: 02/08/23 Status: Ordered [...] [facility] Start Date: 06/01/23 Status: Ordered PriLOSEC 20 mg oral delayed release capsule Start: 11/10/22 13:19:00 EDT, 1 cap, PO, bid, Disp# 180 cap, Refills: 3, Pharmacy: [facility] Start Date: 11/10/22 Status: Ordered tamsulosin [...] Start Date: 12/14/15 Status: Ordered Mental Status 06/20/23 Barriers to Learning one year None evide nt Mandatory Health Literacy Documentation Yes Health Literacy Communication Barriers N ever Primary Language Palauan Problem List Condition Confirmation Course Effective Dates [...] OV A&P; HF; 08/17 Echo; EF60%; 04/11/22 [id number]; On Lasix 2Echo TransTHORacic TTE Complete- Mild pulmonary hypertension ([place] systolic pressure is 35 mmHg). Cardio OV A&P; 06/16/21 Cardio A&P; Holter Monitor; 4 Runs NSVT Diagnosis Diagnosis Type Effective Dates Health Status Clinical Service Informant Bilateral carpal tunnel syndrome Discharge Diagnosis 06/20/23 Ulnar nerve entrapment at right elbow Discharge Diagnosis 06/20/23 Procedures Procedure Date Related Diagnosis Body Site [...] Shoulder L 2009 Completed Procedure on back 2009 Complet ed Colonoscopy,diagnostic 01/06/08 Co mpleted Cystectomy neck 2006 Completed Shoulder 2005 Completed Neck 2000 Completed Hernia 1993 Completed Back 1982 Completed Colonoscopy,remove lesion 11 Completed 1neck surgery 2back 3right shoulder replacement 4No significant stenosis, occlusion, or aneurysm within the [place] of [place]. 5No acute intracranial abnormality. Atrophy [...] Safety Implantable Status Assigning Authority Unknown Unknown [id number] Unknown 03/15/23 Unknown Unknown Active Unknown Unknown Unknown [id number] Unknown 04/22/23 Unknown Unknown Active Unknown Unknown Unknown [id number] 41 Unknown 04/22/23 Unknown Unknown Active Unknown Unknown Unknown [id number] 62 Unknown 03/09/23 Unknown Unknown Active Unknown Unknown Unknown [id number] Unknown 04/22/23 Unknown Unknown Active Unknown Unknown Unknown [id number] Unknown 05/11/23 Unknown Unknown Active Unknown [...] Unknown Unknown Active Unkn own Unknown Unknown [id number] Unknown 02/26/24 Unknown Unknown Active Unknown Patient Care team information Care Team Personnel Name: Harry Lou Amy E Position: Pharmacist Member Role: Pharmacy - Lifetime Address: Address: [facility] [address] [place] [address] [place] Name: ZULY Sidhu Ashley Position: Physician Cultural Centre Manager - Neurosurgery Member Role: Lifetime Relationship Address: Address: [address] [place] [address] [place] Name: DO Hamilton Kristen M Position: Physician - Family Med Member Role: Lifetime Relationship Address: Address: [address] [place] [address] [place] Name: Daisha Fitch Position: HIS Supervisor_P Member Role: HIS Lifetime Name: MD Ashly, Jb Lemos Position: Physician - Internal Med Member Role: Primary Care Provider Address: Address: [address] [place] [address] [place] Name: Harry Vitale Kyle Position: Pharmacist Member Role: Pharmacy - Lifetime Address: Address: [address] [place] [address] [place] Care Team Related Persons Name: GITA MEADOWS Address: home [address] [facility] [phone]
--- OUTSIDE RECORDS SUMMARY | 2023-08-10 15:07 | External Medical Summary | Continuity of Care Document ---
Author Name Unknown Organization [address] Address [address], [place] [id number] Care Team Providers Care Business Intern Name Role Phone Jb Limon Primary Care Physician [phone] [id number] Date[facility]s): 06/04/23 - 06/04/[address] [facility] [address] [facility] [place] [address] [phone] Encounter Diagnosis Body mass index [BMI] 31.0-31.9, adult(Discharge Diagnosis) - 06/04/23 Post-traumatic headache(Discharge Diagnosis) - 06/04/23 Discharge Disposition: Home or Self Care Attending Physician: DO Lazo Mehwish Referring Physician: DO Lazo Mehwish Allergies, Adverse Reactions, Alerts Substance Reaction Severity Status Pneumovax 23 itching, elevated BP Active hydroCHLOROthiazide DAVID Active amLODIPine le edema Active Assessment and Plan Extracted from: Title:Office Visit Note Author:DO Lazo Me hwish Date:06/04/23 1.Post-traumatic headache Patient presenting for evaluation ofheadache that has been presentsince his fall. He has had CT head imaging which is negative along with normalevaluation today. Suspect that this is most likely a posttraumatic headache. He does not appear to have any other concussiontype symptomsat the time of evaluation today. Discussed that posttraumatic headachescan lastfor usually up to a few months, though sometimes last time. Given that he is onseveral other medications, we will start with a low-dose of amitriptylinewhich she will takeat bedtime. Additionally, recommend that he continue taking Tylenolfor pain relief. Okay to continue his other medications. Side effects of the amitriptyline were discussed. Him and his expressed understanding of this. Red flag symptoms were discussedas well assymptomsfor which I would recommend he be seen in the ER. He does also ask about medication for restless leg syndrome,discussed thathe may get benefit from the amitriptylinethough I would be hesitant about starting any othermedication treatmentsgiven these new headaches. Recommend follow-up in 1 month with PCPfor titration of amitriptyline or discontinuation if his headaches have resolved. 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 Comment: 2022-03-23: Historical information-source unspecified 3Result [...] qhs, Disp# 30 tab, Refills: 1, Pharmacy: [id number] Start Date: 06/04/23 Status: Ordered amLODIPine 2.5 mg oral tablet Start: 03/02/23 15:20:00 EST, 1 tab, PO, Daily, Disp# 90 tab, Refills: 3, Pharmacy: [facility] Start Date: 03/02/23 Stop Date: 02/25/24 Status: Ordered aspirin 81 mg oral delayed release tablet Start: 12/05/22 15:34:00 EDT, 1 tab, PO, Daily Start Date: 12/05/22 Status: Ordered baclofen 10 mg oral tablet Start: 05/14/23 16:18:00 EDT, See Instructions, Disp# 60 tab, Refills: 0, TAKE 1 TABLET BY MOUTH TWICE DAILY, Pharmacy: [facility] Start Date: 05/14/23 Status: Ordered Flonase 50 mcg/inh nasal spray Start: 05/03/23 17:00:00 EST, 50 mcg =, each nostril, bid, Disp# 16 g, Refills: 0, PRN: congestion,Pharmacy: [id number] Start Date: 05/03/23 Stop Date: 06/02/23 Status: Ordered furosemide 20 mg oral tablet Start: 04/20/23 13:55:00 EST, 1 tab, PO, Daily, Disp# 30 tab, Refills: 4, Pharmacy: [facility] Start Date: 04/20/23 Stop Date: 09/17/23 Status: Ordered gabapentin 600 mg oral tablet Start: 04/20/23 12:49:00 EST, See Instructions, Disp# 120 tab, Refills: 2, TAKE 1 TABLET BY MOUTH FOUR TIMES DAILY FOR 30 DAYS, Pharmacy: [facility] Start Date: 04/20/23 Status: Ordered hydrALAZINE 50 mg oral tablet Start: 05/16/23 10:44:00 EDT, See Instructions, Disp# 270 tab, Refills: 2, TAKE 1 TABLET BY MOUTH THREE TIMES DAILY. TAKE 1 TABLET IN THE MORNING, 1 TABLET AT NOON, AND 1 TABLET IN THE EVENING., Pharmacy: [id number] Start Date: 05/16/23 Status: Ordered Lipitor 40 mg oral tablet Start: 12/20/22 8:54:00 EDT, 1 tab, PO, qhs, Disp# 90 tab, Refills: 3, Pharmacy: [facility] Start Date: 12/20/22 Status: Ordered LORazepam 0.5 mg oral tablet Start: 02/08/23 12:35:00 EST, 1 tab, PO, qid, Disp# 120 tab, Refills: 0, TAKE 1 TABLET BY MOUTH 4 TIMES DAILY NEEDED FOR ANXIETY, Pharmacy: [facility] Start Date: 02/08/23 Status: Ordered Melatonin Start: 10/21/21 7:39:00 EDT, 10 mg =, PO, qhs Start Date: 10/21/21 Status: Ordered Metoprolol Succinate ER 25 mg oral tablet, extended release Start: 02/01/23 6:43:00 EST, See Instructions, Disp# 90 tab, Refills: 2, TAKE 1 TABLET BY MOUTH ONCE DAILY, Pharmacy: [facility] Start Date: 02/01/23 Status: Ordered multivitamin Start: 12/14/15 15:17:00, 1 tab, PO, Daily Start Date: 12/14/15 Status: Ordered oxyCODONE 10 mg oral tablet, extended release Start: 06/01/23 15:10:00 EDT, 10 mg =, PO, q12h, Disp# 60 tab, Refills: 0, Note to Pharmacy: PDMP verified, Pharmacy: [facility] Start Date: 06/01/23 Status: Ordered PriLOSEC 20 mg oral delayed release capsule Start: 11/10/22 13:19:00 EDT, 1 cap, PO, bid, Disp# 180 cap, Refills: 3, Pharmacy: [facility] Start Date: 11/10/22 Status: Ordered tamsulosin 0.4 mg oral capsule Start: 03/22/23 10:13:00 EST, 1 cap, PO, bid, Disp# 180 cap, Refills: 1, Pharmacy: [facility] Start Date: 03/22/23 Status: Ordered [...] Start Date: 12/14/15 Status: Ordered Mental Status 06/04/23 Barriers to Learning one year None evide nt Mandatory Health Literacy Documentation Yes Health Literacy Communication Barriers N ever Primary Language German Problem List Condition Confirmation Course Effective Dates Status H ealth Status Informant Anterior cord syndrome Confirmed Active Anxiety Confirmed Active Anxiety disorder, unspecified Confirmed Active Dorsalgia, unspecified Confirmed Active 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 Cardio OV A&P; 06/16/21 Cardio A&P; Holter Monitor; 4 Runs NSVT Diagnosis Diagnosis Type Effective Dates Health Status Cl inical Service Informant Body mass index [BMI] 31.0-31.9, adult Discharge Diagnosis 06/04/23 Non-Specified Post-traumatic headache Discharge Diagnosis 06/04/23 Procedures Procedure Date Related Diagnosis Body Site [...] significant stenosis, occlusion, or aneurysm within the [place]. 5No acute intracranial abnormality. Atrophy [...] recent to oldest [Reference Range]: 1 Height 171.4 cm (06/04/23 10:57 AM) Patient Weight 92.1 kg (06/04/23 10:57 AM) Body Mass Index 31.35 kg/m2 (06/04/23 10:57 AM) Temperature [36.5-37.9 DegC] 36.3 DegC *LOW* (06/04/23 10:57 AM) Blood Pressure 120/58mmHg (06/04/23 10:57 AM) Cuff Pulse Pressure 62 mmHg (06/04/23 10:57 AM) Social History Social History Type Response Smoking Status Never smoked cigaret yue Sex Male Implantable Device List Procedure Provider Procedure Date Device Type Site Unknown Unknown 10/05/21 Unknown Unknown Device Identifier Serial Number Lot or Batch Number Manufacturing Date Expiration Date Distinct Identification Code MRI Safety Implantable Status Assigning Authority Unknown Unknown [id number] Unknown 03/15/23 Unknown Unknown Active Unknown Unknown Unknown [id number] Unknown 04/22/23 Unknown Unknown Active Unknown Unknown Unknown [id number] Unknown 04/22/23 Unknown Unknown Active Unknown Unknown Unknown [id number] Unknown 03/09/23 Unknown Unknown Active Unknown Unknown Unknown [id number] Unknown 04/22/23 Unknown Unknown Active Unknown Unknown Unknown [id number] Unknown 05/11/23 Unknown Unknown Active Unknown [...] Unknown Unknown Active Unkn own Unknown Unknown [id number] Unknown 02/26/24 Unknown Unknown Active Unknown [facility]CM Outpt Note * DO Lazo Mehwish: PERFORM Event Display: [facility]CM Outpt Note Authored Date: [id number] Chief Complaint Pt is here for E/R f/u on sunday after falling backwards on cement and hitting head. Pt stil has consistrent headaches. Has been taking tylenol History of Present Illness Roney is an 82-year-old male who presents for evaluation of apersistent headache after recent fall. [facility]. Patientnotes that he fell backwards and hit his headon the concrete floor. He did have a superficial cut to the area. In the ER he had a CT scan of his head and neck. There is no evidence of bleeding. There was finding of ascalpcontusion/hematomaover the posterior right side. He notes since then he has had aheadachein the front regionnear his forehead that radiates outto the sides a little bit. But it does not radiate out to the side. He rates it as a 4-5/10. He denies any aura. He has been taking Tylenol Extra Strength 2 tablets 3 times a day which does not provideadequate pain relief. He denies any double vision, blurred vision, change in motion or being more irritable,nauseaor change in balance. Patient is already suigvfdwkbt85 mg extended releasefor his backas well asgabapentin for neuropathyand baclofen. Also prescribed lorazepam PRN. Physical Exam Vitals & Measurements T:36.3C BP:120/58 SpO2:95% HT:171.4cm WT:92.100kg(Dosing) WT:92.1kg BMI:31.35 PHQ2 Data(Data Documented on:06/04/2023 10:53) Emotional health assessment NEGATIVE Constitutional: well appearing, no acute distress. Walking with anassistive device HEENT: normocephalic, atraumatic, sclera non-icteric. PERRLA, EOMI Skin:Intact ; warm; dry; pink; no rashes Psych: pleasant, cooperative, mood congruent with affect Neuro: -Coordination: normal Euadxr-wd-ezoy -CN 2-12: intact - Baseline symptoms: headache - Horizontal Smooth Pursuits: Symptomsnone; Eye Movement Abnormalities: none - Vertical Smooth Pursuits: Symptoms - none; Eye Movement Abnormalities: none Assessment/Plan 1.Post-traumatic headache Patient presenting for evaluation ofheadache that has been presentsince his fall. He has had CT head imaging which is negative along with normalevaluation today. Suspect that this is most likely a posttraumatic headache. He does not appear to have any other concussiontype symptomsat the time of evaluation today. Discussed that posttraumatic headachescan lastfor usually up to a few months, though sometimes last time. Given that he is onseveral other medications, we will start with a low-dose of amitriptylinewhich she will takeat bedtime. Additionally, recommend that he continue taking Tylenolfor pain relief. Okay to continue his other medications. Side effects of the amitriptyline were discussed. Him and his expressed understanding of this. Red flag symptoms were discussedas well assymptomsfor which I would recommend he be seen in the ER. He does also ask about medication for restless leg syndrome,discussed thathe may get benefit from the amitriptylinethough I would be hesitant about starting any othermedication treatmentsgiven these new headaches. Recommend follow-up in 1 month with PCPfor titration of amitriptyline or discontinuation if his headaches have resolved. 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 Cerumen impaction Chronic GERD Chronic pain syndrome [...] pain SCC (squamous cell carcinoma) Supraventricular tachycardia Unspecified diastolic (congestive) heart failure Vitamin B [...] History Surgery| Service Date: 10/05/2021urgery| Service Date: 09/2021Mo micrographic surgery| Service Date: 09/13/2021have biopsy| Service [...] Service Date: 09/10/2013Cataract surgery yael| Service Date: L| Service Date: 2009Procedure on back| Service Date: 2008Colonoscopy,diagnostic| Service Date: 01/06/2008Cystectomy neck| Service Date: oulder| Service Date: 2004Neck| Service Date: 1999Hernia| Service Date: 1992Back| Service Date: 1981Colonoscopy,remove lesion Medications acetaminophen(Tylenol 325 mg oral tablet), 650 mg= 2 tab, PO, q6h amitriptyline(amitriptyline 10 mg oral tablet), 10 mg= 1 tab, PO, qhs, 1 refills amLODIPine(amLODIPine 2.5 mg oral tablet), 2.5 mg= 1 tab, PO, Daily, 3 refills ascorbic acid(Vitamin C 500 mg oral tablet), 1000 mg= 2 tab, PO, Daily aspirin(aspirin 81 mg oral delayed release tablet), [...] virus vaccine, inactivated 11/23/2021 Given SARS-CoV-2 mRNA (kzrtfmytnau-kblw-bte) 06/22/2021 Recorded Comments : 2021-06-28: Historical information-source [...] Due Adult Social Determinants of Health Screening due06/04/23Unknown Frequency Due In Future Adult Influenza Vaccine not due until08/26/23and every 1year Satisfied(in the past 1 year) Satisfied Adult Influenza Vaccine on11/30/22.Satisfied by [facility] Garrett Angela Body Mass Index on06/04/23.Satisfied by [facility] Jade Carli Electronic Signature on File CC: Jb Limon MD [address] [id number] Electronically Reviewed/Signed by: Geraldine Lazo DO Author Signature Dt/Tm:06/04/2023 11:52 AM Division of Sports Medicine MM Patient Care team information Care Team Personnel Name: Harry Lou Amy E Position: Pharmacist Member Role: Pharmacy - Lifetime Address: Address: [address] Name: ZULY Sidhu Ashley Position: Physician Hand Dry Cleaner - Neurosurgery Member Role: Lifetime Relationship Address: Address: [address] [place] [phone] [place] Name: DO Hamilton Kristen M Position: Physician - Family Med Member Role: Lifetime Relationship Address: Address: [address] [place] [id number] [place] Name: Daisha Fitch Position: HIS Supervisor_P Member Role: HIS Lifetime Name: MD Ashly, Jb Lemos Position: Physician - Internal Med Member Role: Primary Care Provider Address: Address: [address] [place] [address] [place] Name: Harry Vitale Kyle Position: Pharmacist Member Role: Pharmacy - Lifetime Address: Address: [address] [place] [address] [place] Care Team Related Persons Name: GITA MEADOWS Address: home [address] [facility] [id number]"
== END 2023-08-09 15:32 | disposition home or self-care (01) ==
LOC: ED 00:47 → EDINP 00:47 → SUATTDRO 03:59 → 2N 04:49

== ENCOUNTER 2025-02-20 12:27 | Observation (INO) ==
--- NOTE | 2025-02-20 13:02 | XRay Report ---
XR chest 1V portable CLINICAL HISTORY: Chest pain, nonspecific COMPARISON STUDY: 09/16/2024 FINDINGS: Heart size and pulmonary vasculature are normal. No consolidation or pleural effusion. No p neumothorax. IMPRESSION: No acute findings. ACT 112: Negative or not required by law. Electronically signed by: Frederic Tavares M.D. 02/20/2025 1:01 PM
[2025-02-20 13:28] LABS: Hematocrit (blood only) 45.9 % (42.0-52.0); Hemoglobin 15.3 g/dL (14.0-18.0); Immature Granulocytes # (auto) 0.03 K/uL (0.01-0.20); Immature Granulocytes % (auto) 0.3 %; Mean Corpuscular Hemoglobin 29.5 pg (25.0-34.0); Mean Corpuscular Volume 88.6 fL (80.0-100.0); Platelet Count 144 K/uL (130-400); RDW Standard Deviation 42.7 fL (36.4-46.3); Red Blood Count 5.18 M/uL (4.70-6.10); White Blood Count 9.17 K/ul (4.8-10.8)
[2025-02-20] MEDS: ASPIRIN CHEW 324 MG PO STA (13:38)
[2025-02-20 13:45] LABS: Alanine Aminotransferase 15 U/L (7-52); Albumin Globulin Ratio 1.8 (0.9-2); Albumin Level 4.2 gm/dl (3.4-5.0); Alkaline Phosphatase 53 U/L (34-104); Anion Gap 6 (3-11); Bilirubin,Total 0.8 mg/dl (0.2-1.0); Blood Urea Nitrogen 26 mg/dl (6-23); Calcium 9.3 mg/dl (8.6-10.3); Carbon Dioxide 27 mmol/L (21-32); Chloride 105 mmol/L (98-107); Globulin 2.4 gm/dl (2.5-4.0); Glucose 86 mg/dl (70-99(Fasting)); Lipase 11 U/L (11-82); Potassium 4.4 mmol/L (3.5-5.1); Sodium 138 mmol/L (136-145); Total Protein 6.6 gm/dl (6.0-8.3)
--- NOTE | 2025-02-20 13:45 | Emergency Department Note ---
ED Provider Note History of Present Illness Chief Complaint: Chest Pain Stated Complaint: CHEST PAIN SINCE LAST NIGHT, COUGH, SENT BY Time Seen by Provider: 02/20/25 13:06 Source: patient Mode of arrival: ambulatory Limitations: no limitations Patient is an 84-year-old male who presents to the emergency department with complaints of chest pain that started last night. Patient states that he started with cold symptoms midday yesterday and has been coughing a lot and believes that that is the contributing factor to his chest discomfort. Patient also notes some nasal congestion and generalized bodyaches. Patient does note a history of CHF. Home Medications Medication Instructions Recorded Confirmed Type ascorbic acid (vitamin C) 1,000 mg 1 g PO QAM 04/12/18 02/20/25 History tablet (Vitamin C) atorvastatin 40 mg tablet (Lipitor) 40 mg PO HS 04/12/18 02/20/25 History cholecalciferol (vitamin D3) 125 5,000 unit PO QAM 04/12/18 02/20/25 History mcg (5,000 unit) tablet (Vitamin D3) fluticasone propionate 50 2 spray intranasal BID PRN 04/12/18 02/20/25 History mcg/actuation nasal Congestion spray,suspension (Flonase Allergy Relief) lorazepam 0.5 mg tablet 0.5 mg PO QID PRN Anxiety 04/12/18 02/20/25 History multivitamin (Multiple Vitamins 1 tab PO QAM 04/12/18 02/20/25 History tablet) aspirin 81 mg tablet,delayed 81 mg PO QAM 06/10/21 02/20/25 History release melatonin 10 mg tablet 10 mg PO HS 07/03/23 02/20/25 History duloxetine 60 mg capsule,delayed 60 mg PO QAM 09/24/23 02/20/25 History release duloxetine 30 mg capsule,delayed 30 mg PO QAM 03/24/24 02/20/25 History release furosemide 20 mg tablet 20 mg PO QAM 03/24/24 02/20/25 History hydrocortisone 2.5 % topical cream 1 applic topical BID PRN Itching 03/24/24 02/20/25 History ketoconazole 2 % topical cream 1 applic topical BID PRN as 03/24/24 02/20/25 History directed oxycodone 10 mg tablet,crush 10 mg PO QAM 03/24/24 02/20/25 History resistant,extended release 12 hr (OxyContin) sacubitril 97 mg-valsartan 103 mg 1 tab PO BID 03/24/24 02/20/25 History tablet (Entresto) acetaminophen 325 mg tablet 650 mg PO QID PRN Fever Or Pain 02/20/25 02/20/25 History (Tylenol) empagliflozin 10 mg tablet 10 mg PO QAM 02/20/25 02/20/25 History (Jardiance) gabapentin 600 mg tablet 600 mg PO TID 02/20/25 02/20/25 History omeprazole 20 mg capsule,delayed 20 mg PO BID 02/20/25 02/20/25 History release tamsulosin 0.4 mg capsule 0.4 mg PO BID 02/20/25 02/20/25 History Allergies Allergy/AdvReac Type Severity Reaction Status Date / Time pneumococcal vaccine Allergy Severe SHORTNESS Verified 02/20/25 19:29 OF BREATH, CHEST TIGHTNESS, BP WENT UP Past Med/Surg History Problem List (Updated 02/20/25 @ 19:46 by Evans Grey MD) Cough Acute exacerbation of CHF (congestive heart failure) (Acute) SOB (shortness of breath) (Acute) Rhinovirus (Acute) Fatigue Grade II diastolic dysfunction Elevated BUN (Acute) High serum chloride (Acute) Chest pain (Acute) Peripheral neuropathy Acute dyspnea (Acute) Insomnia 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 Rotator cuff arthropathy of right shoulder Encounter for pre-operative examination History of shoulder surgery R&L Chronic back pain [facility]DR BENSON Acid reflux Anxiety and depression Hypertension Hyperlipidemia Right shoulder pain (Acute) Nausea (Acute) Lumbar stenosis with neurogenic claudication (Acute) Headache (Acute) Headache (Acute) Fall (Acute) Dehydration (Acute) Chest pain (Acute) Chest pain (Acute) Medical History Grade II diastolic dysfunction follows w/ [facility] cardio Depression Acid reflux Chronic back pain Hyperlipidemia Hypertension Anxiety Complex sleep apnea syndrome non compliant w/cpap Insomnia Hx of chest pain 08/08/23, came to [facility] w/chest pain and dyspnea, had stress test 08/22/23 [facility]; f/u [facility] cardio Peripheral neuropathy Osteoarthritis Hernia currently in groin History of skin cancer Surgical History History of carpal tunnel release right Hx of arthroscopy of shoulder rt/lt History of surgical removal of skin lesion for skin cancer History of cervical spinal surgery 10-14-21 [place] [facility] [place] of cervical epidural hematoma 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 [facility] History of fusion of cervical spine x2--last 09/2021 @ [facility]--limited ROM moving neck back History of colonoscopy History of hernia surgery Bilateral inguinal hernia repair History of back surgery X4, (including fusion), L4-L5 most recent ~2018 Family History Other No family history of adverse response to anesthesia Social History Smoking Status: Never smoker Second Hand Exposure: No; Do You Dip or Chew Tobacco: No; Hx Alcohol Use: No Hx Substance Use: No Preferred Language: Mongolian Communication Ability: Effective Visual Impairment: No Limitations Coke Drawer Required: No Beliefs That Will Affect Care: None marital status: Current Living Situation: Spouse Current Living Situation Comment: 2 story, pt uses cane, bedroom and bathroom all on 1st story. Feels Safe at Home: Yes Assistive Devices: Cane and Glasses Physical Exam Vital Signs Vital Signs - 24 hr 02/20/25 12:32 02/20/25 12:38 02/20/25 13:05 Temperature 36.8 C Temperature Source Temporal Artery Scan Pulse Rate 74 61 Pulse Rate [Apical] Pulse Rhythm Pulse Rhythm [Apical] Pulse Strength [Apical] Respiratory Rate 22 Respiratory Effort / Characteristics Respiratory Depth Respiratory Pattern Blood Pressure 121/72 Blood Pressure [Right Arm] Blood Pressure Mean 88 Blood Pressure Mean [Right Arm] Pulse Oximetry 96 Oxygen Delivery Method Room Air Room Air Sepsis Recent Fever Within 48 Hours No Sepsis New/Unexplained Change in Mental Status No Sepsis Action Taken by Nursing No Action Required 02/20/25 13:06 02/20/25 14:28 02/20/25 16:00 Temperature Temperature Source Pulse Rate 70 Pulse Rate [Apical] 84 64 Pulse Rhythm Regular Pulse Rhythm [Apical] Regular Pulse Strength [Apical] Normal Respiratory Rate 18 18 16 Respiratory Effort / Characteristics Non-Labored Spontaneous Respiratory Depth Normal Respiratory Pattern Regular Blood Pressure Blood Pressure [Right Arm] 146/81 H Blood Pressure Mean Blood Pressure Mean [Right Arm] 102 Pulse Oximetry 93 97 96 Oxygen Delivery Method Room Air Room Air Room Air Sepsis Recent Fever Within 48 Hours Sepsis New/Unexplained Change in Mental Status Sepsis Action Taken by Nursing 02/20/25 17:02 02/20/25 18:00 Temperature Temperature Source Pulse Rate 65 Pulse Rate [Apical] 69 Pulse Rhythm Pulse Rhythm [Apical] Pulse Strength [Apical] Respiratory Rate 18 Respiratory Effort / Characteristics Respiratory Depth Respiratory Pattern Blood Pressure Blood Pressure [Right Arm] 166/123 H Blood Pressure Mean Blood Pressure Mean [Right Arm] 137 Pulse Oximetry 100 Oxygen Delivery Method Nebulizer Sepsis Recent Fever Within 48 Hours Sepsis New/Unexplained Change in Mental Status Sepsis Action Taken by Nursing VITAL SIGNS - Vital signs and nursing notes were reviewed. GENERAL -84-year-old male appearing their stated age, who is in no acute distress. Communicates well with provider and answers questions appropriately. HEAD - Normocephalic, Atraumatic. No Larios's Sign or Raccoon's Eyes. No depressed skull fractures palpable. EYES - PERRL with EOMI bilaterally. Sclera anicteric. Conjunctiva pink and moist with no injection noted. EARS - No deformities of external structures noted on gross examination bilaterally. NECK - Neck with FROM. Supple to palpation. No lymphadenopathy noted. LUNGS - Chest wall symmetric without accessory muscle use, intercostals retractions, or central cyanosis. Normal vesicular breath sounds CTA B/L. No wheezes, rales, or rhonchi appreciated. CARDIAC - RRR with S1/S2. No murmur, rubs, or gallops appreciated. EXTREMITIES - No edema present. +5/5 strength noted in UE/LE bilaterally. NEUROLOGIC -Sensory intact to light touch throughout. PSYCH - A&Ox3 and cooperates fully with examiner. Pt is very pleasant and interacts well with examiner Course Administered Medications Discontinued Medications Acetaminophen (Acetaminophen 325 Mg Tab) 650 mg PO Q4H PRN PRN Reason: pain/fever Stop: 03/22/25 21:05 Last Admin: 02/21/25 07:10 Dose: 650 mg Documented By: SHB Albuterol (Albut/Ipratrop 3mg/0.5mg Neb 3 Ml Vial) 3 ml NEB NOW STA; Protocol Stop: 02/20/25 17:34 Last Admin: 02/20/25 18:01 Dose: 3 ml Documented By: ALESSIA Albuterol (Albuterol 0.083% Nebu Soln 3 Ml Vial) 2.5 mg NEB Q6R [facility]; Protocol Stop: 03/23/25 00:59 Last Admin: 02/21/25 13:42 Dose: Not Given Documented By: Admin: 02/21/25 07:01 Dose: 2.5 mg Documented By: Admin: 02/21/25 02:04 Dose: 2.5 mg Documented By: JOSH Aspirin (Aspirin Chew 324 Mg) 324 mg PO NOW STA Stop: 02/20/25 13:07 Last Admin: 02/20/25 13:38 Dose: 324 mg Documented By: roxanne Aspirin (Aspirin 81 Mg Ectab) [address] [facility] Stop: 03/23/25 08:59 Last Admin: 02/21/25 09:11 Dose: 81 mg Documented By: ELINA Atorvastatin Calcium (Atorvastatin 40 Mg Tab) 40 mg PO [facility] Stop: 03/22/25 21:05 Last Admin: 02/20/25 22:20 Dose: 40 mg Documented By: RAMIN Duloxetine HCl (Duloxetine Hcl 30 Mg Cap) [address] [facility] Stop: 03/23/25 08:59 Last Admin: 02/21/25 09:09 Dose: 30 mg Documented By: ELINA Duloxetine HCl (Duloxetine Hcl 60 Mg Cap) [address] [facility] Stop: 03/23/25 08:59 Last Admin: 02/21/25 09:09 Dose: 60 mg Documented By: ELINA Empagliflozin (Empagliflozin 10 Mg Tab) [address] [facility] Stop: 03/23/25 08:59 Last Admin: 02/21/25 09:09 Dose: 10 mg Documented By: ELINA Enoxaparin Sodium (Enoxaparin Inj 40 Mg/0.4 Ml Syr) [address] [facility] Stop: 03/23/25 08:59 Last Admin: 02/21/25 09:07 Dose: 40 mg Documented By: ELINA Fluticasone Propionate (Fluticasone Propionate Na Spr 16 Gm Btl) 1 sprays NA BID [facility] Stop: 03/22/25 21:05 Last Admin: 02/21/25 09:08 Dose: 1 sprays Documented By: Admin: 02/20/25 22:18 Dose: 1 sprays Documented By: RAMIN Furosemide (Furosemide 20 Mg Tab) 20 mg PO NOW STA Stop: 02/20/25 17:34 Last Admin: 02/20/25 18:33 Dose: 20 mg Documented By: ALESSIA Furosemide (Furosemide 20 Mg Tab) 20 mg PO QAM JOE Stop: 03/23/25 08:59 Last Admin: 02/21/25 09:10 Dose: 20 mg Documented By: ELINA Gabapentin (Gabapentin 600 Mg Tab) 600 mg PO TID JOE Stop: 03/22/25 21:05 Last Admin: 02/21/25 12:52 Dose: 600 mg Documented By: Admin: 02/21/25 09:11 Dose: 600 mg Documented By: Admin: 02/20/25 22:21 Dose: 600 mg Documented By: RAMIN Guaifenesin (Guaifenesin 600 Mg Tabcr) 600 mg PO Q12 JOE Stop: 03/22/25 21:05 Last Admin: 02/21/25 09:10 Dose: 600 mg Documented By: Admin: 02/20/25 22:21 Dose: 600 mg Documented By: RAMIN Lidocaine HCl (Lidocaine Viscous 2% 15 Ml Udc) 15 ml MT NOW ONE Stop: 02/20/25 17:34 Last Admin: 02/20/25 18:00 Dose: 15 ml Documented By: ALESSIA Oxycodone HCl (Oxycodone Hcl 10 Mg Tabcr (Oxycontin)) 10 mg PO DAILY JOE Stop: 03/07/25 08:59 Last Admin: 02/21/25 09:09 Dose: 10 mg Documented By: ELINA Pantoprazole Sodium (Pantoprazole 40 Mg Tab) 40 mg PO BID JOE Stop: 03/23/25 08:59 Last Admin: 02/21/25 09:10 Dose: 40 mg Documented By: ELINA Sacubitril/Valsartan (Valsartan/Sacubitril 103/97mg Tab) 1 tab PO BID JOE Stop: 03/22/25 21:05 Last Admin: 02/21/25 09:09 Dose: 1 tab Documented By: Admin: 02/20/25 22:22 Dose: 1 tab Documented By: RAMIN Medical Decision Making Differential Diagnosis COVID, RSV, influenza, adenovirus, enterovirus/rhinovirus, pneumonia, CHF, cardiac arrhythmia, among others Medical Records Attestation: I reviewed the patient's medical records. Home Medications was personally reviewed by me Laboratory Data Attestation: I reviewed the patient's lab results. 02/21/25 05:04 02/21/25 05:04 Lab Results 02/20/25 02/20/25 02/20/25 Range/Units 12:48 12:48 12:48 WBC (4.8-10.8) K/ul RBC (4.70-6.10) M/uL Hgb (14.0-18.0) g/dL Hct (42.0-52.0) % MCV (80.0-100.0) fL MCH (25.0-34.0) pg MCHC (32.0-36.0) g/dL RDW Std Deviation (36.4-46.3) fL RDW Coeff of Neema (11.5-14.5) % Plt Count (130-400) K/uL MPV (9.4-12.4) fL Immature Gran % (Auto) % Neut % (Auto) % Lymph % (Auto) % [place] % (Auto) % Eos % (Auto) % Baso % (Auto) % Neut # (Auto) (1.40-6.50) K/uL Lymph # (Auto) (1.20-3.40) K/uL [place] # (Auto) (0.11-0.59) K/uL Eos # (Auto) (0.00-0.50) K/uL Baso # (Auto) (0.00-0.20) K/uL Immature Gran # (Auto) (0.01-0.20) K/uL PT INR APTT PTT Ratio Sodium (136-145) mmol/L Potassium (3.5-5.1) mmol/L Chloride (98-107) mmol/L Carbon Dioxide (21-32) mmol/L Anion Gap (3-11) BUN (6-23) mg/dl Creatinine (0.6-1.4) mg/dl Est Cr Clr Drug Dosing eGFR BUN/Creatinine Ratio (10-20) Glucose (70-99(Fasting)) mg/dl Calcium (8.6-10.3) mg/dl Total Bilirubin (0.2-1.0) mg/dl AST (13-39) U/L ALT (7-52) U/L Alkaline Phosphatase (34-104) U/L Troponin I High Sens (0-20) pg/ml B-Natriuretic Peptide (0-100) pg/ml Total Protein (6.0-8.3) gm/dl Albumin (3.4-5.0) gm/dl Globulin (2.5-4.0) gm/dl Albumin/Globulin Ratio (0.9-2) Lipase (11-82) U/L Procalcitonin (0-0.5) ng/ml Adenovirus (PCR) Not Detected (NotDetected) B. pertussis DNA (PCR) Not Detected (NotDetected) B.parapertussis DNA PCR Not Detected (NotDetected) C. pneumoniae DNA (PCR) Not Detected (NotDetected) Coronavirus OC43 (PCR) Not Detected (NotDetected) Coronavirus HKU1 (PCR) Not Detected (NotDetected) Coronavirus 229E (PCR) Not Detected (NotDetected) SARS-CoV-2 (PCR) NEGATIVE Not Detected (Negative) Coronavirus NL63 (PCR) Not Detected (NotDetected) Human Metapneumovir PCR Not Detected (NotDetected) Influenza Type A (PCR) Negative Not Detected (Neg) Influenza Type B (PCR) Negative (Neg) M. pneumoniae (PCR) (NotDetected) Parainfluenza 1 (PCR) (NotDetected) Parainfluenza 2 (PCR) (NotDetected) Parainfluenza 3 (PCR) (NotDetected) Parainfluenza 4 (PCR) (NotDetected) RSV (RT-PCR) (Neg) RSV (PCR) (NotDetected) Entero/Rhino (PCR) (NotDetected) 02/20/25 02/20/25 02/20/25 Range/Units 12:48 13:03 13:24 WBC 9.17 (4.8-10.8) K/ul RBC 5.18 (4.70-6.10) M/uL Hgb 15.3 (14.0-18.0) g/dL Hct 45.9 (42.0-52.0) % MCV 88.6 (80.0-100.0) fL MCH 29.5 (25.0-34.0) pg MCHC 33.3 (32.0-36.0) g/dL RDW Std Deviation 42.7 (36.4-46.3) fL RDW Coeff of Neema 13.2 (11.5-14.5) % Plt Count 144 (130-400) K/uL MPV 11.8 (9.4-12.4) fL Immature Gran % (Auto) 0.3 % Neut % (Auto) 81.8 % Lymph % (Auto) 9.2 % [place] % (Auto) 7.0 % Eos % (Auto) 1.5 % Baso % (Auto) 0.2 % Neut # (Auto) 7.50 H (1.40-6.50) K/uL Lymph # (Auto) 0.84 L (1.20-3.40) K/uL [place] # (Auto) 0.64 H (0.11-0.59) K/uL Eos # (Auto) 0.14 (0.00-0.50) K/uL Baso # (Auto) 0.02 (0.00-0.20) K/uL Immature Gran # (Auto) 0.03 (0.01-0.20) K/uL PT Cancelled INR Cancelled APTT Cancelled PTT Ratio Cancelled Sodium 138 (136-145) mmol/L Potassium 4.4 (3.5-5.1) mmol/L Chloride 105 (98-107) mmol/L Carbon Dioxide 27 (21-32) mmol/L Anion Gap 6 (3-11) BUN 26 H (6-23) mg/dl Creatinine 1.08 (0.6-1.4) mg/dl Est Cr Clr Drug Dosing Not Reportable eGFR 67.67 BUN/Creatinine Ratio 24.1 H (10-20) Glucose 86 (70-99(Fasting)) mg/dl Calcium 9.3 (8.6-10.3) mg/dl Total Bilirubin 0.8 (0.2-1.0) mg/dl AST 24 (13-39) U/L ALT 15 (7-52) U/L Alkaline Phosphatase 53 (34-104) U/L Troponin I High Sens 10.8 10.2 (0-20) pg/ml B-Natriuretic Peptide (0-100) pg/ml Total Protein 6.6 (6.0-8.3) gm/dl Albumin 4.2 (3.4-5.0) gm/dl Globulin 2.4 L (2.5-4.0) gm/dl Albumin/Globulin Ratio 1.8 (0.9-2) Lipase 11 (11-82) U/L Procalcitonin < 0.02 (0-0.5) ng/ml Adenovirus (PCR) (NotDetected) B. pertussis DNA (PCR) (NotDetected) B.parapertussis DNA PCR (NotDetected) C. pneumoniae DNA (PCR) (NotDetected) Coronavirus OC43 (PCR) (NotDetected) Coronavirus HKU1 (PCR) (NotDetected) Coronavirus 229E (PCR) (NotDetected) SARS-CoV-2 (PCR) (Negative) Coronavirus NL63 (PCR) (NotDetected) Human Metapneumovir PCR (NotDetected) Influenza Type A (PCR) (Neg) Influenza Type B (PCR) Not Detected (Neg) M. pneumoniae (PCR) Not Detected (NotDetected) Parainfluenza 1 (PCR) Not Detected (NotDetected) Parainfluenza 2 (PCR) Not Detected (NotDetected) Parainfluenza 3 (PCR) Not Detected (NotDetected) Parainfluenza 4 (PCR) Not Detected (NotDetected) RSV (RT-PCR) Negative (Neg) RSV (PCR) Not Detected (NotDetected) Entero/Rhino (PCR) DETECTED A (NotDetected) 02/20/25 02/20/25 Range/Units 14:15 16:10 WBC (4.8-10.8) K/ul RBC (4.70-6.10) M/uL Hgb (14.0-18.0) g/dL Hct (42.0-52.0) % MCV (80.0-100.0) fL MCH (25.0-34.0) pg MCHC (32.0-36.0) g/dL RDW Std Deviation (36.4-46.3) fL RDW Coeff of Neema (11.5-14.5) % Plt Count (130-400) K/uL MPV (9.4-12.4) fL Immature Gran % (Auto) % Neut % (Auto) % Lymph % (Auto) % [place] % (Auto) % Eos % (Auto) % Baso % (Auto) % Neut # (Auto) (1.40-6.50) K/uL Lymph # (Auto) (1.20-3.40) K/uL [place] # (Auto) (0.11-0.59) K/uL Eos # (Auto) (0.00-0.50) K/uL Baso # (Auto) (0.00-0.20) K/uL Immature Gran # (Auto) (0.01-0.20) K/uL PT 10.9 INR 1.0 APTT 28 PTT Ratio 1.0 Sodium (136-145) mmol/L Potassium (3.5-5.1) mmol/L Chloride (98-107) mmol/L Carbon Dioxide (21-32) mmol/L Anion Gap (3-11) BUN (6-23) mg/dl Creatinine (0.6-1.4) mg/dl Est Cr Clr Drug Dosing eGFR BUN/Creatinine Ratio (10-20) Glucose (70-99(Fasting)) mg/dl Calcium (8.6-10.3) mg/dl Total Bilirubin (0.2-1.0) mg/dl AST (13-39) U/L ALT (7-52) U/L Alkaline Phosphatase (34-104) U/L Troponin I High Sens 12.7 (0-20) pg/ml B-Natriuretic Peptide 195 H (0-100) pg/ml Total Protein (6.0-8.3) gm/dl Albumin (3.4-5.0) gm/dl Globulin (2.5-4.0) gm/dl Albumin/Globulin Ratio (0.9-2) Lipase (11-82) U/L Procalcitonin (0-0.5) ng/ml Adenovirus (PCR) (NotDetected) B. pertussis DNA (PCR) (NotDetected) B.parapertussis DNA PCR (NotDetected) C. pneumoniae DNA (PCR) (NotDetected) Coronavirus OC43 (PCR) (NotDetected) Coronavirus HKU1 (PCR) (NotDetected) Coronavirus 229E (PCR) (NotDetected) SARS-CoV-2 (PCR) (Negative) Coronavirus NL63 (PCR) (NotDetected) Human Metapneumovir PCR (NotDetected) Influenza Type A (PCR) (Neg) Influenza Type B (PCR) (Neg) M. pneumoniae (PCR) (NotDetected) Parainfluenza 1 (PCR) (NotDetected) Parainfluenza 2 (PCR) (NotDetected) Parainfluenza 3 (PCR) (NotDetected) Parainfluenza 4 (PCR) (NotDetected) RSV (RT-PCR) (Neg) RSV (PCR) (NotDetected) Entero/Rhino (PCR) (NotDetected) Imaging Data Radiologist's Impression: Chest X-Ray 02/20/25 12:37 XR chest 1V portable CLINICAL HISTORY: Chest pain, nonspecific COMPARISON STUDY: 09/16/2024 FINDINGS: Heart size and pulmonary vasculature are normal. No consolidation or pleural effusion. No pneumothorax. IMPRESSION: No acute findings. ACT 112: Negative or not required by law. Electronically signed by: Frederic Tavares M.D. 02/20/2025 1:01 PM MDM Narrative Patient is an 84-year-old male who presents to the emergency department with complaints of chest pain that started last night. Patient states that he started with cold symptoms midday yesterday and has been coughing a lot and believes that that is the contributing factor to his chest discomfort. Patient also notes some nasal congestion and generalized bodyaches. Patient does note a history of CHF. Patient was evaluated by myself and findings were noted in the physical exam above. Patient was ordered IV placement, lab work, chest x-ray, EKG, and a [employer] upper respiratory panel. Patient's lab work resulted with a normal white blood cell count of 9.17. Patient had no indication of anemia with a hemoglobin of 15.3 and hematocrit of 45.9. Patient had no significant electrolyte imbalance noted. Patient's initial troponin was 10.8. Patient had a procalcitonin that was less than 0.02. Patient also had a COVID/influenza/RSV swab that was completed and negative for any findings. Patient's chest x-ray was completed and interpreted by radiology to show no evidence of any acute findings. Patient's EKG was completed and interpreted by myself to show the patient in normal sinus rhythm. Patient had a [employer] upper respiratory panel that was positive for enterovirus/rhinovirus. Patient also had a BNP level that resulted elevated at 195. I discussed all these findings with the patient and his daughter at bedside who both verbalized understanding. I discussed with the patient that we could give him a dose of Lasix and a DuoNeb while he was here to help with the wheezing that he is experiencing. The patient verbalized understanding and was agreeable to this plan. Upon subsequent reevaluation the patient notes that he still feels like he cannot take a full deep breath and is concerned about the mild edema noted in his bilateral lower extremities. I discussed with the patient that I could discuss his case with the inpatient team to talk to them about admission to the hospital for further evaluation and management and to ensure that he is feeling better, staying hydrated and not having any breathing difficulty overnight. Patient verbalized understanding and was agreeable to the plan for admission to the hospital. [facility] and gave him a full report on the patient's chief complaint, current status and the results of his imaging and lab work. He verbalized understanding and was agreeable to accept the patient for admission under Dr. Sykes's service. [facility] further evaluation management of this patient. Impression Rhinovirus, SOB (shortness of breath), Acute exacerbation of CHF (congestive heart failure) Discharge Plan Visit Data Chief Complaint: Chest Pain Stated Complaint: CHEST PAIN SINCE LAST NIGHT, COUGH, SENT BY ED Provider: Husam Dobson ED Midlevel Provider: Conchis Pena Discharge Problem: Rhinovirus, SOB (shortness of breath), Acute exacerbation of CHF (congestive heart failure) Patient Disposition: Admitted As Inpatient Condition: Fair Discharge Instructions Interventions: ED Discharge Assessment Last Done: 02/20/25 21:07 ED DC CONDITION Conditon at Discharge Condition at Discharge: Fair Discharge Problem: Acute exacerbation of CHF (congestive heart failure) Qualifiers: Heart failure type: unspecified Qualified Code(s): I50.9 - Heart failure, unspecified
[2025-02-20 14:00] LABS: Influenza A virus by PCR Negative (Neg); Influenza B virus by PCR Negative (Neg); SARS CoV2 RNA(COVID-19) Ceph NEGATIVE (Negative)
[2025-02-20 15:42] LABS: INR 1.0 (0.9-1.1); Partial Thromboplastin Time 28 Seconds (21-31); Prothrombin Time 10.9 Seconds (9.0-12.0)
[2025-02-20 15:52] LABS: Chlamydia pneumoniae PCR Not Detected (NotDetected); Coronavirus 229E PCR Not Detected (NotDetected); Coronavirus CoV-2 (COVID19)PCR Not Detected (NotDetected); Coronavirus HKU1 PCR Not Detected (NotDetected); Coronavirus NL63 PCR Not Detected (NotDetected); Coronavirus OC43PCR Not Detected (NotDetected); Human Metapneumovirus PCR Not Detected (NotDetected); Parainfluenza Virus 1 PCR Not Detected (NotDetected); Parainfluenza Virus 2 PCR Not Detected (NotDetected); Parainfluenza Virus 3 PCR Not Detected (NotDetected); Parainfluenza Virus 4 PCR Not Detected (NotDetected); Respiratory Syncytial VirusPCR Not Detected (NotDetected); Rhinovirus/Enterovirus PCR DETECTED (NotDetected)
[2025-02-20] MEDS: LIDOCAINE VISCOUS 2% 15 ML UDC MT ONE (18:00)
[2025-02-20] MEDS: ALBUT/IPRATROP 3MG/0.5MG NEB 3 ML VIAL NEB STA (18:01)
[2025-02-20] MEDS: FUROSEMIDE 20 MG TAB PO STA (18:33)
--- NOTE | 2025-02-20 18:51 | History & Physical Report ---
Date of Service February 20, 2025 Assessment & Plan (1) Cough: (2) Rhinovirus: (3) Chest pain: (4) Peripheral neuropathy: (5) Chronic back pain: (6) Hyperlipidemia: (7) Anxiety and depression: Plan Mr. Valentine is a pleasant 84yo gentleman with PMH of HFpEF and anxiety who p resents with acute cough associated with chest pain, dyspnea, sore throat, and nasal congestion. Workup in the ED notable for rhinovirus. Pt will be admitted and managed for rhinovirus infection. #Rhinovirus #Cough #Chest Pain #Dyspnea WBC 9.17, procal <0.02, troponins neg x3 s/p lasix 20mg and albuterol nebulizer, lidocaine 15ml, aspirin 324mg in ED CXR unremarkable. Saturating well on room air. He did see pulmonology earlier this year for cryptogenic dyspnea and had normal spirometry and no findings of pulmonary disease -admit to med-tele -droplet precautions -supplemental O2 as needed -albuterol nebulizers q6hrs for dyspnea and wheezing -Mucinex 600mg bid -fluticasone nasal spray 1 sprays/nostril bid for congestion -Flutter valve QID -Tylenol 650mg prn for fever, mild pain -AM labs #Heart Failure with Preserved Ejection Fraction -last echo 06/2023 notable for EF 55%, grade II diastolic dysfunction, severely dilated LA, dilated RA -continue entresto 97/103mg bid -continue furosemide 20mg qdaily -continue Jardiance 10mg qdaily #MALICK -CPAP qhs #GERD -omeprazole 20mg qdaily #Anxiety -duloxetine 90mg qdaily -lorazepam 0.5mg QID prn #Chronic Pain #Lumbar Stenosis #Neuropathic Pain -gabapentin 600mg TID -oxycodone 10mg qdaily Dispo: med-tele VTE prophylaxis: lovenox 40mg qdaily Code Status: DNR/DNI but pt would like to be comfortable Diet: Heart Healthy, low sodium History of Present Illness Chief Complaint: chest pain Primary Care Provider: Jb Limon MD Mr. Valentine is a pleasant 84yo gentleman with PMH of HFpEF and anxiety who presented to the ED for a one day history of continuous coughing. The pt was in his usual state of health until about 11pm last evening when he started coughing. He stated the cough had one episode of sierra-clear sputum, but the rest have been nonproductive. The cough was associated with nasal congestion, sore throat, chest pain, and SOB. The CP is not exertional and only seems to occur when he coughs. He did not have chest pain at bedside. As per the pt, he can usually do most household activities without feeling short of breath, but now he is short of breath even at rest. He denies fever, chills, sick contacts, N/V, abdominal, or complaints. Allergies Allergy/AdvReac Type Severity Reaction Status Date / Time pneumococcal vaccine Allergy Severe SHORTNESS Verified 02/20/25 19:29 OF BREATH, CHEST TIGHTNESS, BP WENT UP Home Medications Medication Instructions Recorded Confirmed Type ascorbic acid (vitamin C) 1,000 mg 1 g PO QAM 04/12/18 02/20/25 History tablet (Vitamin C) atorvastatin 40 mg tablet (Lipitor) 40 mg PO HS 04/12/18 02/20/25 History cholecalciferol (vitamin D3) 125 5,000 unit PO QAM 04/12/18 02/20/25 History mcg (5,000 unit) tablet (Vitamin D3) fluticasone propionate 50 2 spray intranasal BID PRN 04/12/18 02/20/25 History mcg/actuation nasal Congestion spray,suspension (Flonase Allergy Relief) lorazepam 0.5 mg tablet 0.5 mg PO QID PRN Anxiety 04/12/18 02/20/25 History multivitamin (Multiple Vitamins 1 tab PO QAM 04/12/18 02/20/25 History tablet) aspirin 81 mg tablet,delayed 81 mg PO QAM 06/10/21 02/20/25 History release melatonin 10 mg tablet 10 mg PO HS 07/03/23 02/20/25 History duloxetine 60 mg capsule,delayed 60 mg PO QAM 09/24/23 02/20/25 History release duloxetine 30 mg capsule,delayed 30 mg PO QAM 03/24/24 02/20/25 History release furosemide 20 mg tablet 20 mg PO QAM 03/24/24 02/20/25 History hydrocortisone 2.5 % topical cream 1 applic topical BID PRN Itching 03/24/24 02/20/25 History ketoconazole 2 % topical cream 1 applic topical BID PRN as 03/24/24 02/20/25 History directed oxycodone 10 mg tablet,crush 10 mg PO QAM 03/24/24 02/20/25 History resistant,extended release 12 hr (OxyContin) sacubitril 97 mg-valsartan 103 mg 1 tab PO BID 03/24/24 02/20/25 History tablet (Entresto) acetaminophen 325 mg tablet 650 mg PO QID PRN Fever Or Pain 02/20/25 02/20/25 History (Tylenol) empagliflozin 10 mg tablet 10 mg PO QAM 02/20/25 02/20/25 History (Jardiance) gabapentin 600 mg tablet 600 mg PO TID 02/20/25 02/20/25 History omeprazole 20 mg capsule,delayed 20 mg PO BID 02/20/25 02/20/25 History release tamsulosin 0.4 mg capsule 0.4 mg PO BID 02/20/25 02/20/25 History Past Med/Surg History Problem List (Updated 02/20/25 @ 19:46 by Evans Grey MD) Cough Acute exacerbation of CHF (congestive heart failure) (Acute) SOB (shortness of breath) (Acute) Rhinovirus (Acute) Fatigue Grade II diastolic dysfunction Elevated BUN (Acute) High serum chloride (Acute) Chest pain (Acute) Peripheral neuropathy Acute dyspnea (Acute) Insomnia 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 Rotator cuff arthropathy of right shoulder Encounter for pre-operative examination History of shoulder surgery R&L Chronic back pain [facility]DR [facility] Acid reflux Anxiety and depression Hypertension Hyperlipidemia Right shoulder pain (Acute) Nausea (Acute) Lumbar stenosis with neurogenic claudication (Acute) Headache (Acute) Headache (Acute) Fall (Acute) Dehydration (Acute) Chest pain (Acute) Chest pain (Acute) Medical History Grade II diastolic dysfunction follows w/ [facility] cardio Depression Acid reflux Chronic back pain Hyperlipidemia Hypertension Anxiety Complex sleep apnea syndrome non compliant w/cpap Insomnia Hx of chest pain 08/08/23, [place] w/chest pain and dyspnea, had stress test 08/22/23 [facility]; f/u [facility] cardio Peripheral neuropathy Osteoarthritis Hernia currently in groin History of skin cancer Surgical History History of carpal tunnel release right Hx of arthroscopy of shoulder rt/lt History of surgical removal of skin lesion for skin cancer History of cervical spinal surgery 10-14-21 [place] [facility] [place] of cervical epidural hematoma 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 @ [facility] History of fusion of cervical spine x2--last 09/2021 @ [facility] [place]--limited ROM moving neck back History of colonoscopy History of hernia surgery Bilateral inguinal hernia repair History of back surgery X4, (including fusion), L4-L5 most recent ~2018 Family History Other No family history of adverse response to anesthesia Social History Smoking Status: Never smoker Second Hand Exposure: No; Do You Dip or Chew Tobacco: No; Hx Alcohol Use: No Hx Substance Use: No Preferred Language: Lao Communication Ability: Effective Visual Impairment: No Limitations 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 Other Information That Helps Us Care for You: No Feels Safe at Home: Yes Safety Concerns: Feels Safe At This Time Assistive Devices: Cane and Glasses Assistive Devices Comment: uses readers Review of Systems Review of Systems: per HPI Physical Exam Physical Exam: GA: well groomed, well nourished in no apparent distress. AAOx3 HEENT: head normocephalic, atraumatic. EOMI. nares patent. Tympanic membranes visualized and clear without erythema b/l. No erythema or exudates of the oropharynx. RESP: wheezing present b/l CARDIOVASCULAR: S1 and S2 heard. No murmurs, rubs, or gallops. Radial pulses 2+ RRR GI: Normoactive bowel sounds, no distension or tenderness or masses felt to palpation MSK: no gross abnormalities or focal deficits SKIN: warm, dry, 1+ edema of LE b/l PSYCH: appropriate mood and affect NEURO: no focal deficits. speech fluent Results & Data Results & Data Vital Signs (Past 12 Hours) Vital Signs Temp Pulse Pulse Resp BP BP Pulse Ox 02/20/25 18:00 69 18 166/123 H 100 02/20/25 17:02 65 02/20/25 16:00 64 16 96 02/20/25 14:28 84 18 146/81 H 97 02/20/25 13:06 70 18 93 02/20/25 13:05 61 02/20/25 12:38 02/20/25 12:32 36.8 C 74 22 121/72 96 O2 Del Method 02/20/25 18:00 Nebulizer 02/20/25 17:02 02/20/25 16:00 Room Air 02/20/25 14:28 Room Air 02/20/25 13:06 Room Air 02/20/25 13:05 02/20/25 12:38 Room Air 02/20/25 12:32 Room Air Supervising Physician Co-Signing Physician Notes Patient seen and examined, chart reviewed, case discussed with Dr. Grey and I agree with the assessment and plan as above. In brief, patient is an 84yo male with history of HFpEF presenting with cough with associated chest discomfort, SOB. Found to be POSITIVE for Rhino/Enterovirus. Mild elevation of BNP On exam patient is resting comfortably, NAD No rash +S1/S2, regular, no m/r/g Lungs with scattered end-expiratory wheezing 1+ edema of bilateral LE Labs and images reviewed Assessment/Plan - 84yo male presenting with Rhino/Enterovirus. Possible mild decompensation of CHF. Patient afebrile, HD stable, no respiratory distress. -Supportive care for Entero/Rhinovirus -Lasix 20mg IV given in the ER - will continue her normal PO dosing starting in AM -Nebs PRN -Remainder as above Resident Activity Tracking Resident Involvement: Resident Care Provided Care Provided: Adult Hospital Medicine (1) Cough Cough type: acute Qualified Code(s): R05.1 - Acute cough (3) Chest pain Chest pain type: unspecified Qualified Code(s): R07.9 - Chest pain, unspecified
[2025-02-20] MEDS ORDERED: MELATONIN 3 MG TAB PO PRN (21:06)
[2025-02-20] MEDS ORDERED: POLYETHYLENE (MIRALAX) 17 GM PACK PO PRN (21:06)
[2025-02-20] MEDS ORDERED: LORazepam 0.5 MG TAB PO PRN (21:06)
[2025-02-20] MEDS ORDERED: ALUMINUM/MAGNESIUM SUSP 30 ML UDC PO PRN (21:06)
[2025-02-20] MEDS ORDERED: ONDANSETRON INJ 2 MG/ML 2 ML VIAL IV PRN (21:06)
[2025-02-20] MEDS ORDERED: Patient's HEIGHT &/or WEIGHT Needed STA (21:12)
[2025-02-20] MEDS: FLUTICASONE PROPIONATE NA SPR 16 GM BTL SCH (22:18)
[2025-02-20] MEDS: ATORVASTATIN 40 MG TAB PO SCH (22:20)
[2025-02-20] MEDS: GABAPENTIN 600 MG TAB PO SCH (22:21)
[2025-02-20] MEDS: guaiFENesin 600 MG TABCR PO SCH (22:21)
[2025-02-20] MEDS: VALSARTAN/SACUBITRIL 103/97MG TAB PO SCH (22:22)
[2025-02-20 23:18] VITALS: TEMP 97.9
--- NOTE | 2025-02-20 23:34 | Billing Data ---
Date of Service February 20, 2025 Coding Level of Care Code 59070 INT INP/OBS CARE
[2025-02-21] MEDS: ALBUTEROL 0.083% NEBU SOLN 3 ML VIAL NEB SCH (02:04)
[2025-02-21 06:17] LABS: Hematocrit (blood only) 42.5 % (42.0-52.0); Hemoglobin 14.7 g/dL (14.0-18.0); Immature Granulocytes # (auto) 0.02 K/uL (0.01-0.20); Immature Granulocytes % (auto) 0.3 %; Mean Corpuscular Hemoglobin 30.6 pg (25.0-34.0); Mean Corpuscular Volume 88.4 fL (80.0-100.0); Platelet Count 133 K/uL (130-400); RDW Standard Deviation 43.1 fL (36.4-46.3); Red Blood Count 4.81 M/uL (4.70-6.10); White Blood Count 7.51 K/ul (4.8-10.8)
[2025-02-21 06:37] LABS: Anion Gap 7.0 (3-11); Blood Urea Nitrogen 23.0 mg/dl (6-23); Calcium 9.0 mg/dl (8.6-10.3); Carbon Dioxide 27.0 mmol/L (21-32); Chloride 104.0 mmol/L (98-107); Creatinine Clr Calc Pharmacy 57.6 ml/min; Potassium 3.9 mmol/L (3.5-5.1); Sodium 138.0 mmol/L (136-145)
[2025-02-21 07:02] VITALS: RESP 18; O2SAT 96
[2025-02-21] MEDS: ACETAMINOPHEN 325 MG TAB PO PRN (07:10)
[2025-02-21] MEDS: ENOXAPARIN INJ 40 MG/0.4 ML SYR SQ SCH (09:07)
[2025-02-21] MEDS: EMPAGLIFLOZIN 10 MG TAB PO SCH (09:09)
[2025-02-21] MEDS: FUROSEMIDE 20 MG TAB PO SCH (09:10)
[2025-02-21] MEDS: ASPIRIN 81 MG ECTAB PO SCH (09:11)
[2025-02-21 13:05] VITALS: BP 144/75
[2025-02-21] MEDS ORDERED: ALBUTEROL 0.083% NEBU SOLN 3 ML VIAL NEB PRN (13:34)
--- NOTE | 2025-02-21 16:03 | Discharge Summary ---
Date of Service February 21, 2025 Admission HPI Per Admitting Provider Mr. Valentine is a pleasant 84yo gentleman with PMH of HFpEF and anxiety who presented to the ED for a one day history of continuous coughing. The pt was in his usual state of health until about 11pm last evening when he started coughing. He stated the cough had one episode of sierra-clear sputum, but the rest have been nonproductive. The cough was associated with nasal congestion, sore throat, chest pain, and SOB. The CP is not exertional and only seems to occur when he coughs. He did not have chest pain at bedside. As per the pt, he can usually do most household activities without feeling short of breath, but now he is short of breath even at rest. He denies fever, chills, sick contacts, N/V, abdominal, or complaints. Admission Exam Per Admitting Provider Physical Exam Physical Exam: GA: well groomed, well nourished in no apparent distress. AAOx3 HEENT: head normocephalic, atraumatic. EOMI. nares patent. Tympanic membranes visualized and clear without erythema b/l. No erythema or exudates of the oropharynx. RESP: wheezing present b/l CARDIOVASCULAR: S1 and S2 heard. No murmurs, rubs, or gallops. Radial pulses 2+ RRR GI: Normoactive bowel sounds, no distension or tenderness or masses felt to palpation MSK: no gross abnormalities or focal deficits SKIN: warm, dry, 1+ edema of LE b/l PSYCH: appropriate mood and affect NEURO: no focal deficits. speech fluent Principal Diagnosis Rhinovirus Discharge Exam Constitutional WD/WN, vitals as above Eyes + anicteric sclerae and EOM intact bilaterally Respiratory normal respiratory effort; no respiratory distress and no labored breathing Auscultation: + wheezes Cardiovascular Rate/Rhythm: regular rate and regular rhythm Heart Sounds: normal S1 and normal S2; no murmur Skin no rashes, warm and dry Psychiatric Eye Contact: good eye contact Speech: normal rate/rhythm/volume of speech Thought Process: goal directed thought process and linear/logical thought process Discharge Data Allergies Allergy/AdvReac Type Severity Reaction Status Date / Time pneumococcal vaccine Allergy Severe SHORTNESS Verified 02/20/25 19:29 OF BREATH, CHEST TIGHTNESS, BP WENT UP Consultations 02/20/25 18:43 ED Decision to Admit Stat 12/27/25 14:43 Consult [employer] market maker Routine Ordered Studies Chest X-Ray 02/20/25 12:37 XR chest 1V portable CLINICAL HISTORY: Chest pain, nonspecific COMPARISON STUDY: 09/16/2024 FINDINGS: Heart size and pulmonary vasculature are normal. No consolidation or pleural effusion. No pneumothorax. IMPRESSION: No acute findings. ACT 112: Negative or not required by law. Electronically signed by: Frederic Tavares M.D. 02/20/2025 1:01 PM Hospital Course (1) Cough: (2) Rhinovirus: (3) Chest pain: (4) Peripheral neuropathy: (5) Chronic back pain: (6) Hyperlipidemia: (7) Anxiety and depression: Plan Mr. Valentine is a pleasant 84yo gentleman with PMH of HFpEF and anxiety who presents with acute cough associated with chest pain, dyspnea, sore throat, and nasal congestion. Workup in the ED notable for rhinovirus. Pt will be admitted and managed for rhinovirus infection. #Rhinovirus #Cough #Chest Pain #Dyspnea WBC 9.17, procal <0.02, troponins neg x3 s/p lasix 20mg and albuterol nebulizer, lidocaine 15ml, aspirin 324mg in ED CXR unremarkable. Saturating well on room air. He did see pulmonology earlier this year for cryptogenic dyspnea and had normal spirometry and no findings of pulmonary disease -admit to [facility]-tele -droplet precautions -supplemental O2 as needed -albuterol nebulizers q6hrs for dyspnea and wheezing -Mucinex 600mg bid -fluticasone nasal spray 1 sprays/nostril bid for congestion -Flutter valve QID -Tylenol 650mg prn for fever, mild pain -AM labs -Saw patient this AM (02/21/25) and stated he is feeling well. Advised patient to come to the ER if symptoms worsen. Reported that his chest pain was from the coughing which has improved. Patient is clinically stable enough to be discharged. Follow-up with PCP in the next week or two to monitor symptoms. #Heart Failure with Preserved Ejection Fraction -last echo 06/2023 notable for EF 55%, grade II diastolic dysfunction, severely dilated LA, dilated RA -continue entresto 97/103mg bid -continue furosemide 20mg qdaily -continue Jardiance 10mg qdaily #MALICK -CPAP qhs #GERD -omeprazole 20mg qdaily #Anxiety -duloxetine 90mg qdaily -lorazepam 0.5mg QID prn #Chronic Pain #Lumbar Stenosis #Neuropathic Pain -gabapentin 600mg TID -oxycodone 10mg qdaily Dispo: med-tele VTE prophylaxis: lovenox 40mg qdaily Code Status: DNR/DNI but pt would like to be comfortable Diet: Heart Healthy, low sodium Total Time Total Time Spent Total Time Spent (In Minutes): as per attending Discharge Plan Discharge Items Patient Disposition: Home - Self-Care Reason For Visit: CHEST PAIN Discharge Diagnosis: Rhinovirus Condition on Discharge: Fair Activity: Resume your previous activity Non-emergency contact: Primary Care Provider Call non-emergency contact if: your symptoms worsen, your pain is not controlled and your temperature is above 101.5 Follow-up/Referrals: Jb Limon MD [Primary Care Provider] - Diet: Heart Healthy Addtl Attending Provider Instructions: You were admitted into the hospital for coughing and chest pain. We provided imaging of your chest and preformed an EKG to look at your heart rhythm. The chest x-ray did not show any fluid or pneumonia. The EKG that was read in the ED was also normal. We also found that you tested positive for a viral illness called, rhinovirus. This virus is most commonly known to cause the common cold. The best way to combat this virus is through drinking plenty of fluids, and over the counter common cold medication. Please follow-up with your PCP within the next week or two to monitor your symptoms. CONTACT YOUR PRIMARY CARE PROVIDER if you experience any of the following: Worsening of symptoms Fever, chills, or fatigue Difficulty following your treatment plan, or difficulty taking medications CALL 911 OR GO TO THE EMERGENCY DEPARTMENT if you experience any of the following: Sudden, severe abdominal pain or nausea/vomiting Severe chest pain, or chest pain that radiates (moves) to your jaw or arm Sudden, severe shortness of breath or difficulty breathing Thank you for allowing us to participate in your care. Pending Studies at Discharge: Yes (CRP ) Stand-Alone Forms: My [facility] [employer]urbines, Smoking Cessation Medications and DC Order Prescriptions: Continued furosemide 20 mg tablet 20 mg PO QAM duloxetine 30 mg capsule,delayed release(DR/EC) 30 mg PO QAM hydrocortisone 2.5 % cream 1 applic topical BID PRN (Reason: Itching) ketoconazole 2 % cream 1 applic topical BID PRN (Reason: as directed) sacubitril-valsartan [Entresto] 97-103 mg tablet 1 tab PO BID multivitamin [Multiple Vitamins] Tablet 1 tab PO QAM atorvastatin [Lipitor] 40 mg Tablet 40 mg PO HS ascorbic acid (vitamin C) [Vitamin C] 1,000 mg Tablet 1 g PO QAM lorazepam 0.5 mg Tablet 0.5 mg PO QID PRN (Reason: Anxiety) fluticasone propionate [Flonase Allergy Relief] 50 mcg/actuation [place],[employer] pension 2 spray INTRANASAL BID PRN (Reason: Congestion) cholecalciferol (vitamin D3) [Vitamin D3] 5,000 unit Tablet 5,000 unit PO QAM oxycodone [OxyContin] 10 mg tablet,oral only,ext.rel.12 hr 10 mg PO QAM aspirin 81 mg Tablet,Delayed Release (Dr/Ec) 81 mg PO QAM omeprazole 20 mg capsule,delayed release(DR/EC) 20 mg PO BID Jardiance 10 mg tablet 10 mg PO QAM gabapentin 600 mg tablet 600 mg PO TID acetaminophen [Tylenol] 325 mg Tablet 650 mg PO QID PRN (Reason: Fever Or Pain) tamsulosin 0.4 mg capsule 0.4 mg PO BID melatonin 10 mg Tablet 10 mg PO HS duloxetine 60 mg Capsule,Delayed Release(Dr/Ec) 60 mg PO QAM Discharge Orders: Discharge Order (Routine); Ordered 02/21/25 Ordered By: Hernán Boswell Admission Data Admit Date/Time: 02/20/25 19:33 Attending Provider: Jake Farrell Admit Provider: Evans Grey Primary Care Provider: Jb Limon Other Providers: Cornelia Sykes Resident Activity Tracking Resident Involvement: Resident Care Provided Care Provided: Adult Hospital Medicine
[2025-02-21 16:16] VITALS: PULSE 87
--- NOTE | 2025-02-23 20:39 | Emergency Department Note ---
ED Visit Note Late entry for 02/20. I was consulted by the Advanced Practice Provider. I personally made/approved the management plan and take responsibility for the patient management. I performed a substantive portion of the visit. Husam Dobson DO .
== END 2025-02-21 17:27 | disposition home or self-care (01) ==
LOC: ED 12:27 → EDINP 19:33 → SUATTDRO 19:33 → INTOOBSV 19:33 → 2N 21:07